=== PATIENT | female | born 1960 ===

== ENCOUNTER 2017-03-08 12:48 | Emergency (ER) | payer OTHER ==
[2017-03-08 12:49] VITALS: BMI 29.2
[2017-03-08 13:02] VITALS: TEMP 98.6
[2017-03-08] MEDS ORDERED: Sodium Chloride 0.9% 1,000 ML IV STA (13:14)
--- NOTE | 2017-03-08 13:27 | C.PDOC ---
History Of Present Illness 56 y/o F c PMHx emphysema p/w fever, body aches, headache, nausea, cough x 4 days. Denies chills, dysuria, diarrhea, dyspnea, stiff neck. Taking Advil, last dose last night. Time Seen by Provider: 03/08/17 13:03 Chief Complaint (Nursing): Flu-like Symptoms Past Medical History Vital Signs: Last Vital Signs Temp 98.6 F 03/08/17 12:59 Pulse 101 H 03/08/17 12:59 Resp 15 03/08/17 12:59 BP 135/75 03/08/17 12:59 Pulse Ox 95 03/08/17 13:36 - Medical History PMH: Anxiety, Asthma, COPD, Depression, Emphysema, Gastritis, Hypercholesterolemia Denies: Chronic Kidney Disease Family History: States: No Known Family Hx - Social History Hx Tobacco Use: No Hx Alcohol Use: No Hx Substance Use: No - Immunization History Hx Tetanus Toxoid Vaccination: No Hx Influenza Vaccination: No Hx Pneumococcal Vaccination: No Review Of Systems Except As Marked, All Systems Reviewed And Found Negative. Cardiovascular: Negative for: Chest Pain Respiratory: Negative for: Shortness of Breath Physical Exam - Physical Exam Additional Physical Exam Comments: Constitutional: No acute distress. Head: Normocephalic. Atraumatic. Eyes: PERRL. ENT: Moist mucous membranes. Neck: Supple. Cardiovascular: Mild tachycardia. Radial pulse 2+ bilaterally. Chest: No tenderness. Respiratory: Clear to auscultation bilaterally. GI: Soft. Nontender. Nondistended. Back: No CVA tenderness. Musculoskeletal: No tenderness or swelling of extremities. Skin: No rash. Neurologic: Alert, no focal deficit. ED Course And Treatment - Laboratory Results Result Diagrams: 03/08/17 13:43 03/08/17 13:43 O2 Sat by Pulse Oximetry: 95 Medical Decision Making Medical Decision Making: UA positive for UTI. Other labs unremarkable. CXR no infiltrate or consolidation. Discharge home, f/u PMD, return to ER for worsening pain, fever, vomiting, dyspnea, or any other problem. Disposition - Disposition Disposition: HOME/ ROUTINE Disposition Time: 15:04 Condition: STABLE Prescriptions: levoFLOXacin [Levaquin] 1 tab PO DAILY #7 tab Ibuprofen [Motrin] 1 tab PO Q6 #30 tab Instructions: Urinary Tract Infection in Women (ED), Viral Syndrome (ED) - Clinical Impression Clinical Impression: Influenza-like illness, UTI (urinary tract infection) - Scribe Statement The provider has reviewed the documentation as recorded by the Narda Eddy Provider Attestation: All medical record entries made by the Narda were at my direction and personally dictated by me. I have reviewed the chart and agree that the record accurately reflects my personal performance of the history, physical exam, medical decision making, and the department course for this patient. I have also personally directed, reviewed, and agree with the discharge instructions and disposition.
[2017-03-08] MEDS ORDERED: Sodium Chloride 0.9% 1,000 ML ONE (13:46)
[2017-03-08 14:00] LABS: BASO # 0.1 K/uL (0.0-0.2); EOS # 0.3 K/uL (0.0-0.7); EOS % 2.3 % (0.0-4.0); HEMATOCRIT 41.4 % (34.0-47.0); LYMPH # 2.2 K/uL (1.0-4.3); MEAN CELL VOLUME 91.4 fL (81.0-99.0); MEAN CORPUSCULAR HEMOGLOBIN 30.3 pg (27.0-31.0); MEAN CORPUSCULAR HGB CONC 33.2 g/dL (33.0-37.0); MEAN PLATELET VOLUME 8.6 fL (7.2-11.7); MONO # 1.2 K/uL (0.0-0.8); MONO % 10.2 % (0.0-10.0); RED CELL DISTRIBUTION WIDTH 13.6 % (11.5-14.5); WHITE BLOOD COUNT 11.7 K/uL (4.8-10.8)
[2017-03-08 14:10] LABS: CHLORIDE 96 mmol/L (98-107); POTASSIUM 3.6 mmol/L (3.6-5.2); SODIUM 136 mmol/L (132-148)
[2017-03-08 14:12] LABS: ALB/GLOB RATIO 1.2 (1.0-2.1); ALKALINE PHOSPHATASE 88 U/L (38-126); AST/SGOT 21 U/L (14-36); BILIRUBIN,TOTAL 0.4 mg/dL (0.2-1.3); CARBON DIOXIDE 28 mmol/L (22-30); GFR AFRICAN-AMERICAN > 60; TOTAL PROTEIN 7.3 g/dL (6.3-8.3)
[2017-03-08 14:13] LABS: ALT/SGPT 25 U/L (9-52); BLOOD UREA NITROGEN 11 mg/dL (7-17); CALCIUM 8.9 mg/dl (8.6-10.4); GLUCOSE,RANDOM 103 mg/dL (65-105)
[2017-03-08 14:20] LABS: RBC URINE 2 /hpf (0-3); URINE BACTERIA MANY (<OCC); URINE BILIRUBIN NEGATIVE (NEGATIVE); URINE BLOOD NEGATIVE (NEGATIVE); URINE COLOR Yellow (YELLOW); URINE GLUCOSE (UA) NORMAL (Normal); URINE KETONE NEGATIVE (NEGATIVE); URINE LEUKOCYTE ESTERASE TRACE Leu/uL (Negative); URINE PROTEIN 1+ mg/dL (NEGATIVE); WBC URINE 13 /hpf (0-5)
--- NOTE | 2017-03-08 15:55 | RAD ---
HISTORY: fever COMPARISON: 09/18/2016 TECHNIQUE: Chest PA and lateral FINDINGS: LUNGS: Biapical pleural thickening with upper lobe granulomatous changes. Chronic interstitial lung markings. Right hilar prominence. Mild patchy increased markings at the left lung base with blunting of the left costophrenic angle and small nodular density at the left costophrenic angle. PLEURA: As above. CARDIOVASCULAR: Normal. OSSEOUS STRUCTURES: No significant abnormalities. VISUALIZED UPPER ABDOMEN: Normal. OTHER FINDINGS: None. IMPRESSION: Biapical pleural thickening with upper lobe granulomatous changes. Chronic interstitial lung markings. Right hilar prominence. Mild patchy increased markings at the left lung base with blunting of the left costophrenic angle and small nodular density at the left costophrenic angle.
[2017-03-08 16:12] VITALS: BP 102/70; PULSE 96; RESP 20; O2SAT 96
== END 2017-03-08 15:30 | disposition home or self-care (01) ==
LOC: C.ER 12:48
DX: J11.1 Influenza due to unidentified influenza virus with other respiratory manifestations (principal); N39.0 Urinary tract infection, site not specified; B96.20 Unspecified Escherichia coli [E. coli] as the cause of diseases classified elsewhere
CPT/HCPCS: 71020; 80053; 81001; 84703; 85025; 87086; 87181; 87804; 96361; 96374; 96375; 99285; J1885; J2405; J7040

== ENCOUNTER 2017-03-08 22:50 | Emergency (ER) | payer OTHER ==
[2017-03-08 22:50] VITALS: BMI 29.2
[2017-03-09] MEDS ORDERED: Sodium Chloride 0.9% 1,000 ML IV ONE (00:11)
[2017-03-09] MEDS ORDERED: Sodium Chloride 0.9% 250 ML IV ONE (00:20)
[2017-03-09 00:43] LABS: BASO # 0.1 K/uL (0.0-0.2); BASO % 0.7 % (0.0-2.0); EOS # 0.4 K/uL (0.0-0.7); HEMATOCRIT 39.1 % (34.0-47.0); LYMPH # 2.8 K/uL (1.0-4.3); LYMPH % 26.2 % (20.0-40.0); MEAN CELL VOLUME 91.4 fL (81.0-99.0); MEAN CORPUSCULAR HEMOGLOBIN 30.5 pg (27.0-31.0); MEAN CORPUSCULAR HGB CONC 33.3 g/dL (33.0-37.0); MEAN PLATELET VOLUME 8.4 fL (7.2-11.7); MONO % 9.1 % (0.0-10.0); RED CELL DISTRIBUTION WIDTH 13.7 % (11.5-14.5); WHITE BLOOD COUNT 10.6 K/uL (4.8-10.8)
[2017-03-09 00:51] LABS: CHLORIDE 100 mmol/L (98-107)
[2017-03-09 00:52] LABS: POTASSIUM 3.6 mmol/L (3.6-5.2); SODIUM 138 mmol/L (132-148)
[2017-03-09 00:54] LABS: ALB/GLOB RATIO 1.2 (1.0-2.1); ALKALINE PHOSPHATASE 86 U/L (38-126); ALT/SGPT 19 U/L (9-52); AST/SGOT 20 U/L (14-36); BILIRUBIN,TOTAL 0.3 mg/dL (0.2-1.3); BLOOD UREA NITROGEN 10 mg/dL (7-17); CARBON DIOXIDE 26 mmol/L (22-30); GFR AFRICAN-AMERICAN > 60; TOTAL PROTEIN 6.7 g/dL (6.3-8.3)
[2017-03-09 00:55] LABS: CALCIUM 8.7 mg/dl (8.6-10.4); GLUCOSE,RANDOM 107 mg/dL (65-105)
--- NOTE | 2017-03-09 02:11 | CT ---
EXAM: CT Head Without Intravenous Contrast CLINICAL HISTORY: 56 years old, female; Pain; Headache; Headache not specified; Additional info: R/O ich TECHNIQUE: Axial computed tomography images of the head/brain without intravenous contrast. This CT exam was performed using one or more of the following dose reduction techniques: automated exposure control, adjustment of the mA and/or kV according to patient size, and/or use of iterative reconstruction technique. EXAM DATE/TIME: 03/09/2017 12:54 AM COMPARISON: CT - HEAD W/O CONTRAST 08/26/2016 11:24:42 PM FINDINGS: Brain: Ventricular size and configuration is unchanged. There is no midline shift. There are no intra-axial or extra-axial mass lesions or areas of hemorrhage. There are no abnormal fluid collections. Dueñas-white differentiation is maintained. Ventricles: See above. Bones: Cranial vault is intact. Soft tissues: unremarkable Sinuses: There is no acute sinusitis. Ears and mastoids: Middle ears and mastoids are unremarkable Orbits: Orbital contents are unremarkable. IMPRESSION: No acute intracranial abnormality
[2017-03-09 03:42] VITALS: BP 112/67; PULSE 86; RESP 18; TEMP 98.4; O2SAT 98
--- NOTE | 2017-03-09 04:18 | C.PDOC ---
History Of Present Illness 56 year old female presents to the ED c/o chest pain with nausea, vomiting, and headaches that started 3 days ago. Patient notes headache as not being worse in life. Patient was seen earlier today in the ED. Patient is + photophobia denies SOB, fever, chills, dizziness, or any other complaints. Chief Complaint (Nursing): Chest Pain History Per: Patient History/Exam Limitations: no limitations Onset/Duration Of Symptoms: Days Current Symptoms Are (Timing): Still Present Severity: Mild Associated Symptoms: Nausea, Other (Nausea, vomiting, headache) Recent travel outside of the [place]: No Past Medical History Reviewed: Historical Data, Nursing Documentation, Vital Signs Vital Signs: Last Vital Signs Temp 98.4 F 03/09/17 03:39 Pulse 86 03/09/17 03:39 Resp 18 03/09/17 03:39 BP 112/67 03/09/17 03:39 Pulse Ox 98 03/09/17 04:29 - Medical History PMH: Anxiety, Asthma, COPD, Depression, Emphysema, Gastritis, Hypercholesterolemia Denies: Chronic Kidney Disease Family History: States: Unknown Family Hx - Social History Hx Tobacco Use: No Hx Alcohol Use: No Hx Substance Use: No - Immunization History Hx Tetanus Toxoid Vaccination: No Hx Influenza Vaccination: No Hx Pneumococcal Vaccination: No Review Of Systems Except As Marked, All Systems Reviewed And Found Negative. Constitutional: Negative for: Fever, Chills Cardiovascular: Positive for: Chest Pain Respiratory: Negative for: Shortness of Breath Gastrointestinal: Positive for: Nausea, Vomiting Neurological: Positive for: Headache (Not worse in life), Other (+ photophobia) . Negative for: Dizziness Physical Exam - Physical Exam Appears: Non-toxic, No Acute Distress Skin: Warm, Dry Head: Atraumatic, Normacephalic Eye(s): bilateral: Normal Inspection Chest: Symmetrical Cardiovascular: Rhythm Regular, No Murmur Respiratory: Normal Breath Sounds, No Rales, No Rhonchi, No Wheezing Gastrointestinal/Abdominal: Soft, No Tenderness Neurological/Psych: Oriented x3, Normal Speech, Normal Cognition ED Course And Treatment - Laboratory Results Result Diagrams: 03/09/17 00:41 03/09/17 00:41 ECG: Interpreted By Me, Viewed By Me ECG Rhythm: Sinus Rhythm (81) ECG Interpretation: Normal O2 Sat by Pulse Oximetry: 98 (Room air) Pulse Ox Interpretation: Normal Medical Decision Making Medical Decision Making: Plans: -EKG -CXR -Flexeril -Pepcid -Reglan -IV fluids -Toradol -Zofran -Reassess and disposition Pt is with UTI. On reassessment, patient is resting comfortably, and is in no acute distress. Patient was instructed to follow up with physician/clinic in 1-2 days for further evaluation Disposition - Disposition Referrals: [facility], [Non-Staff] - Disposition: HOME/ ROUTINE Disposition Time: 03:00 Condition: GOOD Additional Instructions: Thank you for letting us take care of you today. Your provider was Dr. Valadez. You were treated for tension headache. The emergency medical care you received today was directed at your acute symptoms. If you were prescribed any medication, please fill it and take as directed. It may take several days for your symptoms to resolve. Return to the Emergency Department if your symptoms worsen, do not improve, or if you have any other problems. Please contact your doctor or call one of the physicians/clinics you have been referred to that are listed on the Patient Visit Information form that is included in your discharge packet. Bring any paperwork you were given at discharge with you along with any medications you are taking to your follow up visit. Our treatment cannot replace ongoing medical care by a primary care provider (PCP) outside of the emergency department. Thank you for allowing the Critical access hospital team to be part of your care today. Follow up with your doctor in 2-3 days to be re-evaluated. Prescriptions: Meclizine [Meclizine*] 25 mg PO Q6 PRN #20 tab PRN Reason: Dizziness Instructions: Migraine Headache (ED) Forms: Gen Discharge Inst Bruneian Print Language: BENINESE - Clinical Impression Clinical Impression: Tension headache - Scribe Statement The provider has reviewed the documentation as recorded by the Scribe Beverley Jeffries All medical record entries made by the Scribe were at my direction and personally dictated by me. I have reviewed the chart and agree that the record accurately reflects my personal performance of the history, physical exam, medical decision making, and the department course for this patient. I have also personally directed, reviewed, and agree with the discharge instructions and disposition.
--- NOTE | 2017-03-09 08:50 | RAD ---
HISTORY: chest pain COMPARISON: 03/08/2017 FINDINGS: LUNGS: Mild venous congestion. Mild bilateral hilar prominence. Upper lobe granulomatous changes. No focal infiltrate or effusion. PLEURA: No significant pleural effusion identified, no pneumothorax apparent. CARDIOVASCULAR: Normal. OSSEOUS STRUCTURES: No significant abnormalities. VISUALIZED UPPER ABDOMEN: Normal. OTHER FINDINGS: None. IMPRESSION: Mild venous congestion. Mild bilateral hilar prominence. Upper lobe granulomatous changes. No focal infiltrate or effusion.
--- NOTE | 2017-03-19 08:44 | CARD ---
APPROVED REPORT EKG Measurement Heart [id number] <Conclusion> Normal sinus rhythm Possible Left atrial enlargement Abnormal ECG
== END 2017-03-09 03:42 | disposition home or self-care (01) ==
LOC: C.ER 22:50
DX: G44.209 Tension-type headache, unspecified, not intractable (principal)
CPT/HCPCS: 70450; 71010; 80053; 83690; 84484; 85025; 93005; 96361; 96374; 96375; 99284; J1885; J2405; J2765; J7040

== ENCOUNTER 2017-04-09 18:55 | Inpatient (IN) | payer OTHER ==
[2017-04-09 18:56] VITALS: BMI 29.2
--- NOTE | 2017-04-09 19:25 | C.PDOC ---
History Of Present Illness Patient presents to the ER with a complaint of feeling progressively SOB over the last couple of days. Patient also reports having a cough with yellow/white sputum. Patient is speaking in complete sentences and denies fever or chills. Time Seen by Provider: 04/09/17 19:25 Chief Complaint (Nursing): Shortness Of Breath History Per: Patient History/Exam Limitations: no limitations Onset/Duration Of Symptoms: Days Current Symptoms Are (Timing): Still Present Initiating Event: Other (Not known) Quality: Other (No pain) Current Respiratory Medications: None Severity: None Pain Scale Rating Of: 0 Associated Symptoms: Productive Cough. denies: Fever, Chills Recent travel outside of the [place]: No Past Medical History Reviewed: Historical Data, Nursing Documentation, Vital Signs Vital Signs: Last Vital Signs Temp 100.2 F H 04/09/17 20:23 Pulse 118 H 04/09/17 20:49 Resp 16 04/09/17 20:49 BP 147/72 04/09/17 20:49 Pulse Ox 95 04/09/17 20:49 - Medical History PMH: Anxiety, Asthma, COPD, Depression, Emphysema, Gastritis, Hypercholesterolemia Surgical History: No Surg Hx Family History: States: No Known Family Hx - Social History Hx Tobacco Use: No Hx Alcohol Use: No Hx Substance Use: No - Immunization History Hx Tetanus Toxoid Vaccination: No Hx Influenza Vaccination: No Hx Pneumococcal Vaccination: No Review Of Systems Constitutional: Negative for: Fever, Chills Respiratory: Positive for: Cough, Shortness of Breath, Sputum (Yellow/white) Physical Exam - Physical Exam Appears: Well, Non-toxic Skin: Warm, Dry Oral Mucosa: Moist Chest: Symmetrical, No Tenderness Cardiovascular: Rhythm Regular, No Murmur Respiratory: No Rales, Rhonchi (Scattered), Wheezing (Throughout) Gastrointestinal/Abdominal: Soft, No Tenderness Neurological/Psych: Oriented x3 ED Course And Treatment - Laboratory Results Result Diagrams: 04/09/17 19:59 04/09/17 19:59 O2 Sat by Pulse Oximetry: 96 (Room air) Pulse Ox Interpretation: Normal - Radiology CXR: Interpreted by Me, Viewed By Me CXR Interpretation: Yes: Other (unchanged from 03/09/17). No: Infiltrates, Fracture, Pnemothorax Progress Note: EKG, blood work, CXR and urinalysis ordered. Nebulizer treatment administered. pt refused abg. will do vbg Critical Care Time - Critical Care Note Total Time (in mins): 30 Documented critical care: time excludes all time spent performing seperately billable procedures. Disposition Discussed With Dr.: Talat Lugo Comment: accepted the pt onhis service and took over the care at 9:09 PM Doctor Will See Patient In The: ED Counseled Patient/Family Regarding: Studies Performed, Diagnosis - Disposition Disposition: HOSPITALIZED Disposition Time: 19:25 Condition: FAIR - POA Present On Arrival: None - Clinical Impression Clinical Impression: Exacerbation of asthma - Scribe Statement The provider has reviewed the documentation as recorded by the Scribe Chase Hammer All medical record entries made by the Scribe were at my direction and personally dictated by me. I have reviewed the chart and agree that the record accurately reflects my personal performance of the history, physical exam, medical decision making, and the department course for this patient. I have also personally directed, reviewed, and agree with the discharge instructions and disposition. Decision To Admit - Pt Status Changed To: Hospital Disposition Of: Inpatient - Admit Certification Admit to Inpatient:: After my assessment, the patient will require hospitalization for at least two midnights. This is because of the severity of symptoms shown, intensity of services needed, and/or the medical risk in this patient being treated as an outpatient. - InPatient: Physician Admission Certification: I certify that this patient requires 2 or more midnights of care for the following reason:: After my assessment, the patient will require hospitalization for at least two midnights. This is because of the severity of symptoms shown, intensity of services needed, and/or the medical risk in this patient being treated as an outpatient. - . Bed Request Type: Regular Admitting Physician: Talat Lugo Patient Diagnosis: Exacerbation of asthma, Dyspnea
[2017-04-09] MEDS ORDERED: Albuterol-Ipratrop 3 mg / 0.5 (3 ml) UD ONE ×4 (19:33→21:21)
[2017-04-09] MEDS: Albuterol-Ipratrop 3 mg / 0.5 (3 ml) UD IH SCH ×6 (20:00→21:27)
[2017-04-09 20:04] LABS: BASO # 0.1 K/uL (0.0-0.2); BASO % 0.9 % (0.0-2.0); EOS # 0.3 K/uL (0.0-0.7); EOS % 3.2 % (0.0-4.0); LYMPH # 2.4 K/uL (1.0-4.3); LYMPH % 21.9 % (20.0-40.0); MEAN CELL VOLUME 91.1 fL (81.0-99.0); MEAN CORPUSCULAR HEMOGLOBIN 30.9 pg (27.0-31.0); MEAN CORPUSCULAR HGB CONC 33.9 g/dL (33.0-37.0); MEAN PLATELET VOLUME 8.6 fL (7.2-11.7); MONO # 0.8 K/uL (0.0-0.8); MONO % 7.2 % (0.0-10.0); RED CELL DISTRIBUTION WIDTH 13.9 % (11.5-14.5); WHITE BLOOD COUNT 10.7 K/uL (4.8-10.8)
[2017-04-09 20:10] LABS: INR 0.9
[2017-04-09 20:12] LABS: VENOUS BLOOD GAS PCO2 57 mmHg (40-60); VENOUS BLOOD PH 7.28 (7.32-7.43)
[2017-04-09 20:27] LABS: CHLORIDE 99 mmol/L (98-107); SODIUM 134 mmol/L (132-148)
[2017-04-09 20:29] LABS: BILIRUBIN,TOTAL 1.1 mg/dL (0.2-1.3); CARBON DIOXIDE 25 mmol/L (22-30); GFR AFRICAN-AMERICAN > 60
[2017-04-09 20:30] LABS: ALB/GLOB RATIO 1.3 (1.0-2.1); ALKALINE PHOSPHATASE 94 U/L (38-126); ALT/SGPT 20 U/L (9-52); AST/SGOT 37 U/L (14-36); BLOOD UREA NITROGEN 11 mg/dL (7-17); GLUCOSE,RANDOM 82 mg/dL (65-105); TOTAL PROTEIN 8.1 g/dL (6.3-8.3)
[2017-04-09 21:17] LABS: RBC URINE 1 /hpf (0-3); URINE BACTERIA OCC (<OCC); URINE BILIRUBIN NEGATIVE (NEGATIVE); URINE BLOOD NEGATIVE (NEGATIVE); URINE COLOR Yellow (YELLOW); URINE GLUCOSE (UA) NORMAL (Normal); URINE KETONE NEGATIVE (NEGATIVE); URINE LEUKOCYTE ESTERASE 1+ Leu/uL (Negative); URINE PROTEIN NEGATIVE (NEGATIVE); URINE UROBILINOGEN NORMAL mg/dL (0.2-1.0); WBC URINE 17 /hpf (0-5)
[2017-04-09] MEDS: MethylPREDNISolone 40 mg Vial IVP SCH (23:32)
[2017-04-10 00:21] VITALS: RESP 20
--- NOTE | 2017-04-10 00:40 | CP.PCM.HP ---
<Ortega Fernandes - Last Filed: 04/10/17 00:11> History of Present Illness - History of Present Illness History of Present Illness: CC: "I feel short of breath." 54 F with PMH of COPD, Asthma, and HLD, presents to [facility] ED with complaint of SOB, subjective fever and body aches. Patient stated that her symptoms began yesterday while she was at home. She states that she tried albuterol, but it did not help. Also, she states she took her prednisone and it seemed to help. She reports that she has not experienced these symptoms before. She states her father also had body aches at home, but denies recent illness. She rates the body aches as 8/10 in severity. She describe them as constant dull ache in shoulders, back, and extremities. She denies any exacerbating or alleviating factors. Admits to fever/chills, dizziness, palpitations, productive cough. Denies chest pain, abdominal pain, n/v/d, headache, incontinence, and urinary symptoms. PMD: Dr. Oneill PMH: COPD Meds: As per EMR Allergies: NKDA PSH: CS x 3 Hosp: An admission in June 2016 for similar complaint FH: HTN and [place] (mom and dad) Social: 1 cigarette per day, has been smoking for 40 years. Denies drinking and drugs. Does not work. Present on Admission - Present on Admission Any Indicators Present on Admission: No History of DVT/PE: No History of Uncontrolled Diabetes: No Urinary Catheter: No Decubitus Ulcer Present: No Review of Systems - Review of Systems All systems: reviewed and no additional remarkable complaints except (as per HPI ) Past Patient History - Infectious Disease Hx of Infectious Diseases: None - Past Medical History & Family History Past Medical History?: Yes - Past Social History Smoking Status: Light Smoker < 10 Cigarettes Daily - CARDIAC Hx Hypercholesterolemia: Yes - PULMONARY Hx Asthma: Yes Hx Chronic Obstructive Pulmonary Disease (COPD): Yes Hx Emphysema: Yes - NEUROLOGICAL Hx Neurological Disorder: No - HEENT Hx HEENT Problems: No - RENAL Hx Chronic Kidney Disease: No - ENDOCRINE/METABOLIC Hx Endocrine Disorders: No - HEMATOLOGICAL/ONCOLOGICAL Hx Blood Disorders: No - INTEGUMENTARY Hx Dermatological Problems: No - MUSCULOSKELETAL/RHEUMATOLOGICAL Hx Musculoskeletal Disorders: No Hx Falls: No - GASTROINTESTINAL Hx Gastritis: Yes - GENITOURINARY/GYNECOLOGICAL Hx Genitourinary Disorders: No - PSYCHIATRIC Hx Anxiety: Yes Hx Depression: Yes Hx Substance Use: No - SURGICAL HISTORY Hx Surgeries: Yes Hx Section: Yes (x3) - ANESTHESIA Hx Anesthesia: Yes Hx Anesthesia Reactions: No Hx Malignant Hyperthermia: No Meds Allergies/Adverse Reactions: Allergies Allergy/AdvReac Type Severity Reaction Status Date / Time No Known Allergies Allergy Verified 04/09/17 19:23 Physical Exam - Constitutional Appears: In Acute Distress (mild) - Head Exam Head Exam: ATRAUMATIC, NORMOCEPHALIC - Eye Exam Eye Exam: EOMI, Normal appearance Pupil Exam: PERRL - ENT Exam ENT Exam: Mucous Membranes Dry - Neck Exam Neck exam: Positive for: Normal Inspection - Respiratory Exam Respiratory Exam: Decreased Breath Sounds, Wheezes, NORMAL BREATHING PATTERN. absent: Accessory Muscle Use, Respiratory Distress - Cardiovascular Exam Cardiovascular Exam: Tachycardia, REGULAR RHYTHM, +S1, +S2 - GI/Abdominal Exam GI & Abdominal Exam: Normal Bowel Sounds, Soft. absent: Tenderness - Extremities Exam Extremities exam: Positive for: normal capillary refill, pedal pulses present. Negative for: pedal edema - Back Exam Back exam: absent: CVA tenderness (L), CVA tenderness (R) - Neurological Exam Neurological exam: Alert, CN II-XII Intact, Oriented x3 - Psychiatric Exam Psychiatric exam: Anxious - Skin Skin Exam: Dry, Intact, Normal Color, Warm Results - Vital Signs Recent Vital Signs: Last Vital Signs Temp 98.4 F 04/09/17 22:20 Pulse 127 H 04/09/17 22:20 Resp 22 04/09/17 22:20 BP 105/63 04/09/17 22:20 Pulse Ox 95 04/09/17 22:20 - Labs Result Diagrams: 04/09/17 19:59 04/09/17 19:59 Assessment & Plan - Assessment and Plan (Free Text) Plan: (1) Dyspnea Asthma/COPD exacerbation vs Influenza f/u Legionella, urin f/u Strep pneumo f/u mycoplasma Influena A B CXR Solumedrol 40 mg IVP q8 hours Duonebs q6h Consult Dr. Howell (Pulmonology) Tamiflu BID Nasal canula 2L (2) Hyperlipidemia Start Crestor 2.5 mg po HS (3) Prophylactic measure Lovenox 40mg SC daily Protonix 40mg IVP daily Scds <Lugo,Talat A - Last Filed: 04/10/17 06:09> Results - Vital Signs Recent Vital Signs: Last Vital Signs Temp 99 F 04/10/17 05:47 Pulse 100 H 04/10/17 05:47 Resp 20 04/10/17 05:47 BP 116/72 04/10/17 05:47 Pulse Ox 96 04/10/17 05:47 - Labs Result Diagrams: 04/09/17 19:59 04/09/17 19:59 Assessment & Plan - Date & Time Date: 04/10/17 (I have seen and examined the patient. I agree with the findings and plan of care as documented by Dr. Fernandes. Patient with asthma exacerbation. Nebs, oxygen, solumedrol, and pulm consult. Peak flow before and after treatment. Check influenza. Monitor for acute changes.) Time: 06:07 Attending/Attestation - Attestation I have personally seen and examined this patient.: Yes I have fully participated in the care of the patient.: Yes I have reviewed all pertinent clinical information: Yes
[2017-04-10] MEDS: Albuterol-Ipratrop 3 mg / 0.5 (3 ml) UD INH SCH ×2 (01:53→08:07)
[2017-04-10] MEDS: MethylPREDNISolone 40 mg Vial IVP SCH ×4 (05:42→22:35)
[2017-04-10 07:22] LABS: BASO % 0.3 % (0.0-2.0); HEMATOCRIT 41.4 % (34.0-47.0); LYMPH # 0.5 K/uL (1.0-4.3); LYMPH % 5.7 % (20.0-40.0); MEAN CELL VOLUME 92.2 fL (81.0-99.0); MEAN CORPUSCULAR HEMOGLOBIN 30.6 pg (27.0-31.0); MEAN CORPUSCULAR HGB CONC 33.2 g/dL (33.0-37.0); MEAN PLATELET VOLUME 8.7 fL (7.2-11.7); MONO # 0.1 K/uL (0.0-0.8); MONO % 0.9 % (0.0-10.0); NRBC % 0.1 % (0.0-2.0); PLATELET COUNT 211 K/uL (130-400); RED CELL DISTRIBUTION WIDTH 13.4 % (11.5-14.5); WHITE BLOOD COUNT 9.2 K/uL (4.8-10.8)
[2017-04-10 07:23] LABS: INR 0.9
--- NOTE | 2017-04-10 07:38 | RAD ---
PROCEDURE: CHEST RADIOGRAPH, 1 VIEW HISTORY: SOB COMPARISON: None available. FINDINGS: LUNGS: Clear. PLEURA: Blunting of the left costophrenic angle. CARDIOVASCULAR: Normal. OSSEOUS STRUCTURES: No significant abnormalities. VISUALIZED UPPER ABDOMEN: Normal. OTHER FINDINGS: None. IMPRESSION: No evidence of acute pulmonary disease. Blunting of the left costophrenic angle of uncertain etiology.
[2017-04-10 07:53] LABS: CHLORIDE 99 mmol/L (98-107)
[2017-04-10 07:54] LABS: SODIUM 135 mmol/L (132-148)
[2017-04-10 07:56] LABS: ALB/GLOB RATIO 1.3 (1.0-2.1); ALKALINE PHOSPHATASE 81 U/L (38-126); ALT/SGPT 16 U/L (9-52); AST/SGOT 24 U/L (14-36); BILIRUBIN,TOTAL 0.6 mg/dL (0.2-1.3); BLOOD UREA NITROGEN 11 mg/dL (7-17); CARBON DIOXIDE 19 mmol/L (22-30); GFR AFRICAN-AMERICAN > 60; GLUCOSE,RANDOM 157 mg/dL (65-105); TOTAL PROTEIN 7.3 g/dL (6.3-8.3)
[2017-04-10 07:57] LABS: CALCIUM 9.4 mg/dl (8.6-10.4)
[2017-04-10 09:05] LABS: GIANT PLATELETS PRESENT; LARGE PLATELETS PRESENT; NEUTROPHIL 89 % (50-75); TOTAL CELLS COUNTED 100
[2017-04-10] MEDS: Pantoprazole 40 mg EC Tab PO SCH (11:24)
[2017-04-10] MEDS: Enoxaparin 40 mg Syringe SC SCH (11:24)
[2017-04-10 11:26] LABS: LEGIONELLA AG URINE NEGATIVE (NEGATIVE)
--- NOTE | 2017-04-10 12:45 | CP.PCM.CON ---
History of Present Illness - History of Present Illness History of Present Illness: Reason for consultation: Shortness of breath 54 F with PMH of COPD, and HLD, presents to [facility] ED with complaint of SOB. Patient stated that her symptoms began yesterday while she was at home. She states that she tried albuterol, but it did not help. Also, she states she took her prednisone and it seemed to help. Admits to fever/chills, dizziness, palpitations, productive cough. Denies chest pain, abdominal pain, n/ v/d, headache, incontinence, and urinary symptoms. PMH: COPD Meds: As per EMR Allergies: NKDA PSH: CS x 3 Hosp: An admission in June 2016 for similar complaint FH: HTN and [place] (mom and dad) Social: 1 cigarette per day, has been smoking for 40 years. Denies drinking and drugs. Does not work. Review of Systems - Review of Systems Systems not reviewed;Unavailable: Language Barrier Past Patient History - Infectious Disease Hx of Infectious Diseases: None - Past Medical History & Family History Past Medical History?: Yes - Past Social History Smoking Status: Light Smoker < 10 Cigarettes Daily - CARDIAC Hx Hypercholesterolemia: Yes - PULMONARY Hx Asthma: Yes Hx Chronic Obstructive Pulmonary Disease (COPD): Yes Hx Emphysema: Yes - NEUROLOGICAL Hx Neurological Disorder: No - HEENT Hx HEENT Problems: No - RENAL Hx Chronic Kidney Disease: No - ENDOCRINE/METABOLIC Hx Endocrine Disorders: No - HEMATOLOGICAL/ONCOLOGICAL Hx Blood Disorders: No - INTEGUMENTARY Hx Dermatological Problems: No - MUSCULOSKELETAL/RHEUMATOLOGICAL Hx Musculoskeletal Disorders: No Hx Falls: No - GASTROINTESTINAL Hx Gastritis: Yes - GENITOURINARY/GYNECOLOGICAL Hx Genitourinary Disorders: No - PSYCHIATRIC Hx Anxiety: Yes Hx Depression: Yes Hx Substance Use: No - SURGICAL HISTORY Hx Surgeries: Yes Hx Section: Yes (x3) - ANESTHESIA Hx Anesthesia: Yes Hx Anesthesia Reactions: No Hx Malignant Hyperthermia: No Meds Allergies/Adverse Reactions: Allergies Allergy/AdvReac Type Severity Reaction Status Date / Time No Known Allergies Allergy Verified 04/09/17 19:23 - Medications Medications: Current Medications Acetaminophen (Tylenol 325mg Tab) 650 mg PO Q6 PRN PRN Reason: Fever >100.4 F Last Admin: 04/10/17 05:45 Dose: 650 mg Albuterol/Ipratropium (Duoneb 3 Mg/0.5 Mg (3 Ml) Ud) 3 ml INH RQ6 [facility] Last Admin: 04/10/17 08:07 Dose: 3 ml Enoxaparin Sodium (Lovenox) 40 mg SC DAILY [facility] Last Admin: 04/10/17 11:24 Dose: 40 mg Methylprednisolone (Solu-Medrol) 40 mg IVP Q8H [facility] Last Admin: 04/10/17 05:42 Dose: 40 mg Ondansetron HCl (Zofran Inj) 4 mg IVP Q6 PRN PRN Reason: Nausea/Vomiting Oseltamivir Phosphate (Tamiflu Cap) 75 mg PO BID [facility] Stop: 04/14/17 22:28 Last Admin: 04/10/17 11:22 Dose: 75 mg Pantoprazole Sodium (Protonix Ec Tab) 40 mg PO DAILY [facility] Last Admin: 04/10/17 11:24 Dose: 40 mg Pneumococcal Polyvalent Vaccine (Pneumovax 23 Vaccine) 0.5 ml IM .ONCE ONE Stop: 04/12/17 10:01 Rosuvastatin Calcium (Crestor) 2.5 mg PO [facility] Physical Exam - Constitutional Appears: No Acute Distress - Head Exam Head Exam: ATRAUMATIC, NORMOCEPHALIC - Eye Exam Eye Exam: Normal appearance - ENT Exam ENT Exam: Mucous Membranes Moist - Neck Exam Neck exam: Positive for: Normal Inspection - Respiratory Exam Respiratory Exam: Rhonchi, Wheezes - Cardiovascular Exam Cardiovascular Exam: REGULAR RHYTHM - GI/Abdominal Exam GI & Abdominal Exam: Normal Bowel Sounds, Soft - Extremities Exam Extremities exam: Positive for: normal inspection - Neurological Exam Neurological exam: Alert, Oriented x3 Results - Vital Signs Recent Vital Signs: Last Vital Signs Temp 98.1 F 04/10/17 08:40 Pulse 104 H 04/10/17 08:40 Resp 20 04/10/17 08:40 BP 126/78 04/10/17 08:40 Pulse Ox 95 04/10/17 08:40 - Labs Result Diagrams: 04/10/17 07:07 04/10/17 07:07 Labs: Laboratory Results - last 24 hr 04/09/17 04/10/17 04/10/17 22:26 07:07 07:07 WBC 9.2 RBC 4.49 Hgb 13.7 Hct 41.4 MCV 92.2 MCH 30.6 MCHC 33.2 RDW 13.4 Plt Count 211 MPV 8.7 Neut % (Auto) 93.1 H Lymph % (Auto) 5.7 L [place] % (Auto) 0.9 Eos % (Auto) 0.0 Baso % (Auto) 0.3 Neut # 8.5 H Lymph # 0.5 L [place] # 0.1 Eos # 0.0 Baso # 0.0 Neutrophils % (Manual) 89 H Band Neutrophils % 3 H Lymphocytes % (Manual) 6 L Monocytes % (Manual) 2 Platelet Estimate Normal Large Platelets Present Giant Platelets Present RBC Morphology Normal PT 9.7 INR 0.9 APTT 27 Sodium Potassium Chloride Carbon Dioxide Anion Gap BUN Creatinine Est GFR ( Amer) Est GFR (Non-Af Amer) POC Glucose (mg/dL) Random Glucose Calcium Total Bilirubin AST ALT Alkaline Phosphatase Total Protein Albumin Globulin Albumin/Globulin Ratio Influenza Typ A,B (EIA) Negative for flu a/b Ur L.pneumophila Ag Mycoplasma pneumon IgM 04/10/17 04/10/17 04/10/17 07:07 07:12 08:11 WBC RBC Hgb Hct MCV MCH MCHC RDW Plt Count MPV Neut % (Auto) Lymph % (Auto) [place] % (Auto) Eos % (Auto) Baso % (Auto) Neut # Lymph # [place] # Eos # Baso # Neutrophils % (Manual) Band Neutrophils % Lymphocytes % (Manual) Monocytes % (Manual) Platelet Estimate Large Platelets Giant Platelets RBC Morphology PT INR APTT Sodium 135 Potassium 4.0 Chloride 99 Carbon Dioxide 19 L Anion Gap 21 H BUN 11 Creatinine 0.7 Est GFR ( Amer) > 60 Est GFR (Non-Af Amer) > 60 POC Glucose (mg/dL) 133 H Random Glucose 157 H Calcium 9.4 Total Bilirubin 0.6 AST 24 ALT 16 Alkaline Phosphatase 81 Total Protein 7.3 Albumin 4.1 Globulin 3.2 Albumin/Globulin Ratio 1.3 Influenza Typ A,B (EIA) Ur L.pneumophila Ag Negative Mycoplasma pneumon IgM Negative 04/10/17 11:38 WBC RBC Hgb Hct MCV MCH MCHC RDW Plt Count MPV Neut % (Auto) Lymph % (Auto) [place] % (Auto) Eos % (Auto) Baso % (Auto) Neut # Lymph # [place] # Eos # Baso # Neutrophils % (Manual) Band Neutrophils % Lymphocytes % (Manual) Monocytes % (Manual) Platelet Estimate Large Platelets Giant Platelets RBC Morphology PT INR APTT Sodium Potassium Chloride Carbon Dioxide Anion Gap BUN Creatinine Est GFR ( Amer) Est GFR (Non-Af Amer) POC Glucose (mg/dL) 209 H Random Glucose Calcium Total Bilirubin AST ALT Alkaline Phosphatase Total Protein Albumin Globulin Albumin/Globulin Ratio Influenza Typ A,B (EIA) Ur L.pneumophila Ag Mycoplasma pneumon IgM Assessment & Plan (1) COPD exacerbation Status: Acute Comment: 56-year-old female with long history of smoking presented to emergency room with worsening shortness of breath not responding to nebulizer treatment. Presentation consistent with COPD exacerbation. Continue IV steroids, nebulizer treatment and add Spiriva. Avelox 400 mg once daily
[2017-04-10] MEDS: Moxifloxacin IV 400mg/250ml NS 400 MG/250 ML BAG IVPB SCH (14:17)
[2017-04-10] MEDS: Albuterol HFA 90 mcg/actuation (8 g) INH SCH ×2 (16:36→19:52)
[2017-04-10] MEDS: Rosuvastatin Calcium 2.5 mg Tab PO SCH (22:35)
[2017-04-11] MEDS: Albuterol HFA 90 mcg/actuation (8 g) INH SCH ×6 (00:55→19:22)
[2017-04-11] MEDS: MethylPREDNISolone 40 mg Vial IVP SCH ×2 (05:50→21:55)
[2017-04-11 07:33] LABS: BASO % 0.1 % (0.0-2.0); LYMPH # 1.3 K/uL (1.0-4.3); MEAN CELL VOLUME 91.7 fL (81.0-99.0); MEAN CORPUSCULAR HEMOGLOBIN 29.7 pg (27.0-31.0); MEAN CORPUSCULAR HGB CONC 32.3 g/dL (33.0-37.0); MEAN PLATELET VOLUME 8.9 fL (7.2-11.7); MONO # 0.7 K/uL (0.0-0.8); MONO % 3.2 % (0.0-10.0); PLATELET COUNT 217 K/uL (130-400); RED CELL DISTRIBUTION WIDTH 13.8 % (11.5-14.5)
[2017-04-11 07:40] LABS: CHLORIDE 101 mmol/L (98-107); POTASSIUM 4.3 mmol/L (3.6-5.2); SODIUM 135 mmol/L (132-148)
[2017-04-11 07:43] LABS: ALB/GLOB RATIO 1.2 (1.0-2.1); ALKALINE PHOSPHATASE 84 U/L (38-126); ALT/SGPT 20 U/L (9-52); AST/SGOT 26 U/L (14-36); BILIRUBIN,TOTAL 0.5 mg/dL (0.2-1.3); BLOOD UREA NITROGEN 16 mg/dL (7-17); CALCIUM 9.3 mg/dl (8.6-10.4); CARBON DIOXIDE 25 mmol/L (22-30); GFR AFRICAN-AMERICAN > 60; GLUCOSE,RANDOM 136 mg/dL (65-105); TOTAL PROTEIN 6.8 g/dL (6.3-8.3); WHITE BLOOD COUNT 21.8 K/uL (4.8-10.8)
[2017-04-11] MEDS: Tiotropium 18 mcg Cap For Inhalation INH SCH (08:12)
[2017-04-11 09:39] LABS: TOTAL CELLS COUNTED 100
[2017-04-11 09:40] LABS: NEUTROPHIL 85 % (50-75)
[2017-04-11] MEDS: Pantoprazole 40 mg EC Tab PO SCH (10:10)
[2017-04-11] MEDS: Enoxaparin 40 mg Syringe SC SCH (10:15)
[2017-04-11] MEDS: Saccharomyces Boulardi 250 mg Cap PO SCH ×2 (10:54→21:55)
[2017-04-11] MEDS: Moxifloxacin IV 400mg/250ml NS 400 MG/250 ML BAG IVPB SCH (13:39)
--- NOTE | 2017-04-11 13:56 | CP.PCM.PN ---
<Joel Bowen - Last Filed: 04/11/17 13:56> Subjective - Date & Time of Evaluation Date of Evaluation: 04/11/17 Time of Evaluation: 13:55 - Subjective Subjective: Med progress note. Attending: Dr. Castro Pt seen and examined at bedside. No acute distress. Pt feeling much better. Says sob is improved, denies fevers, chills, n/v/d. Denies cp. PT eval pending. Objective - Vital Signs/Intake and Output Vital Signs (last 24 hours): Temp Pulse Resp BP Pulse Ox 98.2 F 79 20 125/69 96 04/11/17 08:05 04/11/17 08:05 04/11/17 08:05 04/11/17 08:05 04/11/17 08:05 Intake and Output: 04/11/17 04/11/17 06:59 18:59 Intake Total 715 Balance 715 - Medications Medications: Current Medications Acetaminophen (Tylenol 325mg Tab) 650 mg PO Q6 PRN PRN Reason: Fever >100.4 F Last Admin: 04/10/17 13:24 Dose: 650 mg Albuterol (Ventolin Hfa 90 Mcg/Actuation (8 G)) 1 puff INH RQ4 [facility] Last Admin: 04/11/17 11:43 Dose: 1 puff Enoxaparin Sodium (Lovenox) 40 mg SC DAILY [facility] Last Admin: 04/11/17 10:15 Dose: 40 mg Moxifloxacin HCl (Avelox Iv 400mg/250ml Ns) 400 mg in 250 mls @ 167 mls/hr IVPB Q24H [facility] Last Admin: 04/11/17 13:39 Dose: 167 mls/hr Methylprednisolone (Solu-Medrol) 40 mg IVP Q12 [facility] Ondansetron HCl (Zofran Inj) 4 mg IVP Q6 PRN PRN Reason: Nausea/Vomiting Oseltamivir Phosphate (Tamiflu Cap) 75 mg PO BID [facility] Stop: 04/14/17 22:28 Last Admin: 04/11/17 10:00 Dose: 75 mg Pantoprazole Sodium (Protonix Ec Tab) 40 mg PO DAILY [facility] Last Admin: 04/11/17 10:10 Dose: 40 mg Pneumococcal Polyvalent Vaccine (Pneumovax 23 Vaccine) 0.5 ml IM .ONCE ONE Stop: 04/12/17 10:01 Rosuvastatin Calcium (Crestor) 2.5 mg PO HS [facility] Last Admin: 04/10/17 22:35 Dose: 2.5 mg Saccharomyces Boulardii (Florastor) 250 mg PO BID [facility] Last Admin: 04/11/17 10:54 Dose: 250 mg Tiotropium [place] (Spiriva) 18 mcg INH RQ24 [facility] Last Admin: 04/11/17 08:12 Dose: Not Given - Labs Labs: 04/11/17 07:07 04/11/17 07:07 PT 9.7 SECONDS (9.7-12.2) 04/10/17 07:07 INR 0.9 04/10/17 07:07 APTT 27 SECONDS (21-34) 04/10/17 07:07 - Constitutional Appears: Non-toxic, No Acute Distress - Head Exam Head Exam: ATRAUMATIC, NORMAL INSPECTION, NORMOCEPHALIC - Eye Exam Eye Exam: EOMI - ENT Exam ENT Exam: Mucous Membranes Moist - Neck Exam Neck Exam: Full ROM, Normal Inspection - Respiratory Exam Respiratory Exam: Wheezes. absent: Respiratory Distress - Cardiovascular Exam Cardiovascular Exam: REGULAR RHYTHM, +S1, +S2 - GI/Abdominal Exam GI & Abdominal Exam: Soft, Normal Bowel Sounds. absent: Tenderness - Extremities Exam Extremities Exam: Full ROM, Normal Inspection - Neurological Exam Neurological Exam: Alert, Awake, Oriented x3 - Psychiatric Exam Psychiatric exam: Normal Affect, Normal Mood - Skin Skin Exam: Dry, Intact, Normal Color, Warm Assessment and Plan - Assessment and Plan (Free Text) Assessment: This is a 56 yo female presenting with COPD exacerbation (1) Dyspnea/COPD exacerbation Asthma/COPD exacerbation vs Influenza>>> flu negative Influena A B negative CXR shows blunting left costophrenic angle Solumedrol 40 mg IVP q12 hours albuterol q 4 and spiriva [address] Howell (Pulmonology). recs appreciated. Tamiflu BID Nasal canula 2L continue moxifloxacin 250 daily, day 2 (2) Hyperlipidemia continue Crestor 2.5 mg po HS (3) Prophylactic measure Lovenox 40mg SC daily Protonix 40mg IVP daily Scds dw Dr. Castro <Delilah Castro V - Last Filed: 04/11/17 17:52> Objective - Vital Signs/Intake and Output Vital Signs (last 24 hours): Temp Pulse Resp BP Pulse Ox 98.1 F 81 20 125/75 95 04/11/17 15:00 04/11/17 15:00 04/11/17 15:00 04/11/17 15:00 04/11/17 15:00 Intake and Output: 04/11/17 04/11/17 06:59 18:59 Intake Total 715 490 Balance 715 490 - Medications Medications: Current Medications Acetaminophen (Tylenol 325mg Tab) 650 mg PO Q6 PRN PRN Reason: Fever >100.4 F Last Admin: 04/10/17 13:24 Dose: 650 mg Albuterol (Ventolin Hfa 90 Mcg/Actuation (8 G)) 1 puff INH RQ4 [facility] Last Admin: 04/11/17 15:40 Dose: 1 puff Enoxaparin Sodium (Lovenox) 40 mg SC DAILY [facility] Last Admin: 04/11/17 10:15 Dose: 40 mg Moxifloxacin HCl (Avelox Iv 400mg/250ml Ns) 400 mg in 250 mls @ 167 mls/hr IVPB Q24H [facility] Last Admin: 04/11/17 13:39 Dose: 167 mls/hr Methylprednisolone (Solu-Medrol) 40 mg IVP Q12 [facility] Ondansetron HCl (Zofran Inj) 4 mg IVP Q6 PRN PRN Reason: Nausea/Vomiting Oseltamivir Phosphate (Tamiflu Cap) 75 mg PO BID [facility] Stop: 04/14/17 22:28 Last Admin: 04/11/17 10:00 Dose: 75 mg Pantoprazole Sodium (Protonix Ec Tab) 40 mg PO DAILY [facility] Last Admin: 04/11/17 10:10 Dose: 40 mg Pneumococcal Polyvalent Vaccine (Pneumovax 23 Vaccine) 0.5 ml IM .ONCE ONE Stop: 04/12/17 10:01 Rosuvastatin Calcium (Crestor) 2.5 mg PO HS [facility] Last Admin: 04/10/17 22:35 Dose: 2.5 mg Saccharomyces Boulardii (Florastor) 250 mg PO BID [facility] Last Admin: 04/11/17 10:54 Dose: 250 mg Tiotropium [place] (Spiriva) 18 mcg INH RQ24 [facility] Last Admin: 04/11/17 08:12 Dose: Not Given - Labs Labs: 04/11/17 07:07 04/11/17 07:07 PT 9.7 SECONDS (9.7-12.2) 04/10/17 07:07 INR 0.9 04/10/17 07:07 APTT 27 SECONDS (21-34) 04/10/17 07:07 Attending/Attestation - Attestation I have personally seen and examined this patient.: Yes I have fully participated in the care of the patient.: Yes I have reviewed all pertinent clinical information, including history, physical exam and plan: Yes Notes (Text): Patient seen, examined, and case discussed with day-time resident. Patient reports she is doing well and breathing well. Reports mild non- productive cough. Patient reports she would like to go home for the holiday. On exam, patient has mild inspiratory wheezing and bibasilar crackles but clinically improving. Patient's Solumedrol tapered today to Solumedrol 40mg IV Q 12hours Patient started on Spiriva 18mcg Inhaled daily with handinhaler. Patient to continue Avelox 400mg IV daily. Physical therapy eval ordered. Possible discharge tomorrow. Assessment/Plan 1) COPD Bronchitis Consult: Dr Howell (pulmonary) on board-->help appreciated Taper Solumedrol 40mg IVQ 8hours-->Solumedrol 40mg IV Q12 hours Spiriva 18mcg inhaled daily c/w Avelox 400mg IVPB daily to cover Florastor 250mg PO daily Negative for flu, legionella, and mycoplasma Chest xray (04/10/17): no evidence of acute pulmonary disease. Blunting of the left costophrenic angle of uncertain etiology Note: patient has significant smoking history, allergies to detergent, hot/cold weather which she reports "acts" up her lungs (2) Hyperlipidemia Crestor 2.5mg POqHS Lipid panel in AM (3) Prophylactic measure Protonix 40mg IVP daily for GI ppx SCDs b/l for DVT ppx Physical therapy eval (4) Tobacco cessation Patient report significant tobacco history-counselled cessation at bedside.
--- NOTE | 2017-04-11 17:56 | CP.PCM.PN ---
<Joel Bowen - Last Filed: 04/11/17 17:58> Subjective - Date & Time of Evaluation Date of Evaluation: 04/10/17 Time of Evaluation: 12:00 - Subjective Subjective: Med progress note for 04-10-17 Pt seen and examined at bedside. No acute distress. Pt admitted overnight. pt sob when walking to restroom. Pt feels better. Denies chest pain, fevers, chills , vomiting, diarrhea. Objective - Vital Signs/Intake and Output Vital Signs (last 24 hours): Temp Pulse Resp BP Pulse Ox 98.1 F 81 20 125/75 95 04/11/17 15:00 04/11/17 15:00 04/11/17 15:00 04/11/17 15:00 04/11/17 15:00 Intake and Output: 04/11/17 04/11/17 06:59 18:59 Intake Total 715 490 Balance 715 490 - Medications Medications: Current Medications Acetaminophen (Tylenol 325mg Tab) 650 mg PO Q6 PRN PRN Reason: Fever >100.4 F Last Admin: 04/10/17 13:24 Dose: 650 mg Albuterol (Ventolin Hfa 90 Mcg/Actuation (8 G)) 1 puff INH RQ4 [facility] Last Admin: 04/11/17 15:40 Dose: 1 puff Enoxaparin Sodium (Lovenox) 40 mg SC DAILY [facility] Last Admin: 04/11/17 10:15 Dose: 40 mg Moxifloxacin HCl (Avelox Iv 400mg/250ml Ns) 400 mg in 250 mls @ 167 mls/hr IVPB Q24H [facility] Last Admin: 04/11/17 13:39 Dose: 167 mls/hr Methylprednisolone (Solu-Medrol) 40 mg IVP Q12 [facility] Ondansetron HCl (Zofran Inj) 4 mg IVP Q6 PRN PRN Reason: Nausea/Vomiting Oseltamivir Phosphate (Tamiflu Cap) 75 mg PO BID [facility] Stop: 04/14/17 22:28 Last Admin: 04/11/17 17:51 Dose: 75 mg Pantoprazole Sodium (Protonix Ec Tab) 40 mg PO DAILY [facility] Last Admin: 04/11/17 10:10 Dose: 40 mg Pneumococcal Polyvalent Vaccine (Pneumovax 23 Vaccine) 0.5 ml IM .ONCE ONE Stop: 04/12/17 10:01 Rosuvastatin Calcium (Crestor) 2.5 mg PO HS [facility] Last Admin: 04/10/17 22:35 Dose: 2.5 mg Saccharomyces Boulardii (Florastor) 250 mg PO BID [facility] Last Admin: 04/11/17 10:54 Dose: 250 mg Tiotropium [place] (Spiriva) 18 mcg INH RQ24 [facility] Last Admin: 04/11/17 08:12 Dose: Not Given - Labs Labs: 04/11/17 07:07 04/11/17 07:07 PT 9.7 SECONDS (9.7-12.2) 04/10/17 07:07 INR 0.9 04/10/17 07:07 APTT 27 SECONDS (21-34) 04/10/17 07:07 - Constitutional Appears: Non-toxic, No Acute Distress - Head Exam Head Exam: ATRAUMATIC, NORMAL INSPECTION, NORMOCEPHALIC - Eye Exam Eye Exam: EOMI - ENT Exam ENT Exam: Mucous Membranes Moist - Neck Exam Neck Exam: Full ROM, Normal Inspection - Respiratory Exam Respiratory Exam: Wheezes. absent: Respiratory Distress - Cardiovascular Exam Cardiovascular Exam: +S1, +S2 - GI/Abdominal Exam GI & Abdominal Exam: Soft, Normal Bowel Sounds. absent: Tenderness - Extremities Exam Extremities Exam: Full ROM, Normal Inspection - Back Exam Back Exam: NORMAL INSPECTION - Neurological Exam Neurological Exam: Alert, Awake, Oriented x3 - Psychiatric Exam Psychiatric exam: Normal Affect, Normal Mood - Skin Skin Exam: Dry, Intact, Normal Color, Warm Assessment and Plan - Assessment and Plan (Free Text) Assessment: This is a 56 yo female with past medical hx of COPD/Asthma, HLD presenting with COPD exacerbation (1) Dyspnea/COPD exacerbation Asthma/COPD exacerbation vs Influenza>>> flu negative Influena A B negative CXR shows blunting left costophrenic angle Solumedrol 40 mg IVP q8 hrs albuterol q 4 and spiriva [address] Howell (Pulmonology). recs appreciated. Tamiflu BID Nasal canula 2L continue moxifloxacin 250 daily, day 1 (2) Hyperlipidemia continue Crestor 2.5 mg po HS (3) Prophylactic measure Lovenox 40mg SC daily Protonix 40mg IVP daily Scds dw Dr. Castro <Delilah Castro V - Last Filed: 04/12/17 20:35> Objective - Vital Signs/Intake and Output Vital Signs (last 24 hours): Temp Pulse Resp BP Pulse Ox 98.4 F 86 20 130/72 92 L 04/12/17 08:20 04/12/17 08:20 04/12/17 08:20 04/12/17 08:20 04/12/17 08:20 - Labs Labs: 04/12/17 07:01 04/12/17 07:01 PT 9.7 SECONDS (9.7-12.2) 04/10/17 07:07 INR 0.9 04/10/17 07:07 APTT 27 SECONDS (21-34) 04/10/17 07:07 Attending/Attestation - Attestation I have personally seen and examined this patient.: Yes I have fully participated in the care of the patient.: Yes I have reviewed all pertinent clinical information, including history, physical exam and plan: Yes Notes (Text): This is late computer entry for 04/10/17. Patient seen, examined, and case discussed with day-time resident. Patient reports mild dyspnea on exertion, noted wheezing and decreased breathe sounds on exam. Patient's Solumedrol 40mg IV Q 8 hours will consider taper based on clinical condition. Pulmonary consult (Dr. Howell) on board-->started on Spiriva and Avelox antibiotic Assessment/Plan 1) COPD Excerbation Consult: Dr Howell (pulmonary) on board-->help appreciated Solumedrol 40mg IVQ 8hours Spiriva 18mcg inhaled daily c/w Avelox 400mg IVPB daily to cover Florastor 250mg PO daily Negative for flu, legionella, and mycoplasma Chest xray (04/10/17): no evidence of acute pulmonary disease. Blunting of the left costophrenic angle of uncertain etiology Note: patient has significant smoking history, allergies to detergent, hot/cold weather which she reports "acts" up her lungs (2) Hyperlipidemia Crestor 2.5mg POqHS (3) Prophylactic measure Protonix 40mg IVP daily for GI ppx SCDs b/l for DVT ppx (4) Tobacco cessation Patient report significant tobacco history-counselled cessation at bedside.
--- NOTE | 2017-04-11 18:37 | CP.PCM.PN ---
Subjective - Date & Time of Evaluation Date of Evaluation: 04/11/17 Time of Evaluation: 15:00 - Subjective Subjective: patient seen and examined. sitting comfortably in no acute distress Denies cough, denies fever chills, denies chest Stable from pulmonary standpoint to go home Objective - Vital Signs/Intake and Output Vital Signs (last 24 hours): Temp Pulse Resp BP Pulse Ox 98.1 F 81 20 125/75 95 04/11/17 15:00 04/11/17 15:00 04/11/17 15:00 04/11/17 15:00 04/11/17 15:00 Intake and Output: 04/11/17 04/11/17 06:59 18:59 Intake Total 715 490 Balance 715 490 - Medications Medications: Current Medications Acetaminophen (Tylenol 325mg Tab) 650 mg PO Q6 PRN PRN Reason: Fever >100.4 F Last Admin: 04/10/17 13:24 Dose: 650 mg Albuterol (Ventolin Hfa 90 Mcg/Actuation (8 G)) 1 puff INH RQ4 [facility] Last Admin: 04/11/17 15:40 Dose: 1 puff Enoxaparin Sodium (Lovenox) 40 mg SC DAILY [facility] Last Admin: 04/11/17 10:15 Dose: 40 mg Moxifloxacin HCl (Avelox Iv 400mg/250ml Ns) 400 mg in 250 mls @ 167 mls/hr IVPB Q24H [facility] Last Admin: 04/11/17 13:39 Dose: 167 mls/hr Methylprednisolone (Solu-Medrol) 40 mg IVP Q12 [facility] Ondansetron HCl (Zofran Inj) 4 mg IVP Q6 PRN PRN Reason: Nausea/Vomiting Oseltamivir Phosphate (Tamiflu Cap) 75 mg PO BID [facility] Stop: 04/14/17 22:28 Last Admin: 04/11/17 17:51 Dose: 75 mg Pantoprazole Sodium (Protonix Ec Tab) 40 mg PO DAILY [facility] Last Admin: 04/11/17 10:10 Dose: 40 mg Pneumococcal Polyvalent Vaccine (Pneumovax 23 Vaccine) 0.5 ml IM .ONCE ONE Stop: 04/12/17 10:01 Rosuvastatin Calcium (Crestor) 2.5 mg PO HS [facility] Last Admin: 04/10/17 22:35 Dose: 2.5 mg Saccharomyces Boulardii (Florastor) 250 mg PO BID [facility] Last Admin: 04/11/17 10:54 Dose: 250 mg Tiotropium [place] (Spiriva) 18 mcg INH RQ24 [facility] Last Admin: 04/11/17 08:12 Dose: Not Given - Labs Labs: 04/11/17 07:07 04/11/17 07:07 PT 9.7 SECONDS (9.7-12.2) 04/10/17 07:07 INR 0.9 04/10/17 07:07 APTT 27 SECONDS (21-34) 04/10/17 07:07 Assessment and Plan (1) COPD exacerbation Status: Acute
[2017-04-11] MEDS: Rosuvastatin Calcium 2.5 mg Tab PO SCH (21:54)
[2017-04-12] MEDS: Albuterol HFA 90 mcg/actuation (8 g) INH SCH ×3 (00:10→08:24)
[2017-04-12 07:08] LABS: BASO # 0.1 K/uL (0.0-0.2); BASO % 0.5 % (0.0-2.0); HEMATOCRIT 39.1 % (34.0-47.0); LYMPH # 1.4 K/uL (1.0-4.3); LYMPH % 8.5 % (20.0-40.0); MEAN CELL VOLUME 91.2 fL (81.0-99.0); MEAN CORPUSCULAR HGB CONC 32.9 g/dL (33.0-37.0); MEAN PLATELET VOLUME 8.8 fL (7.2-11.7); MONO # 0.4 K/uL (0.0-0.8); MONO % 2.1 % (0.0-10.0); PLATELET COUNT 221 K/uL (130-400); RED CELL DISTRIBUTION WIDTH 13.6 % (11.5-14.5); WHITE BLOOD COUNT 16.5 K/uL (4.8-10.8)
[2017-04-12 07:18] LABS: CHLORIDE 100 mmol/L (98-107)
[2017-04-12 07:19] LABS: SODIUM 135 mmol/L (132-148)
[2017-04-12 07:21] LABS: CARBON DIOXIDE 24 mmol/L (22-30); CHOLESTEROL 271 mg/dL (0-199); GFR AFRICAN-AMERICAN > 60
[2017-04-12 07:22] LABS: ALB/GLOB RATIO 1.2 (1.0-2.1); ALKALINE PHOSPHATASE 82 U/L (38-126); ALT/SGPT 29 U/L (9-52); AST/SGOT 25 U/L (14-36); BLOOD UREA NITROGEN 21 mg/dL (7-17); CALCIUM 9.2 mg/dl (8.6-10.4); GLUCOSE,RANDOM 122 mg/dL (65-105); MAGNESIUM 1.8 mg/dL (1.6-2.3); PHOSPHOROUS 4.6 mg/dL (2.5-4.5); TOTAL PROTEIN 6.8 g/dL (6.3-8.3)
[2017-04-12 08:21] VITALS: BP 130/72; PULSE 86; TEMP 98.4; O2SAT 92
[2017-04-12] MEDS: Tiotropium 18 mcg Cap For Inhalation INH SCH (08:23)
[2017-04-12 08:49] LABS: BILIRUBIN,TOTAL 0.5 mg/dL (0.2-1.3)
[2017-04-12 09:42] LABS: NEUTROPHIL 91 % (50-75); TOTAL CELLS COUNTED 100
[2017-04-12] MEDS ORDERED: Pneumococcal 23-Valent Vaccine IM ONE (10:00)
[2017-04-12] MEDS: Enoxaparin 40 mg Syringe SC SCH (10:11)
[2017-04-12] MEDS: Saccharomyces Boulardi 250 mg Cap PO SCH (10:11)
[2017-04-12] MEDS: MethylPREDNISolone 40 mg Vial IVP SCH (10:12)
[2017-04-12] MEDS: Pantoprazole 40 mg EC Tab PO SCH (10:12)
--- NOTE | 2017-04-12 18:42 | CP.PCM.DIS ---
<Joel Bowen - Last Filed: 04/12/17 18:50> Provider - Provider Date of Admission: 04/09/17 21:03 Attending physician: Talat Lugo MD Consults: Consults: Dr. Cait lindsay Time Spent in preparation of Discharge (in minutes): 45 Hospital Course - Lab Results Lab Results: Most Recent Lab Values WBC 16.5 K/uL (4.8-10.8) H 04/12/17 07:01 RBC 4.29 Mil/uL (3.80-5.20) 04/12/17 07:01 Hgb 12.9 g/dL (11.0-16.0) 04/12/17 07:01 Hct 39.1 % (34.0-47.0) 04/12/17 07:01 MCV 91.2 fL (81.0-99.0) 04/12/17 07:01 MCH 30.0 pg (27.0-31.0) 04/12/17 07:01 MCHC 32.9 g/dL (33.0-37.0) L 04/12/17 07:01 RDW 13.6 % (11.5-14.5) 04/12/17 07:01 Plt Count 221 K/uL (130-400) 04/12/17 07:01 MPV 8.8 fL (7.2-11.7) 04/12/17 07:01 Neut % (Auto) 88.9 % (50.0-75.0) H 04/12/17 07:01 Lymph % (Auto) 8.5 % (20.0-40.0) L 04/12/17 07:01 Evans % (Auto) 2.1 % (0.0-10.0) 04/12/17 07:01 Eos % (Auto) 0.0 % (0.0-4.0) 04/12/17 07:01 Baso % (Auto) 0.5 % (0.0-2.0) 04/12/17 07:01 Neut # 14.6 K/uL (1.8-7.0) H 04/12/17 07:01 Lymph # 1.4 K/uL (1.0-4.3) 04/12/17 07:01 Evans # 0.4 K/uL (0.0-0.8) 04/12/17 07:01 Eos # 0.0 K/uL (0.0-0.7) 04/12/17 07:01 Baso # 0.1 K/uL (0.0-0.2) 04/12/17 07:01 Neutrophils % (Manual) 91 % (50-75) H 04/12/17 07:01 Band Neutrophils % 1 % (0-2) 04/12/17 07:01 Lymphocytes % (Manual) 7 % (20-40) L 04/12/17 07:01 Monocytes % (Manual) 1 % (0-10) 04/12/17 07:01 Platelet Estimate Normal (NORMAL) 04/12/17 07:01 Large Platelets Present 04/10/17 07:07 Giant Platelets Present 04/10/17 07:07 RBC Morphology Normal 04/12/17 07:01 PT 9.7 SECONDS (9.7-12.2) 04/10/17 07:07 INR 0.9 04/10/17 07:07 APTT 27 SECONDS (21-34) 04/10/17 07:07 pO2 21 mm/Hg (30-55) L 04/09/17 20:07 VBG pH 7.28 (7.32-7.43) L 04/09/17 20:07 VBG pCO2 57 mmHg (40-60) 04/09/17 20:07 VBG HCO3 22.2 mmol/L 04/09/17 20:07 VBG Total CO2 28.5 mmol/L (22-28) H 04/09/17 20:07 VBG O2 Sat (Calc) 38.2 % (40-65) L 04/09/17 20:07 VBG Base Excess -1.0 mmol/L (0.0-2.0) L 04/09/17 20:07 VBG Potassium 3.2 mmol/L (3.6-5.2) L 04/09/17 20:07 Sodium 138.0 mmol/l (132-148) 04/09/17 20:07 Chloride 105.0 mmol/L (98-107) 04/09/17 20:07 Glucose 78 mg/dl (65-105) 04/09/17 20:07 Lactate 1.6 mmol/L (0.7-2.1) 04/09/17 20:07 Sodium 135 mmol/L (132-148) 04/12/17 07:01 Potassium 4.0 mmol/L (3.6-5.2) 04/12/17 07:01 Chloride 100 mmol/L (98-107) 04/12/17 07:01 Carbon Dioxide 24 mmol/L (22-30) 04/12/17 07:01 Anion Gap 16 (10-20) 04/12/17 07:01 BUN 21 mg/dL (7-17) H 04/12/17 07:01 Creatinine 0.9 MG/DL (0.7-1.2) 04/12/17 07:01 Est GFR ( Amer) > 60 04/12/17 07:01 Est GFR (Non-Af Amer) > 60 04/12/17 07:01 POC Glucose (mg/dL) 132 mg/dL (65-110) H 04/12/17 07:12 Random Glucose 122 mg/dL (65-105) H 04/12/17 07:01 Calcium 9.2 mg/dl (8.6-10.4) 04/12/17 07:01 Phosphorus 4.6 mg/dL (2.5-4.5) H 04/12/17 07:01 Magnesium 1.8 mg/dL (1.6-2.3) 04/12/17 07:01 Total Bilirubin 0.5 mg/dL (0.2-1.3) 04/12/17 07:01 AST 25 U/L (14-36) 04/12/17 07:01 ALT 29 U/L (9-52) 04/12/17 07:01 Alkaline Phosphatase 82 U/L (38-126) 04/12/17 07:01 Total Protein 6.8 g/dL (6.3-8.3) 04/12/17 07:01 Albumin 3.7 g/dL (3.5-5.0) 04/12/17 07:01 Globulin 3.1 gm/dL (2.2-3.9) 04/12/17 07:01 Albumin/Globulin Ratio 1.2 (1.0-2.1) 04/12/17 07:01 Triglycerides 119 mg/dL (0-149) 04/12/17 07:01 Cholesterol 271 mg/dL (0-199) H 04/12/17 07:01 LDL Cholesterol Direct 173 mg/dL (0-129) H 04/12/17 07:01 HDL Cholesterol 66 mg/dL (30-70) 04/12/17 07:01 Venous Blood Potassium 3.2 mmol/L (3.6-5.2) L 04/09/17 20:07 Urine Color Yellow (YELLOW) 04/09/17 20:55 Urine Clarity Hazy (Clear) 04/09/17 20:55 Urine pH 5.0 (5.0-8.0) 04/09/17 20:55 Ur Specific Mora 1.016 (1.003-1.030) 04/09/17 20:55 Urine Protein Negative mg/dL (NEGATIVE) 04/09/17 20:55 Urine Glucose (UA) Normal mg/dL (Normal) 04/09/17 20:55 Urine Ketones Negative mg/dL (NEGATIVE) 04/09/17 20:55 Urine Blood Negative (NEGATIVE) 04/09/17 20:55 Urine Nitrate Negative (NEGATIVE) 04/09/17 20:55 Urine Bilirubin Negative (NEGATIVE) 04/09/17 20:55 Urine Urobilinogen Normal mg/dL (0.2-1.0) 04/09/17 20:55 Ur Leukocyte Esterase 1+ [place]/uL (Negative) H 04/09/17 20:55 Urine WBC (Auto) 17 /hpf (0-5) H 04/09/17 20:55 Urine RBC (Auto) 1 /hpf (0-3) 04/09/17 20:55 Ur Squamous Epith Cells 9 /hpf (0-5) H 04/09/17 20:55 Urine Bacteria Occ (<OCC) H 04/09/17 20:55 Influenza Typ A,B (EIA) Negative for flu a/b (NEGATIVE) 04/09/17 22:26 Ur L.pneumophila Ag Negative (NEGATIVE) 04/10/17 08:11 Mycoplasma pneumon IgM Negative (NEGATIVE) 04/10/17 08:11 - Hospital Course Hospital Course: Attending: Dr. Castro Admit Date- 04/10/17 DC date- 04/12/[address] Howell Discharge dx 1. COPD 2. HLD HPI: see H/P Lab data: see lab section Procedures- none No complications Hospital course 54 F with past medical hx of COPD, Asthma, and HLD, presents to [facility] ED with complaint of SOB, subjective fever and body aches. Patient stated that her symptoms began yesterday while she was at home. She states that she tried albuterol, but it did not help. Also, she states she took her prednisone and it seemed to help. She reports that she has not experienced these symptoms before. She states her father also had body aches at home, but denies recent illness. She rates the body aches as 8/10 in severity. She describe them as constant dull ache in shoulders, back, and extremities. She denies any exacerbating or alleviating factors. Admitted to fever/chills, dizziness, palpitations, productive cough. Denied chest pain, abdominal pain, n/ v/d, headache, incontinence, and urinary symptoms. (1) Dyspnea/COPD exacerbation Asthma/COPD exacerbation vs Influenza>>> flu negative Influena A B negative CXR shows blunting left costophrenic angle Solumedrol 40 mg IVP q8 hrs albuterol q 4 and spiriva [address] Howell (Pulmonology). recs appreciated. Tamiflu BID Nasal canula 2L continue moxifloxacin 250 daily (2) Hyperlipidemia continue Crestor 2.5 mg po HS (3) Prophylactic measure Lovenox 40mg SC daily Protonix 40mg IVP daily Scds DC meds 1. albuterol q 4 2. medrol dose pack- 21 days 3. avelox 400 mg daily for 2 more days 4. simvastatin 20 daily hs 5. spiriva 18 mcg daily 6. spiriva handihaler Discharge instructions 1. Please return if condition worsens. Pt medically stable for discharge. Pt to follow up with PMD in 3 days. - Date & Time of H&P Date of H&P: 04/10/17 Time of H&P: 00:11 Discharge Exam - Head Exam Head Exam: ATRAUMATIC, NORMAL INSPECTION, NORMOCEPHALIC - Eye Exam Eye Exam: EOMI - ENT Exam ENT Exam: Mucous Membranes Moist - Neck Exam Neck exam: Full Rom, Normal Inspection - Respiratory Exam Respiratory Exam: Wheezes, NORMAL BREATHING PATTERN - Cardiovascular Exam Cardiovascular Exam: REGULAR RHYTHM, +S1, +S2 - GI/Abdominal Exam GI & Abdominal Exam: Normal Bowel Sounds - Extremities Exam Extremities exam: full ROM, normal inspection - Back Exam Back exam: NORMAL INSPECTION - Neurological Exam Neurological exam: Alert, Oriented x3 - Psychiatric Exam Psychiatric exam: Normal Affect, Normal Mood - Skin Skin Exam: Dry, Intact, Normal Color, Warm Discharge Plan - Discharge Medications Prescriptions: RX: Albuterol HFA [Ventolin HFA 90 mcg/actuation (8 g)] 1 puff INH RQ4 PRN #1 inhaler PRN Reason: Shortness Of Breath Methylprednisolone [Medrol Dose Pack (21 tabs)] 4 mg PO DAILY #21 mg Moxifloxacin [Avelox] 400 mg PO DAILY #2 tab RX: Simvastatin 20 mg PO HS #30 tablet Tiotropium [Spiriva] 18 mcg IH DAILY #30 cap RX: Tiotropium [place] Inhaler [Spiriva Inhalation Handihaler Device] 1 inhaler INH ONCE #1 inhaler - Follow Up Plan Condition: STABLE Disposition: HOME/ ROUTINE Instructions: Albuterol (By mouth), Methylprednisolone (By mouth), Simvastatin (By mouth), Moxifloxacin (By mouth), Tiotropium (By breathing), Asthma (DC), Dyspnea (GEN) <Delilah Castro V - Last Filed: 04/12/17 20:33> Provider - Provider Date of Admission: 04/09/17 21:03 Attending physician: Talat Lugo MD Hospital Course - Lab Results Lab Results: Most Recent Lab Values WBC 16.5 K/uL (4.8-10.8) H 04/12/17 07:01 RBC 4.29 Mil/uL (3.80-5.20) 04/12/17 07:01 Hgb 12.9 g/dL (11.0-16.0) 04/12/17 07:01 Hct 39.1 % (34.0-47.0) 04/12/17 07:01 MCV 91.2 fL (81.0-99.0) 04/12/17 07:01 MCH 30.0 pg (27.0-31.0) 04/12/17 07:01 MCHC 32.9 g/dL (33.0-37.0) L 04/12/17 07:01 RDW 13.6 % (11.5-14.5) 04/12/17 07:01 Plt Count 221 K/uL (130-400) 04/12/17 07:01 MPV 8.8 fL (7.2-11.7) 04/12/17 07:01 Neut % (Auto) 88.9 % (50.0-75.0) H 04/12/17 07:01 Lymph % (Auto) 8.5 % (20.0-40.0) L 04/12/17 07:01 Evans % (Auto) 2.1 % (0.0-10.0) 04/12/17 07:01 Eos % (Auto) 0.0 % (0.0-4.0) 04/12/17 07:01 Baso % (Auto) 0.5 % (0.0-2.0) 04/12/17 07:01 Neut # 14.6 K/uL (1.8-7.0) H 04/12/17 07:01 Lymph # 1.4 K/uL (1.0-4.3) 04/12/17 07:01 Evans # 0.4 K/uL (0.0-0.8) 04/12/17 07:01 Eos # 0.0 K/uL (0.0-0.7) 04/12/17 07:01 Baso # 0.1 K/uL (0.0-0.2) 04/12/17 07:01 Neutrophils % (Manual) 91 % (50-75) H 04/12/17 07:01 Band Neutrophils % 1 % (0-2) 04/12/17 07:01 Lymphocytes % (Manual) 7 % (20-40) L 04/12/17 07:01 Monocytes % (Manual) 1 % (0-10) 04/12/17 07:01 Platelet Estimate Normal (NORMAL) 04/12/17 07:01 Large Platelets Present 04/10/17 07:07 Giant Platelets Present 04/10/17 07:07 RBC Morphology Normal 04/12/17 07:01 PT 9.7 SECONDS (9.7-12.2) 04/10/17 07:07 INR 0.9 04/10/17 07:07 APTT 27 SECONDS (21-34) 04/10/17 07:07 pO2 21 mm/Hg (30-55) L 04/09/17 20:07 VBG pH 7.28 (7.32-7.43) L 04/09/17 20:07 VBG pCO2 57 mmHg (40-60) 04/09/17 20:07 VBG HCO3 22.2 mmol/L 04/09/17 20:07 VBG Total CO2 28.5 mmol/L (22-28) H 04/09/17 20:07 VBG O2 Sat (Calc) 38.2 % (40-65) L 04/09/17 20:07 VBG Base Excess -1.0 mmol/L (0.0-2.0) L 04/09/17 20:07 VBG Potassium 3.2 mmol/L (3.6-5.2) L 04/09/17 20:07 Sodium 138.0 mmol/l (132-148) 04/09/17 20:07 Chloride 105.0 mmol/L (98-107) 04/09/17 20:07 Glucose 78 mg/dl (65-105) 04/09/17 20:07 Lactate 1.6 mmol/L (0.7-2.1) 04/09/17 20:07 Sodium 135 mmol/L (132-148) 04/12/17 07:01 Potassium 4.0 mmol/L (3.6-5.2) 04/12/17 07:01 Chloride 100 mmol/L (98-107) 04/12/17 07:01 Carbon Dioxide 24 mmol/L (22-30) 04/12/17 07:01 Anion Gap 16 (10-20) 04/12/17 07:01 BUN 21 mg/dL (7-17) H 04/12/17 07:01 Creatinine 0.9 MG/DL (0.7-1.2) 04/12/17 07:01 Est GFR ( Amer) > 60 04/12/17 07:01 Est GFR (Non-Af Amer) > 60 04/12/17 07:01 POC Glucose (mg/dL) 132 mg/dL (65-110) H 04/12/17 07:12 Random Glucose 122 mg/dL (65-105) H 04/12/17 07:01 Calcium 9.2 mg/dl (8.6-10.4) 04/12/17 07:01 Phosphorus 4.6 mg/dL (2.5-4.5) H 04/12/17 07:01 Magnesium 1.8 mg/dL (1.6-2.3) 04/12/17 07:01 Total Bilirubin 0.5 mg/dL (0.2-1.3) 04/12/17 07:01 AST 25 U/L (14-36) 04/12/17 07:01 ALT 29 U/L (9-52) 04/12/17 07:01 Alkaline Phosphatase 82 U/L (38-126) 04/12/17 07:01 Total Protein 6.8 g/dL (6.3-8.3) 04/12/17 07:01 Albumin 3.7 g/dL (3.5-5.0) 04/12/17 07:01 Globulin 3.1 gm/dL (2.2-3.9) 04/12/17 07:01 Albumin/Globulin Ratio 1.2 (1.0-2.1) 04/12/17 07:01 Triglycerides 119 mg/dL (0-149) 04/12/17 07:01 Cholesterol 271 mg/dL (0-199) H 04/12/17 07:01 LDL Cholesterol Direct 173 mg/dL (0-129) H 04/12/17 07:01 HDL Cholesterol 66 mg/dL (30-70) 04/12/17 07:01 Venous Blood Potassium 3.2 mmol/L (3.6-5.2) L 04/09/17 20:07 Urine Color Yellow (YELLOW) 04/09/17 20:55 Urine Clarity Hazy (Clear) 04/09/17 20:55 Urine pH 5.0 (5.0-8.0) 04/09/17 20:55 Ur Specific Mora 1.016 (1.003-1.030) 04/09/17 20:55 Urine Protein Negative mg/dL (NEGATIVE) 04/09/17 20:55 Urine Glucose (UA) Normal mg/dL (Normal) 04/09/17 20:55 Urine Ketones Negative mg/dL (NEGATIVE) 04/09/17 20:55 Urine Blood Negative (NEGATIVE) 04/09/17 20:55 Urine Nitrate Negative (NEGATIVE) 04/09/17 20:55 Urine Bilirubin Negative (NEGATIVE) 04/09/17 20:55 Urine Urobilinogen Normal mg/dL (0.2-1.0) 04/09/17 20:55 Ur Leukocyte Esterase 1+ [place]/uL (Negative) H 04/09/17 20:55 Urine WBC (Auto) 17 /hpf (0-5) H 04/09/17 20:55 Urine RBC (Auto) 1 /hpf (0-3) 04/09/17 20:55 Ur Squamous Epith Cells 9 /hpf (0-5) H 04/09/17 20:55 Urine Bacteria Occ (<OCC) H 04/09/17 20:55 Influenza Typ A,B (EIA) Negative for flu a/b (NEGATIVE) 04/09/17 22:26 Ur L.pneumophila Ag Negative (NEGATIVE) 04/10/17 08:11 Mycoplasma pneumon IgM Negative (NEGATIVE) 04/10/17 08:11 Attending/Attestation - Attestation I have personally seen and examined this patient.: Yes I have fully participated in the care of the patient.: Yes I have reviewed all pertinent clinical information, including history, physical exam and plan: Yes Notes (Text): Patient seen, examined, and case discussed with day-time resident. Patient breathing well. Patient is ambulatory without acute distress. Patient has mild inspiratory wheezing, good air way exchange. Discussed with pulmonary, patient is stable for discharge. Discussed with day-time resident, regarding discharge order and discharge instructions. Patient discharged on the followin) Spiriva 18mcg inhaled daily (30 capsules/ 1 refill) 2) Avelox 400mg PO daily for 3 more days (3/0 refills) 3) Medrol dose pack (use as instructed) (1 pack/no refill) 4) OTC Pepcid to protect stomach while on steroid taper 5) Albuterol 2 puff inhaled Q 4hour PRN SOB (1/ 1 refill) 6) Simvastatin 20mg PO qHS (30/0 refill); changed from Crestor due to affordablility for the patient Patient advised to follow-up with PMD upon discharge from hospitalization. If symptoms recur, advised to be evaluated immediately. This is a summary of patient's hospitalization. Please review EMR for further details.
--- NOTE | 2017-04-13 10:07 | CARD ---
APPROVED REPORT EKG Measurement Heart [id number] [place] 128P69 [id number] <Conclusion> Poor data quality, interpretation may be adversely affected Sinus tachycardia ST & T wave abnormality, consider lateral ischemia Abnormal ECG
--- NOTE | 2017-05-11 14:43 | CARD ---
APPROVED REPORT EKG Measurement Heart [id number] NC 132P74 [id number] <Conclusion> Normal sinus rhythm Normal ECG
== END 2017-04-12 13:45 | disposition home or self-care (01) | DRG 88 ==
LOC: C.ER 18:55 → C.9E 21:03 → C.3T 21:40
PROVIDERS: ADMIT Family Medicine; ATTEND Family Medicine
DX: J44.1 Chronic obstructive pulmonary disease with (acute) exacerbation (principal); J45.901 Unspecified asthma with (acute) exacerbation; J11.1 Influenza due to unidentified influenza virus with other respiratory manifestations; R06.02 Shortness of breath; E78.5 Hyperlipidemia, unspecified; F17.210 Nicotine dependence, cigarettes, uncomplicated

== ENCOUNTER 2017-05-18 15:32 | Emergency (ER) | payer OTHER ==
[2017-05-18 15:33] VITALS: BMI 29.2
[2017-05-18 15:39] VITALS: BP 132/78; PULSE 87; TEMP 98.6; O2SAT 97
[2017-05-18] MEDS ORDERED: Albuterol-Ipratrop 3 mg / 0.5 (3 ml) UD INH STA (16:04)
[2017-05-18] MEDS ORDERED: Albuterol-Ipratrop 3 mg / 0.5 (3 ml) UD ONE (16:08)
[2017-05-18 16:12] VITALS: RESP 20
--- NOTE | 2017-05-18 16:36 | C.PDOC ---
History Of Present Illness 56 y/o female, whose PMHx includes pneumonia 1 month ago, presents to the ED for evaluation of mild wheezing and shortness of breath which began around 1 week ago. Patient states she ran out of nebulizer liquids around 2 week ago. Patient also ran out of her albuterol puffer. She denies fever, chills, chest pain, cough. Time Seen by Provider: 05/18/17 15:55 Chief Complaint (Nursing): Shortness Of Breath History Per: Patient History/Exam Limitations: no limitations Onset/Duration Of Symptoms: Other (1 week ) Current Symptoms Are (Timing): Still Present Initiating Event: Upper Respiratory Illness Quality: denies: "Pain" Current Respiratory Medications: See Home Med List Associated Symptoms: denies: Fever, Chills, Chest Pain, Bloody Cough, Productive Cough Additional History Per: Patient Past Medical History Reviewed: Historical Data, Nursing Documentation, Vital Signs Vital Signs: Last Vital Signs Temp 98.6 F 05/18/17 15:36 Pulse 87 05/18/17 15:36 Resp 20 05/18/17 16:10 BP 132/78 05/18/17 15:36 Pulse Ox 97 05/18/17 22:32 - Medical History PMH: Anxiety, Asthma, COPD, Depression, Emphysema, Gastritis, Hypercholesterolemia Denies: Chronic Kidney Disease Family History: States: Unknown Family Hx - Social History Hx Tobacco Use: No Hx Alcohol Use: No Hx Substance Use: No - Immunization History Hx Tetanus Toxoid Vaccination: No Hx Influenza Vaccination: No Hx Pneumococcal Vaccination: No Review Of Systems Except As Marked, All Systems Reviewed And Found Negative. Constitutional: Negative for: Fever, Chills Cardiovascular: Negative for: Chest Pain Respiratory: Positive for: Shortness of Breath, Wheezing. Negative for: Cough Physical Exam - Physical Exam Appears: Non-toxic, No Acute Distress, Other (appears older than stated age ) Skin: Normal Color, Warm, Dry Head: Atraumatic, Normacephalic Eye(s): bilateral: Normal Inspection Oral Mucosa: Moist Neck: Normal ROM, Supple Respiratory: No Rales, No Rhonchi, Wheezing (scant, mild, R>L), Other (+ speaking complete sentences ) Back: Normal Inspection, No Vertebral Tenderness, No Paraspinal Tenderness Extremity: Normal ROM, Capillary Refill (less than 2 seconds ) ED Course And Treatment O2 Sat by Pulse Oximetry: 97 (on RA) Pulse Ox Interpretation: Normal - Radiology CXR: Interpreted by Me CXR Interpretation: Yes: No Acute Disease Progress Note: CXR ordered and reviewed. Patient received Albuterol IH, Pepcid PO, and prednisone PO. Medical Decision Making Medical Decision Making: mild COPD exacerbation, normal cxr, scant wheezing, NAD, probably due to ran out of nebs @ home 2 wks ago Still smoking cigarettes Disposition Doctor Will See Patient In The: Office Counseled Patient/Family Regarding: Studies Performed, Diagnosis - Disposition Referrals: [facility] [Outside] Disposition: HOME/ ROUTINE Disposition Time: 16:36 Condition: GOOD Additional Instructions: prednisona 40 mg cada varun para cumplir 5 rider Pepcid 20 mg en la noche para prevenir irritacion' del estomago debido al Prednisona Tratamientos nebulizadas con DOS ampulas de Duoneb cada 3-4 horas y extra susan la noche alma necessario Mariela de fumar Sigue con la [facility] para re-evaluacio'n en 2-3 rider alma necessario. Prescriptions: Albuterol HFA [Ventolin HFA 90 mcg/actuation (8 g)] 2 puff IH Q4H PRN #1 ea PRN Reason: asthma Albuterol/Ipratropium [Duoneb 3 MG/3 Ml-0.5 MG/3 Ml 3 Ml] 6 ml IH Q4H PRN #100 neb PRN Reason: asthma Famotidine [Pepcid] 20 mg PO HS #20 tab Prednisone [Deltasone] 40 mg PO DAILY #8 tablet Spacer, Inhalation [Aerochamber] 1 dev IH DAILY #1 dev Instructions: How to Stop Smoking (ED), COPD (Chronic Obstructive Pulmonary Disease) (ED) Print Language: KYRGYZ - Clinical Impression Clinical Impression: COPD (chronic obstructive pulmonary disease), Medication refill - Scribe Statement The provider has reviewed the documentation as recorded by the Scribe (Nanette Eddy) Provider Attestation: All medical record entries made by the Scribe were at my direction and personally dictated by me. I have reviewed the chart and agree that the record accurately reflects my personal performance of the history, physical exam, medical decision making, and the department course for this patient. I have also personally directed, reviewed, and agree with the discharge instructions and disposition.
--- NOTE | 2017-05-19 08:25 | RAD ---
HISTORY: copd/emphysema, sob COMPARISON: 04/09/2017 TECHNIQUE: Chest PA and lateral FINDINGS: LUNGS: Catheter tubing projecting over the left lung apex and left clavicle. Clinical correlation. Hyperinflation suggestive for COPD and or emphysematous changes. Bibasilar breast and nipple shadows. Blunted left costophrenic angle. Few scattered nodular densities in the lung lr including a nodular density in the right upper to mid lung zone. PLEURA: As above. CARDIOVASCULAR: Normal. OSSEOUS STRUCTURES: No significant abnormalities. VISUALIZED UPPER ABDOMEN: Normal. OTHER FINDINGS: None. IMPRESSION: Catheter tubing projecting over the left lung apex and left clavicle. Clinical correlation. Hyperinflation suggestive for COPD and or emphysematous changes. Bibasilar breast and nipple shadows. Blunted left costophrenic angle. Few scattered nodular densities in the lung lr including a nodular density in the right upper to mid lung zone.
== END 2017-05-18 16:49 | disposition home or self-care (01) ==
LOC: C.ER 15:32
DX: J44.9 Chronic obstructive pulmonary disease, unspecified (principal); Z72.0 Tobacco use; Z76.0 Encounter for issue of repeat prescription

== ENCOUNTER 2017-10-19 07:49 | Emergency (ER) | payer SELFPAY ==
[2017-10-19 07:49] VITALS: BMI 29.2
[2017-10-19 07:55] VITALS: O2SAT 98
[2017-10-19 08:12] VITALS: RESP 18; TEMP 98
[2017-10-19] MEDS ORDERED: Albuterol-Ipratrop 3 mg / 0.5 (3 ml) UD IH STA (08:17)
[2017-10-19] MEDS ORDERED: Albuterol-Ipratrop 3 mg / 0.5 (3 ml) UD ONE (08:23)
--- NOTE | 2017-10-19 08:47 | C.PDOC ---
History Of Present Illness 57 year old female with a history of COPD and Gastritis presents to the ED with complaints of bilateral ear pain, decreased appetite, fever, and productive cough for two weeks. Patient notes relief of fever with home remedies, however ear pain and decreased appetite persist. Time Seen by Provider: 10/19/17 08:07 Chief Complaint (Nursing): Cough, Cold, Congestion History Per: Patient History/Exam Limitations: no limitations Onset/Duration Of Symptoms: Days (2 weeks) Current Symptoms Are (Timing): Better Location Of Pain: Ear(s) Sick Contacts (Context): None Associated Symptoms: Cough, Sputum. denies: Fever, Chills, Nausea, Vomiting, Diarrhea Ear Symptoms: Bilateral: Ear Pain Recent travel outside of the [place]: No Additional History Per: Prior Records Past Medical History Reviewed: Historical Data, Nursing Documentation, Vital Signs Vital Signs: Last Vital Signs Temp 98.0 F 10/19/17 09:07 Pulse 77 10/19/17 09:07 Resp 18 10/19/17 09:07 BP 118/75 10/19/17 09:07 Pulse Ox 98 10/19/17 09:07 - Medical History PMH: Anxiety, Asthma, COPD, Depression, Emphysema, Gastritis, Hypercholesterolemia Family History: States: Unknown Family Hx - Social History Hx Tobacco Use: No Hx Alcohol Use: No Hx Substance Use: No - Immunization History Hx Tetanus Toxoid Vaccination: No Hx Influenza Vaccination: No Hx Pneumococcal Vaccination: Yes (03/2017) Review Of Systems Constitutional: Positive for: Weight loss, Other (decreased appetite ). Negative for: Fever, Chills ENT: Positive for: Ear Pain Cardiovascular: Negative for: Chest Pain, Palpitations Respiratory: Positive for: Cough, Sputum. Negative for: Shortness of Breath Gastrointestinal: Negative for: Nausea, Vomiting, Abdominal Pain, Diarrhea Musculoskeletal: Negative for: Neck Pain, Back Pain Skin: Negative for: Rash Neurological: Negative for: Weakness, Numbness, Headache, Dizziness Physical Exam - Physical Exam Appears: Non-toxic, No Acute Distress Skin: Warm, Dry, No Rash Head: Atraumatic, Normacephalic, No Tenderness Eye(s): bilateral: Normal Inspection, PERRL, EOMI Ear(s): Bilateral: Normal Nose: Normal, No Discharge Oral Mucosa: Moist Throat: Normal, No Erythema, No Exudate Neck: Normal ROM, Supple Chest: Symmetrical, No Deformity, No Tenderness Cardiovascular: Rhythm Regular, No Murmur Respiratory: No Rales, No Rhonchi, No Wheezing, Other (clear to auscultation bilaterally) Gastrointestinal/Abdominal: Soft, No Tenderness, No Distention, No Guarding, No Rebound Extremity: Normal ROM, No Tenderness, No Deformity, No Swelling Neurological/Psych: Oriented x3, Normal Speech Gait: Steady ED Course And Treatment O2 Sat by Pulse Oximetry: 98 (RA) Pulse Ox Interpretation: Normal Progress Note: Patient was given Zithromax, Albuterol, predniSONE, and nebulizer treatment. Reassessment Condition: Improved (Patient has no fever and in no respiratory distress. No clinical signs of pneumonia or dehydration. VSS and patient is AxOx3. She is stable for disharge.) Disposition Counseled Patient/Family Regarding: Diagnosis, Need For Followup - Disposition Referrals: Jewell Oneill MD [Staff Provider] - Disposition: HOME/ ROUTINE Disposition Time: 09:00 Condition: STABLE Additional Instructions: Vaya a mendiola mdico o la clnica en 2-5 jackson sin falta, para mas evaluacin. [place] los medicamentos alma indicado. Volver a la ruth de emergencia en cualquier momento si los sntomas persisten o empeoran. Prescriptions: Azithromycin [Zithromax] 250 mg PO DAILY #4 tab Prednisone 50 mg PO DAILY #4 tablet Instructions: Acute Bronchitis (ED) Forms: [employer] (German) Print Language: PASHTO - POA Present On Arrival: None - Clinical Impression Clinical Impression: Bronchitis - PA / FLOOR WAXER / Resident Statement MD/DO has reviewed & agrees with the documentation as recorded. - Scribe Statement The provider has reviewed the documentation as recorded by the Scribe Sally Huang All medical record entries made by the Scribe were at my direction and personally dictated by me. I have reviewed the chart and agree that the record accurately reflects my personal performance of the history, physical exam, medical decision making, and the department course for this patient. I have also personally directed, reviewed, and agree with the discharge instructions and disposition.
[2017-10-19 09:07] VITALS: BP 118/75; PULSE 77
== END 2017-10-19 09:18 | disposition home or self-care (01) ==
LOC: C.ER 07:49
DX: J40 Bronchitis, not specified as acute or chronic (principal)

== ENCOUNTER 2017-11-11 05:55 | Emergency (ER) | payer SELFPAY ==
[2017-11-11 05:55] VITALS: BMI 29.2
[2017-11-11] MEDS ORDERED: Albuterol-Ipratrop 3 mg / 0.5 (3 ml) UD INH STA ×2 (06:37→06:51)
[2017-11-11] MEDS ORDERED: Albuterol-Ipratrop 3 mg / 0.5 (3 ml) UD ONE ×2 (06:38→07:02)
[2017-11-11 06:43] VITALS: O2SAT 98
--- NOTE | 2017-11-11 06:43 | C.PDOC ---
History Of Present Illness 57 year old female presents to the ER with her typical asthma symptoms, associated with a mild cough. Denies fever, nausea, or vomiting. Time Seen by Provider: 11/11/17 05:56 Chief Complaint (Nursing): Respiratory Distress History Per: Patient History/Exam Limitations: no limitations Onset/Duration Of Symptoms: Hrs Current Symptoms Are (Timing): Still Present Initiating Event: Other (not known) Associated Symptoms: Other (Cough). denies: Fever Recent travel outside of the [place]: No Past Medical History Reviewed: Historical Data, Nursing Documentation, Vital Signs Vital Signs: Last Vital Signs Temp 98.1 F 11/11/17 06:00 Pulse 82 11/11/17 06:42 Resp 15 11/11/17 06:42 BP 116/68 11/11/17 06:42 Pulse Ox 98 11/11/17 06:46 - Medical History PMH: Anxiety, Asthma, COPD, Depression, Emphysema, Gastritis, Hypercholesterolemia Family History: States: Unknown Family Hx - Social History Hx Tobacco Use: No Hx Alcohol Use: No Hx Substance Use: No - Immunization History Hx Tetanus Toxoid Vaccination: No Hx Influenza Vaccination: No Hx Pneumococcal Vaccination: Yes (03/2017) Review Of Systems Constitutional: Negative for: Fever Respiratory: Positive for: Cough, Wheezing Gastrointestinal: Negative for: Nausea, Vomiting Physical Exam - Physical Exam Appears: Non-toxic, No Acute Distress Skin: Normal Color, Warm, Dry Head: Atraumatic, Normacephalic Eye(s): bilateral: Normal Inspection Oral Mucosa: Moist Chest: Symmetrical, No Tenderness Cardiovascular: Rhythm Regular Respiratory: No Rales, No Rhonchi, Wheezing (Mild expiratory), Other (Speaking in complete sentences, good air entry) Gastrointestinal/Abdominal: Soft, No Tenderness Neurological/Psych: Oriented x3, Normal Speech ED Course And Treatment ECG: Interpreted By Me, Viewed By Me ECG Rhythm: Sinus Rhythm ECG Interpretation: Normal Interpretation Of ECG: Normal axis, normal rhythm, normal intervals Rate From EC O2 Sat by Pulse Oximetry: 98 (Room air) Pulse Ox Interpretation: Normal Disposition - Disposition Referrals: Jewell Oneill MD [Primary Care Provider] - Disposition Time: 07:00 Condition: UNKNOWN Forms: [facility] (Slovak) - Clinical Impression Clinical Impression: Exacerbation of asthma - Scribe Statement The provider has reviewed the documentation as recorded by the Scribe Provider Attestation: Chase Hammer All medical record entries made by the Odiliaibberonica were at my direction and personally dictated by me. I have reviewed the chart and agree that the record accurately reflects my personal performance of the history, physical exam, medical decision making, and the department course for this patient. I have also personally directed, reviewed, and agree with the discharge instructions and disposition.
[2017-11-11 07:35] VITALS: BP 119/76; PULSE 90; RESP 16; TEMP 98.9
--- NOTE | 2017-11-12 12:34 | CARD ---
APPROVED REPORT EKG Measurement Heart [id number] <Conclusion> Normal sinus rhythm Nonspecific ST and T wave abnormality Abnormal ECG
== END 2017-11-11 07:50 | disposition home or self-care (01) ==
LOC: SUPCPDRO 05:55 → C.ER 05:55
DX: J45.901 Unspecified asthma with (acute) exacerbation (principal); F17.210 Nicotine dependence, cigarettes, uncomplicated

== ENCOUNTER 2018-01-16 13:52 | Emergency (ER) | payer OTHER ==
[2018-01-16 13:52] VITALS: BMI 29.2
[2018-01-16 14:00] VITALS: BP 119/76; PULSE 105; RESP 20; TEMP 98.1; O2SAT 95
[2018-01-16] MEDS ORDERED: Albuterol-Ipratrop 3 mg / 0.5 (3 ml) UD INH STA ×3 (14:41→14:43)
[2018-01-16] MEDS ORDERED: MethylPREDNISolone 40 mg Vial IM STA (14:41)
[2018-01-16] MEDS ORDERED: Albuterol-Ipratrop 3 mg / 0.5 (3 ml) UD ONE ×4 (14:46→15:31)
--- NOTE | 2018-01-16 15:24 | C.PDOC ---
History Of Present Illness 57 y/o F c PMHx asthma/COPD p/w dyspnea x 3 days. 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 Denies fever , chills, chest pain, vomiting, rash, recent travel. Time Seen by Provider: 01/16/18 14:33 Chief Complaint (Nursing): Cough, Cold, Congestion Past Medical History Vital Signs: Last Vital Signs Temp 98.1 F 01/16/18 13:58 Pulse 105 H 01/16/18 13:58 Resp 20 01/16/18 13:58 BP 119/76 01/16/18 13:58 Pulse Ox 95 01/16/18 13:58 - Medical History PMH: Anxiety, Asthma, COPD, Depression, Emphysema, Gastritis, Hypercholesterolemia Denies: Chronic Kidney Disease Family History: States: Unknown Family Hx - Social History Hx Tobacco Use: No Hx Alcohol Use: No Hx Substance Use: No - Immunization History Hx Tetanus Toxoid Vaccination: No Hx Influenza Vaccination: No Hx Pneumococcal Vaccination: Yes (03/2017) Review Of Systems Except As Marked, All Systems Reviewed And Found Negative. Constitutional: Negative for: Fever Cardiovascular: Positive for: Chest Pain Physical Exam - Physical Exam Additional Physical Exam Comments: Gen: NAD Head: NC Eyes: No scleral icterus ENT: MMM, no pharyngeal erythema or exudates. Neck: Supple Chest: No tenderness CV: Regular rate Lungs: Wheezing diffusely. No accessory muscle use Abd: Soft, NT Back: No midline tenderness Extremities: No swelling Skin: No rash Neuro: Alert, no focal deficit ED Course And Treatment O2 Sat by Pulse Oximetry: 95 Medical Decision Making Medical Decision Making: Duonebs x 3, add steroids. CXR no acute disease. No infiltrate or consolidation. F/u primary care, return to ED for worsening breathing, fever, or any other problem. Disposition - Disposition Disposition: HOME/ ROUTINE Disposition Time: 15:24 Condition: STABLE Prescriptions: Oseltamivir Phosphate [Tamiflu] 1 cap PO BID #10 capsule Prednisone [Deltasone] 3 tab PO DAILY #12 tablet Instructions: Asthma in Adults - Clinical Impression Clinical Impression: Asthma exacerbation, Influenza-like illness
--- NOTE | 2018-01-16 15:30 | RAD ---
HISTORY: cough COMPARISON: Comparison is made with 05/18/2017 TECHNIQUE: Chest PA and lateral FINDINGS: LUNGS: No active pulmonary disease. PLEURA: No significant pleural effusion identified. No pneumothorax apparent. CARDIOVASCULAR: Normal. OSSEOUS STRUCTURES: No significant abnormalities. VISUALIZED UPPER ABDOMEN: Normal. OTHER FINDINGS: None. IMPRESSION: No radiographic evidence of pneumonia.
== END 2018-01-16 15:55 | disposition home or self-care (01) ==
LOC: C.ER 13:52
DX: J45.901 Unspecified asthma with (acute) exacerbation (principal); J11.1 Influenza due to unidentified influenza virus with other respiratory manifestations; F17.210 Nicotine dependence, cigarettes, uncomplicated
CPT/HCPCS: 71046; 96372; 99283; J2920

== ENCOUNTER 2018-09-02 11:40 | Inpatient (IN) | payer OTHER ==
[2018-09-02 11:40] VITALS: BMI 29.2
[2018-09-02] MEDS ORDERED: Sodium Chloride 0.9% 1,000 ML IV ONE (12:43)
--- NOTE | 2018-09-02 12:55 | C.PDOC ---
History Of Present Illness 57 y/o female presents to ED for evaluation of cough, cold, and congestion for the last 9 days. She reports productive cough with white sputum and reports feeling short of breath. Notes she was diagnosed with fungal pneumonia infection in May in [place] and was given IV antibiotics for it. She returned from [place] on 08/31. Patient admits her family members at home are also sick with similar symptoms. She also complains of left upper back pain with cough. Otherwise, denies chest pain, palpitations, fever, chills, or any other associated symptoms at this time. Time Seen by Provider: 09/02/18 12:21 Chief Complaint (Nursing): Cough, Cold, Congestion History Per: Patient History/Exam Limitations: no limitations Onset/Duration Of Symptoms: Days (9) Current Symptoms Are (Timing): Still Present Associated Symptoms: Cough, Sputum, Nasal Congestion Ear Symptoms: Bilateral: None Recent travel outside of the [place]: Yes Additional History Per: Patient Past Medical History Reviewed: Historical Data, Nursing Documentation, Vital Signs Vital Signs: Last Vital Signs Temp 98.8 F 09/02/18 12:00 Pulse 90 09/02/18 12:00 Resp 20 09/02/18 12:00 BP 148/85 09/02/18 12:00 Pulse Ox 96 09/02/18 12:00 - Medical History PMH: Anxiety, Asthma, COPD, Depression, Emphysema, Gastritis, Hypercholesterolemia Denies: Chronic Kidney Disease Family History: States: Unknown Family Hx - Social History Hx Tobacco Use: No Hx Alcohol Use: No Hx Substance Use: No - Immunization History Hx Tetanus Toxoid Vaccination: No Hx Influenza Vaccination: No Hx Pneumococcal Vaccination: Yes (03/2017) Review Of Systems Except As Marked, All Systems Reviewed And Found Negative. ENT: Positive for: Nose Congestion. Negative for: Ear Pain, Throat Pain Cardiovascular: Negative for: Chest Pain, Palpitations, Edema Respiratory: Positive for: Cough, Shortness of Breath, Pleuritic Pain, Sputum Gastrointestinal: Negative for: Nausea, Vomiting, Abdominal Pain Musculoskeletal: Positive for: Back Pain. Negative for: Neck Pain Neurological: Negative for: Weakness, Numbness, Headache, Dizziness Physical Exam - Physical Exam Appears: Non-toxic, No Acute Distress, Other (comfortable) Skin: Normal Color, Warm, Dry Head: Atraumatic, Normacephalic Eye(s): bilateral: Normal Inspection Ear(s): Bilateral: Normal Nose: Normal Oral Mucosa: Moist Tongue: Normal Appearing Lips: Normal Appearing Throat: Normal, No Erythema, No Exudate, No Drooling Neck: Normal ROM, Supple Chest: Symmetrical Cardiovascular: Rhythm Regular, No Murmur Respiratory: Normal Breath Sounds, No Rales, No Rhonchi, No Wheezing Gastrointestinal/Abdominal: Soft, No Tenderness Back: No Vertebral Tenderness, No Paraspinal Tenderness Extremity: Normal ROM, No Pedal Edema Neurological/Psych: Oriented x3, Normal Speech ED Course And Treatment - Laboratory Results Result Diagrams: 09/02/18 13:00 09/02/18 13:00 O2 Sat by Pulse Oximetry: 96 (RA) Pulse Ox Interpretation: Normal - CT Scan/US CT chest Other Rad Studies (CT/US): Read By Radiologist, Radiology Report Reviewed CT/US Interpretation: Creator : Maggy Lawton MD. Dictator : Maggy Lawton MD. Medical Record Consultant : Mechanical Engineering Manager : Maggy Lawton MD. Approver2 : Report Date : 09/02/2018 15:27:35. My Comment : . Date of service: 09/02/18. CT chest without IV contrast. Indication: Subsegmental atelectasis right lung, nodule. Technique: Contiguous axial images were obtained through the chest without intravenous contrast enhancement. Sagittal and coronal reconstructions were generated and reviewed. This CT exam was performed using 1 or more of the following dose reduction techniques: Automated exposure control, adjustment of the MAA and/or kV according to patient size, and/or use of iterative reconstruction technique. . Radiation dose (DLP): 336.63 MGy-cm. Comparison: Chest x-ray performed 09/02/18, CT chest with contrast performed 01/23/15. Findings: Visualized portions of the inferior thyroid gland appear unremarkable. The unenhanced mediastinal and hilar vascular structures appear grossly unremarkable. The heart appears within normal limits of size. Pretracheal lymph node measures approximately 11 mm in short axis. Emphy sematous changes. Right middle lobe and to a lesser extent right upper lobe volume loss. Irregular pleural thickening/opacification along the pleural surface. 2 mm hyperdense focus along the dependent aspect of the right mainstem bronchus (series 3, image 50); possibly debris. No pneumothorax. Limited visualization of the noncontrast upper abdomen appears grossly unremarkable. . Osseous demineralization. Degenerative changes. Impression: Emphysematous changes. Streaky right middle lobe opacity may reflect atelectasis or pneumonia. Suspect trace pleural fluid or thickening along the right fissure. Correlate clinically. Recommend short-term follow-up to assess for resolution. Centrilobular emphysema. Significant right sided volume loss since prior study. Interval development of irregular pleural thickening or opacification involving the pleural surface on the right. Findings may represent postinflammatory scarring/atelectasis however neoplasm cannot be entirely excluded. Pretracheal lymph node measuring approximately 11 mm in short axis is noted. Bulky adenopathy is not appreciated. Correlate clinically and recommend 3 month follow-up CT of the chest with IV contrast. 2 mm hyperdense focus along the dependent aspect of the right mainstem bronchus; unclear significance, possibly debris. Tiny polyp cannot be entirely excluded. Additional findings as above. Medical Decision Making Medical Decision Making: Impression: 57 year old female with cough, cold, and congestion for 9 days. Plan: * Blood work * Urinalysis * Influenza AB * CXR * IV fluids Progress: Labs reviewed patient has leukocytosis. blood culture and antibiotics ordered [address] Taylor calls ED to report abnormal xray findings and suggest CT of chest. CXR shows Interval nodular opacity, 1.7 cm mid right lung zone. Malignant nodule is the diagnosis of exclusion. A nodular infiltrate/pneumonia is another consideration.Subsegmental atelectasis posterior right upper lobe noted primarily per lateral view. Slight interval change in right hemidiaphrag matic contour. CT of chest reviewed and shows right sided pneumonia. 1545 spoke with hospitalist to discuss case and imaging findings. patient accepted to medical service Disposition - Disposition Disposition: HOSPITALIZED Disposition Time: 15:55 Condition: STABLE - POA Present On Arrival: None - Clinical Impression Clinical Impression: Pneumonia - PA / ENDODONTIST / Resident Statement MD/DO has reviewed & agrees with the documentation as recorded. - Scribe Statement The provider has reviewed the documentation as recorded by the Scribe KP All medical record entries made by the Scribe were at my direction and personally dictated by me. I have reviewed the chart and agree that the record accurately reflects my personal performance of the history, physical exam, medical decision making, and the department course for this patient. I have also personally directed, reviewed, and agree with the discharge instructions and disposition. Decision To Admit - Pt Status Changed To: Hospital Disposition Of: Inpatient - Admit Certification Admit to Inpatient:: After my assessment, the patient will require hospitalization for at least two midnights. This is because of the severity of symptoms shown, intensity of services needed, and/or the medical risk in this patient being treated as an outpatient. - InPatient: Physician Admission Certification: I certify that this patient requires 2 or more midnights of care for the following reason:: Patient with CAP and needs IV Abx - . Bed Request Type: Regular Admitting Physician: Jose Antonio Leonardo Patient Diagnosis: Pneumonia
[2018-09-02 13:15] LABS: SQUAMOUS EPITHIAL 9 /hpf (0-5); URINE BILIRUBIN NEGATIVE (NEGATIVE); URINE BLOOD NEGATIVE (NEGATIVE); URINE CLARITY Clear (Clear); URINE COLOR Yellow (YELLOW); URINE GLUCOSE (UA) NORMAL (Normal); URINE LEUKOCYTE ESTERASE TRACE Leu/uL (Negative); URINE PROTEIN NEGATIVE (NEGATIVE); URINE UROBILINOGEN NORMAL mg/dL (0.2-1.0)
[2018-09-02 13:17] LABS: BASO # 0.2 K/uL (0.0-0.2); BASO % 1.1 % (0.0-2.0); EOS # 0.3 K/uL (0.0-0.7); EOS % 1.8 % (0.0-4.0); HEMOGLOBIN 14.7 g/dL (11.0-16.0); LYMPH # 5.1 K/uL (1.0-4.3); LYMPH % 33.5 % (20.0-40.0); MEAN CORPUSCULAR HEMOGLOBIN 29.8 pg (27.0-31.0); MEAN CORPUSCULAR HGB CONC 33.8 g/dL (33.0-37.0); MEAN PLATELET VOLUME 7.5 fL (7.2-11.7); MONO # 1.1 K/uL (0.0-0.8); MONO % 7.2 % (0.0-10.0); NEUT # 8.6 K/uL (1.8-7.0); NEUT % 56.4 % (50.0-75.0); NRBC % 0.1 % (0.0-2.0); RBC 4.92 Mil/uL (3.80-5.20); RED CELL DISTRIBUTION WIDTH 14.3 % (11.5-14.5); WHITE BLOOD COUNT 15.2 K/uL (4.8-10.8)
[2018-09-02 13:20] LABS: MEAN CELL VOLUME 88.2 fL (81.0-99.0)
[2018-09-02] MEDS ORDERED: Cefepime IV 2 gm in Dextrose 2 GM/100 ML BAG IVPB STA ×2 (13:21→15:26)
[2018-09-02 13:22] LABS: INR 0.9
--- NOTE | 2018-09-02 13:24 | RAD ---
Date of service: 09/02/2018 HISTORY: SOB COMPARISON: 01/16/2018 chest x-ray TECHNIQUE: Chest PA and lateral FINDINGS: LUNGS: Interval nodular opacity, 1.7 cm mid right lung zone. Malignant nodule is the diagnosis of exclusion. A nodular infiltrate/pneumonia is another consideration. CT chest non IV contrast enhanced recommended. Subsegmental atelectasis posterior right upper lobe noted primarily per lateral view. Slight interval change in right hemidiaphragmatic contour. PLEURA: No significant pleural effusion identified. No pneumothorax apparent. CARDIOVASCULAR: Normal. OSSEOUS STRUCTURES: No significant abnormalities. VISUALIZED UPPER ABDOMEN: Normal. OTHER FINDINGS: None. IMPRESSION: Interval nodular opacity, 1.7 cm mid right lung zone. Malignant nodule is the diagnosis of exclusion. A nodular infiltrate/pneumonia is another consideration. CT chest non IV contrast enhanced recommended. Subsegmental atelectasis posterior right upper lobe noted primarily per lateral view. Slight interval change in right hemidiaphragmatic contour. Comments: Findings were called in to the ER Femi Nicholas on 09/02/2018 at 1:20 p.m.
[2018-09-02 13:30] LABS: ALB/GLOB RATIO 1.2 (1.0-2.1); ALBUMIN 4.2 g/dL (3.5-5.0); ALT/SGPT 30 U/L (9-52); AST/SGOT 31 U/L (14-36); BLOOD UREA NITROGEN 15 mg/dL (7-17); CALCIUM 10.3 mg/dl (8.6-10.4); GFR NON-AFRICAN AMERICAN 57
[2018-09-02 13:45] LABS: B-TYPE NATRIURETIC PEPTIDE 173 pg/mL (0-900)
--- NOTE | 2018-09-02 15:29 | CT ---
Date of service: 09/02/18 CT chest without IV contrast Indication: Subsegmental atelectasis right lung, nodule Technique: Contiguous axial images were obtained through the chest without intravenous contrast enhancement. Sagittal and coronal reconstructions were generated and reviewed. This CT exam was performed using 1 or more of the following dose reduction techniques: Automated exposure control, adjustment of the MAA and/or kV according to patient size, and/or use of iterative reconstruction technique. Radiation dose (DLP): 336.63 MGy-cm. Comparison: Chest x-ray performed 09/02/18, CT chest with contrast performed 01/23/15 Findings: Visualized portions of the inferior thyroid gland appear unremarkable. The unenhanced mediastinal and hilar vascular structures appear grossly unremarkable. The heart appears within normal limits of size. Pretracheal lymph node measures approximately 11 mm in short axis. Emphysematous changes. Right middle lobe and to a lesser extent right upper lobe volume loss. Irregular pleural thickening/opacification along the pleural surface. 2 mm hyperdense focus along the dependent aspect of the right mainstem bronchus (series 3, image 50); possibly debris. No pneumothorax. Limited visualization of the noncontrast upper abdomen appears grossly unremarkable. Osseous demineralization. Degenerative changes. Impression: Emphysematous changes. Streaky right middle lobe opacity may reflect atelectasis or pneumonia. Suspect trace pleural fluid or thickening along the right fissure. Correlate clinically. Recommend short-term follow-up to assess for resolution. Centrilobular emphysema. Significant right sided volume loss since prior study. Interval development of irregular pleural thickening or opacification involving the pleural surface on the right. Findings may represent postinflammatory scarring/atelectasis however neoplasm cannot be entirely excluded. Pretracheal lymph node measuring approximately 11 mm in short axis is noted. Bulky adenopathy is not appreciated. Correlate clinically and recommend 3 month follow-up CT of the chest with IV contrast. 2 mm hyperdense focus along the dependent aspect of the right mainstem bronchus; unclear significance, possibly debris. Tiny polyp cannot be entirely excluded. Additional findings as above.
--- NOTE | 2018-09-02 16:57 | CP.PCM.HP ---
<Catherine Little - Last Filed: 09/02/18 17:17> History of Present Illness - History of Present Illness History of Present Illness: CC: cough and SOB HPI: Patient is a 57 year old female with PMHx of COPD who presents today for about 9 days of productive cough (yellow sputum) and shortness of breath. [place], but was visiting her home country of [facility] since march and returned 2 days ago. Of note patient was hospitalized in [facility] in March for Pseudomonas Pneumonia and had to get a tracheostomy and was "in a coma" for 1.5 months. Since then patient has been doing okay prior to this current episode. During these past 9 days patient has had no fevers, chills, chest pain, abdominal pain, nausea, vomiting, constipation or diarrhea. Patient has been using her Albuterol inhaler more often than usual (about 4 times per day instead of 2). Patient decided to come to the ER today because is not getting better. PMD: Dr. Oneill (poor followup) All: NKDA PMHx: COPD Surg: x 3, tracheostomy 04/16 FamHx: Mom: HTN, Dad: Emphysema Social: quit smoking about 5 months ago, prior 1/2ppd for 40 years, denies alcohol or drugs Meds: Albuterol, Spiriva, Incruse Ellipta Present on Admission - Present on Admission Any Indicators Present on Admission: No History of DVT/PE: No History of Uncontrolled Diabetes: No Urinary Catheter: No Decubitus Ulcer Present: No Review of Systems - Constitutional Constitutional: absent: Chills, Fever - EENT Ears: absent: Dizziness Nose/Mouth/Throat: absent: Nasal Congestion - Cardiovascular Cardiovascular: Dyspnea. absent: Chest Pain - Respiratory Respiratory: Cough, Dyspnea, Chest Congestion, Pain with Coughing - Gastrointestinal Gastrointestinal: absent: Abdominal Pain, Constipation, Diarrhea, Nausea, Vomiting - Genitourinary Genitourinary: absent: Change in Urinary Stream, Difficulty Urinating, Dysuria - Musculoskeletal Musculoskeletal: absent: Numbness, Tingling - Integumentary Integumentary: absent: Rash - Neurological Neurological: absent: Weakness Past Patient History - Infectious Disease Hx of Infectious Diseases: None - Past Medical History & Family History Past Medical History?: Yes - Past Social History Smoking Status: Light Smoker < 10 Cigarettes Daily - CARDIAC Hx Hypercholesterolemia: Yes - PULMONARY Hx Asthma: Yes Hx Chronic Obstructive Pulmonary Disease (COPD): Yes Hx Emphysema: Yes - NEUROLOGICAL Hx Neurological Disorder: No - HEENT Hx HEENT Problems: No - RENAL Hx Chronic Kidney Disease: No - ENDOCRINE/METABOLIC Hx Endocrine Disorders: No - HEMATOLOGICAL/ONCOLOGICAL Hx Blood Disorders: No - INTEGUMENTARY Hx Dermatological Problems: No - MUSCULOSKELETAL/RHEUMATOLOGICAL Hx Musculoskeletal Disorders: No Hx Falls: No - GASTROINTESTINAL Hx Gastritis: Yes - GENITOURINARY/GYNECOLOGICAL Hx Genitourinary Disorders: No - PSYCHIATRIC Hx Anxiety: Yes Hx Depression: Yes Hx Substance Use: No - SURGICAL HISTORY Hx Surgeries: Yes Hx Section: Yes (x3) - ANESTHESIA Hx Anesthesia: Yes Hx Anesthesia Reactions: No Hx Malignant Hyperthermia: No Meds Allergies/Adverse Reactions: Allergies Allergy/AdvReac Type Severity Reaction Status Date / Time cefepime Allergy RASH Verified 09/20/18 16:11 Physical Exam - Constitutional Appears: Non-toxic, No Acute Distress - Head Exam Head Exam: ATRAUMATIC, NORMAL INSPECTION, NORMOCEPHALIC - Eye Exam Eye Exam: EOMI, Normal appearance - ENT Exam ENT Exam: Mucous Membranes Moist - Respiratory Exam Respiratory Exam: Decreased Breath Sounds, NORMAL BREATHING PATTERN - Cardiovascular Exam Cardiovascular Exam: REGULAR RHYTHM, RRR, +S1, +S2 - GI/Abdominal Exam GI & Abdominal Exam: Normal Bowel Sounds, Soft. absent: Tenderness - Extremities Exam Extremities exam: Positive for: normal inspection. Negative for: pedal edema, tenderness - Back Exam Back exam: NORMAL INSPECTION - Neurological Exam Neurological exam: Alert, Oriented x3 - Psychiatric Exam Psychiatric exam: Normal Affect, Normal Mood - Skin Skin Exam: Intact, Normal Color, Warm Results - Vital Signs Recent Vital Signs: Last Vital Signs Temp 98.8 F 09/02/18 12:00 Pulse 90 09/02/18 12:00 Resp 20 09/02/18 12:00 BP 148/85 09/02/18 12:00 Pulse Ox 96 09/02/18 15:37 - Labs Result Diagrams: 09/02/18 13:00 09/02/18 13:00 Labs: Laboratory Results - last 24 hr 09/02/18 09/02/18 09/02/18 12:54 13:00 13:00 WBC 15.2 H RBC 4.92 Hgb 14.7 Hct 43.4 MCV 88.2 D MCH 29.8 MCHC 33.8 RDW 14.3 Plt Count 365 D MPV 7.5 Neut % (Auto) 56.4 Lymph % (Auto) 33.5 [place] % (Auto) 7.2 Eos % (Auto) 1.8 Baso % (Auto) 1.1 Neut # (Auto) 8.6 H Lymph # (Auto) 5.1 H [place] # (Auto) 1.1 H Eos # (Auto) 0.3 Baso # (Auto) 0.2 PT 10.0 INR 0.9 APTT 33 Sodium Potassium Chloride Carbon Dioxide Anion Gap BUN Creatinine Est GFR ( Amer) Est GFR (Non-Af Amer) Random Glucose Calcium Total Bilirubin AST ALT Alkaline Phosphatase Troponin I NT-Pro-B Natriuret Pep Total Protein Albumin Globulin Albumin/Globulin Ratio Urine Color Urine Clarity Urine pH Ur Specific [place] Urine Protein Urine Glucose (UA) Urine Ketones Urine Blood Urine Nitrate Urine Bilirubin Urine Urobilinogen Ur Leukocyte Esterase Urine WBC (Auto) Urine RBC (Auto) Ur Squamous Epith Cells Influenza Typ A,B (EIA) Negative for flu a/b 09/02/18 09/02/18 13:00 13:00 WBC RBC Hgb Hct MCV MCH MCHC RDW Plt Count MPV Neut % (Auto) Lymph % (Auto) [place] % (Auto) Eos % (Auto) Baso % (Auto) Neut # (Auto) Lymph # (Auto) [place] # (Auto) Eos # (Auto) Baso # (Auto) PT INR APTT Sodium 142 Potassium 4.9 Chloride 101 Carbon Dioxide 33 H Anion Gap 14 BUN 15 Creatinine 1.0 Est GFR ( Amer) > 60 Est GFR (Non-Af Amer) 57 Random Glucose 80 Calcium 10.3 Total Bilirubin 0.6 AST 31 ALT 30 Alkaline Phosphatase 119 Troponin I < 0.0120 NT-Pro-B Natriuret Pep 173 Total Protein 7.8 Albumin 4.2 Globulin 3.6 Albumin/Globulin Ratio 1.2 Urine Color Yellow Urine Clarity Clear Urine pH 5.0 Ur Specific [place] 1.014 Urine Protein Negative Urine Glucose (UA) Normal Urine Ketones Negative Urine Blood Negative Urine Nitrate Negative Urine Bilirubin Negative Urine Urobilinogen Normal Ur Leukocyte Esterase Trace Urine WBC (Auto) 2 Urine RBC (Auto) 1 Ur Squamous Epith Cells 9 H Influenza Typ A,B (EIA) Assessment & Plan - Assessment and Plan (Free Text) Assessment: Pneumonia hx of pseudomonas pneumonia in March and 20 pack year smoking hx cxray: interval nodular opacity, 1.7cm mid right lung zone. malignant nodule is the diagnosis of exclusion. a nodular infiltrate/ pneumonia is another consideration. Chest CT: emphysematous changes. centrilobular emphysema. pretracheal lymph node measuring 11mm in short axis noted. [address] with iV contrast. 2mm hyperdense focus along the dependent aspect of the right mainstem bronchus; unclear significance, possibly debris. tiny polyp cannot be entirely excluded. f/u sputum culture, blood culture, urine culture f/u strep pneumo, mycoplasma, legionella Pulm consulted, Dr. Howell, help appreciated meds: * Cefepime ivpb 2gm q12h * Vanco 1gm ivpb q12h * Tylenol prn for fevers COPD meds: * Duonebs q4h prn * Spiriva daily * Pulmicort respules q12h Prophylaxis DVT: scds, Lovenox 40mg sc daily GI: Pepcid 20mg po daily Florastor 250mg po BID <Jose Antonio Leonardo - Last Filed: 09/20/18 16:12> Results - Vital Signs Recent Vital Signs: Last Vital Signs Temp 98.9 F 09/04/18 16:00 Pulse 110 H 09/04/18 16:00 Resp 20 09/04/18 16:00 BP 117/69 09/04/18 16:00 Pulse Ox 95 09/04/18 16:00 - Labs Result Diagrams: 09/03/18 06:31 09/03/18 06:31 Attending/Attestation - Attestation I have personally seen and examined this patient.: Yes I have fully participated in the care of the patient.: Yes I have reviewed all pertinent clinical information: Yes Notes (Text): Pneumonia
[2018-09-02] MEDS: Albuterol-Ipratrop 3 mg / 0.5 (3 ml) UD INH PRN (21:05)
[2018-09-02 22:03] VITALS: RESP 20
[2018-09-02] MEDS: Saccharomyces Boulardi 250 mg Cap PO SCH (22:17)
[2018-09-02] MEDS: Vancomycin 1 gm/NS 200 ml 1 GM/200 ML BAG IVPB SCH (22:17)
[2018-09-03] MEDS: Cefepime IV 2 gm in Dextrose 2 GM/100 ML BAG IVPB SCH ×2 (04:02→16:15)
[2018-09-03 06:47] LABS: BASO % 0.4 % (0.0-2.0); EOS # 0.1 K/uL (0.0-0.7); EOS % 0.5 % (0.0-4.0); HEMOGLOBIN 13.2 g/dL (11.0-16.0); LYMPH # 1.4 K/uL (1.0-4.3); LYMPH % 11.9 % (20.0-40.0); MEAN CELL VOLUME 87.9 fL (81.0-99.0); MEAN CORPUSCULAR HEMOGLOBIN 29.6 pg (27.0-31.0); MEAN CORPUSCULAR HGB CONC 33.6 g/dL (33.0-37.0); MEAN PLATELET VOLUME 7.6 fL (7.2-11.7); MONO # 0.6 K/uL (0.0-0.8); MONO % 4.9 % (0.0-10.0); NEUT # 9.6 K/uL (1.8-7.0); NEUT % 82.3 % (50.0-75.0); NRBC % 0.1 % (0.0-2.0); RBC 4.47 Mil/uL (3.80-5.20); RED CELL DISTRIBUTION WIDTH 14.1 % (11.5-14.5); WHITE BLOOD COUNT 11.6 K/uL (4.8-10.8)
[2018-09-03 07:46] LABS: ALB/GLOB RATIO 1.2 (1.0-2.1); ALBUMIN 3.5 g/dL (3.5-5.0); ALT/SGPT 30 U/L (9-52); AST/SGOT 26 U/L (14-36); BLOOD UREA NITROGEN 18 mg/dL (7-17); CALCIUM 9.3 mg/dl (8.6-10.4); GFR NON-AFRICAN AMERICAN > 60
[2018-09-03] MEDS: Budesonide 0.25 mg/2 ml Inhal Susp UD INH SCH ×2 (08:27→20:16)
[2018-09-03] MEDS: Tiotropium 18 mcg Cap For Inhalation INH SCH (08:27)
[2018-09-03] MEDS: Enoxaparin 40 mg Syringe SC SCH (09:59)
[2018-09-03] MEDS: Saccharomyces Boulardi 250 mg Cap PO SCH ×2 (09:59→17:23)
[2018-09-03] MEDS: Vancomycin 1 gm/NS 200 ml 1 GM/200 ML BAG IVPB SCH ×2 (10:57→21:40)
--- NOTE | 2018-09-03 11:32 | CP.PCM.PN ---
Addendum entered and electronically signed by Jered Low 09/03/18 22:11: on physical exam, skin: erythema on anterior medial side of neck extending to anterior chest area. Original Note: <Jered Low - Last Filed: 09/03/18 21:52> Subjective - Date & Time of Evaluation Date of Evaluation: 09/03/18 Time of Evaluation: 09:20 - Subjective Subjective: PGY-[address] Leonardo service Patient is seen and examined at bedside. Patient states feeling better today, as her cough has improved. Patient reports a clear phlegm now, with cough not being as productive as previous days. Patient admits to mild headache due to oxygen given via nasal canula in evening time. Patiend denies chest pain, shortness of breath, nausea, vomiting, diarrhea, constipation or dysuria. On later encounter today, patient complained of rash in her chest and neck area. Objective - Vital Signs/Intake and Output Vital Signs (last 24 hours): Temp Pulse Resp BP Pulse Ox 98.3 F 96 H 20 144/78 98 09/03/18 07:33 09/03/18 07:33 09/03/18 07:33 09/03/18 07:33 09/03/18 07:33 Intake and Output: 09/03/18 09/03/18 06:59 18:59 Intake Total 550 Balance 550 - Medications Medications: Current Medications Acetaminophen (Tylenol 325mg Tab) 650 mg PO Q6 PRN PRN Reason: Fever >100.4 F Last Admin: 09/03/18 09:58 Dose: 650 mg Albuterol/Ipratropium (Duoneb 3 Mg/0.5 Mg (3 Ml) Ud) 3 ml INH RQ4 PRN PRN Reason: Shortness of Breath Last Admin: 09/02/18 21:05 Dose: 3 ml Budesonide (Pulmicort Respules) 0.25 mg INH RQ12 [facility] Last Admin: 09/03/18 08:27 Dose: 0.25 mg Enoxaparin Sodium (Lovenox) 40 mg SC DAILY [facility] Last Admin: 09/03/18 09:59 Dose: 40 mg Famotidine (Pepcid) 20 mg PO DAILY [facility] Last Admin: 09/03/18 09:58 Dose: 20 mg Cefepime HCl (Maxipime Iv 2 Gm Premix) 2 gm in 100 mls @ 200 mls/hr IVPB Q12H [facility]; Protocol Stop: 09/08/18 04:01 Last Admin: 09/03/18 04:02 Dose: 200 mls/hr Vancomycin/Sodium Chloride (Vancomycin 1 Gm/Ns 200 Ml) 1 gm in 200 mls @ 133 mls/hr IVPB Q12H [facility]; Protocol Stop: 09/07/18 21:01 Last Admin: 09/03/18 10:57 Dose: 133 mls/hr Influenza Virus Vaccine (Fluzone Quad [id number]) 60 mcg IM .ONCE ONE Stop: 09/04/18 10:01 Saccharomyces Boulardii (Florastor) 250 mg PO BID [facility] Last Admin: 09/03/18 09:59 Dose: 250 mg Tiotropium [place] (Spiriva) 18 mcg INH RQ24 [facility] Last Admin: 09/03/18 08:27 Dose: 18 mcg - Labs Labs: 09/03/18 06:31 09/03/18 06:31 PT 10.0 SECONDS (9.7-12.2) 09/02/18 13:00 INR 0.9 09/02/18 13:00 APTT 33 SECONDS (21-34) 09/02/18 13:00 - Constitutional Appears: Non-toxic, No Acute Distress - Head Exam Head Exam: ATRAUMATIC, NORMAL INSPECTION, NORMOCEPHALIC - Eye Exam Eye Exam: EOMI, Normal appearance - ENT Exam ENT Exam: Mucous Membranes Moist, Normal Exam - Neck Exam Neck Exam: Normal Inspection - Respiratory Exam Respiratory Exam: Decreased Breath Sounds, NORMAL BREATHING PATTERN. absent: Accessory Muscle Use, Respiratory Distress - Cardiovascular Exam Cardiovascular Exam: Tachycardia, REGULAR RHYTHM, +S1, +S2 - GI/Abdominal Exam GI & Abdominal Exam: Soft, Normal Bowel Sounds. absent: Tenderness - Extremities Exam Extremities Exam: Full ROM, Normal Inspection. absent: Calf Tenderness, Pedal Edema - Back Exam Back Exam: NORMAL INSPECTION - Neurological Exam Neurological Exam: Alert, Awake, Oriented x3 - Psychiatric Exam Psychiatric exam: Normal Affect, Normal Mood - Skin Skin Exam: Dry, Intact, Normal Color, Warm Assessment and Plan - Assessment and Plan (Free Text) Plan: Pneumonia hx of pseudomonas pneumonia in March and 20 pack year smoking hx cxray: interval nodular opacity, 1.7cm mid right lung zone. malignant nodule is the diagnosis of exclusion. a nodular infiltrate/ pneumonia is another consideration. Chest CT: emphysematous changes. centrilobular emphysema. pretracheal lymph node measuring 11mm in short axis noted. [address] with iV contrast. 2mm hyperdense focus along the dependent aspect of the right mainstem bronchus; unclear significance, possibly debris. tiny polyp cannot be entirely excluded. f/u sputum culture blood culture - no growth after 24 hours urine culture - no growth f/u strep pneumo - pending , mycoplasma -negative legionella - pending Pulm consulted, Dr. Howell, help appreciated meds: * Cefepime ivpb 2gm q12h * Vanco 1gm ivpb q12h * Tylenol prn for fevers skin rash in chest and neck, possible rxn from antibiotic treatment -benadryl 25 mg IVP stat x 1 dose -Patient report not having a reaction to antibiotics in the past. COPD meds: * Duonebs q4h prn * Spiriva daily * Pulmicort respules q12h Prophylaxis DVT: scds, Lovenox 40mg sc daily GI: Pepcid 20mg po daily Florastor 250mg po BID Heart healthy diet Plan discussed with Dr Malissa Low <Jose Antonio Leonardo - Last Filed: 09/20/18 16:13> Attending/Attestation - Attestation I have personally seen and examined this patient.: Yes I have fully participated in the care of the patient.: Yes I have reviewed all pertinent clinical information, including history, physical exam and plan: Yes Notes (Text): Pneumonia Skin rash in chest and neck, possible rxn from antibiotic treatment as a precaution will add cefepime to allergies although could be marilee from vancomyacin
--- NOTE | 2018-09-03 13:08 | CP.PCM.CON ---
History of Present Illness - History of Present Illness History of Present Illness: Pulmonary Consult, Covering Dr Howell The patient was Seen/interviewed and examined by me at the bedside, Medical records reviewed and Management issues were discussed and formulated with the house staff. Events reviewed Some history was obtained by patient's daughter. Patient is a 57 year old female with a PMHx of COPD, High cholesterol and recent hospitalization with Pseudomonas Pneumonia in her home country, [facility]. Pt states the within the last week she feels short of breath with productive cough of yellow mucous. She reports using her nebulizer more often without any symptomatic relief. It is important to mention that Pt reports that prior to going on vacation in December 2017 she was feeling ill with shortness of breath. Throughout her vacation her symptoms progressed to severe SOB, cough with yellow phlegm, facial swelling. Pt was hospitalized for Pseudomonas Pneumonia, she was intubated for 17 days and due to no clinical improvement she was put in an induced coma for 47 days and subsequently had a tracheotomy. Daughter reports doctors told her pt had lung fibrosis, abscesses with necrosis of right lung (daughter reports they have copies of medical records). Chest Xray showed - Nodular opacity 1.7 cm in mid right lung. Segmental atelectasis in posterior right upper lobe. Chest CT showed - emphysematous changes in right middle lobe. Irregular pleural thickening/opacification along the pleural side. PMD: [facility] PMHx: COPD, high cholesterol Surgical Hx: C-sections x 3, Tracheotomy Meds: Ventolin, Albuterol solution, Advair, Spiriva Allergies: NKDA Fam Hx: Mother- HTN, heart disease (alive); Father - HTN, heart disease, [place] ( of [place]). Social Hx: Previous smoker of 1/2 to 1 ppd for 40 years, quit approximately 5 months ago. 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 Denies alcohol or illicit drug use. Lives at home with daughter and grandson. Review of Systems - Review of Systems All systems: reviewed and no additional remarkable complaints except - Constitutional Constitutional: Daytime Sleepiness, Headache. absent: Weakness - EENT Eyes: absent: Change in Vision - Cardiovascular Cardiovascular: absent: Chest Pain - Respiratory Respiratory: Cough, Dyspnea, Dyspnea on Exertion, Wheezing, Chest Congestion, Change in Mucous Color, Pain with Coughing - Gastrointestinal Gastrointestinal: absent: Abdominal Pain, Vomiting - Musculoskeletal Musculoskeletal: absent: Back Pain - Endocrine Endocrine: absent: Palpitations Past Patient History - Infectious Disease Hx of Infectious Diseases: None - Past Medical History & Family History Past Medical History?: Yes - Past Social History Smoking Status: Former Smoker Chewing Tobacco Use: No Cigar Use: No Occupation: Unemployed, cares for grandson. Alcohol: None Drugs: Denies Home Situation {Lives}: With Family Domestic Violence: Negative - CARDIAC Hx Cardiac Disorders: No Hx Angina: No Hx Atrial Fibrillation: No Hx Cardia Arrhythmia: No Hx Circulatory Problems: No Hx Congestive Heart Failure: No Hx Heart Attack: No Hx Heart Murmur: No Hx Heart Transplant: No Hx Hypercholesterolemia: Yes - PULMONARY Hx Respiratory Disorders: Yes Hx Asthma: Yes Hx Chronic Obstructive Pulmonary Disease (COPD): Yes Hx Emphysema: Yes Hx Pneumonia: Yes - NEUROLOGICAL Hx Neurological Disorder: No - HEENT Hx HEENT Problems: No - RENAL Hx Chronic Kidney Disease: No - ENDOCRINE/METABOLIC Hx Endocrine Disorders: No - HEMATOLOGICAL/ONCOLOGICAL Hx Blood Disorders: No - INTEGUMENTARY Hx Dermatological Problems: No - MUSCULOSKELETAL/RHEUMATOLOGICAL Hx Musculoskeletal Disorders: No Hx Falls: No - GASTROINTESTINAL Hx Gastrointestinal Disorders: Yes Hx Gastritis: Yes - GENITOURINARY/GYNECOLOGICAL Hx Genitourinary Disorders: No - PSYCHIATRIC Hx Psychophysiologic Disorder: No Hx Substance Use: No - SURGICAL HISTORY Hx Surgeries: Yes Hx Section: Yes (x3) Other/Comment: tracheostomy MARCH 2018 - ANESTHESIA Hx Anesthesia: Yes Hx Anesthesia Reactions: No Hx Malignant Hyperthermia: No Has any member of the family had a problem w/ anesthesia?: No Meds Home Medications: Home Medication List Medication Instructions Recorded Confirmed Type Albuterol HFA [Ventolin HFA 90 2 puff IH Q4H PRN #1 ea 09/04/18 Rx mcg/actuation (8 g)] Amoxicillin/Clavulanate [Augmentin 1 tab PO BID 7 Days #14 tab 09/04/18 Rx 875 MG-125 MG] Allergies/Adverse Reactions: Allergies Allergy/AdvReac Type Severity Reaction Status Date / Time No Known Allergies Allergy Verified 09/02/18 12:07 - Medications Medications: Current Medications Acetaminophen (Tylenol 325mg Tab) 650 mg PO Q6 PRN PRN Reason: Fever >100.4 F Last Admin: 09/03/18 09:58 Dose: 650 mg Albuterol/Ipratropium (Duoneb 3 Mg/0.5 Mg (3 Ml) Ud) 3 ml INH RQ4 PRN PRN Reason: Shortness of Breath Last Admin: 09/02/18 21:05 Dose: 3 ml Budesonide (Pulmicort Respules) 0.25 mg INH RQ12 [facility] Last Admin: 09/03/18 08:27 Dose: 0.25 mg Enoxaparin Sodium (Lovenox) 40 mg [place] DAILY [facility] Last Admin: 09/03/18 09:59 Dose: 40 mg Famotidine (Pepcid) 20 mg PO DAILY [facility] Last Admin: 09/03/18 09:58 Dose: 20 mg Cefepime HCl (Maxipime Iv 2 Gm Premix) 2 gm in 100 mls @ 200 mls/hr IVPB Q12H [facility]; Protocol Stop: 09/08/18 04:01 Last Admin: 09/03/18 04:02 Dose: 200 mls/hr Vancomycin/Sodium Chloride (Vancomycin 1 Gm/Ns 200 Ml) 1 gm in 200 mls @ 133 mls/hr IVPB Q12H [facility]; Protocol Stop: 09/07/18 21:01 Last Admin: 09/03/18 10:57 Dose: 133 mls/hr Influenza Virus Vaccine (Fluzone Quad [id number]) 60 mcg IM .ONCE ONE Stop: 09/04/18 10:01 Saccharomyces Boulardii (Florastor) 250 mg PO BID [facility] Last Admin: 09/03/18 09:59 Dose: 250 mg Tiotropium [place] (Spiriva) 18 mcg INH RQ24 [facility] Last Admin: 09/03/18 08:27 Dose: 18 mcg Physical Exam - Constitutional Appears: No Acute Distress - Head Exam Head Exam: ATRAUMATIC, NORMAL INSPECTION - Eye Exam Eye Exam: EOMI - ENT Exam ENT Exam: Mucous Membranes Moist - Respiratory Exam Respiratory Exam: Decreased Breath Sounds - Cardiovascular Exam Cardiovascular Exam: REGULAR RHYTHM, +S1, +S2 - GI/Abdominal Exam GI & Abdominal Exam: Normal Bowel Sounds Results - Vital Signs Recent Vital Signs: Last Vital Signs Temp 98.3 F 09/03/18 07:33 Pulse 96 H 09/03/18 07:33 Resp 20 09/03/18 07:33 BP 144/78 09/03/18 07:33 Pulse Ox 98 09/03/18 07:33 - Labs Result Diagrams: 09/03/18 06:31 09/03/18 06:31 Labs: Laboratory Results - last 24 hr 09/02/18 09/02/18 09/02/18 12:54 13:00 13:00 WBC 15.2 H RBC 4.92 Hgb 14.7 Hct 43.4 MCV 88.2 D MCH 29.8 MCHC 33.8 RDW 14.3 Plt Count 365 D MPV 7.5 Neut % (Auto) 56.4 Lymph % (Auto) 33.5 [place] % (Auto) 7.2 Eos % (Auto) 1.8 Baso % (Auto) 1.1 Neut # (Auto) 8.6 H Lymph # (Auto) 5.1 H [place] # (Auto) 1.1 H Eos # (Auto) 0.3 Baso # (Auto) 0.2 PT 10.0 INR 0.9 APTT 33 Sodium Potassium Chloride Carbon Dioxide Anion Gap BUN Creatinine Est GFR ( Amer) Est GFR (Non-Af Amer) Random Glucose Calcium Phosphorus Magnesium Total Bilirubin AST ALT Alkaline Phosphatase Troponin I NT-Pro-B Natriuret Pep Total Protein Albumin Globulin Albumin/Globulin Ratio Urine Color Urine Clarity Urine pH Ur Specific [place] Urine Protein Urine Glucose (UA) Urine Ketones Urine Blood Urine Nitrate Urine Bilirubin Urine Urobilinogen Ur Leukocyte Esterase Urine WBC (Auto) Urine RBC (Auto) Ur Squamous Epith Cells Influenza Typ A,B (EIA) Negative for flu a/b Mycoplasma pneumon IgM 09/02/18 09/02/18 09/03/18 13:00 13:00 06:31 WBC 11.6 H RBC 4.47 Hgb 13.2 Hct 39.3 MCV 87.9 MCH 29.6 MCHC 33.6 RDW 14.1 Plt Count 300 MPV 7.6 Neut % (Auto) 82.3 H Lymph % (Auto) 11.9 L [place] % (Auto) 4.9 Eos % (Auto) 0.5 Baso % (Auto) 0.4 Neut # (Auto) 9.6 H Lymph # (Auto) 1.4 [place] # (Auto) 0.6 Eos # (Auto) 0.1 Baso # (Auto) 0.0 PT INR APTT Sodium 142 Potassium 4.9 Chloride 101 Carbon Dioxide 33 H Anion Gap 14 BUN 15 Creatinine 1.0 Est GFR ( Amer) > 60 Est GFR (Non-Af Amer) 57 Random Glucose 80 Calcium 10.3 Phosphorus Magnesium Total Bilirubin 0.6 AST 31 ALT 30 Alkaline Phosphatase 119 Troponin I < 0.0120 NT-Pro-B Natriuret Pep 173 Total Protein 7.8 Albumin 4.2 Globulin 3.6 Albumin/Globulin Ratio 1.2 Urine Color Yellow Urine Clarity Clear Urine pH 5.0 Ur Specific [place] 1.014 Urine Protein Negative Urine Glucose (UA) Normal Urine Ketones Negative Urine Blood Negative Urine Nitrate Negative Urine Bilirubin Negative Urine Urobilinogen Normal Ur Leukocyte Esterase Trace Urine WBC (Auto) 2 Urine RBC (Auto) 1 Ur Squamous Epith Cells 9 H Influenza Typ A,B (EIA) Mycoplasma pneumon IgM 09/03/18 09/03/18 06:31 06:31 WBC RBC Hgb Hct MCV MCH MCHC RDW Plt Count MPV Neut % (Auto) Lymph % (Auto) [place] % (Auto) Eos % (Auto) Baso % (Auto) Neut # (Auto) Lymph # (Auto) [place] # (Auto) Eos # (Auto) Baso # (Auto) PT INR APTT Sodium 139 Potassium 4.2 Chloride 103 Carbon Dioxide 27 Anion Gap 13 BUN 18 H Creatinine 0.9 Est GFR ( Amer) > 60 Est GFR (Non-Af Amer) > 60 Random Glucose 96 Calcium 9.3 Phosphorus 3.8 Magnesium 1.8 Total Bilirubin 0.6 AST 26 ALT 30 Alkaline Phosphatase 98 Troponin I NT-Pro-B Natriuret Pep Total Protein 6.6 Albumin 3.5 Globulin 3.0 Albumin/Globulin Ratio 1.2 Urine Color Urine Clarity Urine pH Ur Specific [place] Urine Protein Urine Glucose (UA) Urine Ketones Urine Blood Urine Nitrate Urine Bilirubin Urine Urobilinogen Ur Leukocyte Esterase Urine WBC (Auto) Urine RBC (Auto) Ur Squamous Epith Cells Influenza Typ A,B (EIA) Mycoplasma pneumon IgM Negative Assessment & Plan (1) Pneumonia Assessment and Plan: - Continue current antibiotic therapy of Cefepime and Vancomycin - Will review patient's records and any CT scan patients might have brought in with them. Status: Acute Priority: High (2) COPD exacerbation Assessment and Plan: - Continue nebulizer therapy of Albuterol/Ipratoprium q4h prn - Continue Spiriva 18 mcg INH RQ24 [facility] - Continue Budesonide Status: Acute Priority: High (3) Bronchitis Status: Acute Priority: High (4) Chest pain, rule out acute myocardial infarction Status: Acute Priority: High
[2018-09-03] MEDS ORDERED: DiphenhydrAMINE 50 mg/ml Inj IVP STA (14:47)
[2018-09-04 02:00] LABS: CK-MB 2.86 ng/mL (0.0-3.38)
[2018-09-04] MEDS: Cefepime IV 2 gm in Dextrose 2 GM/100 ML BAG IVPB SCH (04:05)
[2018-09-04 07:55] LABS: CK-MB 2.59 ng/mL (0.0-3.38)
[2018-09-04] MEDS: Albuterol-Ipratrop 3 mg / 0.5 (3 ml) UD INH PRN ×2 (07:56→12:24)
[2018-09-04] MEDS: Budesonide 0.25 mg/2 ml Inhal Susp UD INH SCH (07:57)
[2018-09-04] MEDS: Vancomycin 1 gm/NS 200 ml 1 GM/200 ML BAG IVPB SCH (08:25)
[2018-09-04 09:06] VITALS: O2SAT 95
--- NOTE | 2018-09-04 09:21 | CP.PCM.PN ---
<Nelly Denton P - Last Filed: 09/04/18 11:44> Subjective - Date & Time of Evaluation Date of Evaluation: 09/04/18 Time of Evaluation: 08:00 - Subjective Subjective: PGY-1 progress note for hospitalist service. Patient seen and examined at bedside. Patient had episode of chest pain and L rib pain overnight. L rib pain was reproducible on palpation, and worse with movement. EKG was done, which showed NSR without ST changes. Troponins negative x2. Pain resolved with 0.5mg morphine. No further events overnight. Patient complains of puritic red rash to leg. Patient denies current chest or rib pain. Denies shortness of breath, nausea, vomiting, fever and chills. Objective - Vital Signs/Intake and Output Vital Signs (last 24 hours): Temp Pulse Resp BP Pulse Ox 98.0 F 95 H 20 117/75 95 09/04/18 08:00 09/04/18 08:00 09/04/18 08:00 09/04/18 08:00 09/04/18 08:00 Intake and Output: 09/04/18 09/04/18 06:59 18:59 Intake Total 640 Balance 640 - Medications Medications: Current Medications Acetaminophen (Tylenol 325mg Tab) 650 mg PO Q6 PRN PRN Reason: Fever >100.4 F Last Admin: 09/03/18 09:58 Dose: 650 mg Albuterol/Ipratropium (Duoneb 3 Mg/0.5 Mg (3 Ml) Ud) 3 ml INH RQ4 PRN PRN Reason: Shortness of Breath Last Admin: 09/04/18 07:56 Dose: 3 ml Budesonide (Pulmicort Respules) 0.25 mg INH RQ12 ASHLIE Last Admin: 09/04/18 07:57 Dose: 0.25 mg Diphenhydramine HCl (Benadryl) 25 mg PO Q6 PRN PRN Reason: Allergy symptoms Enoxaparin Sodium (Lovenox) 40 mg SC DAILY [facility] Last Admin: 09/03/18 09:59 Dose: 40 mg Famotidine (Pepcid) 20 mg PO DAILY [facility] Last Admin: 09/03/18 09:58 Dose: 20 mg Cefepime HCl (Maxipime Iv 2 Gm Premix) 2 gm in 100 mls @ 200 mls/hr IVPB Q12H [facility]; Protocol Stop: 09/08/18 04:01 Last Admin: 09/04/18 04:05 Dose: 200 mls/hr Vancomycin/Sodium Chloride (Vancomycin 1 Gm/Ns 200 Ml) 1 gm in 200 mls @ 133 mls/hr IVPB Q12H ASHLIE; Protocol Stop: 09/07/18 21:01 Last Admin: 09/04/18 08:25 Dose: 133 mls/hr Influenza Virus Vaccine (Fluzone Quad [id number]) 60 mcg IM .ONCE ONE Stop: 09/04/18 10:01 Saccharomyces Boulardii (Florastor) 250 mg PO BID ASHLIE Last Admin: 09/03/18 17:23 Dose: 250 mg Tiotropium [place] (Spiriva) 18 mcg INH RQ24 ASHLIE Last Admin: 09/03/18 08:27 Dose: 18 mcg - Labs Labs: 09/03/18 06:31 09/03/18 06:31 PT 10.0 SECONDS (9.7-12.2) 09/02/18 13:00 INR 0.9 09/02/18 13:00 APTT 33 SECONDS (21-34) 09/02/18 13:00 - Head Exam Head Exam: ATRAUMATIC, NORMOCEPHALIC - Eye Exam Eye Exam: EOMI - ENT Exam ENT Exam: Mucous Membranes Moist - Neck Exam Neck Exam: Full ROM - Respiratory Exam Respiratory Exam: Decreased Breath Sounds. absent: Rales, Rhonchi, Wheezes - Cardiovascular Exam Cardiovascular Exam: REGULAR RHYTHM, +S1, +S2 - GI/Abdominal Exam GI & Abdominal Exam: Soft, Normal Bowel Sounds. absent: Guarding, Tenderness, Rebound - Extremities Exam Extremities Exam: absent: Calf Tenderness, Pedal Edema, Tenderness - Neurological Exam Neurological Exam: Alert, Awake, Oriented x3 - Psychiatric Exam Psychiatric exam: Normal Affect, Normal Mood - Skin Additional comments: mild erythema to anterior neck, otherwise normal. Assessment and Plan - Assessment and Plan (Free Text) Plan: Pneumonia hx of pseudomonas pneumonia in March and 20 pack year smoking hx cxray: interval nodular opacity, 1.7cm mid right lung zone. malignant nodule is the diagnosis of exclusion. a nodular infiltrate/ pneumonia is another consideration. Chest CT: emphysematous changes. centrilobular emphysema. pretracheal lymph node measuring 11mm in short axis noted. [address] with iV contrast. 2mm hyperdense focus along the dependent aspect of the right mainstem bronchus; unclear significance, possibly debris. tiny polyp cannot be entirely excluded. blood culture neg 24 hr, urine culture-negative final f/u strep pneumo, legionella Pulm consulted, Dr. Howell, help appreciated meds: * Cefepime ivpb 2gm q12h * Vanco 1gm ivpb q12h * Tylenol prn for fevers COPD meds: * Duonebs q4h prn * Spiriva daily * Pulmicort respules q12h Chest pain Resolved EKG normal sinus rhythm Troponins neg x2 Prophylaxis DVT: scds, Lovenox 40mg sc daily GI: Pepcid 20mg po daily Florastor 250mg po BID <Julio Alcantara - Last Filed: 09/04/18 16:32> Objective - Vital Signs/Intake and Output Vital Signs (last 24 hours): Temp Pulse Resp BP Pulse Ox 98.0 F 95 H 20 117/75 95 09/04/18 08:00 09/04/18 08:00 09/04/18 08:00 09/04/18 08:00 09/04/18 08:00 Intake and Output: 09/04/18 09/04/18 06:59 18:59 Intake Total 640 Balance 640 - Medications Medications: Current Medications Acetaminophen (Tylenol 325mg Tab) 650 mg PO Q6 PRN PRN Reason: Fever >100.4 F Last Admin: 09/03/18 09:58 Dose: 650 mg Albuterol/Ipratropium (Duoneb 3 Mg/0.5 Mg (3 Ml) Ud) 3 ml INH RQ4 PRN PRN Reason: Shortness of Breath Last Admin: 09/04/18 12:24 Dose: 3 ml Budesonide (Pulmicort Respules) 0.25 mg INH RQ12 ASHLIE Last Admin: 09/04/18 07:57 Dose: 0.25 mg Diphenhydramine HCl (Benadryl) 25 mg PO Q6 PRN PRN Reason: Allergy symptoms Last Admin: 09/04/18 10:40 Dose: 25 mg Enoxaparin Sodium (Lovenox) 40 mg SC DAILY ASHLIE Last Admin: 09/04/18 10:40 Dose: 40 mg Famotidine (Pepcid) 20 mg PO DAILY [facility] Last Admin: 09/04/18 10:40 Dose: 20 mg Cefepime HCl (Maxipime Iv 2 Gm Premix) 2 gm in 100 mls @ 200 mls/hr IVPB Q12H ASHLIE; Protocol Stop: 09/08/18 04:01 Last Admin: 09/04/18 04:05 Dose: 200 mls/hr Vancomycin/Sodium Chloride (Vancomycin 1 Gm/Ns 200 Ml) 1 gm in 200 mls @ 133 mls/hr IVPB Q12H ASHLIE; Protocol Stop: 09/07/18 21:01 Last Admin: 09/04/18 08:25 Dose: 133 mls/hr Saccharomyces Boulardii (Florastor) 250 mg PO BID [facility] Last Admin: 09/04/18 10:40 Dose: 250 mg Tiotropium [place] (Spiriva) 18 mcg INH RQ24 ASHLIE Last Admin: 09/04/18 12:25 Dose: Not Given - Labs Labs: 09/03/18 06:31 09/03/18 06:31 PT 10.0 SECONDS (9.7-12.2) 09/02/18 13:00 INR 0.9 09/02/18 13:00 APTT 33 SECONDS (21-34) 09/02/18 13:00 Attending/Attestation - Attestation I have personally seen and examined this patient.: Yes I have fully participated in the care of the patient.: Yes I have reviewed all pertinent clinical information, including history, physical exam and plan: Yes Notes (Text): Patient seen and examined with the residents; agree with above Clinically improving. Denies fever, chills, chest pain at this time On broad spectrum Abx for possible CAP blood cx negative thus far; will de-escalate Abx to PO Augmentin Discharge home and outpt f/u with PMD in 1-2 weeks as necessary
[2018-09-04] MEDS ORDERED: Influenza Vaccine 60 MCG/0.5 ML SYR (3 yr & up) IM ONE (10:00)
[2018-09-04] MEDS: Saccharomyces Boulardi 250 mg Cap PO SCH (10:40)
[2018-09-04] MEDS: Enoxaparin 40 mg Syringe SC SCH (10:40)
[2018-09-04] MEDS: Tiotropium 18 mcg Cap For Inhalation INH SCH (12:25)
--- NOTE | 2018-09-04 13:45 | RAD ---
Date of service: 09/04/2018 HISTORY: Chest pain COMPARISON: No prior. FINDINGS: LUNGS: Redemonstrated are emphysematous changes upper lobe predominance seen to better advantage on prior CT scan. Redemonstrated are irregular pleural thickening along the major and minor fissures as well as adjacent parenchymal atelectasis/scarring also seen to better advantage on prior CT scan. PLEURA: No significant pleural effusion identified, no pneumothorax apparent. CARDIOVASCULAR: Normal. OSSEOUS STRUCTURES: No significant abnormalities. VISUALIZED UPPER ABDOMEN: Normal. OTHER FINDINGS: None. IMPRESSION: Redemonstrated are emphysematous changes upper lobe predominance seen to better advantage on prior CT scan. Redemonstrated are irregular pleural thickening along the major and minor fissures as well as adjacent parenchymal atelectasis/scarring also seen to better advantage on prior CT scan.
[2018-09-04 14:26] LABS: CK-MB 2.63 ng/mL (0.0-3.38)
[2018-09-04 17:06] VITALS: BP 117/69; PULSE 110; TEMP 98.9
--- NOTE | 2018-09-04 21:14 | CP.PCM.PN ---
Subjective - Date & Time of Evaluation Date of Evaluation: 09/04/18 Time of Evaluation: 16:00 - Subjective Subjective: Pulmonary Consult, Covering Dr Howell The patient was Seen/interviewed and examined by me at the bedside, Medical records reviewed and Management issues were discussed and formulated with the house staff. Events reviewed Some history was obtained by patient's daughter. Patient is a 57 year old female with a PMHx of COPD, High cholesterol and recent hospitalization with Pseudomonas Pneumonia in her home country, [facility]. Pt states the within the last week she feels short of breath with productive cough of yellow mucous. She reports using her nebulizer more often without any symptomatic relief. It is important to mention that Pt reports that prior to going on vacation in December 2017 she was feeling ill with shortness of breath. Throughout her vacation her symptoms progressed to severe SOB, cough with yellow phlegm, facial swelling. Pt was hospitalized for Pseudomonas Pneumonia, she was intubated for 17 days and due to no clinical improvement she was put in an induced coma for 47 days and subsequently had a tracheotomy. Daughter reports doctors told her pt had lung fibrosis, abscesses with necrosis of right lung (daughter reports they have copies of medical records). Chest Xray showed - Nodular opacity 1.7 cm in mid right lung. Segmental atelectasis in posterior right upper lobe. Chest CT showed - emphysematous changes in right middle lobe. Irregular pleural thickening/opacification along the pleural side. Objective - Vital Signs/Intake and Output Vital Signs (last 24 hours): Temp Pulse Resp BP Pulse Ox 98.9 F 110 H 20 117/69 95 09/04/18 16:00 09/04/18 16:00 09/04/18 16:00 09/04/18 16:00 09/04/18 16:00 Intake and Output: 09/04/18 09/05/18 18:59 06:59 Intake Total 700 Balance 700 - Labs Labs: 09/03/18 06:31 09/03/18 06:31 PT 10.0 SECONDS (9.7-12.2) 09/02/18 13:00 INR 0.9 09/02/18 13:00 APTT 33 SECONDS (21-34) 09/02/18 13:00 - Constitutional Appears: Well, Non-toxic - Head Exam Head Exam: ATRAUMATIC, NORMAL INSPECTION - Eye Exam Eye Exam: absent: Conjunctival injection - Neck Exam Neck Exam: Full ROM. absent: Lymphadenopathy, Meningismus - Respiratory Exam Respiratory Exam: Decreased Breath Sounds, Prolonged Expiratory Phase, Rales, Rhonchi. absent: Accessory Muscle Use, Chest Wall Tenderness, Wheezes, Respiratory Distress - Cardiovascular Exam Cardiovascular Exam: REGULAR RHYTHM, RRR, +S1, +S2. absent: JVD - GI/Abdominal Exam GI & Abdominal Exam: Soft, Normal Bowel Sounds. absent: Rigid, Tenderness - Back Exam Back Exam: absent: CVA tenderness (L), CVA tenderness (R) - Neurological Exam Neurological Exam: Alert, Awake, CN II-XII Intact, Normal Gait, Oriented x3. absent: Altered, Motor Sensory Deficit Assessment and Plan (1) COPD exacerbation Assessment & Plan: - Continue nebulizer therapy of Albuterol/Ipratoprium q4h prn - Continue Spiriva 18 mcg INH RQ24 ASHLIE - Continue Budesonide Status: Acute (2) Pneumonia Assessment & Plan: - Continue current antibiotic therapy of * Cefepime ivpb 2gm q12h * Vanco 1gm ivpb q12h review old patient's records and CT scans she has brought in with them. She might need Bronchoscopy Status: Acute (3) Chest pain, rule out acute myocardial infarction Assessment & Plan: Resolved EKG normal sinus rhythm Troponins neg x2 Status: Acute (4) Asthma Assessment & Plan: Continue Nebulizer treatments Status: Acute
--- NOTE | 2018-09-04 22:01 | CP.PCM.DIS ---
Provider - Provider Date of Admission: 09/02/18 15:55 Attending physician: Jose Antonio Leonardo MD Time Spent in preparation of Discharge (in minutes): 120 Hospital Course - Lab Results Lab Results: Micro Results 09/02/18 15:30 Blood Blood Culture - Preliminary NO GROWTH AFTER 48 HOURS 09/02/18 13:40 Blood Blood Culture - Preliminary NO GROWTH AFTER 48 HOURS 09/02/18 14:33 Urine,Clean Catch Urine Culture - Final No Growth (<1,000 CFU/ML) Most Recent Lab Values WBC 11.6 K/uL (4.8-10.8) H 09/03/18 06:31 RBC 4.47 Mil/uL (3.80-5.20) 09/03/18 06:31 Hgb 13.2 g/dL (11.0-16.0) 09/03/18 06:31 Hct 39.3 % (34.0-47.0) 09/03/18 06:31 MCV 87.9 fL (81.0-99.0) 09/03/18 06:31 MCH 29.6 pg (27.0-31.0) 09/03/18 06:31 MCHC 33.6 g/dL (33.0-37.0) 09/03/18 06:31 RDW 14.1 % (11.5-14.5) 09/03/18 06:31 Plt Count 300 K/uL (130-400) 09/03/18 06:31 MPV 7.6 fL (7.2-11.7) 09/03/18 06:31 Neut % (Auto) 82.3 % (50.0-75.0) H 09/03/18 06:31 Lymph % (Auto) 11.9 % (20.0-40.0) L 09/03/18 06:31 [place] % (Auto) 4.9 % (0.0-10.0) 09/03/18 06:31 Eos % (Auto) 0.5 % (0.0-4.0) 09/03/18 06:31 Baso % (Auto) 0.4 % (0.0-2.0) 09/03/18 06:31 Neut # (Auto) 9.6 K/uL (1.8-7.0) H 09/03/18 06:31 Lymph # (Auto) 1.4 K/uL (1.0-4.3) 09/03/18 06:31 [place] # (Auto) 0.6 K/uL (0.0-0.8) 09/03/18 06:31 Eos # (Auto) 0.1 K/uL (0.0-0.7) 09/03/18 06:31 Baso # (Auto) 0.0 K/uL (0.0-0.2) 09/03/18 06:31 PT 10.0 SECONDS (9.7-12.2) 09/02/18 13:00 INR 0.9 09/02/18 13:00 APTT 33 SECONDS (21-34) 09/02/18 13:00 Sodium 139 mmol/L (132-148) 09/03/18 06:31 Potassium 4.2 mmol/L (3.6-5.2) 09/03/18 06:31 Chloride 103 mmol/L (98-107) 09/03/18 06:31 Carbon Dioxide 27 mmol/L (22-30) 09/03/18 06:31 Anion Gap 13 (10-20) 09/03/18 06:31 BUN 18 mg/dL (7-17) H 09/03/18 06:31 Creatinine 0.9 mg/dL (0.7-1.2) 09/03/18 06:31 Est GFR ( Amer) > 60 09/03/18 06:31 Est GFR (Non-Af Amer) > 60 09/03/18 06:31 Random Glucose 96 mg/dL (65-105) 09/03/18 06:31 Calcium 9.3 mg/dl (8.6-10.4) 09/03/18 06:31 Phosphorus 3.9 mg/dL (2.5-4.5) 09/04/18 01:29 Magnesium 1.8 mg/dL (1.6-2.3) 09/04/18 01:29 Total Bilirubin 0.6 mg/dL (0.2-1.3) 09/03/18 06:31 AST 26 U/L (14-36) 09/03/18 06:31 ALT 30 U/L (9-52) 09/03/18 06:31 Alkaline Phosphatase 98 U/L (38-126) 09/03/18 06:31 Total Creatine Kinase 55 U/L (30-135) 09/04/18 13:55 CK-MB (Mass) 2.63 ng/mL (0.0-3.38) 09/04/18 13:55 Troponin I < 0.0120 ng/mL (0.00-0.120) 09/04/18 13:55 NT-Pro-B Natriuret Pep 173 pg/mL (0-900) 09/02/18 13:00 Total Protein 6.6 g/dL (6.3-8.3) 09/03/18 06:31 Albumin 3.5 g/dL (3.5-5.0) 09/03/18 06:31 Globulin 3.0 gm/dL (2.2-3.9) 09/03/18 06:31 Albumin/Globulin Ratio 1.2 (1.0-2.1) 09/03/18 06:31 Urine Color Yellow (YELLOW) 09/02/18 13:00 Urine Clarity Clear (Clear) 09/02/18 13:00 Urine pH 5.0 (5.0-8.0) 09/02/18 13:00 Ur Specific [place] 1.014 (1.003-1.030) 09/02/18 13:00 Urine Protein Negative mg/dL (NEGATIVE) 09/02/18 13:00 Urine Glucose (UA) Normal mg/dL (Normal) 09/02/18 13:00 Urine Ketones Negative mg/dL (NEGATIVE) 09/02/18 13:00 Urine Blood Negative (NEGATIVE) 09/02/18 13:00 Urine Nitrate Negative (NEGATIVE) 09/02/18 13:00 Urine Bilirubin Negative (NEGATIVE) 09/02/18 13:00 Urine Urobilinogen Normal mg/dL (0.2-1.0) 09/02/18 13:00 Ur Leukocyte Esterase Trace [place]/uL (Negative) 09/02/18 13:00 Urine WBC (Auto) 2 /hpf (0-5) 09/02/18 13:00 Urine RBC (Auto) 1 /hpf (0-3) 09/02/18 13:00 Ur Squamous Epith Cells 9 /hpf (0-5) H 09/02/18 13:00 Influenza Typ A,B (EIA) Negative for flu a/b (NEGATIVE) 09/02/18 12:54 Mycoplasma pneumon IgM Negative (NEGATIVE) 09/03/18 06:31 - Hospital Course Hospital Course: On admission: Patient is a 57 year old female with PMHx of COPD who presents today for about 9 days of productive cough (yellow sputum) and shortness of breath. [place] the [place], but was visiting her home country of [facility] since march and returned 2 days ago. Of note patient was hospitalized in [facility] in March for Pseudomonas Pneumonia and had to get a tracheostomy and was "in a coma" for 1.5 months. Since then patient has been doing okay prior to this current episode. During these past 9 days patient has had no fevers, chills, chest pain, abdominal pain, nausea, vomiting, constipation or diarrhea. Patient has been using her Albuterol inhaler more often than usual (about 4 times per day instead of 2). Patient decided to come to the ER today because is not getting better. On hospitalization : Patient was admitted for Pneumonia. cxray shows interval nodular opacity, 1.7cm mid right lung zone. malignant nodule is the diagnosis of exclusion. a nodular infiltrate/ pneumonia is another consideration. Chest CT: emphysematous changes. centrilobular emphysema. pretracheal lymph node measuring 11mm in short axis noted. [address] with iV contrast. 2mm hyperdense focus along the dependent aspect of the right mainstem bronchus; unclear significance, possibly debris. tiny polyp cannot be entirely excluded. EKG showed normal sinus rhtyhm, troponin negative x3. mycoplasma IGM and influenza type a and b were negative Dr Howell, wheel and axle inspector was consulted - Cefepime IVPB 2gm q 12hrs, Vanco 1gm IVPB Q12hrs. blood culture neg 24 hr, urine culture-negative final. For history of COPD, the following medications were given: Duonebs q4h prn, Spiriva daily, Pulmicort respules q12h. Patient developed rash in neck and chest during hospitalization. Patient received benadryl 25 mg IVP once. Patient clinically improved over course of hospitalization. denied symptoms of fever chils, chest pain or shortness of breath. On discharge: Patient was provided the following instruction at discharge: Patient is to follow up at the clinic in one week. Please make appointment Patient is take thye following medication: Augmentin 875 mg per mouth twice a day for 7 days. Continue home medications. You are given albuterol inhaler to take every four hours when needed . Patient is to return to the ER if symptoms worsen or recur. This is a brief summary of patient's hospitalization course. for more information, please see patient's EMR - Date & Time of H&P Date of H&P: 09/02/18 Time of H&P: 19:20 Discharge Exam - Head Exam Head Exam: ATRAUMATIC, NORMAL INSPECTION - Eye Exam Eye Exam: EOMI, Normal appearance - ENT Exam ENT Exam: Mucous Membranes Moist, Normal Exam - Neck Exam Neck exam: Full Rom, Normal Inspection - Respiratory Exam Respiratory Exam: Clear to PA & Lateral, NORMAL BREATHING PATTERN, UNREMARKABLE. absent: Accessory Muscle Use, Rales, Rhonchi, Wheezes, Respiratory Distress - Cardiovascular Exam Cardiovascular Exam: REGULAR RHYTHM, +S1, +S2 - GI/Abdominal Exam GI & Abdominal Exam: Normal Bowel Sounds, Unremarkable. absent: Tenderness - Extremities Exam Extremities exam: full ROM - Back Exam Back exam: NORMAL INSPECTION - Neurological Exam Neurological exam: Alert, Normal Gait, Oriented x3 - Psychiatric Exam Psychiatric exam: Normal Affect, Normal Mood - Skin Skin Exam: Dry, Intact, Normal Color, Warm Discharge Plan - Discharge Medications Prescriptions: Albuterol HFA [Ventolin HFA 90 mcg/actuation (8 g)] 2 puff IH Q4H PRN #1 ea PRN Reason: asthma Amoxicillin/Clavulanate [Augmentin 875 MG-125 MG] 1 tab PO BID 7 Days #14 tab - Follow Up Plan Condition: STABLE Disposition: HOME/ ROUTINE Instructions: Pneumonia, Adult (DC) Additional Instructions: Patient is to follow up at the clinic in one week. Please make appointment Patient is take thye following medication: - Augmentin 875 mg per mouth twice a day for 7 days Continue home medications. You are given albuterol inhaler to take every four hours when needed Patient is to return to the ER if symptoms worsen or recur El paciente debe hacer un seguimiento en la clnica en raquel semana. Por favor esme raquel love El paciente se koko el siguiente medicamento: - Augmentin 875 mg por boca dos veces al da susan 7 jackson Continuar con los medicamentos caseros. Se le administra inhalador de albuterol para que lo tome cada cuatro horas cuando sea necesario. El paciente debe regresar a la ruth de emergencias si los sntomas empeoran o reaparecen.
--- NOTE | 2018-09-06 21:08 | CARD ---
APPROVED REPORT Date of service: 09/04/2018 EKG Measurement Heart [id number] <Conclusion> Normal sinus rhythm Nonspecific T wave abnormality Abnormal ECG
== END 2018-09-04 17:05 | disposition home or self-care (01) | DRG 137 ==
LOC: C.ER 11:40 → C.9E 15:55 → C.3T 18:20
PROVIDERS: ADMIT Internal Medicine; ATTEND Internal Medicine
DX: J15.1 Pneumonia due to Pseudomonas (principal); J44.1 Chronic obstructive pulmonary disease with (acute) exacerbation; J98.11 Atelectasis; E78.00 Pure hypercholesterolemia, unspecified; F17.210 Nicotine dependence, cigarettes, uncomplicated

== ENCOUNTER 2018-09-24 19:48 | Observation (INO) | payer OTHER ==
[2018-09-24 19:48] VITALS: BMI 29.2
[2018-09-24] MEDS ORDERED: MethylPREDNISolone 40 mg Vial IVP STA (20:18)
[2018-09-24] MEDS ORDERED: Albuterol-Ipratrop 3 mg / 0.5 (3 ml) UD ONE ×2 (20:30→20:42)
[2018-09-24] MEDS: Albuterol-Ipratrop 3 mg / 0.5 (3 ml) UD IH SCH ×3 (20:30→21:00)
--- NOTE | 2018-09-24 20:33 | C.PDOC ---
History Of Present Illness 58 year old female with a PMHx of COPD, intubated in March 2018, converted to tracheostomy, reversed in May 2018, presents to the emergency department with complaints of shortness of breath. Patient states that her SOB does not feel as if it warrants intubation. She denies fever, chest pain, vomiting, but reports nasal congestion. Patient was admitted three weeks ago, found to have a mass on lung CT, which was treated as pneumonia. Patient was instructed to return for a follow-up CT in 3 months. Time Seen by Provider: 09/24/18 20:00 Chief Complaint (Nursing): Shortness Of Breath History Per: Patient History/Exam Limitations: no limitations Onset/Duration Of Symptoms: Hrs Current Symptoms Are (Timing): Still Present Associated Symptoms: Other (Congestion. Shortness of breath. NO vomiting. ). denies: Fever, Chest Pain Reports Recently: Hospitalized (3 weeks ago) Past Medical History Reviewed: Historical Data, Nursing Documentation, Vital Signs Vital Signs: Last Vital Signs Temp 98.3 F 09/24/18 20:00 Pulse 105 H 09/24/18 20:00 Resp 24 09/24/18 20:00 BP Pulse Ox 100 09/24/18 20:00 - Medical History PMH: Anxiety, Asthma, COPD, Depression, Emphysema, Gastritis, Hypercholesterolemia, Pneumonia Denies: Atrial Fibrillation, Cardia Arrhythmia, CHF, Chronic Kidney Disease Family History: States: Unknown Family Hx - Social History Hx Tobacco Use: No Hx Alcohol Use: No Hx Substance Use: No - Immunization History Hx Tetanus Toxoid Vaccination: No Hx Influenza Vaccination: No Hx Pneumococcal Vaccination: Yes (03/2017) Review Of Systems Except As Marked, All Systems Reviewed And Found Negative. Constitutional: Negative for: Fever ENT: Positive for: Nose Congestion Cardiovascular: Negative for: Chest Pain Respiratory: Positive for: Shortness of Breath Gastrointestinal: Negative for: Vomiting Physical Exam - Physical Exam Additional Physical Exam Comments: Constitutional: No acute distress. Head: Normocephalic. Atraumatic. Eyes: PERRL. ENT: Moist mucous membranes. Neck: Supple. Tracheostomy scar. Cardiovascular: Tachycardic. Radial pulse 2+ bilaterally. Chest: No tenderness. Respiratory: Diffuse wheezing. Decreased breath sounds. Tachypnea. GI: Soft. Nontender. Nondistended. Back: No CVA tenderness. Musculoskeletal: No tenderness or swelling of extremities. Skin: No rash. Neurologic: Alert, no focal deficit. ED Course And Treatment - Laboratory Results Result Diagrams: 09/24/18 20:52 09/24/18 20:52 O2 Sat by Pulse Oximetry: 100 (RA) Pulse Ox Interpretation: Normal Medical Decision Making Medical Decision Making: Plan: ABG CMP CBC CXR Duoneb 3ml INH Solu-Medrol 125mg IVP BIPAP Patient reminded to return for follow-up CT in two months. CXR no consolidation. EKG Sinus tachycardia 106 bpm, no ST elevations. Patient feels better, continues to have wheezing and shortness of breath. Dr. Lugo accepts patient to hospitalist service for COPD exacerbation. Disposition - Disposition Disposition: HOSPITALIZED Disposition Time: 21:49 Condition: FAIR Forms: [email or web address] (Senegalese) - Clinical Impression Clinical Impression: COPD exacerbation - Scribe Statement The provider has reviewed the documentation as recorded by the Scribe ([email or web address]) Provider Attestation: All medical record entries made by the Scribe were at my direction and personally dictated by me. I have reviewed the chart and agree that the record accurately reflects my personal performance of the history, physical exam, medical decision making, and the department course for this patient. I have also personally directed, reviewed, and agree with the discharge instructions and disposition.
[2018-09-24 20:56] LABS: BASO # 0.1 K/uL (0.0-0.2); EOS # 0.8 K/uL (0.0-0.7); HEMOGLOBIN 13.7 g/dL (11.0-16.0); LYMPH % 49.1 % (20.0-40.0); MEAN CELL VOLUME 87.7 fL (81.0-99.0); MEAN CORPUSCULAR HEMOGLOBIN 29.4 pg (27.0-31.0); MEAN CORPUSCULAR HGB CONC 33.5 g/dL (33.0-37.0); MEAN PLATELET VOLUME 8.7 fL (7.2-11.7); MONO # 0.5 K/uL (0.0-0.8); MONO % 5.3 % (0.0-10.0); NEUT # 3.7 K/uL (1.8-7.0); NEUT % 36.6 % (50.0-75.0); NRBC % 0.1 % (0.0-2.0); RBC 4.67 Mil/uL (3.80-5.20); RED CELL DISTRIBUTION WIDTH 14.1 % (11.5-14.5); WHITE BLOOD COUNT 10.2 K/uL (4.8-10.8)
[2018-09-24 21:10] LABS: ABG ALLEN TEST YES; ARTERIAL BLOOD GAS HCO3 24.7 mmol/L (21-28); ARTERIAL BLOOD GAS HEMOGLOBIN 13.6 g/dL (11.7-17.4); ARTERIAL BLOOD GAS O2 SAT 100.4 % (95-98); ARTERIAL BLOOD GAS PCO2 57 mm/Hg (35-45); ARTERIAL BLOOD GAS PH 7.29 (7.35-7.45); ARTERIAL BLOOD GAS PO2 193 mm/Hg (80-100); ARTERIAL BLOOD GAS TCO2 29.1 mmol/L (22-28)
[2018-09-24 21:21] LABS: ALB/GLOB RATIO 1.2 (1.0-2.1); ALBUMIN 4.5 g/dL (3.5-5.0); ALT/SGPT 16 U/L (9-52); AST/SGOT 24 U/L (14-36); BLOOD UREA NITROGEN 12 mg/dL (7-17); CALCIUM 9.7 mg/dl (8.6-10.4); GFR NON-AFRICAN AMERICAN > 60
--- NOTE | 2018-09-24 23:40 | CP.PCM.HP ---
<Gonzalo Sanches - Last Filed: 09/25/18 00:07> History of Present Illness - History of Present Illness History of Present Illness: PGY-[address] Lugo 58 year old female with history of COPD presents with shortness of breath for the past three days. Patient has had COPD for many years requiring multiple hospitalizations, most recently about three weeks ago. She has had shortness of breath in the past which required intubation and tracheostomy, with eventual reversal of tracheostomy. Patient uses spiriva and albuterol at home for COPD. For the past three days patient has been consistently short of breath at rest. Normally, she gets short of breath walking far distances, but not at rest. Patient denies fevers, or recent sick contacts, but has had some nasal congesti on. During admission 3 weeks ago, patient was found to have a mass on lung CT, which was treated as pneumonia. Patient was instructed to return for a follow-up CT in 3 months to rule out malignancy. Patient has a 40 pack-year smoking history, but no longer smokes. Present on Admission - Present on Admission Any Indicators Present on Admission: No Review of Systems - Constitutional Constitutional: absent: Chills, Fever - EENT Eyes: absent: Blurred Vision, Change in Vision Nose/Mouth/Throat: Nasal Congestion. absent: Sinus Pressure - Cardiovascular Cardiovascular: absent: Chest Pain, Chest Pain with Activity, Pedal Edema - Respiratory Respiratory: Dyspnea, Wheezing. absent: Cough - Gastrointestinal Gastrointestinal: absent: Abdominal Pain, Nausea, Vomiting - Genitourinary Genitourinary: absent: Dysuria, Flank Pain - Musculoskeletal Musculoskeletal: absent: Back Pain, Joint Swelling - Neurological Neurological: Headaches. absent: Dizziness - Psychiatric Psychiatric: absent: Anxiety, Depression (Use of accessory muscles - Pectoral muscle use, but no abdominal muscle use. Patient appears comfortable on Bipap.) Past Patient History - Infectious Disease Hx of Infectious Diseases: None - Past Medical History & Family History Past Medical History?: Yes - Past Social History Smoking Status: Former Smoker - CARDIAC Hx Atrial Fibrillation: No Hx Cardia Arrhythmia: No Hx Congestive Heart Failure: No Hx Hypercholesterolemia: Yes - PULMONARY Hx Asthma: Yes Hx Chronic Obstructive Pulmonary Disease (COPD): Yes Hx Emphysema: Yes Hx Pneumonia: Yes - NEUROLOGICAL Hx Neurological Disorder: No - HEENT Hx HEENT Problems: No - RENAL Hx Chronic Kidney Disease: No - ENDOCRINE/METABOLIC Hx Endocrine Disorders: No - HEMATOLOGICAL/ONCOLOGICAL Hx Blood Disorders: No - INTEGUMENTARY Hx Dermatological Problems: No - MUSCULOSKELETAL/RHEUMATOLOGICAL Hx Musculoskeletal Disorders: No Hx Falls: No - GASTROINTESTINAL Hx Gastritis: Yes - GENITOURINARY/GYNECOLOGICAL Hx Genitourinary Disorders: No - PSYCHIATRIC Hx Anxiety: Yes Hx Depression: Yes Hx Substance Use: No - SURGICAL HISTORY Hx Surgeries: Yes Hx Section: Yes (x3) Other/Comment: tracheostomy MARCH 2018 - ANESTHESIA Hx Anesthesia: Yes Hx Anesthesia Reactions: No Hx Malignant Hyperthermia: No Meds Allergies/Adverse Reactions: Allergies Allergy/AdvReac Type Severity Reaction Status Date / Time cefepime Allergy RASH Verified 09/20/18 16:11 Physical Exam - Head Exam Head Exam: ATRAUMATIC, NORMAL INSPECTION - Eye Exam Eye Exam: EOMI, Normal appearance - ENT Exam ENT Exam: Mucous Membranes Moist - Respiratory Exam Respiratory Exam: Accessory Muscle Use (Pectoral muscle use, no use of abdominal muscles), Wheezes (Diffuse wheezes, more pronounced at apices). absent: Chest Wall Tenderness, Rales, Rhonchi Additional comments: On BiPap - Cardiovascular Exam Cardiovascular Exam: RRR, +S1, +S2. absent: Systolic Murmur - GI/Abdominal Exam GI & Abdominal Exam: Soft. absent: Rebound, Tenderness - Extremities Exam Extremities exam: Positive for: normal inspection. Negative for: pedal edema, tenderness - Neurological Exam Neurological exam: Alert, CN II-XII Intact, Oriented x3 - Psychiatric Exam Psychiatric exam: Normal Affect, Normal Mood - Skin Skin Exam: Dry, Intact, Normal Color, Warm Results - Vital Signs Recent Vital Signs: Last Vital Signs Temp 97.6 F 09/24/18 22:59 Pulse 103 H 09/24/18 22:59 Resp 22 09/24/18 22:59 BP 136/77 09/24/18 22:59 Pulse Ox 98 09/24/18 22:59 - Labs Result Diagrams: 09/24/18 20:52 09/24/18 20:52 Labs: Laboratory Results - last 24 hr 09/24/18 09/24/18 09/24/18 20:52 20:52 20:55 WBC 10.2 RBC 4.67 Hgb 13.7 Hct 40.9 MCV 87.7 MCH 29.4 MCHC 33.5 RDW 14.1 Plt Count 319 MPV 8.7 Neut % (Auto) 36.6 L Lymph % (Auto) 49.1 H Drew % (Auto) 5.3 Eos % (Auto) 8.0 H Baso % (Auto) 1.0 Neut # (Auto) 3.7 Lymph # (Auto) 5.0 H Drew # (Auto) 0.5 Eos # (Auto) 0.8 H Baso # (Auto) 0.1 Puncture Site Rb pCO2 57 H pO2 193 H HCO3 24.7 ABG pH 7.29 L ABG Total CO2 29.1 H ABG O2 Saturation 100.4 H ABG Base Excess -0.3 ABG Hemoglobin 13.6 ABG Carboxyhemoglobin 3.0 H POC ABG HHb (Measured) -0.4 L ABG Methemoglobin 0.9 Wilfredo Test Yes A-a O2 Difference -50.0 Respiratory Index -0.3 Hgb O2 Saturation 96.4 FiO2 30.0 Sodium 144 Potassium 3.7 Chloride 103 Carbon Dioxide 30 Anion Gap 14 BUN 12 Creatinine 0.8 Est GFR ( Amer) > 60 Est GFR (Non-Af Amer) > 60 Random Glucose 108 H Calcium 9.7 Total Bilirubin 0.4 AST 24 ALT 16 Alkaline Phosphatase 129 H D Total Protein 8.1 Albumin 4.5 Globulin 3.6 Albumin/Globulin Ratio 1.2 Assessment & Plan - Assessment and Plan (Free Text) Assessment: COPD Exacerbation -BiPap started in ED -Duonebs 3mL Q4 -Solumedrol 125 mg IV given in ED; 40 mg PO daily -Spiriva 18mcg INH Q24 -Chest X-ray 09/24 - No focal consolidations noted, official read pending. -EKG - sinus tach rate in low 100s with No ST or T changes Prophylaxis SCDs <Talat Lugo - Last Filed: 09/25/18 06:03> Results - Vital Signs Recent Vital Signs: Last Vital Signs Temp 97.5 F L 09/24/18 23:35 Pulse 89 09/25/18 05:00 Resp 20 09/24/18 23:35 BP 124/69 09/24/18 23:35 Pulse Ox 94 L 09/25/18 05:00 - Labs Result Diagrams: 09/24/18 20:52 09/24/18 20:52 Labs: Laboratory Results - last 24 hr 09/24/18 09/24/18 09/24/18 20:52 20:52 20:55 WBC 10.2 RBC 4.67 Hgb 13.7 Hct 40.9 MCV 87.7 MCH 29.4 MCHC 33.5 RDW 14.1 Plt Count 319 MPV 8.7 Neut % (Auto) 36.6 L Lymph % (Auto) 49.1 H Drew % (Auto) 5.3 Eos % (Auto) 8.0 H Baso % (Auto) 1.0 Neut # (Auto) 3.7 Lymph # (Auto) 5.0 H Drew # (Auto) 0.5 Eos # (Auto) 0.8 H Baso # (Auto) 0.1 Puncture Site Rb pCO2 57 H pO2 193 H HCO3 24.7 ABG pH 7.29 L ABG Total CO2 29.1 H ABG O2 Saturation 100.4 H ABG Base Excess -0.3 ABG Hemoglobin 13.6 ABG Carboxyhemoglobin 3.0 H POC ABG HHb (Measured) -0.4 L ABG Methemoglobin 0.9 Wilfredo Test Yes A-a O2 Difference -50.0 Respiratory Index -0.3 Hgb O2 Saturation 96.4 FiO2 30.0 Sodium 144 Potassium 3.7 Chloride 103 Carbon Dioxide 30 Anion Gap 14 BUN 12 Creatinine 0.8 Est GFR ( Amer) > 60 Est GFR (Non-Af Amer) > 60 Random Glucose 108 H Calcium 9.7 Total Bilirubin 0.4 AST 24 ALT 16 Alkaline Phosphatase 129 H D Total Protein 8.1 Albumin 4.5 Globulin 3.6 Albumin/Globulin Ratio 1.2 Assessment & Plan - Date & Time Date: 09/25/18 (I have seen and examined the patient. I agree with the findings and plan of care as documented by Dr. Sanches. Patient with COPD exacerbation. Previous history of intubation secondary to severe COPD exacerbation. BIPAP, nebs, spiriva, and solumedrol. Monitor for acute changes.) Time: 06:01 Attending/Attestation - Attestation I have personally seen and examined this patient.: Yes I have fully participated in the care of the patient.: Yes I have reviewed all pertinent clinical information: Yes
[2018-09-25] MEDS: Albuterol-Ipratrop 3 mg / 0.5 (3 ml) UD INH SCH ×6 (01:20→19:17)
[2018-09-25] MEDS: MethylPREDNISolone 40 mg Vial IVP SCH ×3 (05:14→21:31)
[2018-09-25 07:40] LABS: ALB/GLOB RATIO 1.2 (1.0-2.1); ALBUMIN 4.1 g/dL (3.5-5.0); ALT/SGPT 10 U/L (9-52); AST/SGOT 19 U/L (14-36); BLOOD UREA NITROGEN 15 mg/dL (7-17); CALCIUM 9.9 mg/dl (8.6-10.4); GFR NON-AFRICAN AMERICAN > 60
[2018-09-25] MEDS ORDERED: Tiotropium 18 mcg Cap For Inhalation INH SCH (08:00)
[2018-09-25] MEDS: Pantoprazole 40 mg EC Tab PO SCH (09:28)
[2018-09-25] MEDS: guaiFENesin 600 mg ER Tab PO SCH ×2 (09:28→17:50)
--- NOTE | 2018-09-25 10:09 | RAD ---
Date of service: 09/24/2018 HISTORY: shortness of breath COMPARISON: Portable chest 09/04/2018. FINDINGS: LUNGS: There is interval resolution of prior linear atelectasis and associated patchy density at the mid right lung zone. No acute infiltrate is appreciate bilaterally. Volume loss is again appreciate the right lung however with mild rightward mediastinal shift reiterated. Patient rotated toward the left somewhat. PLEURA: No significant pleural effusion identified, no pneumothorax apparent. CARDIOVASCULAR: No aortic atherosclerotic calcification present. Normal cardiac size. No pulmonary vascular congestion. OSSEOUS STRUCTURES: No significant abnormalities. VISUALIZED UPPER ABDOMEN: Normal. OTHER FINDINGS: None. IMPRESSION: Apparent resolution of right-sided airspace disease at the mid right lung zone and linear atelectasis with no acute infiltrate appreciable at this time. Volume loss of the right lung remains. No acute cardiovascular disease appreciable.
--- NOTE | 2018-09-25 18:45 | CP.PCM.PN ---
Subjective - Date & Time of Evaluation Date of Evaluation: 09/25/18 Time of Evaluation: 17:00 - Subjective Subjective: seen and examined ,has cough and wheezing c/o wheezing and cough Objective - Vital Signs/Intake and Output Vital Signs (last 24 hours): Temp Pulse Resp BP Pulse Ox 98 F 117 H 20 133/71 96 09/25/18 15:10 09/25/18 15:45 09/25/18 15:10 09/25/18 15:10 09/25/18 15:45 - Medications Medications: Current Medications Acetaminophen (Tylenol 325mg Tab) 650 mg PO Q6 PRN PRN Reason: Pain, Mild (1-3) Albuterol/Ipratropium (Duoneb 3 Mg/0.5 Mg (3 Ml) Ud) 3 ml INH RQ4 [facility] Last Admin: 09/25/18 11:35 Dose: 3 ml Guaifenesin (Mucinex La) 600 mg PO BID [facility] Last Admin: 09/25/18 17:50 Dose: 600 mg Heparin Sodium (Porcine) (Heparin) 5,000 units SC Q12 [facility] Last Admin: 09/25/18 09:27 Dose: 5,000 units Methylprednisolone (Solu-Medrol) 40 mg IVP Q12 [facility] Nicotine (Nicoderm Cq) 1 patch TD DAILY [facility] Last Admin: 09/25/18 09:31 Dose: 1 patch Pantoprazole Sodium (Protonix Ec Tab) 40 mg PO DAILY [facility] Last Admin: 09/25/18 09:28 Dose: 40 mg Tiotropium [place] (Spiriva) 18 mcg INH RQ24 [facility] Last Admin: 09/25/18 08:10 Dose: 18 mcg - Labs Labs: 09/24/18 20:52 09/25/18 06:57 - Constitutional Appears: Non-toxic, No Acute Distress - Head Exam Head Exam: NORMAL INSPECTION - Eye Exam Eye Exam: Normal appearance Pupil Exam: NORMAL ACCOMODATION - ENT Exam ENT Exam: Mucous Membranes Moist - Neck Exam Neck Exam: Full ROM - Respiratory Exam Respiratory Exam: Wheezes, NORMAL BREATHING PATTERN - Cardiovascular Exam Cardiovascular Exam: REGULAR RHYTHM - GI/Abdominal Exam GI & Abdominal Exam: Soft, Normal Bowel Sounds - Extremities Exam Extremities Exam: Full ROM - Back Exam Back Exam: NORMAL INSPECTION - Neurological Exam Neurological Exam: Awake, Oriented x3 - Psychiatric Exam Psychiatric exam: Normal Mood - Skin Skin Exam: Dry, Intact, Warm Assessment and Plan - Assessment and Plan (Free Text) Plan: 1.COPD Exacerbation Bilateral wheezing Duonebs 3mL Q4 Solumedrol 40mg iv bid Spiriva 18mcg INH Q24 Chest X-ray 09/24 - No focal consolidations noted, official read pending. EKG - sinus tach rate in low 100s with No ST or T changes 2.Smoking-nicotine patch,Counseled 3.DVT and GI prophylaxis
[2018-09-26] MEDS: Albuterol-Ipratrop 3 mg / 0.5 (3 ml) UD INH SCH ×3 (01:15→08:39)
[2018-09-26 07:34] VITALS: BP 119/68; PULSE 89; RESP 18; TEMP 98.3; O2SAT 95
[2018-09-26 08:02] LABS: ALB/GLOB RATIO 1.3 (1.0-2.1); ALT/SGPT 17 U/L (9-52); AST/SGOT 16 U/L (14-36); BLOOD UREA NITROGEN 28 mg/dL (7-17); CALCIUM 9.9 mg/dl (8.6-10.4); GFR NON-AFRICAN AMERICAN > 60
--- NOTE | 2018-09-26 10:37 | CP.PCM.DIS ---
Provider - Provider Date of Admission: 09/24/18 21:50 Attending physician: Talat Lugo MD Time Spent in preparation of Discharge (in minutes): 45 Hospital Course - Lab Results Lab Results: Most Recent Lab Values WBC 10.2 K/uL (4.8-10.8) 09/24/18 20:52 RBC 4.67 Mil/uL (3.80-5.20) 09/24/18 20:52 Hgb 13.7 g/dL (11.0-16.0) 09/24/18 20:52 Hct 40.9 % (34.0-47.0) 09/24/18 20:52 MCV 87.7 fL (81.0-99.0) 09/24/18 20:52 MCH 29.4 pg (27.0-31.0) 09/24/18 20:52 MCHC 33.5 g/dL (33.0-37.0) 09/24/18 20:52 RDW 14.1 % (11.5-14.5) 09/24/18 20:52 Plt Count 319 K/uL (130-400) 09/24/18 20:52 MPV 8.7 fL (7.2-11.7) 09/24/18 20:52 Neut % (Auto) 36.6 % (50.0-75.0) L 09/24/18 20:52 Lymph % (Auto) 49.1 % (20.0-40.0) H 09/24/18 20:52 [place] % (Auto) 5.3 % (0.0-10.0) 09/24/18 20:52 Eos % (Auto) 8.0 % (0.0-4.0) H 09/24/18 20:52 Baso % (Auto) 1.0 % (0.0-2.0) 09/24/18 20:52 Neut # (Auto) 3.7 K/uL (1.8-7.0) 09/24/18 20:52 Lymph # (Auto) 5.0 K/uL (1.0-4.3) H 09/24/18 20:52 [place] # (Auto) 0.5 K/uL (0.0-0.8) 09/24/18 20:52 Eos # (Auto) 0.8 K/uL (0.0-0.7) H 09/24/18 20:52 Baso # (Auto) 0.1 K/uL (0.0-0.2) 09/24/18 20:52 Puncture Site Rb 09/24/18 20:55 pCO2 57 mm/Hg (35-45) H 09/24/18 20:55 pO2 193 mm/Hg (80-100) H 09/24/18 20:55 HCO3 24.7 mmol/L (21-28) 09/24/18 20:55 ABG pH 7.29 (7.35-7.45) L 09/24/18 20:55 ABG Total CO2 29.1 mmol/L (22-28) H 09/24/18 20:55 ABG O2 Saturation 100.4 % (95-98) H 09/24/18 20:55 ABG Base Excess -0.3 mmol/L (-2.0-3.0) 09/24/18 20:55 ABG Hemoglobin 13.6 g/dL (11.7-17.4) 09/24/18 20:55 ABG Carboxyhemoglobin 3.0 % (0.5-1.5) H 09/24/18 20:55 POC ABG HHb (Measured) -0.4 % (0.0-5.0) L 09/24/18 20:55 ABG Methemoglobin 0.9 % (0.0-3.0) 09/24/18 20:55 Wilfredo Test Yes 09/24/18 20:55 A-a O2 Difference -50.0 mm/Hg 09/24/18 20:55 Respiratory Index -0.3 09/24/18 20:55 Hgb O2 Saturation 96.4 % (95.0-98.0) 09/24/18 20:55 FiO2 30.0 % 09/24/18 20:55 Sodium 140 mmol/L (132-148) 09/26/18 07:35 Potassium 4.6 mmol/L (3.6-5.2) 09/26/18 07:35 Chloride 105 mmol/L (98-107) 09/26/18 07:35 Carbon Dioxide 26 mmol/L (22-30) 09/26/18 07:35 Anion Gap 13 (10-20) 09/26/18 07:35 BUN 28 mg/dL (7-17) H 09/26/18 07:35 Creatinine 0.9 mg/dL (0.7-1.2) 09/26/18 07:35 Est GFR ( Amer) > 60 09/26/18 07:35 Est GFR (Non-Af Amer) > 60 09/26/18 07:35 Random Glucose 128 mg/dL (65-105) H 09/26/18 07:35 Calcium 9.9 mg/dl (8.6-10.4) 09/26/18 07:35 Phosphorus 3.5 mg/dL (2.5-4.5) 09/26/18 07:35 Magnesium 2.1 mg/dL (1.6-2.3) 09/26/18 07:35 Total Bilirubin 0.3 mg/dL (0.2-1.3) 09/26/18 07:35 AST 16 U/L (14-36) 09/26/18 07:35 ALT 17 U/L (9-52) 09/26/18 07:35 Alkaline Phosphatase 110 U/L (38-126) 09/26/18 07:35 Total Protein 7.2 g/dL (6.3-8.3) 09/26/18 07:35 Albumin 4.0 g/dL (3.5-5.0) 09/26/18 07:35 Globulin 3.2 gm/dL (2.2-3.9) 09/26/18 07:35 Albumin/Globulin Ratio 1.3 (1.0-2.1) 09/26/18 07:35 Ur L.pneumophila Ag Negative (NEGATIVE) 09/25/18 11:02 - Hospital Course Hospital Course: 58 year old female with history of COPD presents with shortness of breath for the past three days. Patient has had COPD for many years requiring multiple hospitalizations, most recently about three weeks ago. She has had shortness of breath in the past which required intubation and tracheostomy, with eventual reversal of tracheostomy. Patient uses spiriva and albuterol at home for COPD. For the past three days patient has been consistently short of breath at rest. Normally, she gets short of breath walking far distances, but not at rest. Patient denies fevers, or recent sick contacts, but has had some nasal congestion. During admission 3 weeks ago, patient was found to have a mass on lung CT, which was treated as pneumonia. Patient was instructed to return for a follow-up CT in 3 months to rule out malignancy. Patient has a 40 pack-year smoking history, but no longer smokes. Hospital course: Patient was admitted on 09/25/18 for COPD exacerbation. EKG showed sinus tachycardia at 106bpm, no ST changes. Chest xray showed no infiltrate. Patient was placed on BiPap and started on duonebs, solumedrol, spiriva, and mucinex. Patient remained afebrile throughout hospital course, no leukocytosis and no bandemia. Patient was seen and examined in no acute distress. Patient reports feeling much better. No shortness of breath, congestion, or wheezing reported by patient or noted on exam. Patient is stable for discharge to home. Patient must continue home medications. Patient must start new medication in addition to home medication: Advair 250/50 1 inhalation BID and Medrol Dose pack. Patient must follow up with PMD within 1 week of discharge. This is a brief summary of the hospital course. Please see EMR for more details. Discharge Exam - Additional Findings Additional findings: - Constitutional Appears: Non-toxic, No Acute Distress - Head Exam Head Exam: NORMAL INSPECTION - Eye Exam Eye Exam: Normal appearance Pupil Exam: NORMAL ACCOMODATION - ENT Exam ENT Exam: Mucous Membranes Moist - Neck Exam Neck Exam: Full ROM - Respiratory Exam Respiratory Exam: Wheezes, NORMAL BREATHING PATTERN - Cardiovascular Exam Cardiovascular Exam: REGULAR RHYTHM - GI/Abdominal Exam GI & Abdominal Exam: Soft, Normal Bowel Sounds - Extremities Exam Extremities Exam: Full ROM - Back Exam Back Exam: NORMAL INSPECTION - Neurological Exam Neurological Exam: Awake, Oriented x3 - Psychiatric Exam Psychiatric exam: Normal Mood - Skin Skin Exam: Dry, Intact, Warm Discharge Plan - Discharge Medications Prescriptions: Fluticasone/Salmeterol [Advair 250-50 Diskus] 1 each IH Q12H 30 Days blst.w.dev Methylprednisolone [Medrol Dose Pack (21 tabs)] 4 mg PO ASDIR #21 mg Tiotropium [Spiriva] 18 mcg INH RQ24 30 Days cap Tiotropium [place] Inhaler [Spiriva Inhalation Handihaler Device] 1 inhaler INH ONCE #1 inhaler - Follow Up Plan Condition: FAIR Disposition: HOME/ ROUTINE Instructions: COPD Including Emphysema (DC), Fluticasone and Salmeterol, Methylprednisolone Additional Instructions: Patient is stable for discharge to home. Patient must continue home medications. Patient must take new medication as direction: 1. Prednisone- Medrol Dose Pack (take as directed). 2. Advair 250-50- inhale twice a daily. Patient must follow up with PMD within 1-2 weeks of discharge. If symptoms worsen or reoccur, patient should return to the nearest ED. El paciente es estable para la descarga al hogar. El paciente debe continuar con jeffrey medicamentos. El paciente debe rufina la nueva medicacin alma direccin: 1. paquete de la dosis de la prednisona-Medrol (tome segn lo indicado). 2. Advair [id number] dos veces al da. El paciente debe hacer un seguimiento con PMD dentro de 1-2 semanas de conchita. Si los sntomas empeoran o vuelven a ocurrir, el paciente debe regresar al ED ms deuce.
[2018-09-26] MEDS: Pantoprazole 40 mg EC Tab PO SCH (10:38)
[2018-09-26] MEDS: MethylPREDNISolone 40 mg Vial IVP SCH (10:39)
[2018-09-26] MEDS: guaiFENesin 600 mg ER Tab PO SCH (10:40)
--- NOTE | 2018-09-27 17:36 | CARD ---
APPROVED REPORT Date of service: 09/24/2018 EKG Measurement Heart [id number] <Conclusion> Sinus tachycardia Nonspecific T wave abnormality Abnormal ECG
== END 2018-09-26 12:45 | disposition home or self-care (01) ==
LOC: C.ER 19:48 → C.6T 21:50
PROVIDERS: ADMIT Family Medicine; ATTEND Family Medicine
DX: J44.0 Chronic obstructive pulmonary disease with (acute) lower respiratory infection (principal); J44.1 Chronic obstructive pulmonary disease with (acute) exacerbation; Z87.891 Personal history of nicotine dependence; Z87.01 Personal history of pneumonia (recurrent); E78.00 Pure hypercholesterolemia, unspecified
CPT/HCPCS: 36415; 71045; 80053; 82803; 82948; 83735; 84100; 85025; 86738; 87449; 87899; 93005; 94640; 96374; 99285; G0378; J1644; J2920

== ENCOUNTER 2018-10-14 11:35 | Inpatient (IN) | payer MEDICAID ==
[2018-10-14 11:52] VITALS: BMI 22.8
[2018-10-14 12:39] LABS: BASO # 0.1 K/uL (0.0-0.2); BASO % 0.8 % (0.0-2.0); EOS # 0.8 K/uL (0.0-0.7); EOS % 6.6 % (0.0-4.0); HEMOGLOBIN 13.6 g/dL (11.0-16.0); LYMPH % 31.9 % (20.0-40.0); MEAN CELL VOLUME 87.9 fL (81.0-99.0); MEAN CORPUSCULAR HEMOGLOBIN 29.7 pg (27.0-31.0); MEAN CORPUSCULAR HGB CONC 33.7 g/dL (33.0-37.0); MEAN PLATELET VOLUME 8.2 fL (7.2-11.7); MONO # 0.7 K/uL (0.0-0.8); MONO % 5.9 % (0.0-10.0); NEUT # 6.8 K/uL (1.8-7.0); NEUT % 54.8 % (50.0-75.0); RBC 4.6 Mil/uL (3.80-5.20); RED CELL DISTRIBUTION WIDTH 13.9 % (11.5-14.5); WHITE BLOOD COUNT 12.4 K/uL (4.8-10.8)
[2018-10-14] MEDS ORDERED: Albuterol-Ipratrop 3 mg / 0.5 (3 ml) UD INH STA ×2 (12:41→16:31)
--- NOTE | 2018-10-14 12:52 | C.PDOC ---
History Of Present Illness 59 y/o female with history of COPD presents to ED with c/o sob and body aches for 3 days and headache since today. Patient was hospitalized 2 weeks ago for pneumonia and discharged on medication. As per family patient finished medica tion and denies fever, chills, abdominal pain, nausea, vomiting, leg swelling or any other complaints at this time. pt with hx 2 month hospitalization in March 2018 for 2 months in coma, had tracheostomy. Time Seen by Provider: 10/14/18 12:26 Chief Complaint (Nursing): Shortness Of Breath History Per: Patient History/Exam Limitations: no limitations Onset/Duration Of Symptoms: Days Current Symptoms Are (Timing): Still Present Initiating Event: Upper Respiratory Illness Past Medical History Reviewed: Historical Data, Nursing Documentation, Vital Signs Vital Signs: Last Vital Signs Temp 98.3 F 10/14/18 12:10 Pulse 110 H 10/14/18 12:10 Resp 18 10/14/18 12:16 BP 127/90 10/14/18 12:10 Pulse Ox 96 10/14/18 12:16 - Medical History PMH: Anxiety, Asthma, COPD, Depression, Emphysema, Gastritis, Hypercholesterolemia, Pneumonia Surgical History: No Surg Hx Family History: States: No Known Family Hx - Social History Hx Tobacco Use: No Hx Alcohol Use: No Hx Substance Use: No - Immunization History Hx Tetanus Toxoid Vaccination: No Hx Influenza Vaccination: Yes Hx Pneumococcal Vaccination: Yes (03/2017) Review Of Systems Constitutional: Negative for: Fever, Chills Cardiovascular: Positive for: Chest Pain Respiratory: Positive for: Shortness of Breath. Negative for: Cough Gastrointestinal: Positive for: Abdominal Pain. Negative for: Nausea, Vomiting Skin: Negative for: Rash Physical Exam - Physical Exam Appears: Non-toxic, No Acute Distress Skin: Warm, Dry, No Rash Head: Atraumatic, Normacephalic Eye(s): bilateral: Normal Inspection Oral Mucosa: Moist Neck: Normal ROM, Supple Chest: Symmetrical Cardiovascular: Rhythm Regular Respiratory: Decreased Breath Sounds, No Rales, No Rhonchi, Wheezing (scant) Gastrointestinal/Abdominal: Soft, Tenderness (mild upper abdominal), No Guarding, No Rebound Back: No CVA Tenderness Extremity: Normal ROM, No Pedal Edema, Capillary Refill (<2 seconds) Neurological/Psych: Oriented x3, Normal Speech, Normal Cognition ED Course And Treatment - Laboratory Results Result Diagrams: 10/14/18 12:35 10/14/18 12:35 ECG: Interpreted By Me, Viewed By Me ECG Rhythm: Sinus Tachycardia Interpretation Of ECG: Sinus Tachycardia at rate 110bpm. Nonspecific T wave abnormality. Unchanged from prior EKG from 09/24/18. Rate From EC O2 Sat by Pulse Oximetry: 96 (RA) Pulse Ox Interpretation: Normal Medical Decision Making Medical Decision Making: pt with recent hospitalization for pna right side () here to day for sob. cxr show left opacity- will admit to hospital acquired pna. discussed with Dr Crowley. re allergy. pt sts she is allergic to something was given here at [facility] and gave her a rash. discussed with Dr Crowley and with pharmacy and recommend meropenem; given small cross reactivity meropenem to cefipime; pt will be watched carefully ; Disposition Discussed With Dr.: Jose Antonio Leonardo Doctor Will See Patient In The: Hospital - Disposition Disposition: HOSPITALIZED Disposition Time: 15:03 Condition: GOOD - Clinical Impression Clinical Impression: Pneumonia - PA / IN SERVICE EDUCATOR / Resident Statement MD/DO has reviewed & agrees with the documentation as recorded. - Scribe Statement The provider has reviewed the documentation as recorded by the Scribe José Altamirano All medical record entries made by the Narda were at my direction and person ally dictated by me. I have reviewed the chart and agree that the record accurately reflects my personal performance of the history, physical exam, medical decision making, and the department course for this patient. I have also personally directed, reviewed, and agree with the discharge instructions and disposition.
[2018-10-14 12:53] LABS: ALB/GLOB RATIO 1.3 (1.0-2.1); ALBUMIN 4.3 g/dL (3.5-5.0); ALT/SGPT 23 U/L (9-52); AST/SGOT 18 U/L (14-36); BLOOD UREA NITROGEN 14 mg/dL (7-17); CALCIUM 9.6 mg/dl (8.6-10.4); GFR NON-AFRICAN AMERICAN > 60
--- NOTE | 2018-10-14 13:09 | RAD ---
HISTORY: sob COMPARISON: Chest x-ray performed 09/24/18, CT chest without contrast performed 09/02/18 TECHNIQUE: Chest PA and lateral FINDINGS: LUNGS: Mild streaky atelectasis, left suprahilar region. Small left pleural effusion and/or consolidation. Lateral view demonstrates pleural fluid/thickening along the major fissure. Blunting of the right hemidiaphragm may reflect small effusion. No definite pneumothorax. Please note that chest x-ray has limited sensitivity for the detection of pulmonary masses. CARDIOVASCULAR: Borderline cardiomegaly. Atherosclerotic calcification present. OSSEOUS STRUCTURES: Degenerative changes. VISUALIZED UPPER ABDOMEN: Unremarkable. OTHER FINDINGS: None. IMPRESSION: Mild streaky atelectasis, left suprahilar region. Small left pleural effusion and/or consolidation. Lateral view demonstrates pleural fluid/thickening along the major fissure. Blunting of the right hemidiaphragm may reflect small effusion. Borderline cardiomegaly.
[2018-10-14] MEDS ORDERED: Albuterol-Ipratrop 3 mg / 0.5 (3 ml) UD ONE (13:18)
[2018-10-14] MEDS ORDERED: Meropenem 1 GM in Sodium Chloride 0.9% 100 ML IVPB ONE (14:36)
--- NOTE | 2018-10-14 16:33 | CP.PCM.HP ---
History of Present Illness - History of Present Illness History of Present Illness: PGY-1 H and P for Dr. Leonardo HPI: Patient is a 58 year old female with PMHx COPD who presents with 3 days of acutely worsening shortness of breath. Per daughter, before 3 days ago, she was resting and breathing comfortably, and then suddenly began to experience severe shortness of breath. She has a mild dry cough, but denies any fevers or chills. The shortness of breath has caused discomfort to the point she has not been eating or drinking. She does state having some abdominal discomfort, but believes this to be related to the shortness of breath as she hs Patient has a history of multiple hospitalizations for COPD exacerbation, most recently from 09/24 to 09/26. In March, patient was hospitalized in [facility] for Pseudomonas pneumonia and had to get a tracheostomy and was "in a coma" for 1.5 months. Patient has a 40 pack-year smoking history, and quit smoking about 10 months ago. Patient denies any fevers, chills, abdominal pain, nausea, vomiting, constipation or diarrhea. History obtained primarily from the patient's daughter, as patient is acutely short of breath. PMD: Dr. Oneill All: Cefepime PMHx: COPD Surg: x 3, tracheostomy 04/16 FamHx: Mom: HTN, Dad: Emphysema Social: quit smoking about 10 months ago, prior 1/2ppd for 40 years, denies alcohol or drugs. Does not work, lives at home with daughter. Meds: Albuterol, Spiriva, Incruse Ellipta Additional conversation was held with the patient after her stat doses of duoneb and solumedrol when patient's breathing had improved. Patient stated with certainty that she wishes to be DNR/DNI code status. Present on Admission - Present on Admission Any Indicators Present on Admission: No Review of Systems - Review of Systems Systems not reviewed;Unavailable: Respiratory Distress Review of Systems: ROS obtained via patient's daughter as patient acutely short of breath. - Constitutional Constitutional: absent: Fatigue, Fever - EENT Eyes: absent: Blurred Vision, Dry Eye Nose/Mouth/Throat: absent: Nasal Congestion, Nasal Discharge - Cardiovascular Cardiovascular: Dyspnea. absent: Chest Pain, Pain Radiating to Arm/Neck/Jaw, Leg Edema - Respiratory Respiratory: Cough (dry cough), Dyspnea, Wheezing. absent: Hemoptysis, Excessive Mucous Production - Gastrointestinal Gastrointestinal: Abdominal Pain (Abdominal pain, though a/w SOB). absent: Constipation, Diarrhea, Hematochezia, Melena, Vomiting - Genitourinary Genitourinary: absent: Dysuria, Hematuria - Musculoskeletal Musculoskeletal: Back Pain (a/w SOB). absent: Neck Pain, Stiffness - Neurological Neurological: Headaches. absent: Confusion, Dizziness, Weakness - Psychiatric Psychiatric: absent: Anxiety, Depression - Endocrine Endocrine: absent: Fatigue, Palpitations Past Patient History - Infectious Disease Hx of Infectious Diseases: None - Past Medical History & Family History Past Medical History?: Yes - Past Social History Smoking Status: Former Smoker - CARDIAC Hx Hypercholesterolemia: Yes - PULMONARY Hx Asthma: Yes Hx Chronic Obstructive Pulmonary Disease (COPD): Yes Hx Emphysema: Yes Hx Pneumonia: Yes - NEUROLOGICAL Hx Neurological Disorder: No - HEENT Hx HEENT Problems: No - RENAL Hx Chronic Kidney Disease: No - ENDOCRINE/METABOLIC Hx Endocrine Disorders: No - HEMATOLOGICAL/ONCOLOGICAL Hx Blood Disorders: No - INTEGUMENTARY Hx Dermatological Problems: No - MUSCULOSKELETAL/RHEUMATOLOGICAL Hx Musculoskeletal Disorders: No Hx Falls: No - GASTROINTESTINAL Hx Gastritis: Yes - GENITOURINARY/GYNECOLOGICAL Hx Genitourinary Disorders: No - PSYCHIATRIC Hx Anxiety: Yes Hx Depression: Yes Hx Substance Use: No - SURGICAL HISTORY Hx Surgeries: Yes Hx Section: Yes (x3) Other/Comment: tracheostomy MARCH 2018 - ANESTHESIA Hx Anesthesia: Yes Hx Anesthesia Reactions: No Hx Malignant Hyperthermia: No Meds Allergies/Adverse Reactions: Allergies Allergy/AdvReac Type Severity Reaction Status Date / Time cefepime Allergy RASH Verified 10/14/18 11:51 Physical Exam - Constitutional Appears: In Acute Distress (Patient acutely short of breath) - Head Exam Head Exam: ATRAUMATIC, NORMOCEPHALIC - Eye Exam Eye Exam: EOMI, Normal appearance Pupil Exam: NORMAL ACCOMODATION - ENT Exam ENT Exam: Mucous Membranes Dry - Respiratory Exam Respiratory Exam: Accessory Muscle Use (Pectoral muscle use), Rhonchi, Wheezes (Diffuse wheezes). absent: Rales Additional comments: On re-examination after stat treatments, patient no longer acutely short of breath, no wheezes on exam, no accessory muscle use. - Cardiovascular Exam Cardiovascular Exam: +S1, +S2 - GI/Abdominal Exam GI & Abdominal Exam: Normal Bowel Sounds, Soft. absent: Distended, Firm, Guardi ng, Tenderness - Extremities Exam Extremities exam: Positive for: normal inspection, pedal pulses present. Negative for: pedal edema, tenderness - Back Exam Back exam: absent: muscle spasm, paraspinal tenderness, tenderness, vertebral tenderness - Neurological Exam Neurological exam: Alert, CN II-XII Intact, Oriented x3 - Psychiatric Exam Psychiatric exam: Normal Affect, Normal Mood - Skin Skin Exam: Dry, Intact, Normal Color, Warm Results - Vital Signs Recent Vital Signs: Last Vital Signs Temp 98.3 F 10/14/18 12:10 Pulse 98 H 10/14/18 14:40 Resp 16 10/14/18 14:40 BP 113/52 L 10/14/18 14:40 Pulse Ox 96 10/14/18 15:04 - Labs Result Diagrams: 10/14/18 12:35 10/14/18 12:35 Labs: Laboratory Results - last 24 hr 10/14/18 10/14/18 10/14/18 12:35 12:35 12:51 WBC 12.4 H RBC 4.60 Hgb 13.6 Hct 40.4 MCV 87.9 MCH 29.7 MCHC 33.7 RDW 13.9 Plt Count 304 MPV 8.2 Neut % (Auto) 54.8 Lymph % (Auto) 31.9 [place] % (Auto) 5.9 Eos % (Auto) 6.6 H Baso % (Auto) 0.8 Neut # (Auto) 6.8 Lymph # (Auto) 4.0 [place] # (Auto) 0.7 Eos # (Auto) 0.8 H Baso # (Auto) 0.1 D-Dimer, Quantitative < 200 Sodium 138 Potassium 3.9 Chloride 99 Carbon Dioxide 27 Anion Gap 17 BUN 14 Creatinine 0.8 Est GFR ( Amer) > 60 Est GFR (Non-Af Amer) > 60 Random Glucose 109 H Calcium 9.6 Total Bilirubin 0.8 AST 18 ALT 23 Alkaline Phosphatase 97 Troponin I < 0.0120 Total Protein 7.6 Albumin 4.3 Globulin 3.4 Albumin/Globulin Ratio 1.3 Influenza Typ A,B (EIA) 10/14/18 13:13 WBC RBC Hgb Hct MCV MCH MCHC RDW Plt Count MPV Neut % (Auto) Lymph % (Auto) [place] % (Auto) Eos % (Auto) Baso % (Auto) Neut # (Auto) Lymph # (Auto) [place] # (Auto) Eos # (Auto) Baso # (Auto) D-Dimer, Quantitative Sodium Potassium Chloride Carbon Dioxide Anion Gap BUN Creatinine Est GFR ( Amer) Est GFR (Non-Af Amer) Random Glucose Calcium Total Bilirubin AST ALT Alkaline Phosphatase Troponin I Total Protein Albumin Globulin Albumin/Globulin Ratio Influenza Typ A,B (EIA) Negative for flu a/b Assessment & Plan - Assessment and Plan (Free Text) Assessment: COPD Exacerbabtion -Stat meds given - --Stat Duoneb - --Stat Solumedrol 40 IVP -Duoneb q4 ASHLIE, Q2 prn for SOB -Breo Elipta 1 puff INH daily -Spiriva 18 mcg INH Q24 -Solumedro 40 mg IVP Q6 -ABx: - --Meropenem given once in ED - --Vanc 150 mg IVPB Q8 - --Cipro 400 mg IVPB Q8 -Note possible allergy to cefepime -CXR 10/14: Mild streaky atelectasis, left suprahilar region. Small L pleural effusion and/or consolidation. Lateral view demonstrates pleural fluid/thickening/ and/or consolidation along the major fissure. Blunting of the R hemidiaphragm may reflect small effusion. -EKG 10/14: Sinus Tachycardia at rate 110bpm. Nonspecific T wave abnormality. Unchanged from prior EKG from 09/24/18. -Made DNR/DNI - Note - Nurse unable to find DNR/DNI form. I asked her to please call me when she finds form and that I will notify overnight resident. Patient explicitly stated DNR/DNI. -F/u Blood cultures -DNR/DNI Prophylaxis: Heparin 5000 U Q8 Assessment and Plan d/w Dr. Malissa Sanches, PGY-1
[2018-10-14] MEDS ORDERED: MethylPREDNISolone 40 mg Vial IVP STA (16:34)
[2018-10-14] MEDS ORDERED: Albuterol 0.083% Inhal Sol (2.5 mg/3 mL) UD INH PRN (17:58)
[2018-10-14] MEDS ORDERED: Vancomycin 750mg/NS 150 ml 150 ML IVPB SCH (18:00)
[2018-10-14 18:28] VITALS: RESP 20
[2018-10-14] MEDS: Ciprofloxacin 400mg/200ml D5W 400 MG/200 ML BAG IVPB SCH (18:31)
[2018-10-14] MEDS: Albuterol-Ipratrop 3 mg / 0.5 (3 ml) UD INH SCH (20:04)
[2018-10-14] MEDS: Vancomycin 750mg/NS 150 ml 150 ML IVPB SCH (20:31)
[2018-10-14] MEDS: MethylPREDNISolone 40 mg Vial IVP SCH (22:22)
[2018-10-15] MEDS: MethylPREDNISolone 40 mg Vial IVP SCH ×5 (00:06→22:27)
[2018-10-15] MEDS: Albuterol-Ipratrop 3 mg / 0.5 (3 ml) UD INH SCH ×6 (00:30→23:52)
[2018-10-15] MEDS: Ciprofloxacin 400mg/200ml D5W 400 MG/200 ML BAG IVPB SCH ×3 (01:30→18:00)
[2018-10-15] MEDS: Vancomycin 750mg/NS 150 ml 150 ML IVPB SCH ×3 (04:04→22:10)
[2018-10-15 07:15] LABS: BASO % 0.4 % (0.0-2.0); HEMOGLOBIN 13.1 g/dL (11.0-16.0); LYMPH # 0.9 K/uL (1.0-4.3); LYMPH % 10.5 % (20.0-40.0); MEAN CELL VOLUME 88.2 fL (81.0-99.0); MEAN CORPUSCULAR HEMOGLOBIN 29.7 pg (27.0-31.0); MEAN CORPUSCULAR HGB CONC 33.6 g/dL (33.0-37.0); MEAN PLATELET VOLUME 8.7 fL (7.2-11.7); MONO # 0.1 K/uL (0.0-0.8); MONO % 0.8 % (0.0-10.0); NEUT # 7.6 K/uL (1.8-7.0); NEUT % 88.3 % (50.0-75.0); RBC 4.42 Mil/uL (3.80-5.20); RED CELL DISTRIBUTION WIDTH 14.2 % (11.5-14.5); WHITE BLOOD COUNT 8.7 K/uL (4.8-10.8)
[2018-10-15] MEDS: Tiotropium 18 mcg Cap For Inhalation INH SCH (07:38)
[2018-10-15] MEDS: Fluticasone-Vilanterol 100/25mcg Diskus INH SCH (07:38)
[2018-10-15 08:16] LABS: ALB/GLOB RATIO 1.2 (1.0-2.1); ALBUMIN 4.1 g/dL (3.5-5.0); ALT/SGPT 21 U/L (9-52); AST/SGOT 26 U/L (14-36); BLOOD UREA NITROGEN 19 mg/dL (7-17); CALCIUM 9.6 mg/dl (8.6-10.4); GFR NON-AFRICAN AMERICAN > 60
--- NOTE | 2018-10-15 13:00 | CP.PCM.PN ---
<Angus Nuñez - Last Filed: 10/15/18 16:30> Subjective - Date & Time of Evaluation Date of Evaluation: 10/15/18 Time of Evaluation: 12:59 - Subjective Subjective: PGY-1 Medicine progress note for Dr. Castro Patient seen and examined at bedside. Patient states that her cough and shortness of breath have improved. She complains of some abdominal discomfort and nausea. She denies fevers, chills, chest pain, vomiting, or diarrhea. Objective - Vital Signs/Intake and Output Vital Signs (last 24 hours): Temp Pulse Resp BP Pulse Ox 97.5 F L 100 H 20 123/60 97 10/15/18 07:46 10/15/18 07:46 10/15/18 07:46 10/15/18 07:46 10/15/18 07:46 - Medications Medications: Current Medications Acetaminophen (Tylenol 325mg Tab) 650 mg PO Q6 PRN PRN Reason: Pain, moderate (4-7) Last Admin: 10/15/18 11:10 Dose: 650 mg Albuterol/Ipratropium (Duoneb 3 Mg/0.5 Mg (3 Ml) Ud) 3 ml INH RQ4 ASHLIE Last Admin: 10/15/18 07:38 Dose: 3 ml Albuterol/Ipratropium (Duoneb 3 Mg/0.5 Mg (3 Ml) Ud) 3 ml INH RQ2 PRN PRN Reason: Shortness of Breath Fluticasone/Vilanterol (Breo Ellipta 100-25 Mcg Inh) 1 puff INH RQD ASHLIE Last Admin: 10/15/18 07:38 Dose: 1 puff Heparin Sodium (Porcine) (Heparin) 5,000 units SC Q8 ASHLIE Last Admin: 10/15/18 05:10 Dose: 5,000 units Ciprofloxacin (Cipro 400mg/200ml Dsw) 400 mg in 200 mls @ 133.333 mls/hr IVPB Q8H ASHLIE; Protocol Last Admin: 10/15/18 09:43 Dose: 133.333 mls/hr Vancomycin HCl (Vancocin 750mg/Ns 150 Ml) 150 mls @ 120 mls/hr IVPB Q8H ASHLIE; Protocol Stop: 10/19/18 21:01 Last Admin: 10/15/18 04:04 Dose: 120 mls/hr Methylprednisolone (Solu-Medrol) 40 mg IVP Q6 [facility] Last Admin: 10/15/18 11:11 Dose: 40 mg Tiotropium [place] (Spiriva) 18 mcg INH RQ24 ASHLIE Last Admin: 10/15/18 07:38 Dose: 18 mcg - Labs Labs: 10/15/18 06:55 10/15/18 06:55 - Constitutional Appears: Well, Non-toxic, No Acute Distress - Head Exam Head Exam: ATRAUMATIC, NORMOCEPHALIC - Eye Exam Eye Exam: Normal appearance - ENT Exam ENT Exam: Mucous Membranes Moist - Respiratory Exam Respiratory Exam: Clear to Ausculation Bilateral. absent: Accessory Muscle Use, Rales, Rhonchi, Wheezes, Respiratory Distress - Cardiovascular Exam Cardiovascular Exam: REGULAR RHYTHM, +S1, +S2. absent: Gallop, Rubs, Murmur - GI/Abdominal Exam GI & Abdominal Exam: Soft, Tenderness (epigastric region tender to palpation), N ormal Bowel Sounds - Extremities Exam Extremities Exam: Normal Inspection - Neurological Exam Neurological Exam: Alert, Awake, CN II-XII Intact, Oriented x3 - Psychiatric Exam Psychiatric exam: Normal Affect, Normal Mood - Skin Skin Exam: Dry, Intact, Normal Color, Warm Assessment and Plan - Assessment and Plan (Free Text) Assessment: Patient is a 58 year old female with PMHx COPD who presents with 3 days of acutely worsening shortness of breath, admitted for COPD exacerbation and pneumonia. Plan: COPD Exacerbation: - Solumedrol 40mg IVP Q6 - Duoneb q4 ASHLIE, Q2 prn for SOB - Breo Elipta 1 puff INH daily - Spiriva 18 mcg INH Q24 - Incentive spirometer - Vancomycin 150 mg IVPB Q8 (started on 10/14) - Ciprofloxacin 400 mg IVPB Q8 (started on 10/14) - Blood cultures: f/u - CXR (10/14): Mild streaky atelectasis, left suprahilar region. Small L pleural effusion and/or consolidation. Lateral view demonstrates pleural fluid/thickening/ and/or consolidation along the major fissure. Blunting of the R hemidiaphragm may reflect small effusion. - EKG 10/14: Sinus Tachycardia at rate 110bpm. Nonspecific T wave abnormality. Unchanged from prior EKG from 09/24/18 - CT Angio: f/u - D-Dimer: < 200 Pneumonia: - Vancomycin 150 mg IVPB Q8 (started on 10/14) - Ciprofloxacin 400 mg IVPB Q8 (started on 10/14) - CXR (10/14): Mild streaky atelectasis, left suprahilar region. Small L pleural effusion and/or consolidation. Lateral view demonstrates pleural fluid/thickening/ and/or consolidation along the major fissure. Blunting of the R hemidiaphragm may reflect small effusion. - Legionella, M. pneumoniae, S. pneumoniae: f/u - Tessalon perles Prophylaxis: - Heparin 5000 U Q8 - SCD's Code status: DNR/DNI - Nurse unable to find DNR/DNI form. Patient explicitly stated DNR/DNI. Assessment and Plan d/w Dr. Gloria Nuñez, PGY-1 <Delilah Castro V - Last Filed: 10/15/18 22:17> Objective - Vital Signs/Intake and Output Vital Signs (last 24 hours): Temp Pulse Resp BP Pulse Ox 98.4 F 107 H 20 120/73 95 10/15/18 17:10 10/15/18 20:27 10/15/18 17:10 10/15/18 17:10 10/15/18 17:10 - Medications Medications: Current Medications Acetaminophen (Tylenol 325mg Tab) 650 mg PO Q6 PRN PRN Reason: Pain, moderate (4-7) Last Admin: 10/15/18 11:10 Dose: 650 mg Albuterol/Ipratropium (Duoneb 3 Mg/0.5 Mg (3 Ml) Ud) 3 ml INH RQ4 ASHLIE Last Admin: 10/15/18 20:21 Dose: 3 ml Albuterol/Ipratropium (Duoneb 3 Mg/0.5 Mg (3 Ml) Ud) 3 ml INH RQ2 PRN PRN Reason: Shortness of Breath Benzonatate (Tessalon Perles) 100 mg PO TID [facility] Last Admin: 10/15/18 18:00 Dose: 100 mg Famotidine (Pepcid) 20 mg PO Q12H PRN PRN Reason: GI distress Fluticasone/Vilanterol (Breo Ellipta 100-25 Mcg Inh) 1 puff INH RQD ASHLIE Last Admin: 10/15/18 07:38 Dose: 1 puff Heparin Sodium (Porcine) (Heparin) 5,000 units SC Q8 ASHLIE Last Admin: 10/15/18 13:09 Dose: 5,000 units Ciprofloxacin (Cipro 400mg/200ml Dsw) 400 mg in 200 mls @ 133.333 mls/hr IVPB Q8H ASHLIE; Protocol Last Admin: 10/15/18 18:00 Dose: 133.333 mls/hr Vancomycin HCl (Vancocin 750mg/Ns 150 Ml) 150 mls @ 120 mls/hr IVPB Q8H ASHLIE; Protocol Stop: 10/19/18 21:01 Last Admin: 10/15/18 13:09 Dose: 120 mls/hr Methylprednisolone (Solu-Medrol) 40 mg IVP Q6 ASHLIE Last Admin: 10/15/18 17:54 Dose: 40 mg Tiotropium [place] (Spiriva) 18 mcg INH RQ24 ASHLIE Last Admin: 10/15/18 07:38 Dose: 18 mcg - Labs Labs: 10/15/18 06:55 10/15/18 06:55 Attending/Attestation - Attestation I have personally seen and examined this patient.: Yes I have fully participated in the care of the patient.: Yes I have reviewed all pertinent clinical information, including history, physical exam and plan: Yes Notes (Text): 58 year old Female with 40 year history of smoking, recurrent hospitalizations for COPD exacerbation (2 prior), extended hospitalization in [place] earlier this year for Pseudomona Pneumonia with Lung Abscess/Fibrosis requiring medical induced coma, trachestomy comes in for recurrent shortness of breathe. Patient noted she takes the inhalers when she afford it but at times it is very expensive for her. Patient reports her breathing is better but with nebulizers and steroid treatment. Patient also noted she does not want breathing machine. She understands if she requires Bipap this will last effort. We had this conversation with daughter at bedside who affirm DNI status. Assessment/Plan 1) COPD Excerbation Emphysematous changes in old CT Chest Assessment/Plan * Chest xray (10/14/18): mild streaky atelectasis left suprahilar region. Small left pleural effusion and/or consolidation. lateral view demonstrates pleural fluid/thickening along the major fissure. Blunting of the right hemidiaphragm may reflect small effusion. Borderline cardiomegaly. * Duoneb 3ml INH RQ2H PRN shortness of breathe * Duonebs 3ml INH RQ4H * Tessalon Perles 100mg PO TID * Breo Ellipta 100-25mcg 1 puff inhaled RQD * Spiriva 18mcg inhaled RQ24H * Solumedrol 40mg IVP Q6H-->Lower to IV 8H * Florastor 250mg PO BID * Note: patient has significant smoking history, allergies to detergent, hot/cold weather which she reports "acts" up her lungs (2) Health Care Associated Pneumonia * Chest xray (10/14/18): mild streaky atelectasis left suprahilar region. Small left pleural effusion and/or consolidation. lateral view demonstrates pleural fluid/thickening along the major fissure. Blunting of the right hemidiaphragm may reflect small effusion. Borderline cardiomegaly. * Ciprofloxacin 400mg IV Q12H (active since 10/14/18) * Vancomycin 75mg IV Q12h (active since 10/14/18)-->vancomycin trough tomorrow 4:00AM * Florastor 250mg PO BID * Negative flu * Negative legionella * Pending Mycoplasma IgM * Pending CT Angio (3) Tachycardia * Patient is former smoker, tachycardia, requiring supplemental oxygen-->CT Angio to rule out PE (4) Leukocytosis * Resolved * Left shift on IV steroids (5) Prophylactic measure * Pepcid 20mg PO Q12h * Heparin 5000 units sibq8H * SCDs b/l for DVT ppx Disposition: patient will need iv steroids for copd exacerbation, supportive care for cough, and iv abx to cover for pneumonia.
[2018-10-15] MEDS ORDERED: Iodixanol 320 MG/ML 100 ML BOTTLE IV ONE (17:17)
[2018-10-15 19:47] LABS: LEGIONELLA AG URINE NEGATIVE (NEGATIVE)
--- NOTE | 2018-10-15 20:00 | CARD ---
APPROVED REPORT Date of service: 10/14/2018 EKG Measurement Heart [id number] <Conclusion> Sinus tachycardia Nonspecific T wave abnormality Abnormal ECG
[2018-10-15] MEDS: Saccharomyces Boulardi 250 mg Cap PO SCH (22:27)
[2018-10-16 04:23] LABS: BASO % 0.1 % (0.0-2.0); HEMOGLOBIN 11.9 g/dL (11.0-16.0); LYMPH # 1.2 K/uL (1.0-4.3); LYMPH % 6.1 % (20.0-40.0); MEAN CELL VOLUME 88.6 fL (81.0-99.0); MEAN CORPUSCULAR HEMOGLOBIN 29.5 pg (27.0-31.0); MEAN CORPUSCULAR HGB CONC 33.3 g/dL (33.0-37.0); MEAN PLATELET VOLUME 8.5 fL (7.2-11.7); MONO # 0.4 K/uL (0.0-0.8); MONO % 1.9 % (0.0-10.0); NEUT # 18.7 K/uL (1.8-7.0); NEUT % 91.9 % (50.0-75.0); PLATELET COUNT 259 K/uL (130-400); RBC 4.05 Mil/uL (3.80-5.20); RED CELL DISTRIBUTION WIDTH 13.7 % (11.5-14.5); WHITE BLOOD COUNT 20.4 K/uL (4.8-10.8)
[2018-10-16 04:35] LABS: ALB/GLOB RATIO 1.3 (1.0-2.1); ALBUMIN 3.9 g/dL (3.5-5.0); ALT/SGPT 23 U/L (9-52); AST/SGOT 20 U/L (14-36); BLOOD UREA NITROGEN 29 mg/dL (7-17); CALCIUM 9.5 mg/dl (8.6-10.4); GFR NON-AFRICAN AMERICAN > 60
[2018-10-16] MEDS: Albuterol-Ipratrop 3 mg / 0.5 (3 ml) UD INH SCH ×5 (04:50→20:54)
[2018-10-16] MEDS: Vancomycin 750mg/NS 150 ml 150 ML IVPB SCH ×3 (05:00→21:31)
[2018-10-16 05:53] LABS: BANDS 4 % (0-2); LYMPHOCYTE 3 % (20-40); MONOCYTE 2 % (0-10); NEUTROPHIL 90 % (50-75); PLATELET ESTIMATE NORMAL (NORMAL); REACTIVE LYMPHOCYTES 1 % (0-0); TOTAL CELLS COUNTED 100
[2018-10-16] MEDS: MethylPREDNISolone 40 mg Vial IVP SCH ×2 (06:12→13:31)
[2018-10-16] MEDS: Ciprofloxacin 400mg/200ml D5W 400 MG/200 ML BAG IVPB SCH ×2 (06:15→17:55)
[2018-10-16] MEDS: Fluticasone-Vilanterol 100/25mcg Diskus INH SCH (09:04)
[2018-10-16] MEDS: Tiotropium 18 mcg Cap For Inhalation INH SCH (09:04)
[2018-10-16] MEDS: Saccharomyces Boulardi 250 mg Cap PO SCH ×2 (09:26→17:56)
[2018-10-16] MEDS ORDERED: Iodixanol 320 MG/ML 100 ML BOTTLE IV ONE (12:33)
--- NOTE | 2018-10-16 12:53 | CP.PCM.PN ---
<Landry Willard - Last Filed: 10/16/18 12:51> Subjective - Date & Time of Evaluation Date of Evaluation: 10/16/18 Time of Evaluation: 12:52 - Subjective Subjective: PGY3 Note for Dr. Castro Patient seen and examined at bedside this AM; patient denies any acute complaints or overnight complaints; patient still somewhat short of breath but markedly improved and able to ambulate small amounts without getting dizzy/sob. She denies all complaints today. Objective - Vital Signs/Intake and Output Vital Signs (last 24 hours): Temp Pulse Resp BP Pulse Ox 98.5 F 111 H 20 131/77 95 10/16/18 08:14 10/16/18 08:14 10/16/18 08:14 10/16/18 08:14 10/16/18 08:14 Intake and Output: 10/16/18 10/16/18 06:59 18:59 Intake Total 620 Balance 620 - Medications Medications: Current Medications Acetaminophen (Tylenol 325mg Tab) 650 mg PO Q6 PRN PRN Reason: Pain, moderate (4-7) Last Admin: 10/15/18 11:10 Dose: 650 mg Albuterol/Ipratropium (Duoneb 3 Mg/0.5 Mg (3 Ml) Ud) 3 ml INH RQ4 ASHLIE Last Admin: 10/16/18 12:20 Dose: Not Given Albuterol/Ipratropium (Duoneb 3 Mg/0.5 Mg (3 Ml) Ud) 3 ml INH RQ2 PRN PRN Reason: Shortness of Breath Benzonatate (Tessalon Perles) 100 mg PO TID ASHLIE Last Admin: 10/16/18 09:26 Dose: 100 mg Famotidine (Pepcid) 20 mg PO Q12H ASHLIE Last Admin: 10/16/18 09:26 Dose: 20 mg Fluticasone/Vilanterol (Breo Ellipta 100-25 Mcg Inh) 1 puff INH RQD ASHLIE Last Admin: 10/16/18 09:04 Dose: 1 puff Heparin Sodium (Porcine) (Heparin) 5,000 units SC Q8 ASHLIE Last Admin: 10/16/18 06:02 Dose: 5,000 units Vancomycin HCl (Vancocin 750mg/Ns 150 Ml) 150 mls @ 120 mls/hr IVPB Q8H COUNTS INCLUDE 234 BEDS AT THE [facility]; Protocol Stop: 10/19/18 21:01 Last Admin: 10/16/18 05:00 Dose: 120 mls/hr Ciprofloxacin (Cipro 400mg/200ml Dsw) 400 mg in 200 mls @ 133.333 mls/hr IVPB Q12H COUNTS INCLUDE 234 BEDS AT THE [facility]; Protocol Last Admin: 10/16/18 06:15 Dose: 133.333 mls/hr Saccharomyces Boulardii (Florastor) 250 mg PO BID COUNTS INCLUDE 234 BEDS AT THE [facility] Last Admin: 10/16/18 09:26 Dose: 250 mg Tiotropium [place] (Spiriva) 18 mcg INH RQ24 COUNTS INCLUDE 234 BEDS AT THE [facility] Last Admin: 10/16/18 09:04 Dose: 18 mcg - Labs Labs: 10/16/18 04:17 10/16/18 04:17 - Constitutional Appears: Well, Non-toxic - Head Exam Head Exam: ATRAUMATIC, NORMAL INSPECTION - Eye Exam Eye Exam: EOMI, Normal appearance - ENT Exam ENT Exam: Mucous Membranes Moist - Neck Exam Neck Exam: Full ROM. absent: Lymphadenopathy - Respiratory Exam Respiratory Exam: Clear to Ausculation Bilateral, NORMAL BREATHING PATTERN. absent: Rales, Rhonchi, Wheezes - Cardiovascular Exam Cardiovascular Exam: REGULAR RHYTHM, +S1, +S2 - GI/Abdominal Exam GI & Abdominal Exam: Soft, Normal Bowel Sounds. absent: Tenderness - Extremities Exam Extremities Exam: Calf Tenderness. absent: Full ROM - Back Exam Back Exam: NORMAL INSPECTION. absent: CVA tenderness (L), CVA tenderness (R) - Neurological Exam Neurological Exam: Alert, Awake, Oriented x3 - Psychiatric Exam Psychiatric exam: Normal Affect - Skin Skin Exam: Warm Assessment and Plan - Assessment and Plan (Free Text) Assessment: COPD Exacerbation: - Solumedrol 40mg IVP Q12H - Duoneb q4 COUNTS INCLUDE 234 BEDS AT THE [facility], Q2 prn for SOB - Breo Elipta 1 puff INH daily - Spiriva 18 mcg INH Q24 - Incentive spirometer - Vancomycin 150 mg IVPB Q8 (started on 10/14) - Ciprofloxacin 400 mg IVPB Q8 (started on 10/14) - Blood cultures: f/u - CXR (10/14): Mild streaky atelectasis, left suprahilar region. Small L pleural effusion and/or consolidation. Lateral view demonstrates pleural fluid/thickening/ and/or consolidation along the major fissure. Blunting of the R hemidiaphragm may reflect small effusion. - EKG 10/14: Sinus Tachycardia at rate 110bpm. Nonspecific T wave abnormality. Unchanged from prior EKG from 09/24/18 - CT Angio: f/u - D-Dimer: < 200 patient is clinically improving, likely d/c tomorrow (thursday) or thursday Pneumonia: - Vancomycin 150 mg IVPB Q8 (started on 10/14) - Ciprofloxacin 400 mg IVPB Q8 (started on 10/14) - CXR (10/14): Mild streaky atelectasis, left suprahilar region. Small L pleural effusion and/or consolidation. Lateral view demonstrates pleural fluid /thickening/ and/or consolidation along the major fissure. Blunting of the R hemidiaphragm may reflect small effusion. - Legionella, M. pneumoniae, S. pneumoniae: f/u - Anson chatman Will need to continue antibiotics as outpatient for 7 days total; will give levofloxacin as outpatient and prednisone PO Prophylaxis: - Heparin 5000 U Q8 - SCD's Code status: DNR/DNI - Nurse unable to find DNR/DNI form. Patient explicitly stated DNR/DNI. Assessment and Plan d/w Dr. Gloria Willard PGY3 <Delilah Castro V - Last Filed: 10/16/18 22:10> Objective - Vital Signs/Intake and Output Vital Signs (last 24 hours): Temp Pulse Resp BP Pulse Ox 98.3 F 75 20 134/74 97 10/16/18 16:00 10/16/18 16:00 10/16/18 16:00 10/16/18 16:00 10/16/18 16:00 Intake and Output: 10/16/18 10/17/18 18:59 06:59 Intake Total 700 Balance 700 - Medications Medications: Current Medications Acetaminophen (Tylenol 325mg Tab) 650 mg PO Q6 PRN PRN Reason: Pain, moderate (4-7) Last Admin: 10/15/18 11:10 Dose: 650 mg Albuterol/Ipratropium (Duoneb 3 Mg/0.5 Mg (3 Ml) Ud) 3 ml INH RQ4 ASHLIE Last Admin: 10/16/18 20:54 Dose: 3 ml Albuterol/Ipratropium (Duoneb 3 Mg/0.5 Mg (3 Ml) Ud) 3 ml INH RQ2 PRN PRN Reason: Shortness of Breath Benzonatate (Tessalon Perles) 100 mg PO TID COUNTS INCLUDE 234 BEDS AT THE [facility] Last Admin: 10/16/18 17:56 Dose: 100 mg Famotidine (Pepcid) 20 mg PO Q12H ASHLIE Last Admin: 10/16/18 21:31 Dose: 20 mg Fluticasone/Vilanterol (Breo Ellipta 100-25 Mcg Inh) 1 puff INH RQD ASHLIE Last Admin: 10/16/18 09:04 Dose: 1 puff Heparin Sodium (Porcine) (Heparin) 5,000 units SC Q8 ASHLIE Last Admin: 10/16/18 21:31 Dose: 5,000 units Vancomycin HCl (Vancocin 750mg/Ns 150 Ml) 150 mls @ 120 mls/hr IVPB Q8H ASHLIE; Protocol Stop: 10/19/18 21:01 Last Admin: 10/16/18 21:31 Dose: 120 mls/hr Ciprofloxacin (Cipro 400mg/200ml Dsw) 400 mg in 200 mls @ 133.333 mls/hr IVPB Q12H ASHLIE; Protocol Last Admin: 10/16/18 17:55 Dose: 133.333 mls/hr Sodium Chloride (Sodium Chloride 0.9%) 1,000 mls @ 75 mls/hr IV .[id number] COUNTS INCLUDE 234 BEDS AT THE [facility] Stop: 10/17/18 08:00 Last Admin: 10/16/18 17:57 Dose: 75 mls/hr Methylprednisolone (Solu-Medrol) 40 mg IVP Q12H COUNTS INCLUDE 234 BEDS AT THE [facility] Last Admin: 10/16/18 13:31 Dose: 40 mg Saccharomyces Boulardii (Florastor) 250 mg PO BID COUNTS INCLUDE 234 BEDS AT THE [facility] Last Admin: 10/16/18 17:56 Dose: 250 mg Tiotropium [place] (Spiriva) 18 mcg INH RQ24 ASHLIE Last Admin: 10/16/18 09:04 Dose: 18 mcg - Labs Labs: 10/16/18 04:17 10/16/18 04:17 Attending/Attestation - Attestation I have personally seen and examined this patient.: Yes I have fully participated in the care of the patient.: Yes I have reviewed all pertinent clinical information, including history, physical exam and plan: Yes Notes (Text): 58 year old Female with 40 year history of smoking, recurrent hospitalizations for COPD exacerbation (2 prior), extended hospitalization in [place] earlier this year for Pseudomona Pneumonia with Lung Abscess/Fibrosis requiring medical induced coma, trachestomy comes in for recurrent shortness of breathe secondary to known comorbidities. Patient had refused CT angio overnight because of concern for renal function. Patient reassured renal function good prior to CT an fay to rule out PE. Patient ordered for thyroid studies for AM. IV steroids tapered. Patient's white count secondary to steroids. Patient started on gentle IV hydration for mild dehydration. Assessment/Plan 1) COPD Excerbation Emphysematous changes in old CT Chest Assessment/Plan * Chest xray (10/14/18): mild streaky atelectasis left suprahilar region. Small left pleural effusion and/or consolidation. lateral view demonstrates pleural fluid/thickening along the major fissure. Blunting of the right hemidiaphragm may reflect small effusion. Borderline cardiomegaly. * pending ct angio * Duoneb 3ml INH RQ2H PRN shortness of breathe * Duonebs 3ml INH RQ4H * Tessalon Perles 100mg PO TID * Breo Ellipta 100-25mcg 1 puff inhaled RQD * Spiriva 18mcg inhaled RQ24H * Solumedrol 40mg IVP Q6H-->Lower to IV 8H * Florastor 250mg PO BID * Note: patient has significant smoking history, allergies to detergent, hot/cold weather which she reports "acts" up her lungs (2) Health Care Associated Pneumonia * Chest xray (10/14/18): mild streaky atelectasis left suprahilar region. Small left pleural effusion and/or consolidation. lateral view demonstrates pleural fluid/thickening along the major fissure. Blunting of the right hemidiaphragm may reflect small effusion. Borderline cardiomegaly. * Ciprofloxacin 400mg IV Q12H (active since 10/14/18) * Vancomycin 75mg IV Q12h (active since 10/14/18)-->vancomycin trough tomorrow 4:00AM * Florastor 250mg PO BID * Negative flu * Negative legionella * Pending Mycoplasma IgM * Pending CT Angio (3) Tachycardia * Patient is former smoker, tachycardia, requiring supplemental oxygen-->CT Angio to rule out PE (4) Leukocytosis * Left shift on IV steroids (5) Prophylactic measure * Pepcid 20mg PO Q12h * Heparin 5000 units sibq8H * SCDs b/l for DVT ppx Disposition: patient will need iv steroids for copd exacerbation, supportive care for cough, and iv abx to cover for pneumonia.
--- NOTE | 2018-10-16 14:05 | CT ---
CT chest pulmonary angiogram HISTORY: Shortness of breath. Evaluate for pulmonary embolism. COMPARISON: CT chest dated 09/02/2018 TECHNIQUE: Multiple contiguous axial images were performed through the chest with the use of intravenous contrast according to pulmonary embolism protocol. Subsequently, sagittal coronal reformatted images were obtained. This CT exam was performed using one or more of the following dose reduction techniques: Automated exposure control, adjustment of the mA and/or kV according to patient size, and/or use of iterative reconstruction technique. Findings: No evidence of central pulmonary embolism. Limited evaluation of the segmental and subsegmental branches given prominent patient motion artifact. For example, several scattered questionable filling defects seen within segmental and subsegmental branches likely represent artifact for example on series 601 image 66 in the right upper lobe, image 72 in the right lower lobe, and image 64 in the left upper lobe may be the sequelae of artifact however underlying emboli at this level cannot entirely be excluded. Repeat study and or correlation with V/Q scan may be helpful if clinically indicated. No evidence of acute aortic dissection. Atherosclerotic calcification and plaque within the visualized aorta. No significant axillary adenopathy. Heterogeneity of the thyroid with a 3 millimeter nodule in the right lobe of the thyroid. 1.1 centimeter right paratracheal lymph node. No pleural or pericardial effusion. Prominent liver. Degenerative changes in the spine. Few superior endplate concavities of lower thoracic and or upper lumbar vertebral bodies. Emphysematous changes. Persistent right-sided hemithorax volume loss. Persistent irregular pleural thickening or opacification involving the pleural surface on the right. Again this may be the sequelae of post inflammatory scarring and or atelectasis however additional etiologies such as neoplasm cannot entirely be excluded. Correlation with PET-CT may be helpful if clinically indicated. Questionable filling defect noted at the level of the right mainstem bronchus,possibly debris. Again identified is prominent focal consolidation in a discoid and or pancake like configuration best demonstrated on the sagittal views within the right lung at the level of the major fissure at the posterior inferior aspect of the right upper lobe best seen on series 602, images 37-59. On the axial sequences, this is seen on series 4, images 44 through 57. Additional focal nodular consolidation seen at the superior aspect of the right middle lobe best seen on series 4, images 58 through 61. Overall this appears not significantly changed since the prior study. This may represent prominent focal infiltrate versus atelectasis. Post treatment interval follow-up is recommended to ensure resolution and exclude underlying lesion and or additional etiology. Left lung: Emphysematous changes. Mild atelectasis in the lingula. Impression: 1. No evidence of central pulmonary embolism. Limited evaluation of the segmental and subsegmental branches given prominent patient motion artifact. For example, several scattered questionable filling defects seen within segmental and subsegmental branches likely represent artifact for example on series 601 image 66 in the right upper lobe, image 72 on the right lower lobe, and image 64 in the left upper lobe may be the sequelae of artifact however underlying emboli at this level cannot entirely be excluded. Repeat study and or correlation with V/Q scan may be helpful if clinically indicated. 2. 1.1 centimeter right paratracheal lymph node. 3. Again identified is prominent focal consolidation in a discoid and or pancake like configuration best demonstrated on the sagittal views within the right lung at the level of the major fissure at the posterior inferior aspect of the right upper lobe best seen on series 602, images 37-59. On the axial sequences, this is seen on series 4, images 44 through 57. Additional focal nodular consolidation seen at the superior aspect of the right middle lobe best seen on series 4, images 58 through 61. Overall this appears not significantly changed since the prior study. This may represent prominent focal infiltrate versus atelectasis. Post treatment interval follow-up is recommended to ensure resolution and exclude underlying lesion and or additional etiology. 4. Persistent right-sided hemithorax volume loss. Persistent irregular pleural thickening or opacification involving the pleural surface on the right. Again this may be the sequelae of post inflammatory scarring and or atelectasis however additional etiologies such as neoplasm cannot entirely be excluded. Correlation with PET-CT may be helpful if clinically indicated. 5. Questionable filling defect noted at the level of the right mainstem bronchus,possibly debris. Additional findings as above.
[2018-10-16] MEDS: Sodium Chloride 0.9% 1,000 ML IV SCH (17:57)
[2018-10-16 18:09] LABS: N MENINGITIS ACY/W135 NEGATIVE (NEGATIVE); N MENINGITIS B/ECOLI K1 NEGATIVE (NEGATIVE); STREP PNEUMONIAE NEGATIVE (NEGATIVE); STREPTOCOCCUS B NEGATIVE (NEGATIVE)
[2018-10-17] MEDS: MethylPREDNISolone 40 mg Vial IVP SCH ×2 (01:06→12:25)
[2018-10-17] MEDS: Albuterol-Ipratrop 3 mg / 0.5 (3 ml) UD INH SCH ×3 (01:28→14:08)
[2018-10-17] MEDS: Vancomycin 750mg/NS 150 ml 150 ML IVPB SCH ×2 (04:45→12:23)
[2018-10-17] MEDS: Sodium Chloride 0.9% 1,000 ML IV SCH (06:20)
[2018-10-17] MEDS: Ciprofloxacin 400mg/200ml D5W 400 MG/200 ML BAG IVPB SCH (06:20)
[2018-10-17] MEDS: Tiotropium 18 mcg Cap For Inhalation INH SCH (07:30)
[2018-10-17] MEDS: Fluticasone-Vilanterol 100/25mcg Diskus INH SCH (07:30)
[2018-10-17 08:08] VITALS: BP 115/66; PULSE 89; TEMP 98.3; O2SAT 96
[2018-10-17 08:26] LABS: BASO % 0.1 % (0.0-2.0); HEMOGLOBIN 12.3 g/dL (11.0-16.0); LYMPH # 1.8 K/uL (1.0-4.3); MEAN CELL VOLUME 88.7 fL (81.0-99.0); MEAN CORPUSCULAR HEMOGLOBIN 29.4 pg (27.0-31.0); MEAN CORPUSCULAR HGB CONC 33.1 g/dL (33.0-37.0); MEAN PLATELET VOLUME 8.3 fL (7.2-11.7); MONO # 0.3 K/uL (0.0-0.8); MONO % 1.9 % (0.0-10.0); NEUT # 15.7 K/uL (1.8-7.0); RBC 4.2 Mil/uL (3.80-5.20); WHITE BLOOD COUNT 17.8 K/uL (4.8-10.8)
--- NOTE | 2018-10-17 08:53 | CP.PCM.PN ---
Subjective - Date & Time of Evaluation Date of Evaluation: 10/17/18 Time of Evaluation: 08:51 - Subjective Subjective: Pt seen and examined. She denies chest pain, SOB, cough. She was sleeping and easily aroused by night float Denies overnight events. She is aware of her PNA but would like to find out more about the CT results. Objective - Vital Signs/Intake and Output Vital Signs (last 24 hours): Temp Pulse Resp BP Pulse Ox 98.3 F 89 20 115/66 96 10/17/18 08:05 10/17/18 08:05 10/17/18 08:05 10/17/18 08:05 10/17/18 08:05 Intake and Output: 10/17/18 10/17/18 06:59 18:59 Intake Total 1900 850 Balance 1900 850 - Medications Medications: Current Medications Acetaminophen (Tylenol 325mg Tab) 650 mg PO Q6 PRN PRN Reason: Pain, moderate (4-7) Last Admin: 10/15/18 11:10 Dose: 650 mg Albuterol/Ipratropium (Duoneb 3 Mg/0.5 Mg (3 Ml) Ud) 3 ml INH RQ4 ASHLIE Last Admin: 10/17/18 07:30 Dose: 3 ml Albuterol/Ipratropium (Duoneb 3 Mg/0.5 Mg (3 Ml) Ud) 3 ml INH RQ2 PRN PRN Reason: Shortness of Breath Benzonatate (Tessalon Perles) 100 mg PO TID ASHLIE Last Admin: 10/16/18 17:56 Dose: 100 mg Famotidine (Pepcid) 20 mg PO Q12H ASHLIE Last Admin: 10/16/18 21:31 Dose: 20 mg Fluticasone/Vilanterol (Breo Ellipta 100-25 Mcg Inh) 1 puff INH RQD ASHLIE Last Admin: 10/17/18 07:30 Dose: 1 puff Heparin Sodium (Porcine) (Heparin) 5,000 units SC Q8 ASHLIE Last Admin: 10/17/18 06:35 Dose: 5,000 units Vancomycin HCl (Vancocin 750mg/Ns 150 Ml) 150 mls @ 120 mls/hr IVPB Q8H ASHLIE; P rotocol Stop: 10/19/18 21:01 Last Admin: 10/17/18 04:45 Dose: 120 mls/hr Ciprofloxacin (Cipro 400mg/200ml Dsw) 400 mg in 200 mls @ 133.333 mls/hr IVPB Q12H [facility]; Protocol Last Admin: 10/17/18 06:20 Dose: 133.333 mls/hr Methylprednisolone (Solu-Medrol) 40 mg IVP Q12H [facility] Last Admin: 10/17/18 01:06 Dose: 40 mg Saccharomyces Boulardii (Florastor) 250 mg PO BID [facility] Last Admin: 10/16/18 17:56 Dose: 250 mg Tiotropium [place] (Spiriva) 18 mcg INH RQ24 ASHLIE Last Admin: 10/17/18 07:30 Dose: 18 mcg - Labs Labs: 10/17/18 08:21 10/16/18 04:17 - Constitutional Appears: Well, Non-toxic - Head Exam Head Exam: ATRAUMATIC, NORMAL INSPECTION, NORMOCEPHALIC - Eye Exam Eye Exam: EOMI, Normal appearance - Neck Exam Neck Exam: Normal Inspection - Respiratory Exam Respiratory Exam: Clear to Ausculation Bilateral, NORMAL BREATHING PATTERN - Cardiovascular Exam Cardiovascular Exam: REGULAR RHYTHM - GI/Abdominal Exam GI & Abdominal Exam: Soft, Normal Bowel Sounds - Extremities Exam Extremities Exam: Normal Inspection - Neurological Exam Neurological Exam: Alert, Awake, Oriented x3 - Psychiatric Exam Psychiatric exam: Normal Affect, Normal Mood - Skin Skin Exam: Dry, Intact, Normal Color, Warm Assessment and Plan - Assessment and Plan (Free Text) Assessment: 58 year old Female with 40 year history of smoking, recurrent hospitalizations for COPD exacerbation (2 prior), extended hospitalization in [place] earlier this year for Pseudomona Pneumonia with Lung Abscess/Fibrosis requiring medical induced coma, trachestomy comes in for recurrent shortness of breathe secondary to known comorbidities. Patient had refused CT angio overnight because of concern for renal function. Patient reassured renal function good prior to CT angio to rule out PE. Patient ordered for thyroid studies for AM. IV steroids tapered. Patient's white count secondary to steroids. Patient started on gentle IV hydration for mild dehydration. Assessment/Plan 1) COPD Excerbation Emphysematous changes in old CT Chest Assessment/Plan * Chest xray (10/14/18): mild streaky atelectasis left suprahilar region. Small left pleural effusion and/or consolidation. lateral view demonstrates pleural fluid/thickening along the major fissure. Blunting of the right hemidiaphragm may reflect small effusion. Borderline cardiomegaly. * pending ct angio * Duoneb 3ml INH RQ2H PRN shortness of breathe * Duonebs 3ml INH RQ4H * Tessalon Perles 100mg PO TID * Breo Ellipta 100-25mcg 1 puff inhaled RQD * Spiriva 18mcg inhaled RQ24H * Solumedrol 40mg IVP Q6H-->Lower to IV 8H * Florastor 250mg PO BID * Note: patient has significant smoking history, allergies to detergent, hot/cold weather which she reports "acts" up her lungs (2) Health Care Associated Pneumonia * Chest xray (10/14/18): mild streaky atelectasis left suprahilar region. Small left pleural effusion and/or consolidation. lateral view demonstrates pleural fluid/thickening along the major fissure. Blunting of the right hemidiaphragm may reflect small effusion. Borderline cardiomegaly. * Ciprofloxacin 400mg IV Q12H (active since 10/14/18) * Vancomycin 75mg IV Q12h (active since 10/14/18)-->vancomycin trough tomorrow 4:00AM * Florastor 250mg PO BID * Negative flu * Negative legionella * Pending Mycoplasma IgM * Pending CT Angio (3) Tachycardia * Patient is former smoker, tachycardia, requiring supplemental oxygen-->CT Angio to rule out PE (4) Leukocytosis * Left shift on IV steroids (5) Prophylactic measure * Pepcid 20mg PO Q12h * Heparin 5000 units sibq8H * SCDs b/l for DVT ppx
[2018-10-17 09:15] LABS: ALB/GLOB RATIO 1.3 (1.0-2.1); ALT/SGPT 23 U/L (9-52); AST/SGOT 25 U/L (14-36); BLOOD UREA NITROGEN 27 mg/dL (7-17); CALCIUM 9.3 mg/dl (8.6-10.4); GFR NON-AFRICAN AMERICAN > 60
[2018-10-17] MEDS: Saccharomyces Boulardi 250 mg Cap PO SCH (09:32)
--- NOTE | 2018-10-17 12:31 | CP.PCM.DIS ---
Provider - Provider Date of Admission: 10/14/18 14:48 Attending physician: Jose Antonio Leonardo MD Time Spent in preparation of Discharge (in minutes): 45 Hospital Course - Lab Results Lab Results: Micro Results 10/14/18 15:10 Blood-Venous Blood Culture - Preliminary NO GROWTH AFTER 48 HOURS 10/14/18 14:30 Blood-Venous Blood Culture - Preliminary NO GROWTH AFTER 48 HOURS Most Recent Lab Values WBC 17.8 K/uL (4.8-10.8) H 10/17/18 08:21 RBC 4.20 Mil/uL (3.80-5.20) 10/17/18 08:21 Hgb 12.3 g/dL (11.0-16.0) 10/17/18 08:21 Hct 37.3 % (34.0-47.0) 10/17/18 08:21 MCV 88.7 fL (81.0-99.0) 10/17/18 08:21 MCH 29.4 pg (27.0-31.0) 10/17/18 08:21 MCHC 33.1 g/dL (33.0-37.0) 10/17/18 08:21 RDW 14.0 % (11.5-14.5) 10/17/18 08:21 Plt Count 269 K/uL (130-400) 10/17/18 08:21 MPV 8.3 fL (7.2-11.7) 10/17/18 08:21 Neut % (Auto) 88.0 % (50.0-75.0) H 10/17/18 08:21 Lymph % (Auto) 10.0 % (20.0-40.0) L 10/17/18 08:21 [place] % (Auto) 1.9 % (0.0-10.0) 10/17/18 08:21 Eos % (Auto) 0.0 % (0.0-4.0) 10/17/18 08:21 Baso % (Auto) 0.1 % (0.0-2.0) 10/17/18 08:21 Neut # (Auto) 15.7 K/uL (1.8-7.0) H 10/17/18 08:21 Lymph # (Auto) 1.8 K/uL (1.0-4.3) 10/17/18 08:21 [place] # (Auto) 0.3 K/uL (0.0-0.8) 10/17/18 08:21 Eos # (Auto) 0.0 K/uL (0.0-0.7) 10/17/18 08:21 Baso # (Auto) 0.0 K/uL (0.0-0.2) 10/17/18 08:21 Neutrophils % (Manual) 90 % (50-75) H 10/16/18 04:17 Band Neutrophils % 4 % (0-2) H 10/16/18 04:17 Lymphocytes % (Manual) 3 % (20-40) L 10/16/18 04:17 Reactive Lymphs % 1 % (0-0) H 10/16/18 04:17 Monocytes % (Manual) 2 % (0-10) 10/16/18 04:17 Platelet Estimate Normal (NORMAL) 10/16/18 04:17 D-Dimer, Quantitative < 200 ng/mlDDU (0-243) 10/14/18 12:51 Sodium 139 mmol/L (132-148) 10/17/18 08:21 Potassium 4.0 mmol/L (3.6-5.2) 10/17/18 08:21 Chloride 104 mmol/L (98-107) 10/17/18 08:21 Carbon Dioxide 21 mmol/L (22-30) L 10/17/18 08:21 Anion Gap 18 (10-20) 10/17/18 08:21 BUN 27 mg/dL (7-17) H 10/17/18 08:21 Creatinine 0.9 mg/dL (0.7-1.2) 10/17/18 08:21 Est GFR ( Amer) > 60 10/17/18 08:21 Est GFR (Non-Af Amer) > 60 10/17/18 08:21 Random Glucose 184 mg/dL (65-105) H 10/17/18 08:21 Calcium 9.3 mg/dl (8.6-10.4) 10/17/18 08:21 Phosphorus 3.6 mg/dL (2.5-4.5) 10/17/18 08:21 Magnesium 1.8 mg/dL (1.6-2.3) 10/17/18 08:21 Total Bilirubin 0.3 mg/dL (0.2-1.3) 10/17/18 08:21 AST 25 U/L (14-36) 10/17/18 08:21 ALT 23 U/L (9-52) 10/17/18 08:21 Alkaline Phosphatase 96 U/L (38-126) 10/17/18 08:21 Troponin I < 0.0120 ng/mL (0.00-0.120) 10/14/18 12:35 Total Protein 7.0 g/dL (6.3-8.3) 10/17/18 08:21 Albumin 4.0 g/dL (3.5-5.0) 10/17/18 08:21 Globulin 3.0 gm/dL (2.2-3.9) 10/17/18 08:21 Albumin/Globulin Ratio 1.3 (1.0-2.1) 10/17/18 08:21 Free T4 1.01 ng/dL (0.78-2.19) 10/16/18 22:28 TSH 3rd Generation 0.07 mIU/L (0.46-4.68) L 10/16/18 22:28 Vancomycin Trough 13.8 ug/mL (5.0-10.0) H 10/16/18 04:17 Influenza Typ A,B (EIA) Negative for flu a/b (NEGATIVE) 10/14/18 13:13 H.influenzae Type B Ag Negative (NEGATIVE) 10/15/18 19:24 Ur L.pneumophila Ag Negative (NEGATIVE) 10/15/18 19:24 N.meningitidis ACY/W135 Negative (NEGATIVE) 10/15/18 19:24 N.meningi B/E.coli K1 Ag Negative (NEGATIVE) 10/15/18 19:24 Group B Strep Antigen Negative (NEGATIVE) 10/15/18 19:24 S. pneumoniae Antigen Negative (NEGATIVE) 10/15/18 19:24 - Hospital Course Hospital Course: COPD Exacerbation/Pneumonia; resolving The patient received IV Vnacomycin and ciprofloxacin for pneumonia patient also received IV steroids for COPD exacerbation which she improved the patient will be sent home with 50mg PO prednisone for 7 more days Avelox 400mg PO daily for 7 days patient to f/u with PCP for chest x-ray 6 weeks after finishing abx f/u with pulmnology patient will need lung cancer screening since she was a heavy smoker in the past pneumonia is resolving take inhalers as prescribed patient advised to fill out POLST as she wishes to be DNR/DNI so that we can have paperwork for it Code status: DNR/DNI - Nurse unable to find DNR/DNI form. Patient explicitly stated DNR/DNI. Case seen and discussed with Dr. Sushil Willard PGY3 Discharge Exam - Head Exam Head Exam: ATRAUMATIC, NORMAL INSPECTION, NORMOCEPHALIC - Eye Exam Eye Exam: EOMI, Normal appearance - Respiratory Exam Respiratory Exam: Clear to PA & Lateral, UNREMARKABLE. absent: Rales, Rhonchi, Wheezes - Cardiovascular Exam Cardiovascular Exam: REGULAR RHYTHM, +S1, +S2 - GI/Abdominal Exam GI & Abdominal Exam: Normal Bowel Sounds. absent: Soft, Tenderness - Back Exam Back exam: absent: CVA tenderness (L), CVA tenderness (R) - Neurological Exam Neurological exam: Alert, CN II-XII Intact, Oriented x3, Reflexes Normal - Psychiatric Exam Psychiatric exam: Normal Affect - Skin Skin Exam: Warm Discharge Plan - Discharge Medications Prescriptions: Moxifloxacin [Avelox] 400 mg PO DAILY #7 tab Prednisone 50 mg PO DAILY #7 tablet - Follow Up Plan Condition: GOOD Disposition: HOME/ ROUTINE Instructions: Pneumonia in Adults, Chronic Obstructive Pulmonary Disease (COPD), Including Emphysema
[2018-10-17 20:42] LABS: MYCOPLASMA PNEUMONIAE IGM NEGATIVE (NEGATIVE)
== END 2018-10-17 14:20 | disposition home or self-care (01) | DRG 140 ==
LOC: C.ER 11:35 → C.3T 14:48
PROVIDERS: ADMIT Internal Medicine; ATTEND Internal Medicine
DX: J44.0 Chronic obstructive pulmonary disease with (acute) lower respiratory infection (principal); J18.9 Pneumonia, unspecified organism; J44.1 Chronic obstructive pulmonary disease with (acute) exacerbation; Z66 Do not resuscitate; J98.11 Atelectasis; E86.0 Dehydration; E78.00 Pure hypercholesterolemia, unspecified; Z87.891 Personal history of nicotine dependence

== ENCOUNTER 2018-11-11 12:51 | Emergency (ER) | payer OTHER ==
[2018-11-11 12:51] VITALS: BMI 22.8
[2018-11-11 14:23] LABS: BASO # 0.1 K/uL (0.0-0.2); BASO % 0.8 % (0.0-2.0); EOS # 0.5 K/uL (0.0-0.7); HEMOGLOBIN 13.9 g/dL (11.0-16.0); LYMPH % 32.7 % (20.0-40.0); MEAN CELL VOLUME 90.9 fL (81.0-99.0); MEAN CORPUSCULAR HEMOGLOBIN 30.8 pg (27.0-31.0); MEAN CORPUSCULAR HGB CONC 33.9 g/dL (33.0-37.0); MEAN PLATELET VOLUME 8.5 fL (7.2-11.7); MONO # 0.7 K/uL (0.0-0.8); MONO % 7.3 % (0.0-10.0); NEUT % 54.2 % (50.0-75.0); RBC 4.51 Mil/uL (3.80-5.20); RED CELL DISTRIBUTION WIDTH 13.7 % (11.5-14.5); WHITE BLOOD COUNT 9.2 K/uL (4.8-10.8)
--- NOTE | 2018-11-11 14:23 | C.PDOC ---
History Of Present Illness 58 y/o female with history of COPD presents to ED with c/o chest pain radiating to upper back associated with sob on exertion since yesterday morning. Patient denies fever, cough, nausea, vomiting, leg swelling, sick contacts, recent travel or any other complaints at this time. Time Seen by Provider: 11/11/18 13:13 Chief Complaint (Nursing): Chest Pain History Per: Patient History/Exam Limitations: no limitations Onset/Duration Of Symptoms: Days Current Symptoms Are (Timing): Still Present Past Medical History Reviewed: Historical Data, Nursing Documentation, Vital Signs Vital Signs: Last Vital Signs Temp 98.5 F 11/11/18 13:00 Pulse 95 H 11/11/18 13:15 Resp 19 11/11/18 13:00 BP 126/57 L 11/11/18 13:15 Pulse Ox 95 11/11/18 13:00 - Medical History PMH: Anxiety, Asthma, COPD, Depression, Emphysema, Gastritis, Hype rcholesterolemia, Pneumonia Surgical History: No Surg Hx Family History: States: No Known Family Hx - Social History Hx Tobacco Use: No Hx Alcohol Use: No Hx Substance Use: No - Immunization History Hx Tetanus Toxoid Vaccination: Yes Hx Influenza Vaccination: Yes Hx Pneumococcal Vaccination: Yes Review Of Systems Except As Marked, All Systems Reviewed And Found Negative. Cardiovascular: Positive for: Chest Pain Respiratory: Positive for: SOB with Excertion. Negative for: Cough Gastrointestinal: Negative for: Nausea, Vomiting Physical Exam - Physical Exam Additional Physical Exam Comments: Constitutional: No acute distress. Head: Normocephalic. Atraumatic. Eyes: PERRL. ENT: Moist mucous membranes. Neck: Supple. Cardiovascular: Regular rate. Radial pulse 2+ bilaterally. Chest: Midsternal chest tenderness Respiratory: Clear to auscultation bilaterally. GI: Soft. Nontender. Nondistended. Back: Right thoracic paraspinal tenderness. No CVA tenderness. Musculoskeletal: No tenderness or swelling of extremities. Skin: No rash. Neurologic: Alert, no focal deficit. ED Course And Treatment - Laboratory Results Result Diagrams: 11/11/18 14:19 11/11/18 14:19 O2 Sat by Pulse Oximetry: 95 (RA) Pulse Ox Interpretation: Normal Medical Decision Making Medical Decision Making: Plan: * Blood work * CXR * Toradol ECG: NSR @107, No ST elevations, Normal access CXR: IMPRESSION: Right upper lobe atelectasis re-identified. Hyperinflation may be seen in the setting of COPD. Labs unremarkable. Enzymes negative in this pain of over 24 hours duration. Dimer negative. CXR no consolidation. Will discharge, f/u primary care, return to ED for worsening pain, fever, vomiting, dyspnea, or any other problem. Disposition - Disposition Disposition: HOME/ ROUTINE Disposition Time: 15:38 Condition: STABLE Prescriptions: Albuterol HFA [Ventolin HFA 90 mcg/actuation (8 g)] 2 puff IH Q6 #1 inhaler levoFLOXacin [Levaquin] 1 tab PO DAILY #5 tab Instructions: Chest Pain That Is Not Caused by the Heart (DC) Forms: [employer] ([place]) - Clinical Impression Clinical Impression: Chest pain - Scribe Statement The provider has reviewed the documentation as recorded by the Odiliaibberonica Altamirano All medical record entries made by the Odiliaibberonica were at my direction and personally dictated by me. I have reviewed the chart and agree that the record accurately reflects my personal performance of the history, physical exam, medical decision making, and the department course for this patient. I have also personally directed, reviewed, and agree with the discharge instructions and disposition.
[2018-11-11 14:40] LABS: ALB/GLOB RATIO 1.3 (1.0-2.1); ALBUMIN 4.1 g/dL (3.5-5.0); ALT/SGPT 18 U/L (9-52); AST/SGOT 21 U/L (14-36); BLOOD UREA NITROGEN 15 mg/dL (7-17); CALCIUM 9.7 mg/dl (8.6-10.4); GFR NON-AFRICAN AMERICAN 57; LIPASE 66 U/L (23-300)
[2018-11-11 14:52] LABS: B-TYPE NATRIURETIC PEPTIDE 106 pg/mL (0-900); CK-MB 1.02 ng/mL (0.0-3.38)
--- NOTE | 2018-11-11 14:55 | RAD ---
HISTORY: chest pain, dyspnea COMPARISON: Chest x-ray performed 11/04/18 TECHNIQUE: Chest PA and lateral FINDINGS: LUNGS: Right upper lobe atelectasis re-identified. Hyperinflation may be seen in the setting of COPD. Please note that chest x-ray has limited sensitivity for the detection of pulmonary masses. PLEURA: No significant pleural effusion identified. No definite pneumothorax . CARDIOVASCULAR: Borderline cardiomegaly. Atherosclerotic calcification present. OSSEOUS STRUCTURES: Degenerative changes. Osseous demineralization. VISUALIZED UPPER ABDOMEN: Unremarkable. OTHER FINDINGS: None. IMPRESSION: Right upper lobe atelectasis re-identified. Hyperinflation may be seen in the setting of COPD.
[2018-11-11 16:06] VITALS: BP 129/77; PULSE 97; RESP 16; TEMP 98.6; O2SAT 98
--- NOTE | 2018-11-12 07:11 | CARD ---
APPROVED REPORT Date of service: 11/11/2018 EKG Measurement Heart [id number] <Conclusion> Sinus tachycardia Nonspecific ST and T wave abnormality Abnormal ECG
== END 2018-11-11 16:06 | disposition home or self-care (01) ==
LOC: C.ER 12:51
DX: R07.9 Chest pain, unspecified (principal)
CPT/HCPCS: 71046; 80053; 82550; 82553; 83690; 83880; 84484; 85025; 85378; 93005; 96374; 99285; J1885

== ENCOUNTER 2019-01-15 10:33 | Inpatient (IN) | payer OTHER ==
[2019-01-15 10:33] VITALS: BMI 22.8
[2019-01-15] MEDS ORDERED: Moxifloxacin IV 400mg/250ml NS 400 MG/250 ML BAG IVPB ONE ×2 (11:07→11:14)
[2019-01-15] MEDS ORDERED: Albuterol-Ipratrop 3 mg / 0.5 (3 ml) UD INH STA (11:08)
[2019-01-15 11:14] LABS: BASO # 0.2 K/uL (0.0-0.2); BASO % 1.3 % (0.0-2.0); EOS # 0.4 K/uL (0.0-0.7); EOS % 3.2 % (0.0-4.0); HEMOGLOBIN 13.5 g/dL (11.0-16.0); LYMPH # 3.9 K/uL (1.0-4.3); LYMPH % 29.9 % (20.0-40.0); MEAN CELL VOLUME 91.3 fL (81.0-99.0); MEAN CORPUSCULAR HEMOGLOBIN 29.5 pg (27.0-31.0); MEAN CORPUSCULAR HGB CONC 32.3 g/dL (33.0-37.0); MEAN PLATELET VOLUME 8.2 fL (7.2-11.7); MONO # 0.7 K/uL (0.0-0.8); MONO % 5.4 % (0.0-10.0); NEUT # 7.8 K/uL (1.8-7.0); NEUT % 60.2 % (50.0-75.0); NRBC % 0.1 % (0.0-2.0); RBC 4.59 Mil/uL (3.80-5.20); RED CELL DISTRIBUTION WIDTH 13.5 % (11.5-14.5)
[2019-01-15] MEDS ORDERED: Albuterol-Ipratrop 3 mg / 0.5 (3 ml) UD ONE (11:27)
[2019-01-15 11:29] LABS: ALB/GLOB RATIO 1.3 (1.0-2.1); ALBUMIN 4.6 g/dL (3.5-5.0); ALT/SGPT 23 U/L (9-52); AST/SGOT 26 U/L (14-36); BLOOD UREA NITROGEN 12 mg/dL (7-17); CALCIUM 9.5 mg/dl (8.6-10.4); GFR NON-AFRICAN AMERICAN > 60
[2019-01-15 11:55] LABS: B-TYPE NATRIURETIC PEPTIDE 60.4 pg/mL (0-900)
--- NOTE | 2019-01-15 12:17 | C.PDOC ---
History Of Present Illness 58 year old female with a history of COPD presents to the ED for evaluation of cough x4 days associated with chest pain and generalized body aches. The patient reports using her home breathing treatment with no improvement. Denies smoking, fever, chills, and any other associated. HPI: Influenza Time Seen by Provider: 01/15/19 11:06 Chief Complaint: Cough, Cold, Congestion History Per: Patient Exam Limitations: no limitations Past Medical History Reviewed: Historical Data, Nursing Documentation, Vital Signs Vital Signs: Last Vital Signs Temp 98 F 01/15/19 10:52 Pulse 101 H 01/15/19 10:52 Resp 18 01/15/19 10:52 BP 130/72 01/15/19 10:52 Pulse Ox 100 01/15/19 10:52 - Medical History PMH: Anxiety, Asthma, COPD, Depression, Emphysema, Gastritis, Hyper cholesterolemia, Pneumonia Denies: Chronic Kidney Disease Family History: States: Unknown Family Hx - Social History Hx Tobacco Use: No Hx Alcohol Use: No Hx Substance Use: No - Immunization History Hx Tetanus Toxoid Vaccination: Yes Hx Influenza Vaccination: Yes Hx Pneumococcal Vaccination: Yes Review Of Systems Except As Marked, All Systems Reviewed And Found Negative. Respiratory: Positive for: Cough, Shortness of Breath Physical Exam - Physical Exam Appears: Non-toxic, No Acute Distress Skin: Warm, Dry Head: Atraumatic, Normacephalic Eye(s): bilateral: Normal Inspection, PERRL, EOMI Nose: Normal Oral Mucosa: Moist Neck: Normal ROM Chest: Symmetrical, No Deformity Cardiovascular: Rhythm Regular, No Murmur Respiratory: No Rales, No Rhonchi, Wheezing (expiratory.) Gastrointestinal/Abdominal: Normal Exam, Soft, No Tenderness Extremity: Bilateral: Atraumatic, Normal Color And Temperature, Normal ROM Neurological/Psych: Oriented x3, Normal Speech Medical Decision Making Medical Decision Making: Initial plan: -EKG -Blood sent. -CXR -Duoneb -Avelox -Solu-Medrol -Blood culture -Influenza A B Assessment: COPD exacerbation Progress/Update: CXR FINDINGS: LUNGS: No evidence of new infiltrate or consolidation in the lungs. PLEURA: No significant pleural effusion identified. No pneumothorax apparent. CARDIOVASCULAR: No aortic atherosclerotic calcification present. Normal cardiac size. No pulmonary vascular congestion. OSSEOUS STRUCTURES: No significant abnormalities. VISUALIZED UPPER ABDOMEN: Normal. OTHER FINDINGS: None. IMPRESSION: No active disease. Hospitalist agreed to admit the patient. - Laboratory Results Result Diagrams: 01/15/19 11:09 01/15/19 11:09 Lab Results: Troponin I < 0.0120 ng/mL (0.00-0.120) 01/15/19 11:09 NT-Pro-B Natriuret Pep 60.4 pg/mL (0-900) 01/15/19 11:09 Total Bilirubin 0.5 mg/dL (0.2-1.3) 01/15/19 11:09 AST 26 U/L (14-36) 01/15/19 11:09 ALT 23 U/L (9-52) 01/15/19 11:09 Alkaline Phosphatase 101 U/L (38-126) 01/15/19 11:09 Total Protein 8.0 g/dL (6.3-8.3) 01/15/19 11:09 Albumin 4.6 g/dL (3.5-5.0) 01/15/19 11:09 Globulin 3.4 gm/dL (2.2-3.9) 01/15/19 11:09 Albumin/Globulin Ratio 1.3 (1.0-2.1) 01/15/19 11:09 - ECG ECG: Positive for: Interpreted By Me, Viewed By Me ECG Rhythm: Positive for: Normal QRS Interpretation Of Abn EKG: normal interval. normal axis. nonspecific T wave changes. O2 Sat by Pulse Oximetry: 100 (RA) - Other Rad CXR X-Ray: Viewed By Me, Read By Radiologist Disposition Discussed With Dr.: Dale Mckinley Doctor Will See Patient In The: Hospital Counseled Patient/Family Regarding: Studies Performed, Diagnosis - Disposition Disposition: HOSPITALIZED Disposition Time: 12:17 Condition: STABLE - Clinical Impression Clinical Impression: COPD exacerbation - Scribe Statement The provider has reviewed the documentation as recorded by the Scribe (Mai Meadows) Provider Attestation: All medical record entries made by the Scribe were at my direction and personally dictated by me. I have reviewed the chart and agree that the record accurately reflects my personal performance of the history, physical exam, medical decision making, and the department course for this patient. I have also personally directed, reviewed, and agree with the discharge instructions and disposition.
--- NOTE | 2019-01-15 14:12 | CP.PCM.HP ---
<Joel Bowen - Last Filed: 01/15/19 16:09> History of Present Illness - History of Present Illness History of Present Illness: This is a 58 yo female with past medical hx of pneumonia, long hx of smoking, coma, trach, COPD, presenting to hospital with worsening cough x 4 days and shortness of breath. Patient has been coughing more than usual and starting to cough up phlegm. She denies fevers, chills, but reports lots of body aches and some chest pain. Patient was in a coma in 2018 and had to have a trach inserted. She is also requesting to be made DNR and DNI today. PMH: COPD, coma, tobacco abuse, tach PSH: C section x 3, tracheostomy in 2018 Allergies: cefepime FH: Denies Home medications: albuterol, spiriva, incruse ellipta Social hx: past hx of smoking. no drinking. no drug use. originally from [facility]. does not work. lives at home with daughter. Code status: DNR and DNI Present on Admission - Present on Admission Any Indicators Present on Admission: No History of DVT/PE: No History of Uncontrolled Diabetes: No Urinary Catheter: No Decubitus Ulcer Present: No Review of Systems - Constitutional Constitutional: absent: Anorexia, Chills - EENT Eyes: absent: Blind Spots, Blurred Vision Ears: absent: Decreased Hearing, Ear Discharge Nose/Mouth/Throat: absent: Nasal Congestion, Nasal Discharge - Cardiovascular Cardiovascular: Chest Pain, Dyspnea - Respiratory Respiratory: Dyspnea. absent: Cough - Gastrointestinal Gastrointestinal: absent: Abdominal Pain, Bloating - Genitourinary Genitourinary: absent: Change in Urinary Stream, Difficulty Urinating - Integumentary Integumentary: absent: Acne, Alopecia - Neurological Neurological: absent: Abnormal Gait, Abnormal Movements - Psychiatric Psychiatric: absent: Suicidal Ideation, Visual Hallucinations - Endocrine Endocrine: absent: Polyphagia, Polyuria Past Patient History - Infectious Disease Hx of Infectious Diseases: None - Past Medical History & Family History Past Medical History?: Yes - Past Social History Smoking Status: Former Smoker Chewing Tobacco Use: No Cigar Use: No Alcohol: None Drugs: Denies Home Situation {Lives}: With Family Domestic Violence: Negative - CARDIAC Hx Hypercholesterolemia: Yes - PULMONARY Hx Asthma: Yes Hx Chronic Obstructive Pulmonary Disease (COPD): Yes Hx Emphysema: Yes Hx Pneumonia: Yes - NEUROLOGICAL Hx Neurological Disorder: No - HEENT Hx HEENT Problems: No - RENAL Hx Chronic Kidney Disease: No - ENDOCRINE/METABOLIC Hx Endocrine Disorders: No - HEMATOLOGICAL/ONCOLOGICAL Hx Blood Disorders: No - INTEGUMENTARY Hx Dermatological Problems: No - MUSCULOSKELETAL/RHEUMATOLOGICAL Hx Musculoskeletal Disorders: No Hx Falls: No - GASTROINTESTINAL Hx Gastritis: Yes - GENITOURINARY/GYNECOLOGICAL Hx Genitourinary Disorders: No - PSYCHIATRIC Hx Anxiety: Yes Hx Depression: Yes Hx Substance Use: No - SURGICAL HISTORY Hx Surgeries: Yes Hx Section: Yes (x3) Other/Comment: tracheostomy MARCH 2018 - ANESTHESIA Hx Anesthesia: Yes Hx Anesthesia Reactions: No Hx Malignant Hyperthermia: No Meds Allergies/Adverse Reactions: Allergies Allergy/AdvReac Type Severity Reaction Status Date / Time cefepime Allergy RASH Verified 11/11/18 13:02 Physical Exam - Constitutional Appears: Non-toxic, No Acute Distress - Head Exam Head Exam: ATRAUMATIC, NORMAL INSPECTION, NORMOCEPHALIC - Eye Exam Eye Exam: EOMI - ENT Exam ENT Exam: Mucous Membranes Moist - Neck Exam Neck exam: Positive for: Full Rom, Normal Inspection - Respiratory Exam Respiratory Exam: Decreased Breath Sounds. absent: Respiratory Distress - Cardiovascular Exam Cardiovascular Exam: +S1, +S2 - GI/Abdominal Exam GI & Abdominal Exam: Normal Bowel Sounds, Soft. absent: Tenderness - Extremities Exam Extremities exam: Positive for: full ROM, normal inspection - Back Exam Back exam: NORMAL INSPECTION - Neurological Exam Neurological exam: Alert, CN II-XII Intact, Oriented x3 - Psychiatric Exam Psychiatric exam: Normal Affect, Normal Mood - Skin Skin Exam: Dry, Intact, Normal Color, Warm Results - Vital Signs Recent Vital Signs: Last Vital Signs Temp 98.3 F 01/15/19 12:36 Pulse 90 01/15/19 12:36 Resp 20 01/15/19 12:36 BP 143/81 01/15/19 12:36 Pulse Ox 100 01/15/19 13:22 - Labs Result Diagrams: 01/15/19 11:09 01/15/19 11:09 Labs: Laboratory Results - last 24 hr 01/15/19 01/15/19 01/15/19 11:09 11:09 11:09 WBC 13.0 H RBC 4.59 Hgb 13.5 Hct 41.9 MCV 91.3 MCH 29.5 MCHC 32.3 L RDW 13.5 Plt Count 349 MPV 8.2 Neut % (Auto) 60.2 Lymph % (Auto) 29.9 [place] % (Auto) 5.4 Eos % (Auto) 3.2 Baso % (Auto) 1.3 Neut # (Auto) 7.8 H Lymph # (Auto) 3.9 [place] # (Auto) 0.7 Eos # (Auto) 0.4 Baso # (Auto) 0.2 Sodium 138 Potassium 3.8 Chloride 101 Carbon Dioxide 31 H Anion Gap 10 BUN 12 Creatinine 0.8 Est GFR ( Amer) > 60 Est GFR (Non-Af Amer) > 60 Random Glucose 89 Calcium 9.5 Total Bilirubin 0.5 AST 26 ALT 23 Alkaline Phosphatase 101 Troponin I < 0.0120 NT-Pro-B Natriuret Pep 60.4 Total Protein 8.0 Albumin 4.6 Globulin 3.4 Albumin/Globulin Ratio 1.3 Influenza Typ A,B (EIA) Negative for flu a/b Assessment & Plan - Assessment and Plan (Free Text) Assessment: This is a 58 yo female with 1. COPD -Breo inhaler daily -spiriva inhaler daily -Bipap at night- 11/04/40 percent -Duonebs RQ4 ASHLIE -solu medrol 40 IV q 8 hrs -follow up am labs 2. Leukocytosis -azithromycin IV daily -CXR 3. Heart healthy diet <Dale Mckinley H - Last Filed: 01/16/19 07:35> Results - Vital Signs Recent Vital Signs: Last Vital Signs Temp 97.9 F 01/16/19 00:00 Pulse 76 01/16/19 04:00 Resp 20 01/16/19 00:00 BP 117/70 01/16/19 00:00 Pulse Ox 94 L 01/16/19 00:00 - Labs Result Diagrams: 01/15/19 11:09 01/15/19 11:09 Labs: Laboratory Results - last 24 hr 01/15/19 01/15/19 01/15/19 11:09 11:09 11:09 WBC 13.0 H RBC 4.59 Hgb 13.5 Hct 41.9 MCV 91.3 MCH 29.5 MCHC 32.3 L RDW 13.5 Plt Count 349 MPV 8.2 Neut % (Auto) 60.2 Lymph % (Auto) 29.9 [place] % (Auto) 5.4 Eos % (Auto) 3.2 Baso % (Auto) 1.3 Neut # (Auto) 7.8 H Lymph # (Auto) 3.9 [place] # (Auto) 0.7 Eos # (Auto) 0.4 Baso # (Auto) 0.2 Sodium 138 Potassium 3.8 Chloride 101 Carbon Dioxide 31 H Anion Gap 10 BUN 12 Creatinine 0.8 Est GFR ( Amer) > 60 Est GFR (Non-Af Amer) > 60 Random Glucose 89 Calcium 9.5 Total Bilirubin 0.5 AST 26 ALT 23 Alkaline Phosphatase 101 Troponin I < 0.0120 NT-Pro-B Natriuret Pep 60.4 Total Protein 8.0 Albumin 4.6 Globulin 3.4 Albumin/Globulin Ratio 1.3 Influenza Typ A,B (EIA) Negative for flu a/b Attending/Attestation - Attestation I have personally seen and examined this patient.: Yes I have fully participated in the care of the patient.: Yes I have reviewed all pertinent clinical information: Yes Notes (Text): 01/16/19 07:32 Medical attending: Patient was seen and examined by me. Agree with the above note by the resident The patient was seen and examined by me as well Family member was present at bedside The patient was not in any acute distress The patient will be on IV solumedrol, Breo Ellipta, and also continuos nebulizers The family asked for BIpap at night Also we will need to see how the patient does with PT since he may have desaturation Dale Mckinley
[2019-01-15] MEDS: MethylPREDNISolone 40 mg Vial IVP SCH ×2 (14:14→21:15)
--- NOTE | 2019-01-15 17:12 | RAD ---
Date of service: 01/15/2019 HISTORY: cough COMPARISON: Comparison is made with 11/11/2018 TECHNIQUE: Chest PA and lateral FINDINGS: LUNGS: No evidence of new infiltrate or consolidation in the lungs. PLEURA: No significant pleural effusion identified. No pneumothorax apparent. CARDIOVASCULAR: No aortic atherosclerotic calcification present. Normal cardiac size. No pulmonary vascular congestion. OSSEOUS STRUCTURES: No significant abnormalities. VISUALIZED UPPER ABDOMEN: Normal. OTHER FINDINGS: None. IMPRESSION: No active disease.
[2019-01-15] MEDS: Albuterol-Ipratrop 3 mg / 0.5 (3 ml) UD INH SCH ×2 (17:39→19:48)
[2019-01-16] MEDS: Albuterol-Ipratrop 3 mg / 0.5 (3 ml) UD INH SCH ×6 (01:01→21:55)
[2019-01-16 01:12] VITALS: RESP 20
[2019-01-16] MEDS: MethylPREDNISolone 40 mg Vial IVP SCH ×3 (05:52→21:20)
[2019-01-16 08:21] LABS: BASO % 0.3 % (0.0-2.0); HEMOGLOBIN 13.2 g/dL (11.0-16.0); LYMPH # 1.3 K/uL (1.0-4.3); LYMPH % 7.4 % (20.0-40.0); MEAN CORPUSCULAR HEMOGLOBIN 29.4 pg (27.0-31.0); MEAN CORPUSCULAR HGB CONC 31.9 g/dL (33.0-37.0); MEAN PLATELET VOLUME 8.1 fL (7.2-11.7); MONO # 0.4 K/uL (0.0-0.8); MONO % 2.1 % (0.0-10.0); NEUT # 15.7 K/uL (1.8-7.0); NEUT % 90.2 % (50.0-75.0); NRBC % 0.1 % (0.0-2.0); PLATELET COUNT 328 K/uL (130-400); RBC 4.49 Mil/uL (3.80-5.20); RED CELL DISTRIBUTION WIDTH 13.3 % (11.5-14.5); WHITE BLOOD COUNT 17.5 K/uL (4.8-10.8)
[2019-01-16 08:52] LABS: ALB/GLOB RATIO 1.4 (1.0-2.1); ALBUMIN 4.6 g/dL (3.5-5.0); ALT/SGPT 22 U/L (9-52); AST/SGOT 30 U/L (14-36); BLOOD UREA NITROGEN 24 mg/dL (7-17); CALCIUM 9.9 mg/dl (8.6-10.4); GFR NON-AFRICAN AMERICAN > 60
[2019-01-16 08:58] LABS: BANDS 4 % (0-2); LYMPHOCYTE 7 % (20-40); MONOCYTE 2 % (0-10); NEUTROPHIL 87 % (50-75); PLATELET ESTIMATE NORMAL (NORMAL); TOTAL CELLS COUNTED 100
[2019-01-16 09:00] LABS: ANISOCYTOSIS SLIGHT; LARGE PLATELETS PRESENT
[2019-01-16] MEDS: Fluticasone-Vilanterol 200/25mcg Diskus INH SCH (09:52)
[2019-01-16] MEDS: Tiotropium 18 mcg Cap For Inhalation INH SCH (09:53)
[2019-01-16] MEDS: Azithromycin 500 MG in Sodium Chloride 0.9% 250 ML IVPB SCH (10:26)
--- NOTE | 2019-01-16 16:46 | CP.PCM.PN ---
<Joel Bowen - Last Filed: 01/16/19 16:48> Subjective - Date & Time of Evaluation Date of Evaluation: 01/16/19 Time of Evaluation: 16:45 - Subjective Subjective: Progress note. Attending: Dr. Mckinley Pt seen and examined at bedside. No acute distress. No events overnight. No fevers, chills, vomiting, diarrhea. Objective - Vital Signs/Intake and Output Vital Signs (last 24 hours): Temp Pulse Resp BP Pulse Ox 98.9 F 100 H 20 118/73 95 01/16/19 15:00 01/16/19 15:00 01/16/19 15:00 01/16/19 15:00 01/16/19 15:00 Intake and Output: 01/16/19 01/16/19 06:59 18:59 Intake Total 360 Balance 360 - Medications Medications: Current Medications Albuterol/Ipratropium (Duoneb 3 Mg/0.5 Mg (3 Ml) Ud) 3 ml INH RQ4 [facility] Last Admin: 01/16/19 14:02 Dose: 3 ml Fluticasone/Vilanterol (Breo Ellipta 200-25 Mcg Inh) 1 puff INH RQD [facility] Last Admin: 01/16/19 09:52 Dose: 1 puff Azithromycin 500 mg/ Sodium (Chloride) 250 mls @ 250 mls/hr IVPB Q24H [facility]; Protocol Last Admin: 01/16/19 10:26 Dose: 250 mls/hr Methylprednisolone (Solu-Medrol) 40 mg IVP Q8 [facility] Last Admin: 01/16/19 13:15 Dose: 40 mg Tiotropium [place] (Spiriva) 18 mcg INH RQ24 [facility] Last Admin: 01/16/19 09:53 Dose: 18 mcg - Labs Labs: 01/16/19 08:05 01/16/19 08:05 - Constitutional Appears: Non-toxic, No Acute Distress - Head Exam Head Exam: ATRAUMATIC, NORMAL INSPECTION, NORMOCEPHALIC - Eye Exam Eye Exam: EOMI - ENT Exam ENT Exam: Mucous Membranes Moist - Neck Exam Neck Exam: Full ROM, Normal Inspection - Respiratory Exam Respiratory Exam: NORMAL BREATHING PATTERN. absent: Respiratory Distress - Cardiovascular Exam Cardiovascular Exam: +S1, +S2 - GI/Abdominal Exam GI & Abdominal Exam: Soft, Normal Bowel Sounds. absent: Tenderness - Extremities Exam Extremities Exam: Full ROM, Normal Inspection - Back Exam Back Exam: NORMAL INSPECTION - Neurological Exam Neurological Exam: Alert, Awake, Oriented x3 - Psychiatric Exam Psychiatric exam: Flat Affect - Skin Skin Exam: Dry, Intact, Normal Color, Warm Assessment and Plan - Assessment and Plan (Free Text) Assessment: This is a 58 yo female, originally from [facility], with 1. COPD exacerbation -Breo inhaler daily -spiriva inhaler daily -Bipap at night- 11/04/40 percent -Duonebs RQ4 [facility] -solu medrol 40 IV q 8 hrs -follow up am labs -azithromycin IV daily -echo ordered -flu negative 2. Leukocytosis -azithromycin IV daily -CXR PA and lateral negative -blood cultures negative -sputum cultures pending -uptrending but likely a steroid induced component as well 3. hx of tracheostomy -continue to monitor 3. GI/DVT ppx -SCDs -GI not indicated -PT evaluation Heart healthy diet <Mckinley,Peter H - Last Filed: 01/16/19 19:19> Objective - Vital Signs/Intake and Output Vital Signs (last 24 hours): Temp Pulse Resp BP Pulse Ox 98.9 F 100 H 20 118/73 95 01/16/19 15:00 01/16/19 15:00 01/16/19 15:00 01/16/19 15:00 01/16/19 15:00 - Medications Medications: Current Medications Albuterol/Ipratropium (Duoneb 3 Mg/0.5 Mg (3 Ml) Ud) 3 ml INH RQ4 [facility] Last Admin: 01/16/19 14:02 Dose: 3 ml Fluticasone/Vilanterol (Breo Ellipta 200-25 Mcg Inh) 1 puff INH RQD [facility] Last Admin: 01/16/19 09:52 Dose: 1 puff Azithromycin 500 mg/ Sodium (Chloride) 250 mls @ 250 mls/hr IVPB Q24H [facility]; Protocol Last Admin: 01/16/19 10:26 Dose: 250 mls/hr Methylprednisolone (Solu-Medrol) 40 mg IVP Q8 [facility] Last Admin: 01/16/19 13:15 Dose: 40 mg Tiotropium [place] (Spiriva) 18 mcg INH RQ24 [facility] Last Admin: 01/16/19 09:53 Dose: 18 mcg - Labs Labs: 01/16/19 08:05 01/16/19 08:05 Attending/Attestation - Attestation I have personally seen and examined this patient.: Yes I have fully participated in the care of the patient.: Yes I have reviewed all pertinent clinical information, including history, physical exam and plan: Yes Notes (Text): 01/16/19 19:17 Medical attending: Patient was seen and examined by me. Agree with the above note by the resident The patient was not in any acute distress, however she felt better with wearing of the bipap overnight The patient will need to have a PT evaluation to see how she does when walking in case there are large desaturations. The patient 's primary physician returns this Thursday and hospitalist service is covering Dale Mckinley
[2019-01-17] MEDS: Albuterol-Ipratrop 3 mg / 0.5 (3 ml) UD INH SCH ×6 (00:26→20:50)
[2019-01-17] MEDS: MethylPREDNISolone 40 mg Vial IVP SCH ×2 (05:32→21:35)
[2019-01-17 07:02] LABS: BASO # 0.1 K/uL (0.0-0.2); BASO % 0.3 % (0.0-2.0); HEMOGLOBIN 11.8 g/dL (11.0-16.0); LYMPH # 1.4 K/uL (1.0-4.3); LYMPH % 6.6 % (20.0-40.0); MEAN CELL VOLUME 91.5 fL (81.0-99.0); MEAN CORPUSCULAR HEMOGLOBIN 29.7 pg (27.0-31.0); MEAN CORPUSCULAR HGB CONC 32.4 g/dL (33.0-37.0); MEAN PLATELET VOLUME 7.9 fL (7.2-11.7); MONO # 0.5 K/uL (0.0-0.8); MONO % 2.6 % (0.0-10.0); NEUT # 18.9 K/uL (1.8-7.0); NEUT % 90.5 % (50.0-75.0); PLATELET COUNT 303 K/uL (130-400); RBC 3.98 Mil/uL (3.80-5.20); RED CELL DISTRIBUTION WIDTH 13.2 % (11.5-14.5); WHITE BLOOD COUNT 20.9 K/uL (4.8-10.8)
[2019-01-17 07:16] LABS: ALB/GLOB RATIO 1.5 (1.0-2.1); ALT/SGPT 22 U/L (9-52); AST/SGOT 22 U/L (14-36); BLOOD UREA NITROGEN 30 mg/dL (7-17); CALCIUM 9.4 mg/dl (8.6-10.4); GFR NON-AFRICAN AMERICAN > 60
--- NOTE | 2019-01-17 07:44 | CP.PCM.PN ---
<Fabiana Buenrostro - Last Filed: 01/17/19 13:01> Subjective - Date & Time of Evaluation Date of Evaluation: 01/17/19 Time of Evaluation: 08:00 - Subjective Subjective: Progress note for Dr. Mckinley (covering for Dr. Hayden) Patient was seen and examined at bedside in no acute distress. Patient states her breathing has significantly improved since she has been in the hospital. She states she went for the echocardiogram without oxygen and feels good. She denies chest pain, palpitations, nausea, vomiting, fever or chills. Objective - Vital Signs/Intake and Output Vital Signs (last 24 hours): Temp Pulse Resp BP Pulse Ox 98.6 F 84 20 116/66 96 01/17/19 00:00 01/17/19 04:38 01/17/19 00:00 01/17/19 00:00 01/17/19 00:00 Intake and Output: 01/17/19 01/17/19 06:59 18:59 Intake Total 540 Balance 540 - Medications Medications: Current Medications Albuterol/Ipratropium (Duoneb 3 Mg/0.5 Mg (3 Ml) Ud) 3 ml INH RQ4 [facility] Last Admin: 01/17/19 04:38 Dose: 3 ml Fluticasone/Vilanterol (Breo Ellipta 200-25 Mcg Inh) 1 puff INH RQD [facility] Last Admin: 01/16/19 09:52 Dose: 1 puff Azithromycin 500 mg/ Sodium (Chloride) 250 mls @ 250 mls/hr IVPB Q24H [facility]; Protocol Last Admin: 01/16/19 10:26 Dose: 250 mls/hr Methylprednisolone (Solu-Medrol) 40 mg IVP Q8 [facility] Last Admin: 01/17/19 05:32 Dose: 40 mg Tiotropium [place] (Spiriva) 18 mcg INH RQ24 [facility] Last Admin: 01/16/19 09:53 Dose: 18 mcg - Labs Labs: 01/17/19 06:56 01/17/19 06:56 - Constitutional Appears: No Acute Distress - Head Exam Head Exam: ATRAUMATIC, NORMAL INSPECTION - Eye Exam Eye Exam: EOMI, Normal appearance - ENT Exam ENT Exam: Mucous Membranes Moist - Respiratory Exam Respiratory Exam: NORMAL BREATHING PATTERN. absent: Respiratory Distress - Cardiovascular Exam Cardiovascular Exam: REGULAR RHYTHM, +S1, +S2 - GI/Abdominal Exam GI & Abdominal Exam: Soft, Normal Bowel Sounds. absent: Tenderness - Extremities Exam Extremities Exam: Normal Inspection - Neurological Exam Neurological Exam: Alert, Awake, Oriented x3 - Psychiatric Exam Psychiatric exam: Normal Affect - Skin Skin Exam: Normal Color Assessment and Plan - Assessment and Plan (Free Text) Assessment: COPD exacerbation - Bipap at night- 11/04/40 percent - Chest Xray: No active disease - Medications: * Breo inhaler daily * spiriva inhaler daily * Duonebs RQ4 [facility] * solu medrol 40 IV q12h * Azithromycin IV daily - f/u ECHO Leukocytosis - likely secondary to Solu medrol - Continue azithromycin IV daily - Chest Xray: No active disease - Influenza negative - blood cultures negative -sputum cultures pending History of tracheostomy - continue to monitor Prophylaxis - SCDs - GI not indicated - PT evaluation Case discussed with Dr. Arlen Buenrostro PGY-2 <Dale Mckinley H - Last Filed: 01/17/19 14:10> Objective - Vital Signs/Intake and Output Vital Signs (last 24 hours): Temp Pulse Resp BP Pulse Ox 98.9 F 99 H 20 131/76 94 L 01/17/19 08:08 01/17/19 10:38 01/17/19 08:08 01/17/19 08:08 01/17/19 13:25 Intake and Output: 01/17/19 01/17/19 06:59 18:59 Intake Total 540 Balance 540 - Medications Medications: Current Medications Albuterol/Ipratropium (Duoneb 3 Mg/0.5 Mg (3 Ml) Ud) 3 ml INH RQ4 [facility] Last Admin: 01/17/19 07:50 Dose: 3 ml Fluticasone/Vilanterol (Breo Ellipta 200-25 Mcg Inh) 1 puff INH RQD [facility] Last Admin: 01/17/19 07:50 Dose: 1 puff Azithromycin 500 mg/ Sodium (Chloride) 250 mls @ 250 mls/hr IVPB Q24H [facility]; Protocol Last Admin: 01/17/19 09:51 Dose: 250 mls/hr Methylprednisolone (Solu-Medrol) 40 mg IVP Q12 [facility] Tiotropium [place] (Spiriva) 18 mcg INH RQ24 [facility] Last Admin: 01/17/19 07:50 Dose: 18 mcg - Labs Labs: 01/17/19 06:56 01/17/19 06:56 Attending/Attestation - Attestation I have personally seen and examined this patient.: Yes I have fully participated in the care of the patient.: Yes I have reviewed all pertinent clinical information, including history, physical exam and plan: Yes Notes (Text): 01/17/19 14:09 Medical attending: Patient was seen and examined by me. Agree with the above note by the resident The patient looks much better today. For now will conitnue with the current medicaion regimen for her COPD/Emphesema The patient will have PT to see how her O2 saturations are Dale Mckinley
[2019-01-17] MEDS: Tiotropium 18 mcg Cap For Inhalation INH SCH (07:50)
[2019-01-17] MEDS: Fluticasone-Vilanterol 200/25mcg Diskus INH SCH (07:50)
[2019-01-17 08:33] LABS: BANDS 1 % (0-2); LYMPHOCYTE 5 % (20-40); MONOCYTE 3 % (0-10); NEUTROPHIL 91 % (50-75); PLATELET ESTIMATE NORMAL (NORMAL); TOTAL CELLS COUNTED 100
[2019-01-17 08:34] LABS: HYPOCHROMIC SLIGHT; LARGE PLATELETS PRESENT
[2019-01-17] MEDS: Azithromycin 500 MG in Sodium Chloride 0.9% 250 ML IVPB SCH (09:51)
--- NOTE | 2019-01-17 15:23 | CP.PCM.CON ---
History of Present Illness - History of Present Illness History of Present Illness: Palliative consult requested by Doctor Arlen for goals of care and Code status discussion Patient is a 58 yo female admitted from home with SOB fallowed by chest discomfort and weakness X 4 days. Patient took her regular hand inhaler with no results. Patient had occasional cough with phlegm production. Denied fever, nausea or vomiting. In ED CXR was negative. Patient was diagnosed with COPD exacerbation and neutropenia. Her WBC lindsey from 13.0 to 20.9 despite Azythromycin IV. Neutrophils count 90. 5. Patient is afebrile. Upon admission patient expressed wish to be DNR/DNI . This decision was mostly influenced by her previous experience when she got in respiratory distress while vacationing in [place] and was intubated than trached for more than 1 month. Palliative care was aksed to further discuss Code status and goals of care. PMH: COPD, asthma, anxiety, Pneumonia 2018, trach formation, menopaual, LMP 4 years ago. Soc, Hx: , lives at home Fam. Hx: Unknown Review of Systems - Constitutional Constitutional: absent: As Per HPI, Anorexia, Chills, Daytime Sleepiness, Excessive Sweating, Fatigue, Fever, Frequent Falls, Headache, Increased Appetite , Lethargy, Malaise, Night Sweats, Snoring, Sleep Apnea, Weight Gain, Weight Loss, Weakness, Other - EENT Eyes: absent: As Per HPI, Blind Spots, Blurred Vision, Change in Vision, Decreased Night Vision, Diplopia, Discharge, Dry Eye, Exophthalmos, Floaters, Irritation, Itchy Eyes, Loss of Peripheral Vision, Pain, Photophobia, Requires Corrective Lenses, Sees Flashes, Spots in Vision, Tunnel Vision, Other Visual Disturbances, Loss of Vision, Other Ears: absent: As Per HPI, Decreased Hearing, Ear Discharge, Ear Pain, Tinnitus, Abnormal Hearing, Disequilibrium, Dizziness, Other Nose/Mouth/Throat: absent: As Per HPI, Epistaxis, Nasal Congestion, Nasal Discharge, Nasal Obstruction, Nasal Trauma, Nose Pain, Post Nasal Drip, Sinus Pain, Sinus Pressure, Bleeding Gums, Change in Voice, Dental Pain, Dry Mouth, Dysphagia, Halitosis, Hoarsness, Lip Swelling, Mouth Lesions, Mouth Pain, Odynophagia, Sore Throat, Throat Swelling, Tongue Swelling, Facial Pain, Neck Pain, Neck Mass, Other - Breasts Breasts: absent: As Per HPI, Change in Shape, Mass, Pain, Nipple Discharge, Nipple Inversion, Skin Changes, Swelling, Other - Cardiovascular Cardiovascular: absent: As Per HPI, Acrocyanosis, Chest Pain, Chest Pain at Rest, Chest Pain with Activity, Claudication, Diaphoresis, Dyspnea, Dyspnea on Exertion, Edema, Irregular Heart Rhythm, Pain Radiating to Arm/Neck/Jaw, Leg Edema, Leg Ulcers, Lightheadedness, Orthopnea, Palpitations, Paroxysmal Nocturnal Dyspnea, Pedal Edema, Radiating Pain, Rapid Heart Rate, Slow Heart Rate, Syncope, Other - Respiratory Respiratory: absent: As Per HPI, Cough, Dyspnea, Hemoptysis, Dyspnea on Exertion, Wheezing, Snoring, Stridor, Pain on Inspiration, Chest Congestion, Excessive Mucous Production, Change in Mucous Color, Pain with Coughing, Other - Gastrointestinal Gastrointestinal: absent: As Per HPI, Abdominal Pain, Belching, Bloating, Change in Bowel Habits, Change in Stool Character, Coffee Ground Emesis, Constipation, Cramping, Diarrhea, Dyspepsia, Dysphagia, Early Satiety, Excessive Flatus, Fecal Incontinence, Heartburn, Hematemesis, Hematochezia, Loose Stools, Melena, Nausea, Odynophagia, Temesmus, Vomiting, Other - Genitourinary Genitourinary: absent: As Per HPI, Change in Urinary Stream, Difficulty Urinating, Dysuria, Flank Pain, Hematuria, Pyuria, Nocturia, Urinary Incontinence, Urinary Frequency, Urinary Hesitance, Urinary Urgency, Voiding Freq/Small Amts, Freq UTI, Hx Renal/Bladder Calculi, Hx /Renal Surgery, Bladder Distension, Other - Reproductive: Female Reproductive:Female: Post Menopausal - Menstruation Menstruation: Post Menopausal - Musculoskeletal Musculoskeletal: absent: As Per HPI, Abnormal Gait, Arthralgias, Atrophy, Back Pain, Deformity, Joint Swelling, Limited Range of Motion, Loss of Height, Muscle Cramps, Muscle Weakness, Myalgias, Neck Pain, Numbness, Radiating Pain into Limb, Stiffness, Tingling, Other - Integumentary Integumentary: absent: As Per HPI, Acne, Alopecia, Bleeding Lesions, Change in Hair, Change in Nails, Change in Pigmentation, Changing Lesions, Dry Skin, E rythema, Furuncle, Hirsutism, Lesions, New Lesions, Non-Healing Lesions, Photosensitivity, Pruritus, Rash, Skin Pain, Skin Ulcer, Sores, Striae, Swelling, Unusual Bruising, Wounds, Jaundice, Other - Neurological Neurological: absent: As Per HPI, Abnormal Gait, Abnormal Hearing, Abnormal Movements, Abnormal Speech, Behavioral Changes, Burning Sensations, Confusion, Convulsions, Disequilibrium, Dizziness, Numbness, Focal Weakness, Frequent Falls, Headaches, Lack of Coordination, Loss of Vision, Memory Loss, Paresthesias, Radicular Pain, Restless Legs, Sensory Deficit, Syncope, Tingling, Tremor, Vertigo, Weakness, Other Visual Disturbances, Other - Psychiatric Psychiatric: Anxiety - Endocrine Endocrine: absent: As Per HPI, Change in Body Appearance, Change in Libido, Cold Intolorance, Deepening of Voice, Excessive Sweating, Fatigue, Flushing, Heat Intolorance, Increase in Ring/Shoe/Hat Size, Palpitations, Polydipsia, Polyphagia, Polyuria, Other - Hematologic/Lymphatic Hematologic: absent: As Per HPI, Easy Bleeding, Easy Bruising, Lymphadenopathy, Other Past Patient History - Infectious Disease Hx of Infectious Diseases: None - Past Medical History & Family History Past Medical History?: Yes - Past Social History Smoking Status: Former Smoker Chewing Tobacco Use: No Cigar Use: No Alcohol: None Drugs: Denies Home Situation {Lives}: With Family Domestic Violence: Negative - CARDIAC Hx Hypercholesterolemia: Yes - PULMONARY Hx Chronic Obstructive Pulmonary Disease (COPD): Yes - NEUROLOGICAL Hx Neurological Disorder: No - HEENT Hx HEENT Problems: No - RENAL Hx Chronic Kidney Disease: No - ENDOCRINE/METABOLIC Hx Endocrine Disorders: No - HEMATOLOGICAL/ONCOLOGICAL Hx Blood Disorders: No - INTEGUMENTARY Hx Dermatological Problems: No - MUSCULOSKELETAL/RHEUMATOLOGICAL Hx Musculoskeletal Disorders: No Hx Falls: No - GASTROINTESTINAL Hx Gastritis: Yes - GENITOURINARY/GYNECOLOGICAL Hx Genitourinary Disorders: No - PSYCHIATRIC Hx Anxiety: Yes Hx Depression: Yes Hx Substance Use: No - SURGICAL HISTORY Hx Surgeries: Yes Hx Section: Yes (x3) Other/Comment: tracheostomy MARCH 2018 - ANESTHESIA Hx Anesthesia: Yes Hx Anesthesia Reactions: No Hx Malignant Hyperthermia: No Meds Allergies/Adverse Reactions: Allergies Allergy/AdvReac Type Severity Reaction Status Date / Time cefepime Allergy RASH Verified 11/11/18 13:02 - Medications Medications: Current Medications Albuterol/Ipratropium (Duoneb 3 Mg/0.5 Mg (3 Ml) Ud) 3 ml INH RQ4 [facility] Last Admin: 01/17/19 07:50 Dose: 3 ml Fluticasone/Vilanterol (Breo Ellipta 200-25 Mcg Inh) 1 puff INH RQD [facility] Last Admin: 01/17/19 07:50 Dose: 1 puff Azithromycin 500 mg/ Sodium (Chloride) 250 mls @ 250 mls/hr IVPB Q24H [facility]; Protocol Last Admin: 01/17/19 09:51 Dose: 250 mls/hr Methylprednisolone (Solu-Medrol) 40 mg IVP Q12 [facility] Tiotropium [place] (Spiriva) 18 mcg INH RQ24 [facility] Last Admin: 01/17/19 07:50 Dose: 18 mcg Physical Exam - Constitutional Appears: Well - Head Exam Head Exam: ATRAUMATIC, NORMAL INSPECTION, NORMOCEPHALIC - Eye Exam Eye Exam: EOMI, Normal appearance, PERRL Pupil Exam: NORMAL ACCOMODATION, PERRL - ENT Exam ENT Exam: Mucous Membranes Moist, Normal Exam - Neck Exam Neck exam: Positive for: Full Rom, Normal Inspection - Respiratory Exam Respiratory Exam: Clear to Auscultation Bilateral, NORMAL BREATHING PATTERN - Cardiovascular Exam Cardiovascular Exam: Tachycardia, REGULAR RHYTHM - GI/Abdominal Exam GI & Abdominal Exam: Normal Bowel Sounds, Soft - Rectal Exam Rectal Exam: Deferred - Extremities Exam Extremities exam: Positive for: normal capillary refill, normal inspection, pedal pulses present - Back Exam Back exam: NORMAL INSPECTION - Neurological Exam Neurological exam: Alert, CN II-XII Intact, Normal Gait, Oriented x3, Reflexes Normal - Psychiatric Exam Psychiatric exam: Normal Affect, Normal Mood - Skin Skin Exam: Dry, Intact, Normal Color, Warm Results - Vital Signs Recent Vital Signs: Last Vital Signs Temp 98.9 F 01/17/19 08:08 Pulse 99 H 01/17/19 10:38 Resp 20 01/17/19 08:08 BP 131/76 01/17/19 08:08 Pulse Ox 94 L 01/17/19 13:25 - Labs Result Diagrams: 01/17/19 06:56 01/17/19 06:56 Labs: Laboratory Results - last 24 hr 01/17/19 01/17/19 06:56 06:56 WBC 20.9 H RBC 3.98 Hgb 11.8 Hct 36.4 MCV 91.5 MCH 29.7 MCHC 32.4 L RDW 13.2 Plt Count 303 MPV 7.9 Neut % (Auto) 90.5 H Lymph % (Auto) 6.6 L [place] % (Auto) 2.6 Eos % (Auto) 0.0 Baso % (Auto) 0.3 Neut # (Auto) 18.9 H Lymph # (Auto) 1.4 [place] # (Auto) 0.5 Eos # (Auto) 0.0 Baso # (Auto) 0.1 Neutrophils % (Manual) 91 H Band Neutrophils % 1 Lymphocytes % (Manual) 5 L Monocytes % (Manual) 3 Platelet Estimate Normal Large Platelets Present Hypochromasia (manual) Slight Sodium 134 Potassium 4.7 Chloride 103 Carbon Dioxide 25 Anion Gap 11 BUN 30 H Creatinine 0.9 Est GFR ( Amer) > 60 Est GFR (Non-Af Amer) > 60 Random Glucose 136 H Calcium 9.4 Phosphorus 4.0 Magnesium 2.1 Total Bilirubin 0.3 AST 22 ALT 22 Alkaline Phosphatase 111 Total Protein 6.8 Albumin 4.0 Globulin 2.8 Albumin/Globulin Ratio 1.5 Assessment & Plan - Assessment and Plan (Free Text) Assessment: Palliative consult DNR/DNI, there wasno Advance directive on chart, PPS 90% I reviewed all Medical records, diagnostic studies, examined and interviewed patient in the bed. Patient is alert, oriented X3, in no acute distress, [place]i speaking only. Official translation used. Physical exam reveal no acute findings. Patient denies cough, SOB, phlegm produc tion or any other acute symptoms. Patient reports she feels well. I discussed with patient her blood results concerning Neutropenia and need for IV Tx. Patient is aware of need to give sputum sample, but is not coughing and is unable to bring up any sputum. Patient is very much focused on her previous, very unpleasant experience, with Intubation and Trach while was in [place] last year. During this interview she has returned several times to it, expressing her fear and trauma associated with it. Patient asked if I think she could go again into same situation. I reassured patient of actions taken while she is here and offered more information about fallowing up with her PMD and Customs Agent once she gets discharged home. 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 I suggested she finds her self a METALWORKING SPECIALIST Doctor and fallows as an outpatient for regular exam. I reviewed her Code status and made sure she understood the meaning of DNR/DNI. Patient was very clear she could not stand another intubation if it should be needed nor would she want to have CPR or PEG tube done. ANN introduced using translation. Patient signed DNR/DNI. Patient reports she is a happy person, feels content and wish she feels this way always. Impression * Young lady , asymptomatic at present * Neutropenia, the source still unknown * Anxiety caused by previous unpleasant experience with aggressive interventions * Patient is overdue for regular METALWORKING SPECIALIST exam * POLST signed Suggestions * Patient needs reassurance of her well being * Would consider discharge planing if patient remins asymptomatic in the next 24- 48hr * METALWORKING SPECIALIST fallow up as an outpatient * DNR/DNI, ANN on chart Advance care discussion 55 min Palliative care will sign off at this time. I shared my conctact info with patient in case she should have some concerns to discuss while still here.
--- NOTE | 2019-01-17 22:17 | CARD ---
APPROVED REPORT Date of service: 01/17/2019 EXAM: Two-dimensional and M-mode echocardiogram with Doppler and color Doppler. Other Information Quality : TDSRhythm : INDICATION Dyspnea COPD 2D DIMENSIONS IVSd1.0 (0.7-1.1cm)LVDd4.5 (3.9-5.9cm) PWd0.9 (0.7-1.1cm)LA [id number] (18-58mL) LVDs3.2 (2.5-4.0cm)FS (%) 29.0 % LVEF (%)55.9 (>50%)LVEF (Roth's)64.60 % M-Mode DIMENSIONS Left Atrium (MM)3.42 (2.5-4.0cm)IVSd0.72 (0.7-1.1cm) Aortic Root3.53 (2.2-3.7cm)LVDd5.37 (4.0-5.6cm) Aortic Cusp Exc.2.36 (1.5-2.0cm)PWd0.74 (0.7-1.1cm) FS (%) 31 %LVDs3.71 (2.0-3.8cm) LVEF (%)58 (>50%) Mitral Valve MV E Qwdqibbp36.3cm/sMV A Vfkzgmaw12.8cm/sE/A ratio1.0 TDI Lateral E' Peak V10.16cm/sMedial E' Peak V7.77cm/sE/Lateral E'7.1 E/Medial E'9.3 LEFT VENTRICLE The left ventricle is normal size. There is normal left ventricular wall thickness. Left ventricle systolic function is normal. The Ejection Fraction is 60-65%. There is normal LV segmental wall motion. The left ventricular diastolic function is normal. RIGHT VENTRICLE The right ventricle is normal size. There is normal right ventricular wall thickness. The right ventricular systolic function is normal. ATRIA The left atrium size is normal. The right atrium size is normal. The interatrial septum is intact with no evidence for an atrial septal defect. AORTIC VALVE The aortic valve is normal in structure. No aortic regurgitation is present. There is no aortic valvular stenosis. There is no aortic valvular vegetation. MITRAL VALVE The mitral valve is normal in structure. There is no evidence of mitral valve prolapse. There is no mitral valve stenosis. There is no mitral valve regurgitation noted. TRICUSPID VALVE The tricuspid valve is normal in structure. There is no tricuspid valve regurgitation noted. There is no tricuspid valve prolapse or vegetation. There is no tricuspid valve stenosis. PULMONIC VALVE The pulmonic valve is not well visualized. There is no pulmonic valvular regurgitation. GREAT VESSELS The aortic root is normal in size. PERICARDIAL EFFUSION There is no significant pericardial effusion. <Conclusion> Left ventricle systolic function is normal. The Ejection Fraction is 60-65%. No aortic regurgitation is present. There is no mitral valve regurgitation noted. There is no tricuspid valve regurgitation noted. There is no pulmonic valvular regurgitation.
[2019-01-18] MEDS: Albuterol-Ipratrop 3 mg / 0.5 (3 ml) UD INH SCH ×4 (00:15→11:55)
[2019-01-18 01:30] VITALS: O2SAT 96
--- NOTE | 2019-01-18 07:12 | CP.PCM.PN ---
Subjective - Date & Time of Evaluation Date of Evaluation: 01/18/19 Time of Evaluation: 08:00 - Subjective Subjective: Medicine Progress note for Dr. Hayden Patient was seen and examined at bedside in no acute distress. Patient states she is feeling well and is ready to go home. She denies chest pain, palpitations, nausea, vomiting, fever or chills. Objective - Vital Signs/Intake and Output Vital Signs (last 24 hours): Temp Pulse Resp BP Pulse Ox 98.1 F 102 H 20 123/76 96 01/18/19 00:00 01/18/19 00:00 01/18/19 00:00 01/18/19 00:00 01/18/19 00:00 Intake and Output: 01/18/19 01/18/19 06:59 18:59 Intake Total 720 Balance 720 - Medications Medications: Current Medications Albuterol/Ipratropium (Duoneb 3 Mg/0.5 Mg (3 Ml) Ud) 3 ml INH RQ4 ASHLIE Last Admin: 01/18/19 04:30 Dose: 3 ml Fluticasone/Vilanterol (Breo Ellipta 200-25 Mcg Inh) 1 puff INH RQD ASHLIE Last Admin: 01/17/19 07:50 Dose: 1 puff Azithromycin 500 mg/ Sodium (Chloride) 250 mls @ 250 mls/hr IVPB Q24H ASHLIE; Protocol Last Admin: 01/17/19 09:51 Dose: 250 mls/hr Methylprednisolone (Solu-Medrol) 40 mg IVP Q12 ASHLIE Last Admin: 01/17/19 21:35 Dose: 40 mg Tiotropium [place] (Spiriva) 18 mcg INH RQ24 ASHLIE Last Admin: 01/17/19 07:50 Dose: 18 mcg - Labs Labs: 01/17/19 06:56 01/17/19 06:56 - Constitutional Appears: No Acute Distress - Head Exam Head Exam: ATRAUMATIC, NORMAL INSPECTION - Eye Exam Eye Exam: EOMI, Normal appearance - ENT Exam ENT Exam: Mucous Membranes Moist - Respiratory Exam Respiratory Exam: Clear to Ausculation Bilateral, NORMAL BREATHING PATTERN - GI/Abdominal Exam GI & Abdominal Exam: Soft, Normal Bowel Sounds. absent: Tenderness - Extremities Exam Extremities Exam: Normal Inspection - Neurological Exam Neurological Exam: Alert, Awake, Oriented x3 - Psychiatric Exam Psychiatric exam: Normal Affect, Normal Mood - Skin Skin Exam: Normal Color Assessment and Plan - Assessment and Plan (Free Text) Assessment: COPD exacerbation - resolved - Bipap at night- 11/04/40 percent - Chest Xray: No active disease - Medications: * Breo inhaler daily * spiriva inhaler daily * Duonebs RQ4 ASHLIE * solu medrol 40 IV q12h * Azithromycin IV daily - ECHO (01/17/19): EF 60-65% Leukocytosis - likely secondary to Solu medrol - Continue azithromycin IV daily - Chest Xray: No active disease - Influenza negative - blood cultures negative History of tracheostomy - continue to monitor Prophylaxis - SCDs - GI not indicated - PT evaluation Disposition: Patient is stable for discharge home. Patient to continue home medications and prednisone taper. Patient to follow up with Dr. Hayden as an outpatient. Case discussed with Dr. Jackelyn Buenrostro PGY-2
[2019-01-18] MEDS: Fluticasone-Vilanterol 200/25mcg Diskus INH SCH (07:45)
[2019-01-18] MEDS: Tiotropium 18 mcg Cap For Inhalation INH SCH (07:45)
[2019-01-18 08:35] VITALS: TEMP 97.5
[2019-01-18 08:41] VITALS: BP 135/72; PULSE 89
[2019-01-18] MEDS: MethylPREDNISolone 40 mg Vial IVP SCH (10:01)
[2019-01-18] MEDS: Azithromycin 500 MG in Sodium Chloride 0.9% 250 ML IVPB SCH (10:05)
[2019-01-18 11:46] LABS: BASO % 0.2 % (0.0-2.0); HEMOGLOBIN 12.1 g/dL (11.0-16.0); LYMPH # 1.7 K/uL (1.0-4.3); LYMPH % 10.6 % (20.0-40.0); MEAN CELL VOLUME 91.7 fL (81.0-99.0); MEAN CORPUSCULAR HGB CONC 32.7 g/dL (33.0-37.0); MEAN PLATELET VOLUME 8.3 fL (7.2-11.7); MONO % 6.3 % (0.0-10.0); NEUT # 12.9 K/uL (1.8-7.0); NEUT % 82.9 % (50.0-75.0); RBC 4.02 Mil/uL (3.80-5.20); RED CELL DISTRIBUTION WIDTH 13.3 % (11.5-14.5); WHITE BLOOD COUNT 15.6 K/uL (4.8-10.8)
[2019-01-18 12:17] LABS: ALB/GLOB RATIO 1.5 (1.0-2.1); ALBUMIN 4.2 g/dL (3.5-5.0); ALT/SGPT 39 U/L (9-52); AST/SGOT 30 U/L (14-36); BLOOD UREA NITROGEN 28 mg/dL (7-17); CALCIUM 9.2 mg/dl (8.6-10.4); GFR NON-AFRICAN AMERICAN > 60
[2019-01-19] MEDS ORDERED: MethylPREDNISolone 40 mg Vial IVP SCH (10:00)
== END 2019-01-18 14:36 | disposition home or self-care (01) | DRG 88 ==
LOC: C.ER 10:33 → C.3T 12:15
PROVIDERS: ADMIT Internal Medicine Pulmonary Disease; ATTEND Internal Medicine Pulmonary Disease
DX: J43.9 Emphysema, unspecified (principal); F32.9 Major depressive disorder, single episode, unspecified; K29.70 Gastritis, unspecified, without bleeding; F41.9 Anxiety disorder, unspecified; E78.00 Pure hypercholesterolemia, unspecified; Z51.5 Encounter for palliative care; Z66 Do not resuscitate; D70.9 Neutropenia, unspecified; Z87.01 Personal history of pneumonia (recurrent); Z87.891 Personal history of nicotine dependence; Z93.0 Tracheostomy status

== ENCOUNTER 2019-01-31 12:35 | Emergency (ER) | payer OTHER ==
[2019-01-31 12:35] VITALS: BMI 22.8
[2019-01-31] MEDS ORDERED: Albuterol-Ipratrop 3 mg / 0.5 (3 ml) UD ONE ×2 (12:42→14:25)
[2019-01-31] MEDS ORDERED: Ipratropium 0.02% Inhal Soln (0.5 mg/2.5 ml) UD IH STA (13:00)
[2019-01-31] MEDS ORDERED: Albuterol 0.083% Inhal Sol (2.5 mg/3 mL) UD INH STA (13:00)
[2019-01-31 13:15] VITALS: TEMP 98.3
[2019-01-31 13:31] VITALS: PULSE 89
--- NOTE | 2019-01-31 13:39 | RAD ---
Date of service: 01/31/2019 PROCEDURE: CHEST RADIOGRAPH, 1 VIEW HISTORY: PNA COMPARISON: 01/15/2019. FINDINGS: LUNGS: The lungs are hyperinflated and there is peribronchial thickening with chronic changes in both lungs. No focal consolidation. PLEURA: No pneumothorax or pleural effusion. CARDIOVASCULAR: The heart is normal in size. No aortic atherosclerotic calcifications present. OSSEOUS STRUCTURES: Within normal limits for the patient's age. VISUALIZED UPPER ABDOMEN: Normal. OTHER FINDINGS: None. IMPRESSION: No active pulmonary disease. COPD.
[2019-01-31] MEDS ORDERED: Albuterol-Ipratrop 3 mg / 0.5 (3 ml) UD INH STA (13:58)
--- NOTE | 2019-01-31 14:42 | C.PDOC ---
History Of Present Illness 58 y/o female with a PMHx of COPD, former smoker of 40 years, presents to the ED complaining of SOB since last night. Patient reports she has been using nebulizer treatments at home without relief. Of note, she is not on home O2. Patient does not take daily steroids. She denies any fever, vomiting, runny nose, cough, abdominal pain, or chest pain. Patient reports she has been intubated, ~10 months ago. Time Seen by Provider: 01/31/19 12:40 Chief Complaint (Nursing): Shortness Of Breath History Per: Patient History/Exam Limitations: no limitations Onset/Duration Of Symptoms: Hrs Current Symptoms Are (Timing): Still Present Past Medical History Reviewed: Historical Data, Nursing Documentation, Vital Signs Vital Signs: Last Vital Signs Temp 98.3 F 01/31/19 12:40 Pulse 89 01/31/19 13:30 Resp 14 01/31/19 14:26 BP 115/46 L 01/31/19 13:30 Pulse Ox 98 01/31/19 13:30 - Medical History PMH: Anxiety, Asthma, COPD, Depression, Emphysema, Gastritis, Hypercholesterolemia, Pneumonia Denies: Chronic Kidney Disease Family History: States: Unknown Family Hx - Social History Hx Tobacco Use: No Hx Alcohol Use: No Hx Substance Use: No - Immunization History Hx Tetanus Toxoid Vaccination: Yes Hx Influenza Vaccination: Yes Hx Pneumococcal Vaccination: Yes Review Of Systems Constitutional: Negative for: Fever, Chills ENT: Negative for: Nose Discharge, Nose Congestion Cardiovascular: Negative for: Chest Pain Respiratory: Positive for: Shortness of Breath, Wheezing Gastrointestinal: Negative for: Vomiting, Abdominal Pain, Diarrhea Musculoskeletal: Negative for: Back Pain Skin: Negative for: Rash Neurological: Negative for: Weakness, Dizziness Physical Exam - Physical Exam Appears: Well, Non-toxic, No Acute Distress Skin: Normal Color, Warm, No Diaphoretic Head: Normacephalic Eye(s): bilateral: Normal Inspection (no scleral icterus), PERRL, EOMI Nose: No Discharge (no copious mucous) Oral Mucosa: Moist Throat: Normal (Airway is patent), No Erythema, No Exudate Neck: Normal ROM Chest: Symmetrical Cardiovascular: Rhythm Regular, No Murmur Respiratory: No Accessory Muscle Use, Wheezing (diffusely), Other (Good air exchange) Gastrointestinal/Abdominal: Soft, No Tenderness, No Distention Extremity: Bilateral: Atraumatic, No Pedal Edema, Normal ROM Neurological/Psych: Oriented x3, Normal Cranial Nerves Gait: Steady ED Course And Treatment O2 Sat by Pulse Oximetry: 98 (RA) Pulse Ox Interpretation: Normal Medical Decision Making Medical Decision Making: Impression: COPD exacerbation Plan: EKG and CXR ordered and reviewed. Patient given several nebulizers, and 60 mg PO prednisone. 15:00 Patient reports improvement. She is now complaining of a headache. Will give 600 mg PO ibuprofen and discharge patient home with steroids. Counseled regarding diagnosis and the importance of following up with PMD. 15:25 On reassessment patient reports resolution of symptoms. Lung sounds improved. O2sat at 95% on RA. Patient is resting comfortably, speaking in full sentences with family at bedside. Disposition Counseled Patient/Family Regarding: Studies Performed, Diagnosis, Need For Followup - Disposition Disposition: HOME/ ROUTINE Disposition Time: 15:27 Condition: IMPROVED Prescriptions: Albuterol 0.083% [Albuterol 0.083% Inhal Isa (2.5 mg/3 ml) UD] 2.5 mg IH QID #60 vial Prednisone [Deltasone] 40 mg PO DAILY #6 tablet Instructions: Exacerbation of COPD Forms: Gen Discharge Inst Greenlandic, Accompanied To ED By:, [employer] (Greenlandic) Print Language: CZECH - Clinical Impression Clinical Impression: COPD exacerbation - PA / STITCH RUBBER / Resident Statement MD/DO has reviewed & agrees with the documentation as recorded. - Scribe Statement The provider has reviewed the documentation as recorded by the Odiliaibberonica Mcelroy All medical record entries made by the Scribe were at my direction and personally dictated by me. I have reviewed the chart and agree that the record accurately reflects my personal performance of the history, physical exam, medical decision making, and the department course for this patient. I have also personally directed, reviewed, and agree with the discharge instructions and disposition.
[2019-01-31 15:38] VITALS: BP 131/54; RESP 18
[2019-01-31 15:39] VITALS: O2SAT 98
--- NOTE | 2019-02-01 17:54 | CARD ---
APPROVED REPORT Date of service: 01/31/2019 EKG Measurement Heart [id number] <Conclusion> Normal sinus rhythm Nonspecific ST and T wave abnormality Abnormal ECG
== END 2019-01-31 16:18 | disposition home or self-care (01) ==
LOC: C.ER 12:35
DX: J44.1 Chronic obstructive pulmonary disease with (acute) exacerbation (principal); Z87.891 Personal history of nicotine dependence

== ENCOUNTER 2019-03-02 10:15 | Observation (INO) | payer OTHER ==
[2019-03-02 10:16] VITALS: BMI 22.8
[2019-03-02] MEDS ORDERED: Albuterol-Ipratrop 3 mg / 0.5 (3 ml) UD ONE ×2 (10:27→11:22)
[2019-03-02] MEDS ORDERED: Dexamethasone 4 mg/1 ml IVP STA (11:02)
--- NOTE | 2019-03-02 11:17 | C.PDOC ---
History Of Present Illness 58 y/o female presents to the ER complaining of chest pain and shortness of breath which has been present for the past 3 days. Patient states that she has history of COPD. Denies having fever,chills, nausea, vomiting, and leg swelling. Time Seen by Provider: 03/02/19 10:38 Chief Complaint (Nursing): Chest Pain History Per: Patient History/Exam Limitations: no limitations Onset/Duration Of Symptoms: Days Current Symptoms Are (Timing): Still Present Severity: Moderate Past Medical History Reviewed: Historical Data, Nursing Documentation, Vital Signs Vital Signs: Last Vital Signs Temp 98.2 F 03/02/19 10:27 Pulse 100 H 03/02/19 10:27 Resp 16 03/02/19 10:39 BP 119/69 03/02/19 10:27 Pulse Ox 99 03/02/19 10:39 - Medical History PMH: Anxiety, Asthma, COPD, Depression, Emphysema, Gastritis, Hyper cholesterolemia, Pneumonia Denies: Chronic Kidney Disease Other Surgeries: Hx of surgeries Family History: States: No Known Family Hx - Social History Hx Tobacco Use: No Hx Alcohol Use: No Hx Substance Use: No - Immunization History Hx Tetanus Toxoid Vaccination: Yes Hx Influenza Vaccination: Yes (2018) Hx Pneumococcal Vaccination: Yes Review Of Systems Except As Marked, All Systems Reviewed And Found Negative. Constitutional: Negative for: Fever, Chills Cardiovascular: Positive for: Chest Pain Respiratory: Positive for: Shortness of Breath Gastrointestinal: Negative for: Nausea, Vomiting, Abdominal Pain Physical Exam - Physical Exam Appears: Non-toxic, No Acute Distress Skin: Normal Color, Warm, Dry Head: Atraumatic, Normacephalic Eye(s): bilateral: Normal Inspection Nose: Normal Oral Mucosa: Moist Neck: Supple Chest: Symmetrical Cardiovascular: Rhythm Regular Respiratory: Decreased Breath Sounds (diminished breath sounds), No Rales, No R honchi, No Wheezing Gastrointestinal/Abdominal: Normal Exam, Soft, No Tenderness, No Guarding, No Rebound Neurological/Psych: Oriented x3, Normal Speech ED Course And Treatment - Laboratory Results Result Diagrams: 03/02/19 11:38 03/02/19 11:38 Lab Interpretation: No Acute Changes ECG: Interpreted By Or ECG Rhythm: Sinus Rhythm, Nonspecific Changes ECG Interpretation: No Acute Changes Rate From EC O2 Sat by Pulse Oximetry: 99 (RA) Pulse Ox Interpretation: Normal - Radiology CXR: Interpreted by Me CXR Interpretation: Yes: No Acute Disease Progress Note: Treated with duoneb x 2, and decadron IV. On re-evaluation lungs clear Reassessment Condition: Improved - Physician Consult Information Physician Contacted: Barbi Hayden Outcome Of Conversation: admit Medical Decision Making Medical Decision Making: Plan: --Labs --UA --Decadron IV --Albuterol Disposition Discussed With Dr.: Barbi Hayden Doctor Will See Patient In The: Hospital - Disposition Disposition: HOSPITALIZED Disposition Time: 14:00 Condition: STABLE - Clinical Impression Clinical Impression: Chest pain, COPD exacerbation - PA / SENIOR TECHNICAL SUPPORT ANALYST / Resident Statement MD/DO has reviewed & agrees with the documentation as recorded. - Scribe Statement The provider has reviewed the documentation as recorded by the Scribe Arnol Gonsalez Provider Attestation All medical record entries made by the Scribe were at my direction and personally dictated by me. I have reviewed the chart and agree that the record accurately reflects my personal performance of the history, physical exam, medical decision making, and the department course for this patient. I have also personally directed, reviewed, and agree with the discharge instructions and disposition. Decision To Admit - Pt Status Changed To: Hospital Disposition Of: Observation - . Bed Request Type: Telemetry Admitting Physician: Barbi Hayden Patient Diagnosis: COPD (chronic obstructive pulmonary disease), Chest pain
[2019-03-02] MEDS: Albuterol-Ipratrop 3 mg / 0.5 (3 ml) UD IH SCH ×2 (11:25→11:26)
--- NOTE | 2019-03-02 11:31 | RAD ---
Date of service: 03/02/2019 PROCEDURE: CHEST RADIOGRAPH, 1 VIEW HISTORY: SOB COMPARISON: 01/31/2019 FINDINGS: LUNGS: Clear. PLEURA: No pneumothorax or pleural fluid seen. CARDIOVASCULAR: No aortic atherosclerotic calcification present. Normal. OSSEOUS STRUCTURES: No significant abnormalities. VISUALIZED UPPER ABDOMEN: Normal. OTHER FINDINGS: None. IMPRESSION: No active disease.
[2019-03-02 11:42] LABS: BASO # 0.1 K/uL (0.0-0.2); BASO % 0.7 % (0.0-2.0); EOS # 0.1 K/uL (0.0-0.7); EOS % 0.8 % (0.0-4.0); HEMOGLOBIN 13.1 g/dL (11.0-16.0); LYMPH # 3.1 K/uL (1.0-4.3); LYMPH % 25.1 % (20.0-40.0); MEAN CORPUSCULAR HEMOGLOBIN 30.9 pg (27.0-31.0); MEAN CORPUSCULAR HGB CONC 33.5 g/dL (33.0-37.0); MEAN PLATELET VOLUME 8.4 fL (7.2-11.7); MONO # 0.6 K/uL (0.0-0.8); MONO % 5.1 % (0.0-10.0); NEUT # 8.5 K/uL (1.8-7.0); NEUT % 68.3 % (50.0-75.0); NRBC % 0.1 % (0.0-2.0); RBC 4.25 Mil/uL (3.80-5.20); RED CELL DISTRIBUTION WIDTH 13.6 % (11.5-14.5); WHITE BLOOD COUNT 12.5 K/uL (4.8-10.8)
[2019-03-02 11:54] LABS: ALB/GLOB RATIO 1.7 (1.0-2.1); ALBUMIN 4.3 g/dL (3.5-5.0); ALT/SGPT 19 U/L (9-52); AST/SGOT 35 U/L (14-36); BLOOD UREA NITROGEN 13 mg/dL (7-17); CALCIUM 9.5 mg/dl (8.6-10.4); GFR NON-AFRICAN AMERICAN > 60
[2019-03-02 12:05] LABS: CK-MB 1.01 ng/mL (0.0-3.38)
[2019-03-02] MEDS ORDERED: Albuterol-Ipratrop 3 mg / 0.5 (3 ml) UD INH PRN (12:58)
--- NOTE | 2019-03-02 14:31 | CP.PCM.PN ---
Subjective - Date & Time of Evaluation Date of Evaluation: 03/02/19 Time of Evaluation: 14:31 - Subjective Subjective: Medicine Progress Note - Dr Hayden's service Patient is a 58 year old female with past medical history of COPD/emphysema who presented to the emergency room for 3 day history of worsening shortness of breath. Patient states that she experiences dyspnea while ambulating and using the bathroom. She reports having chest pain that started yesterday. Chest pain is located on the left side and is constant in nature. The daughter is at the bedside and states that for the past 2 weeks the patient has been having difficulty swallowing her food. She states that she was intubated in March 2018 and then required a tracheostomy that was removed 8 months ago. Since the removal of the tracheostomy she has not had any issues with swallowing until recently. She states that she feels like the food is stuck in her throat. Patient was recently hospitalized in December 2018 for COPD exacerbation. She denies any coughing, fevers, chills, nausea/vomiting. Patient and the daughter report that she is DNR/DNI. Allergies: Cefepime Medications: Albuterol, Spiriva, Advair Medical History: COPD/emphysema Surgical History: Tracheostomy, C/S x 3 Social History: Former smoker that quit 1 1/2 years ago, denies alcohol, drug use; lives with daughter Objective - Vital Signs/Intake and Output Vital Signs (last 24 hours): Temp Pulse Resp BP Pulse Ox 97.8 F 90 20 130/80 99 03/02/19 13:37 03/02/19 13:37 03/02/19 13:37 03/02/19 13:37 03/02/19 13:37 - Medications Medications: Current Medications Albuterol/Ipratropium (Duoneb 3 Mg/0.5 Mg (3 Ml) Ud) 3 ml INH RQ6 PRN PRN Reason: Shortness of Breath Pantoprazole Sodium (Protonix Inj) 40 mg IVP DAILY ASHLIE - Labs Labs: 03/02/19 11:38 03/02/19 11:38 - Constitutional Appears: Non-toxic, No Acute Distress, Chronically Ill - Head Exam Head Exam: ATRAUMATIC, NORMAL INSPECTION, NORMOCEPHALIC - Eye Exam Eye Exam: EOMI, Normal appearance - ENT Exam ENT Exam: Mucous Membranes Moist - Respiratory Exam Respiratory Exam: Decreased Breath Sounds, NORMAL BREATHING PATTERN. absent: Rales, Respiratory Distress - Cardiovascular Exam Cardiovascular Exam: REGULAR RHYTHM, +S1, +S2 - GI/Abdominal Exam GI & Abdominal Exam: Soft, Normal Bowel Sounds. absent: Guarding, Rigid, Tenderness - Extremities Exam Additional comments: +1 pitting edema bilaterally - Neurological Exam Neurological Exam: Alert, Awake, Oriented x3 - Psychiatric Exam Psychiatric exam: Anxious, Normal Mood - Skin Skin Exam: Dry, Normal Color, Warm Assessment and Plan - Assessment and Plan (Free Text) Assessment: Dyspnea likely 2/2 COPD exacerbation -Stable, afebrile -Leukocytosis 12.5 on admission -Antibiotics: Azithromycin 500mg IVPB daily -Continue Solumedrol 40mg Q8H IVP -CXR showed no active disease -Duonebs Q6H ASHLIE x 24 hours, breo, spiriva -Supplemental O2 as needed -F/U mycoplasma, strep pneumonia, legionella Chest pain R/O ACS -Monitor on telemetry -Initial troponin negative, trend q6H x 2 -EKG showed NSR 97bpm -F/U lipid panel, TSH, hemoglobin A1C -Last echocardiogram showed EF 60-65% Dysphagia -Swallow evaluation ordered -May consider ENT or GI evaluation GI/DVT ppx: -Protonix 40mg IVP daily -Lovenox 40mg SC daily Plan discussed with Dr Jackelyn Mcnamara DO PGY-2
[2019-03-02] MEDS: MethylPREDNISolone 40 mg Vial IVP SCH (18:41)
[2019-03-02] MEDS: Azithromycin 500mg/250ML NS 500 MG/250 ML BAG IVPB SCH (19:08)
[2019-03-02] MEDS: Albuterol-Ipratrop 3 mg / 0.5 (3 ml) UD INH SCH (20:09)
[2019-03-02 21:57] LABS: SQUAMOUS EPITHIAL < 1 /hpf (0-5); URINE BACTERIA FEW (<OCC); URINE BILIRUBIN NEGATIVE (NEGATIVE); URINE BLOOD NEGATIVE (NEGATIVE); URINE COLOR Yellow (YELLOW); URINE GLUCOSE (UA) NORMAL (Normal); URINE LEUKOCYTE ESTERASE TRACE Leu/uL (Negative); URINE PROTEIN NEGATIVE (NEGATIVE); URINE UROBILINOGEN NORMAL mg/dL (0.2-1.0)
[2019-03-02 21:58] LABS: URINE CLARITY HAZY (Clear)
[2019-03-02 23:16] LABS: CK-MB 1.46 ng/mL (0.0-3.38)
[2019-03-03] MEDS: MethylPREDNISolone 40 mg Vial IVP SCH ×3 (01:00→21:12)
[2019-03-03] MEDS: Albuterol-Ipratrop 3 mg / 0.5 (3 ml) UD INH SCH ×3 (01:19→13:37)
--- NOTE | 2019-03-03 07:24 | CP.PCM.PN ---
Subjective - Date & Time of Evaluation Date of Evaluation: 03/03/19 Time of Evaluation: 07:24 - Subjective Subjective: Medicine Progress Note - Dr Hayden's service Patient seen and examined at bedside. Per nursing no acute events overnight. Patient states that breathing has improved but admits to feeling sob when ambulating. She was seen by speech therapy today who is recommending a modified barium swallow. Offers no complaints at this time. Objective - Vital Signs/Intake and Output Vital Signs (last 24 hours): Temp Pulse Resp BP Pulse Ox 98.4 F 100 H 20 125/63 95 03/02/19 23:00 03/02/19 23:30 03/02/19 23:00 03/02/19 23:00 03/02/19 23:00 - Medications Medications: Current Medications Acetaminophen (Tylenol 325mg Tab) 650 mg PO Q6 PRN PRN Reason: Headache Albuterol/Ipratropium (Duoneb 3 Mg/0.5 Mg (3 Ml) Ud) 3 ml INH RQ6 ASHLIE Stop: 03/03/19 14:01 Last Admin: 03/03/19 01:19 Dose: 3 ml Fluticasone/Vilanterol (Breo Ellipta 100-25 Mcg Inh) 1 puff INH RQD ASHLIE Azithromycin (Zithromax 500mg In Ns Addvantage) 500 mg in 250 mls @ 167 mls/hr IVPB Q24H ASHLIE; Protocol Last Admin: 03/02/19 19:08 Dose: 167 mls/hr Methylprednisolone (Solu-Medrol) 40 mg IVP Q8H ASHLIE Last Admin: 03/03/19 01:00 Dose: 40 mg Pantoprazole Sodium (Protonix Inj) 40 mg IVP DAILY ASHLIE Tiotropium [place] (Spiriva) 18 mcg INH RQ24 ASHLIE - Labs Labs: 03/02/19 11:38 03/02/19 11:38 - Additional Findings Additional findings: - Constitutional Appears: Non-toxic, No Acute Distress, Chronically Ill - Head Exam Head Exam: ATRAUMATIC, NORMAL INSPECTION, NORMOCEPHALIC - Eye Exam Eye Exam: EOMI, Normal appearance - ENT Exam ENT Exam: Mucous Membranes Moist - Respiratory Exam Respiratory Exam: Decreased Breath Sounds, NORMAL BREATHING PATTERN. absent: Rales, Respiratory Distress - Cardiovascular Exam Cardiovascular Exam: REGULAR RHYTHM, +S1, +S2 - GI/Abdominal Exam GI & Abdominal Exam: Soft, Normal Bowel Sounds. absent: Guarding, Rigid, Tenderness - Extremities Exam Additional comments: +1 pitting edema bilaterally - Neurological Exam Neurological Exam: Alert, Awake, Oriented x3 - Psychiatric Exam Psychiatric exam: Anxious, Normal Mood - Skin Skin Exam: Dry, Normal Color, Warm Assessment and Plan - Assessment and Plan (Free Text) Assessment: Dyspnea likely 2/2 COPD exacerbation -Stable, afebrile -Antibiotics: Azithromycin 500mg IVPB daily -Continue Solumedrol 40mg Q12H IVP -CXR showed no active disease -Duonebs Q6H ASHLIE x 24 hours, breo, spiriva -Supplemental O2 as needed -strep pneumonia, legionella are negative -F/U mycoplasma -Physical therapy - to evaluate for home O2 Chest pain R/O ACS -Monitor on telemetry -Troponin x 3 -EKG showed NSR 97bpm -Last echocardiogram showed EF 60-65% Abnormal UA -F/U urine culture Hypercholesterolemia -Started on Crestor 2.5mg PO daily Impaired glucose tolerance -Will need to be counselled on diet modification and weight loss Dysphagia -Swallow evaluation ordered -Modified barium swallow for tomorrow -May consider ENT or GI evaluation pending results GI/DVT ppx: -Protonix 40mg IVP daily -Lovenox 40mg SC daily DISPO: Modified barium swallow pending. Will need to be evaluated for home O2. Likely d/c home tomorrow. Plan discussed with Dr Jaceklyn Mcnamara DO PGY-2
[2019-03-03] MEDS: Tiotropium 18 mcg Cap For Inhalation INH SCH (07:37)
[2019-03-03] MEDS: Fluticasone-Vilanterol 100/25mcg Diskus INH SCH (07:37)
[2019-03-03 07:53] LABS: BASO # 0.1 K/uL (0.0-0.2); BASO % 0.6 % (0.0-2.0); HEMOGLOBIN 12.8 g/dL (11.0-16.0); LYMPH # 1.8 K/uL (1.0-4.3); LYMPH % 10.6 % (20.0-40.0); MEAN CELL VOLUME 91.2 fL (81.0-99.0); MEAN CORPUSCULAR HEMOGLOBIN 30.7 pg (27.0-31.0); MEAN CORPUSCULAR HGB CONC 33.6 g/dL (33.0-37.0); MEAN PLATELET VOLUME 8.1 fL (7.2-11.7); MONO # 0.3 K/uL (0.0-0.8); MONO % 1.5 % (0.0-10.0); NEUT # 15.1 K/uL (1.8-7.0); NEUT % 87.3 % (50.0-75.0); RBC 4.15 Mil/uL (3.80-5.20); RED CELL DISTRIBUTION WIDTH 13.3 % (11.5-14.5); WHITE BLOOD COUNT 17.3 K/uL (4.8-10.8)
[2019-03-03 08:17] LABS: ALB/GLOB RATIO 1.7 (1.0-2.1); ALBUMIN 4.3 g/dL (3.5-5.0); ALT/SGPT 15 U/L (9-52); AST/SGOT 29 U/L (14-36); BLOOD UREA NITROGEN 19 mg/dL (7-17); CALCIUM 9.8 mg/dl (8.6-10.4); GFR NON-AFRICAN AMERICAN > 60; HDL CHOLESTEROL 70 mg/dL (30-70)
[2019-03-03 08:26] LABS: LDL CHOLESTEROL 200 mg/dL (0-129)
[2019-03-03] MEDS: Enoxaparin 40 mg Syringe SC SCH (10:03)
[2019-03-03] MEDS: Azithromycin 500mg/250ML NS 500 MG/250 ML BAG IVPB SCH (16:30)
[2019-03-03] MEDS ORDERED: Rosuvastatin Calcium 2.5 mg Tab PO SCH (22:00)
--- NOTE | 2019-03-04 07:28 | CP.PCM.PN ---
Subjective - Date & Time of Evaluation Date of Evaluation: 03/04/19 Time of Evaluation: 07:28 - Subjective Subjective: Medicine Progress Note - Dr Hayden's service Patient seen and examined at bedside. Per nursing no acute events overnight. Patient states that breathing has improved but admits to feeling sob when ambulating. She was seen by speech therapy today who is recommending a modified barium swallow. Offers no complaints at this time. Objective - Vital Signs/Intake and Output Vital Signs (last 24 hours): Temp Pulse Resp BP Pulse Ox 98.6 F 88 20 131/69 96 03/03/19 23:00 03/04/19 04:10 03/03/19 23:00 03/03/19 23:00 03/03/19 23:00 - Medications Medications: Current Medications Acetaminophen (Tylenol 325mg Tab) 650 mg PO Q6 PRN PRN Reason: Headache Enoxaparin Sodium (Lovenox) 40 mg SC DAILY [facility] Last Admin: 03/03/19 10:03 Dose: 40 mg Fluticasone/Vilanterol (Breo Ellipta 100-25 Mcg Inh) 1 puff INH RQD ASHLIE Last Admin: 03/03/19 07:37 Dose: Not Given Azithromycin (Zithromax 500mg In Ns Addvantage) 500 mg in 250 mls @ 167 mls/hr IVPB Q24H ASHLIE; Protocol Last Admin: 03/03/19 16:30 Dose: 167 mls/hr Methylprednisolone (Solu-Medrol) 40 mg IVP Q12 ASHLIE Last Admin: 03/03/19 21:12 Dose: 40 mg Pantoprazole Sodium (Protonix Inj) 40 mg IVP DAILY ASHLIE Last Admin: 03/03/19 10:03 Dose: 40 mg Rosuvastatin [place] (Crestor) 2.5 mg PO HS ASHLIE Last Admin: 03/03/19 21:12 Dose: 2.5 mg Tiotropium [place] (Spiriva) 18 mcg INH RQ24 ASHLIE Last Admin: 03/03/19 07:37 Dose: Not Given - Labs Labs: 03/03/19 07:40 03/03/19 07:40 - Head Exam Head Exam: ATRAUMATIC, NORMAL INSPECTION - Eye Exam Eye Exam: EOMI, Normal appearance, PERRL Pupil Exam: NORMAL ACCOMODATION - ENT Exam ENT Exam: Mucous Membranes Moist, Normal Oropharynx - Respiratory Exam Respiratory Exam: Clear to Ausculation Bilateral, NORMAL BREATHING PATTERN. absent: Respiratory Distress - Cardiovascular Exam Cardiovascular Exam: REGULAR RHYTHM, +S1, +S2 - GI/Abdominal Exam GI & Abdominal Exam: Soft, Normal Bowel Sounds - Extremities Exam Extremities Exam: Full ROM, Normal Inspection. absent: Pedal Edema - Back Exam Back Exam: NORMAL INSPECTION. absent: paraspinal tenderness - Neurological Exam Neurological Exam: Awake, CN II-XII Intact, Oriented x3 - Psychiatric Exam Psychiatric exam: Normal Affect, Normal Mood. absent: Depressed - Skin Skin Exam: Dry, Intact, Normal Color Assessment and Plan - Assessment and Plan (Free Text) Plan: Dyspnea likely 2/2 COPD exacerbation -Stable, afebrile -Antibiotics: Azithromycin 500mg IVPB daily -Continue Solumedrol 40mg Q12H IVP -CXR showed no active disease -Duonebs Q6H ASHLIE x 24 hours, breo, spiriva -Supplemental O2 as needed -strep pneumonia, legionella are negative -F/U mycoplasma -Physical therapy - to evaluate for home O2 -Patient on discharge with need Trilogy Non-invasive ventilation to target volume control and reduce elevated CO2/PCO2 levels. -Patient has tried BIPAP trials with no success. Without Trilogy non invasive ventilation they may endure repeat hospital admission or life threatening event. Chest pain R/O ACS -Monitor on telemetry -Troponin x 3 -EKG showed NSR 97bpm -Last echocardiogram showed EF 60-65% Abnormal UA -F/U urine culture Hypercholesterolemia -Started on Crestor 2.5mg PO daily Impaired glucose tolerance -Will need to be counselled on diet modification and weight loss Dysphagia -Swallow evaluation ordered -Modified barium swallow for tomorrow -May consider ENT or GI evaluation pending results GI/DVT ppx: -Protonix 40mg IVP daily -Lovenox 40mg SC daily DISPO: Modified barium swallow pending. Will need to be evaluated for home O2. Likely d/c home tomorrow. Discharge Instructions: 1.F/u with PMD within 5 days of discharge. 2.D/c home with home O2. 3.Return to hospital for any new or worsening symptoms. 4.F/u with PMD for modified barium swallow. 5.D/c home with Trilogy Non-invasive Ventilation. Medications: 1.Spiriva 18mcg IH DAILY, #30, No refills 2. Z-cata, DAILY, #6, No refills 3. Medrol dose cata 4.Rosuvastatin 2.5mg PO HS , #30, No refills 5.Ventolin HFA 2 PUFF ih q6, 1 inhaler, No refills 6.Albuterol .083%, 2,5mg IH QID, 1 inhaler, No refills. Plan discussed with Dr Hayden
[2019-03-04 07:56] VITALS: BP 124/66; RESP 18; TEMP 98.2; O2SAT 97
[2019-03-04 09:18] LABS: BASO # 0.1 K/uL (0.0-0.2); BASO % 0.4 % (0.0-2.0); HEMOGLOBIN 12.3 g/dL (11.0-16.0); LYMPH # 2.2 K/uL (1.0-4.3); LYMPH % 10.8 % (20.0-40.0); MEAN CELL VOLUME 92.2 fL (81.0-99.0); MEAN CORPUSCULAR HEMOGLOBIN 29.8 pg (27.0-31.0); MEAN CORPUSCULAR HGB CONC 32.3 g/dL (33.0-37.0); MONO # 0.5 K/uL (0.0-0.8); MONO % 2.3 % (0.0-10.0); NEUT # 17.7 K/uL (1.8-7.0); NEUT % 86.5 % (50.0-75.0); RBC 4.13 Mil/uL (3.80-5.20); WHITE BLOOD COUNT 20.5 K/uL (4.8-10.8)
[2019-03-04] MEDS: Enoxaparin 40 mg Syringe SC SCH (09:33)
[2019-03-04] MEDS: MethylPREDNISolone 40 mg Vial IVP SCH (09:33)
[2019-03-04 09:37] LABS: ALB/GLOB RATIO 1.6 (1.0-2.1); ALT/SGPT 15 U/L (9-52); AST/SGOT 27 U/L (14-36); BLOOD UREA NITROGEN 25 mg/dL (7-17); CALCIUM 9.5 mg/dl (8.6-10.4); GFR NON-AFRICAN AMERICAN 57
[2019-03-04] MEDS ORDERED: Barium Sulfate for Susp 98% w/w 340g Bottle ONE (11:05)
[2019-03-04 12:09] VITALS: PULSE 94
[2019-03-04] MEDS: Tiotropium 18 mcg Cap For Inhalation INH SCH (13:43)
[2019-03-04] MEDS: Fluticasone-Vilanterol 100/25mcg Diskus INH SCH (13:44)
--- NOTE | 2019-03-04 16:07 | RAD ---
Date of service: 03/04/2019 PROCEDURE: Modified barium video swallow HISTORY: Dysphagia COMPARISON: Not available TECHNIQUE: A modified barium video swallow was performed in conjunction with a member of the speech therapy department. Barium/food mixtures of varying viscosity were administered orally, under fluoroscopic monitoring. Total time of fluoroscopy, 1.4 min. Total dose: 10.354 mGy FINDINGS: There was no laryngeal penetration or aspiration observed during the examination. Please see the report from speech therapy for further evaluation of the swallowing mechanism. IMPRESSION: No aspiration observed. Please see full report from speech therapy.
--- NOTE | 2019-03-06 20:26 | CARD ---
APPROVED REPORT Date of service: 03/02/2019 EKG Measurement Heart [id number] <Conclusion> Normal sinus rhythm Nonspecific T wave abnormality Abnormal ECG
== END 2019-03-04 17:25 | disposition home or self-care (01) ==
LOC: C.ER 10:15 → C.9E 12:26 → C.6T 12:37
PROVIDERS: ADMIT Internal Medicine Pulmonary Disease; ATTEND Internal Medicine Pulmonary Disease
DX: J44.9 Chronic obstructive pulmonary disease, unspecified (principal); R07.9 Chest pain, unspecified; F41.9 Anxiety disorder, unspecified; E78.00 Pure hypercholesterolemia, unspecified; A48.1 Legionnaires' disease; Z87.891 Personal history of nicotine dependence
CPT/HCPCS: 36415; 71045; 74230; 80053; 80061; 81001; 82553; 83036; 84484; 85025; 86738; 87086; 87181; 87449; 87804; 92610; 92611; 93005; 94640; 96374; 97116; 97162; 97530; 99285; C9113; G0378; G8978; G8979; G8996; G8997; G8998; J0456; J1100; J1650; J2920

== ENCOUNTER 2019-03-27 22:09 | Observation (INO) | payer OTHER ==
[2019-03-27 22:09] VITALS: BMI 22.8
[2019-03-27] MEDS ORDERED: Aspirin 325 mg EC Tablets PO STA (22:17)
--- NOTE | 2019-03-27 22:17 | C.PDOC ---
History Of Present Illness Patient presents with chest pain and some shortness of breath starting around 6 pm. Speaking in complete sentences. Dull aching chest discomfort, non radiating. received 2 SLNTG and 325 mg asa en route by the medics. Anxious. Time Seen by Provider: 03/27/19 22:17 Chief Complaint (Nursing): Chest Pain History Per: Patient History/Exam Limitations: no limitations Onset/Duration Of Symptoms: Hrs Current Symptoms Are (Timing): Still Present Context: Other Severity: Moderate Pain Scale Rating Of: 4 Quality: Sharp Associated Symptoms: Dyspnea Modifying Factors: None Exacerbating Factors: None Alleviating Factors: None Recent travel outside of the [place]: No Additional History Per: Family Past Medical History Reviewed: Historical Data, Nursing Documentation, Vital Signs - Medical History PMH: Anxiety, Asthma, COPD, Depression, Emphysema, Gastritis, Hypercholesterolemia, Pneumonia Denies: Chronic Kidney Disease Family History: States: No Known Family Hx - Social History Hx Tobacco Use: No Hx Alcohol Use: No Hx Substance Use: No - Immunization History Hx Tetanus Toxoid Vaccination: Yes Hx Influenza Vaccination: Yes (2018) Hx Pneumococcal Vaccination: Yes Review Of Systems Constitutional: Negative for: Fever Eyes: Negative for: Vision Change ENT: Negative for: Throat Pain Cardiovascular: Positive for: Chest Pain. Negative for: Palpitations Respiratory: Positive for: Wheezing. Negative for: Shortness of Breath Gastrointestinal: Negative for: Nausea, Vomiting, Abdominal Pain Genitourinary: Negative for: Dysuria Musculoskeletal: Negative for: Back Pain Skin: Negative for: Rash Neurological: Negative for: Weakness Psych: Negative for: Anxiety Physical Exam - Physical Exam Appears: In Acute Distress Skin: Warm, Dry Head: Normacephalic Eye(s): bilateral: Normal Inspection Oral Mucosa: Moist Throat: Other (healed trach site) Neck: Trachea Midline, Supple Chest: Symmetrical Cardiovascular: Rhythm Regular Respiratory: Decreased Breath Sounds, No Rales, Rhonchi Gastrointestinal/Abdominal: Soft, No Tenderness, No Distention Back: No CVA Tenderness Extremity: Normal ROM Extremity: Bilateral: Atraumatic, Normal Color And Temperature, Normal ROM Pulses: Left Dorsalis Pedis: Normal, Right Dorsalis Pedis: Normal Neurological/Psych: Oriented x3 Gait: Unable To Assess ED Course And Treatment - Laboratory Results Result Diagrams: 03/27/19 22:23 03/27/19 22:23 ECG: Interpreted By Me, Viewed By Me ECG Rhythm: Sinus Rhythm (108), Nonspecific Changes Pulse Ox Interpretation: Normal - Radiology CXR: Interpreted by Me, Viewed By Me CXR Interpretation: Yes: Other (unchanged from 03/02/19). No: Infiltrates, Fracture, Cardiomegaly Progress Note: pt refused abg Critical Care Time - Critical Care Note Total Time (in mins): 30 Documented critical care: time excludes all time spent performing seperately billable procedures. Disposition Discussed With DrBeto: Barbi Hayden Comment: accepted the pt on his service and took over the care at 11:07 PM Doctor Will See Patient In The: Hospital Counseled Patient/Family Regarding: Studies Performed, Diagnosis - Disposition Disposition: HOSPITALIZED Disposition Time: 22:17 Condition: FAIR Forms: [facility] ([place]) - Clinical Impression Clinical Impression: Chest pain, COPD exacerbation Decision To Admit - Pt Status Changed To: Hospital Disposition Of: Observation - . Bed Request Type: Telemetry Admitting Physician: Barbi Hayden Patient Diagnosis: Chest pain, COPD exacerbation
[2019-03-27] MEDS: Albuterol-Ipratrop 3 mg / 0.5 (3 ml) UD IH SCH ×2 (22:20→22:40)
[2019-03-27 22:26] LABS: BASO # 0.2 K/uL (0.0-0.2); BASO % 1.4 % (0.0-2.0); EOS # 0.9 K/uL (0.0-0.7); EOS % 6.7 % (0.0-4.0); HEMOGLOBIN 12.2 g/dL (11.0-16.0); LYMPH # 5.7 K/uL (1.0-4.3); LYMPH % 45.3 % (20.0-40.0); MEAN CELL VOLUME 91.8 fL (81.0-99.0); MEAN CORPUSCULAR HEMOGLOBIN 30.6 pg (27.0-31.0); MEAN CORPUSCULAR HGB CONC 33.3 g/dL (33.0-37.0); MEAN PLATELET VOLUME 7.9 fL (7.2-11.7); MONO # 0.6 K/uL (0.0-0.8); MONO % 5.1 % (0.0-10.0); NEUT # 5.3 K/uL (1.8-7.0); NEUT % 41.5 % (50.0-75.0); NRBC % 0.3 % (0.0-2.0); RBC 3.97 Mil/uL (3.80-5.20); RED CELL DISTRIBUTION WIDTH 13.8 % (11.5-14.5); WHITE BLOOD COUNT 12.7 K/uL (4.8-10.8)
[2019-03-27 22:46] LABS: ALB/GLOB RATIO 1.4 (1.0-2.1); ALBUMIN 4.4 g/dL (3.5-5.0); ALT/SGPT 21 U/L (9-52); AST/SGOT 32 U/L (14-36); BLOOD UREA NITROGEN 15 mg/dL (7-17); CALCIUM 9.8 mg/dl (8.6-10.4); GFR NON-AFRICAN AMERICAN > 60
[2019-03-27 22:51] LABS: B-TYPE NATRIURETIC PEPTIDE 132 pg/mL (0-900)
[2019-03-28 00:17] LABS: ABG ALLEN TEST POS; ARTERIAL BLOOD GAS HCO3 25.6 mmol/L (21-28); ARTERIAL BLOOD GAS O2 SAT 98.8 % (95-98); ARTERIAL BLOOD GAS PCO2 46 mm/Hg (35-45); ARTERIAL BLOOD GAS PH 7.37 (7.35-7.45); ARTERIAL BLOOD GAS PO2 98 mm/Hg (80-100)
[2019-03-28] MEDS: Albuterol-Ipratrop 3 mg / 0.5 (3 ml) UD INH SCH ×5 (00:24→19:04)
[2019-03-28] MEDS ORDERED: Albuterol-Ipratrop 3 mg / 0.5 (3 ml) UD INH PRN (08:00)
--- NOTE | 2019-03-28 08:51 | RAD ---
Chest x-ray single frontal view History: Shortness of breath. Comparison: 03/02/2019 Findings: Diffuse increased interstitial lung markings. Patchy increased markings at the lung bases. Bilateral hilar prominence. Tortuous aorta. Heart size within normal limits. Degenerative changes in the spine and shoulders. Impression: Diffuse increased interstitial lung markings. Patchy increased markings at the lung bases. Bilateral hilar prominence. Tortuous aorta. Heart size within normal limits.
[2019-03-28 09:15] LABS: CK-MB 2.39 ng/mL (0.0-3.38)
[2019-03-28 09:41] LABS: TROPONIN I 0.159 ng/mL (0.00-0.120)
[2019-03-28] MEDS ORDERED: Enoxaparin 40 mg Syringe SC SCH (10:00)
[2019-03-28] MEDS: Pantoprazole 40 mg EC Tab PO SCH (10:43)
[2019-03-28] MEDS: Ipratropium 0.02% Inhal Soln (0.5 mg/2.5 ml) UD IH SCH ×2 (11:04→14:08)
--- NOTE | 2019-03-28 11:18 | CP.PCM.PN ---
Subjective - Date & Time of Evaluation Date of Evaluation: 03/28/19 Time of Evaluation: 09:25 - Subjective Subjective: 58 year old female with past medical history COPD and hyperlipidemia presents to [facility] ED with chest pain and shortness of breath. Patient reports her symptoms started suddenly 4 hours prior to ED presentation. Patient was sitting at home during the onset. She describes this chest pain as tightness in quality, radiating to her arm and back. The pain is worse with inspiration while breath and nothing improves the pain. Patient reports a similar episodes 2 months ago but it resolves on its own. Patient has a history of multiple hospitalizations for COPD exacerbation, most recently from 03/02/19 to 03/04/19. Patient seen and examined at bedside this morning. Patient reports her chest pain resolved and is breathing comfortably. Patient denies any fevers, chills, abdominal pain, nausea, vomiting, constipation or diarrhea. Discussed with patient and family members about cardiac cath tomorrow with cardiology team. Patient feel anxious about it but agreed with the plan. History obtained primarily through daughter Maria A Denton ([phone]) PMHx: COPD PSHx: x 3, tracheostomy Allergy: Cefepime Family Hx: Mom: HTN, Dad of [place] at age 80, brother of [place] at age 69 Social Hx: Former smoker 1/2ppd for 40 years, quit 2 years ago. Denies alcohol or drugs use Meds: Albuterol, Spiriva, Incruse Ellipta Objective - Vital Signs/Intake and Output Vital Signs (last 24 hours): Temp Pulse Resp BP Pulse Ox 98.1 F 99 H 20 104/68 95 03/28/19 08:06 03/28/19 08:06 03/28/19 08:06 03/28/19 08:06 03/28/19 08:06 - Medications Medications: Current Medications Albuterol/Ipratropium (Duoneb 3 Mg/0.5 Mg (3 Ml) Ud) 3 ml INH RQ4 PRN PRN Reason: Shortness of Breath Albuterol/Ipratropium (Duoneb 3 Mg/0.5 Mg (3 Ml) Ud) 3 ml INH RQ6 ASHLIE Enoxaparin Sodium (Lovenox) 40 mg SC DAILY [facility] Last Admin: 03/28/19 10:43 Dose: 40 mg Ipratropium [place] (Atrovent) 0.5 mg IH RQ6 [facility] Last Admin: 03/28/19 11:04 Dose: Not Given Methylprednisolone (Solu-Medrol) 40 mg IV Q8 A[facility]LIE Pantoprazole Sodium (Protonix Ec Tab) 40 mg PO DAILY [facility] Last Admin: 03/28/19 10:43 Dose: 40 mg Rosuvastatin Calcium (Crestor) 2.5 mg PO HS ASHLIE - Labs Labs: 03/27/19 22:23 03/27/19 22:23 APTT 24.0 SECONDS (21-34) 03/27/19 22:23 - Additional Findings Additional findings: - Head Exam Head Exam: ATRAUMATIC, NORMAL INSPECTION - Eye Exam Eye Exam: EOMI, Normal appearance, PERRL Pupil Exam: NORMAL ACCOMODATION - ENT Exam ENT Exam: Mucous Membranes Moist, Normal Oropharynx - Respiratory Exam Respiratory Exam: Clear to Ausculation Bilateral, NORMAL BREATHING PATTERN. absent: Respiratory Distress - Cardiovascular Exam Cardiovascular Exam: REGULAR RHYTHM, +S1, +S2 - GI/Abdominal Exam GI & Abdominal Exam: Soft, Normal Bowel Sounds - Extremities Exam Extremities Exam: Full ROM, Normal Inspection. absent: Pedal Edema - Back Exam Back Exam: NORMAL INSPECTION. absent: paraspinal tenderness - Neurological Exam Neurological Exam: Awake, CN II-XII Intact, Oriented x3 - Psychiatric Exam Psychiatric exam: Normal Affect, Normal Mood. absent: Depressed - Skin Skin Exam: Dry, Intact, Normal Color Assessment and Plan - Assessment and Plan (Free Text) Assessment: NSTEMI -Monitor on telemetry -Troponin positive x 2 -EKG showed sinus tachycardia at 104bpm, no acute ST elevation appreciated -Last echocardiogram in 12/2018 showed EF 60-65% -Cardiology consulted, Dr. Johnson help appreciated -Planned for cardiac cath tomorrow -NPO after midnight -Heparin drip -Aspirin 325mg, Plavix 300mg given today -Crestor 40mg HS COPD -Stable, afebrile -Wheezing, SOB improved -Continue Solumedrol 40mg Q12H IVP, taper -CXR showed diffused increased interstitial lung markings on admission -Duonebs Q6H ASHLIE -Supplemental O2 as needed -Follow up repeat CXR Hypertension -Coreg 3.125mg BID Hypercholesterolemia -Crestor 40mg HS Impaired glucose tolerance -Hgb A1C 6.0 in 02/2019 GI/DVT ppx: -Protonix -Heparin Case discussed with attending Dr. Hayden
[2019-03-28 13:08] LABS: CK-MB 2.88 ng/mL (0.0-3.38); TROPONIN I 0.138 ng/mL (0.00-0.120)
[2019-03-28] MEDS ORDERED: MethylPREDNISolone 40 mg Vial IV SCH (14:00)
[2019-03-28] MEDS ORDERED: Heparin25000 units/250ml 1/2NS 25,000 UNITS/250 ML BAG IV PRN (14:38)
[2019-03-28 16:55] LABS: HDL CHOLESTEROL 57 mg/dL (30-70)
[2019-03-28 17:06] LABS: LDL CHOLESTEROL 199 mg/dL (0-129)
[2019-03-28 19:23] LABS: SQUAMOUS EPITHIAL 1 /hpf (0-5); URINE BACTERIA MOD (<OCC); URINE BILIRUBIN NEGATIVE (NEGATIVE); URINE BLOOD NEGATIVE (NEGATIVE); URINE CLARITY Clear (Clear); URINE COLOR Yellow (YELLOW); URINE GLUCOSE (UA) NORMAL (Normal); URINE LEUKOCYTE ESTERASE NEG Leu/uL (Negative); URINE PROTEIN NEGATIVE (NEGATIVE); URINE UROBILINOGEN NORMAL mg/dL (0.2-1.0)
[2019-03-28] MEDS: MethylPREDNISolone 40 mg Vial IV SCH (21:11)
[2019-03-28] MEDS ORDERED: Rosuvastatin Calcium 2.5 mg Tab PO SCH (22:00)
--- NOTE | 2019-03-28 22:56 | CP.PCM.CON ---
History of Present Illness - History of Present Illness History of Present Illness: 58 F with hx of HTN and hyperlipidemia admitted for chest pain, abnormal Trops For cath tomorrow 58 year old female with past medical history COPD and hyperlipidemia presents to [facility] ED with chest pain and shortness of breath. Patient reports her symptoms started suddenly 4 hours prior to ED presentation. Patient was sitting at home during the onset. She describes this chest pain as tightness in quality, radiating to her arm and back. The pain is worse with inspiration while breath and nothing improves the pain. Patient reports a similar episodes 2 months ago but it resolves on its own. Patient has a history of multiple hospitalizations for COPD exacerbation, most recently from 03/02/19 to 03/04/19. Patient seen and examined at bedside this morning. Patient reports her chest pain resolved and is breathing comfortably. Patient denies any fevers, chills, abdominal pain, nausea, vomiting, constipation or diarrhea. Discussed with patient and family members about cardiac cath tomorrow with cardiology team. Patient feel anxious about it but agreed with the plan. History obtained primarily through daughter Maria A Denton ([phone]) PMHx: COPD PSHx: x 3, tracheostomy Allergy: Cefepime Family Hx: Mom: HTN, Dad of [place] at age 80, brother of [place] at age 69 Social Hx: Former smoker 1/2ppd for 40 years, quit 2 years ago. Denies alcohol or drugs use Meds: Albuterol, Spiriva, Incruse Ellipta Objective - Vital Signs/Intake and Output Vital Signs (last 24 hours): Temp Pulse Resp BP Pulse Ox 98.1 F 99 H 20 104/68 95 03/28/19 08:06 03/28/19 08:06 03/28/19 08:06 03/28/19 08:06 03/28/19 08:06 - Medications Medications: Current Medications Albuterol/Ipratropium (Duoneb 3 Mg/0.5 Mg (3 Ml) Ud) 3 ml INH RQ4 PRN PRN Reason: Shortness of Breath Albuterol/Ipratropium (Duoneb 3 Mg/0.5 Mg (3 Ml) Ud) 3 ml INH RQ6 [facility] Enoxaparin Sodium (Lovenox) 40 mg SC DAILY [facility] Last Admin: 03/28/19 10:43 Dose: 40 mg Ipratropium [place] (Atrovent) 0.5 mg IH RQ6 [facility] Last Admin: 03/28/19 11:04 Dose: Not Given Methylprednisolone (Solu-Medrol) 40 mg IV Q8 [facility] Pantoprazole Sodium (Protonix Ec Tab) 40 mg PO DAILY [facility] Last Admin: 03/28/19 10:43 Dose: 40 mg Rosuvastatin Calcium (Crestor) 2.5 mg PO HS ASHLIE - Labs Labs: 03/27/19 22:23 03/27/19 22:23 APTT 24.0 SECONDS (21-34) 03/27/19 22:23 - Additional Findings Additional findings: - Head Exam Head Exam: ATRAUMATIC, NORMAL INSPECTION - Eye Exam Eye Exam: EOMI, Normal appearance, PERRL Pupil Exam: NORMAL ACCOMODATION - ENT Exam ENT Exam: Mucous Membranes Moist, Normal Oropharynx - Respiratory Exam Respiratory Exam: Clear to Ausculation Bilateral, NORMAL BREATHING PATTERN. absent: Respiratory Distress - Cardiovascular Exam Cardiovascular Exam: REGULAR RHYTHM, +S1, +S2 - GI/Abdominal Exam GI & Abdominal Exam: Soft, Normal Bowel Sounds - Extremities Exam Extremities Exam: Full ROM, Normal Inspection. absent: Pedal Edema - Back Exam Back Exam: NORMAL INSPECTION. absent: paraspinal tenderness - Neurological Exam Neurological Exam: Awake, CN II-XII Intact, Oriented x3 - Psychiatric Exam Psychiatric exam: Normal Affect, Normal Mood. absent: Depressed - Skin Skin Exam: Dry, Intact, Normal Color Assessment and Plan - Assessment and Plan (Free Text) Assessment: NSTEMI -Monitor on telemetry -Troponin positive x 2 -EKG showed sinus tachycardia at 104bpm, no acute ST elevation appreciated -Last echocardiogram in 12/2018 showed EF 60-65% -Planned for cardiac cath tomorrow -NPO after midnight -Heparin drip -Aspirin 325mg, Plavix 300mg given today -Crestor 40mg HS COPD -Stable, afebrile -Wheezing, SOB improved -Continue Solumedrol 40mg Q12H IVP, taper -CXR showed diffused increased interstitial lung markings on admission -Duonebs Q6H ASHLIE -Supplemental O2 as needed -Follow up repeat CXR Hypertension -Coreg 3.125mg BID Hypercholesterolemia -Crestor 40mg HS Impaired glucose tolerance -Hgb A1C 6.0 in 02/2019 GI/DVT ppx: -Protonix -Heparin Past Patient History - Infectious Disease Hx of Infectious Diseases: None - Past Medical History & Family History Past Medical History?: Yes - Past Social History Smoking Status: Former Smoker - CARDIAC Hx Hypercholesterolemia: Yes - PULMONARY Hx Asthma: Yes Hx Chronic Obstructive Pulmonary Disease (COPD): Yes Hx Emphysema: Yes Hx Pneumonia: Yes - NEUROLOGICAL Hx Neurological Disorder: No - HEENT Hx HEENT Problems: No - RENAL Hx Chronic Kidney Disease: No - ENDOCRINE/METABOLIC Hx Endocrine Disorders: No - HEMATOLOGICAL/ONCOLOGICAL Hx Blood Disorders: No - INTEGUMENTARY Hx Dermatological Problems: No - MUSCULOSKELETAL/RHEUMATOLOGICAL Hx Musculoskeletal Disorders: No Hx Falls: No - GASTROINTESTINAL Hx Gastritis: Yes - GENITOURINARY/GYNECOLOGICAL Hx Genitourinary Disorders: No - PSYCHIATRIC Hx Anxiety: Yes Hx Depression: Yes Hx Substance Use: No - SURGICAL HISTORY Hx Surgeries: Yes Hx Section: Yes (x3) Other/Comment: tracheostomy MARCH 2018 - ANESTHESIA Hx Anesthesia: Yes Hx Anesthesia Reactions: No Hx Malignant Hyperthermia: No Meds Allergies/Adverse Reactions: Allergies Allergy/AdvReac Type Severity Reaction Status Date / Time cefepime Allergy RASH Verified 03/27/19 22:17 - Medications Medications: Current Medications Albuterol/Ipratropium (Duoneb 3 Mg/0.5 Mg (3 Ml) Ud) 3 ml INH RQ4 PRN PRN Reason: Shortness of Breath Albuterol/Ipratropium (Duoneb 3 Mg/0.5 Mg (3 Ml) Ud) 3 ml INH RQ6 [facility] Last Admin: 03/28/19 19:04 Dose: 3 ml Aspirin (Aspirin Chewable) 81 mg PO DAILY [facility] Carvedilol (Coreg) 3.125 mg PO BID [facility] Last Admin: 03/28/19 17:14 Dose: 3.125 mg Clopidogrel Bisulfate (Plavix) 75 mg PO DAILY [facility] Heparin Sodium/Sodium Chloride (Heparin 09945 Units/250ml 1/2 Normal Saline) 25,000 units in 250 mls @ 8.056 mls/hr IV .Q24H PRN; Protocol PRN Reason: PROTOCOL Last Admin: 03/28/19 16:48 Dose: 12 units/kg/hr, 8.056 mls/hr Ipratropium [place] (Atrovent) 0.5 mg IH RQ6 [facility] Last Admin: 03/28/19 14:08 Dose: 0.5 mg Methylprednisolone (Solu-Medrol) 40 mg IV Q12 [facility] Last Admin: 03/28/19 21:11 Dose: 40 mg Pantoprazole Sodium (Protonix Ec Tab) 40 mg PO DAILY [facility] Last Admin: 03/28/19 10:43 Dose: 40 mg Rosuvastatin Calcium (Crestor) 40 mg PO HS [facility] Last Admin: 03/28/19 21:12 Dose: 40 mg Results - Vital Signs Recent Vital Signs: Last Vital Signs Temp 98.2 F 03/28/19 15:00 Pulse 91 H 03/28/19 19:24 Resp 18 03/28/19 15:00 BP 106/65 03/28/19 15:00 Pulse Ox 95 03/28/19 15:00 - Labs Result Diagrams: 03/29/19 04:53 03/29/19 04:53 Labs: Laboratory Results - last 24 hr 03/27/19 03/28/19 03/28/19 23:57 08:35 12:36 Puncture Site R rad pCO2 46 H pO2 98 HCO3 25.6 ABG pH 7.37 ABG Total CO2 28.0 ABG O2 Saturation 98.8 H ABG Base Excess 0.8 Wilfredo Test Pos ABG Potassium 3.5 L Sodium 143.0 Chloride 105.0 Glucose 107 H Lactate 1.4 Liter Flow 3.0 Total Creatine Kinase 60 69 CK-MB (Mass) 2.39 2.88 Troponin I 0.1590 H* 0.1380 H* Triglycerides Cholesterol LDL Cholesterol Direct HDL Cholesterol Arterial Blood Potassium 3.5 L Urine Color Urine Clarity Urine pH Ur Specific [place] Urine Protein Urine Glucose (UA) Urine Ketones Urine Blood Urine Nitrate Urine Bilirubin Urine Urobilinogen Ur Leukocyte Esterase Urine WBC (Auto) Urine RBC (Auto) Ur Squamous Epith Cells Urine Bacteria 03/28/19 03/28/19 16:45 18:31 Puncture Site pCO2 pO2 HCO3 ABG pH ABG Total CO2 ABG O2 Saturation ABG Base Excess Wilfredo Test ABG Potassium Sodium Chloride Glucose Lactate Liter Flow Total Creatine Kinase CK-MB (Mass) Troponin I Triglycerides 184 H D Cholesterol 313 H LDL Cholesterol Direct 199 H HDL Cholesterol 57 Arterial Blood Potassium Urine Color Yellow Urine Clarity Clear Urine pH 6.0 Ur Specific [place] 1.008 Urine Protein Negative Urine Glucose (UA) Normal Urine Ketones Negative Urine Blood Negative Urine Nitrate Positive H Urine Bilirubin Negative Urine Urobilinogen Normal Ur Leukocyte Esterase Neg Urine WBC (Auto) 1 Urine RBC (Auto) < 1 Ur Squamous Epith Cells 1 Urine Bacteria Mod H
[2019-03-29] MEDS: Albuterol-Ipratrop 3 mg / 0.5 (3 ml) UD INH SCH ×3 (01:14→19:36)
[2019-03-29] MEDS: Ipratropium 0.02% Inhal Soln (0.5 mg/2.5 ml) UD IH SCH ×2 (01:15→19:35)
[2019-03-29 04:57] LABS: BASO # 0.1 K/uL (0.0-0.2); BASO % 0.5 % (0.0-2.0); HEMOGLOBIN 12.3 g/dL (11.0-16.0); LYMPH # 1.9 K/uL (1.0-4.3); LYMPH % 11.6 % (20.0-40.0); MEAN CELL VOLUME 90.2 fL (81.0-99.0); MEAN CORPUSCULAR HEMOGLOBIN 30.1 pg (27.0-31.0); MEAN CORPUSCULAR HGB CONC 33.3 g/dL (33.0-37.0); MEAN PLATELET VOLUME 7.5 fL (7.2-11.7); MONO # 0.6 K/uL (0.0-0.8); MONO % 3.8 % (0.0-10.0); NEUT # 13.5 K/uL (1.8-7.0); NEUT % 84.1 % (50.0-75.0); RBC 4.08 Mil/uL (3.80-5.20); RED CELL DISTRIBUTION WIDTH 13.7 % (11.5-14.5); WHITE BLOOD COUNT 16.1 K/uL (4.8-10.8)
[2019-03-29 05:08] LABS: INR 0.9; PROTHROMBIN TIME 10.3 SECONDS (9.7-12.2)
[2019-03-29 05:21] LABS: ALB/GLOB RATIO 1.4 (1.0-2.1); ALBUMIN 3.9 g/dL (3.5-5.0)
[2019-03-29 05:23] LABS: CK-MB 3.12 ng/mL (0.0-3.38)
[2019-03-29 05:36] LABS: ALT/SGPT 18 U/L (9-52); AST/SGOT 34 U/L (14-36); BLOOD UREA NITROGEN 23 mg/dL (7-17); CALCIUM 9.9 mg/dl (8.6-10.4); GFR NON-AFRICAN AMERICAN 57
[2019-03-29] MEDS ORDERED: Lidocaine 2% MPF (5 ml) Inj ONE ×2 (08:03→11:25)
[2019-03-29] MEDS ORDERED: Iodixanol 320 MG/ML 100 ML BOTTLE IV ONE (08:04)
--- NOTE | 2019-03-29 09:05 | CP.PCM.PN ---
Subjective - Date & Time of Evaluation Date of Evaluation: 03/29/19 Time of Evaluation: 07:35 - Subjective Subjective: Medicine Progress Note for Dr. Hayden Patient see and examined at bedside with family members present. 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 She reports of right thigh pain from the cath site. She also complains of wheezing and coughing. Otherwise she denies having fever, chills, headache, chest pain, nausea, vomiting, or abdominal pain. Objective - Vital Signs/Intake and Output Vital Signs (last 24 hours): Temp Pulse Resp BP Pulse Ox 98.2 F 85 20 106/62 95 03/28/19 23:40 03/29/19 07:07 03/28/19 23:40 03/28/19 23:40 03/28/19 23:40 Intake and Output: 03/29/19 03/29/19 06:59 18:59 Intake Total 340 Balance 340 - Medications Medications: Current Medications Albuterol/Ipratropium (Duoneb 3 Mg/0.5 Mg (3 Ml) Ud) 3 ml INH RQ4 PRN PRN Reason: Shortness of Breath Albuterol/Ipratropium (Duoneb 3 Mg/0.5 Mg (3 Ml) Ud) 3 ml INH RQ6 [facility] Last Admin: 03/29/19 01:14 Dose: 3 ml Aspirin (Aspirin Chewable) 81 mg PO DAILY [facility] Carvedilol (Coreg) 3.125 mg PO BID [facility] Last Admin: 03/28/19 17:14 Dose: 3.125 mg Clopidogrel Bisulfate (Plavix) 75 mg PO DAILY [facility] Heparin Sodium/Sodium Chloride (Heparin 34220 Units/250ml 1/2 Normal Saline) 25,000 units in 250 mls @ 8.056 mls/hr IV .Q24H PRN; Protocol PRN Reason: PROTOCOL Last Admin: 03/28/19 16:48 Dose: 12 units/kg/hr, 8.056 mls/hr Ipratropium [place] (Atrovent) 0.5 mg IH RQ6 [facility] Last Admin: 03/29/19 01:15 Dose: Not Given Methylprednisolone (Solu-Medrol) 40 mg IV Q12 [facility] Last Admin: 03/28/19 21:11 Dose: 40 mg Pantoprazole Sodium (Protonix Ec Tab) 40 mg PO DAILY [facility] Last Admin: 03/28/19 10:43 Dose: 40 mg Rosuvastatin Calcium (Crestor) 40 mg PO HS [facility] Last Admin: 03/28/19 21:12 Dose: 40 mg - Labs Labs: 03/29/19 04:53 03/29/19 04:53 PT 10.3 SECONDS (9.7-12.2) 03/29/19 04:53 INR 0.9 03/29/19 04:53 APTT 49.0 SECONDS (21-34) H 03/29/19 04:53 - Additional Findings Additional findings: - Head Exam Head Exam: ATRAUMATIC, NORMAL INSPECTION - Eye Exam Eye Exam: EOMI, Normal appearance, PERRL Pupil Exam: NORMAL ACCOMODATION - ENT Exam ENT Exam: Mucous Membranes Moist, Normal Oropharynx - Respiratory Exam Respiratory Exam: diffused wheezing bilaterally, NORMAL BREATHING PATTERN. absent: Respiratory Distress - Cardiovascular Exam Cardiovascular Exam: REGULAR RHYTHM, +S1, +S2 - GI/Abdominal Exam GI & Abdominal Exam: Soft, Normal Bowel Sounds - Extremities Exam Extremities Exam: Right groin cath site dressing clean, dry and intact. No active bleeding appreciated. Tenderness. absent: Pedal Edema - Back Exam Back Exam: NORMAL INSPECTION. absent: paraspinal tenderness - Neurological Exam Neurological Exam: Awake, CN II-XII Intact, Oriented x3 - Psychiatric Exam Psychiatric exam: Normal Affect, Normal Mood. absent: Depressed - Skin Skin Exam: Dry, Intact, Normal Color Assessment and Plan - Assessment and Plan (Free Text) Assessment: NSTEMI -Monitor on telemetry -Troponin positive x2 -EKG showed sinus tachycardia at 104bpm, no acute ST elevation appreciated -Last echocardiogram in 12/2018 showed EF 60-65% -Cardiology consulted, Dr. Alex angel appreciated -S/P cardiac cath -Normal Non obstructive coronaries -Repeat Echo shows normal EF -Aspirin 81mg -Crestor 40mg HS COPD -Stable, afebrile -Continue Solumedrol 40mg Q12H IVP, taper -CXR showed diffused increased interstitial lung markings on admission -Duonebs Q6H ASHLIE -Robitussin prn -Supplemental O2 as needed -Follow up repeat CXR Hypertension -Coreg 3.125mg BID Hypercholesterolemia -Crestor 40mg HS Impaired glucose tolerance -Hgb A1C 6.0 in 02/2019 GI/DVT ppx: -Protonix -Lovenox Case discussed with attending Dr. Hayden
[2019-03-29] MEDS: Pantoprazole 40 mg EC Tab PO SCH (10:06)
[2019-03-29] MEDS: MethylPREDNISolone 40 mg Vial IV SCH ×2 (10:07→21:14)
[2019-03-29] MEDS ORDERED: Midazolam 2 MG/2 ML VIAL ONE (11:25)
[2019-03-29] MEDS ORDERED: Sodium Chloride 0.45% 1,000 ML IV SCH (12:20)
--- NOTE | 2019-03-29 12:44 | CARD ---
APPROVED REPORT Date of service: 03/28/2019 EKG Measurement Heart [id number] <Conclusion> Sinus tachycardia T wave abnormality, consider anterolateral ischemia Abnormal ECG
--- NOTE | 2019-03-29 12:48 | CARD ---
APPROVED REPORT Date of service: 03/27/2019 EKG Measurement Heart [id number] <Conclusion> Sinus tachycardia Nonspecific T wave abnormality Abnormal ECG
--- NOTE | 2019-03-29 13:42 | CP.PCM.PN ---
Subjective - Date & Time of Evaluation Date of Evaluation: 03/29/19 Time of Evaluation: 13:38 - Subjective Subjective: Patient s/p Cath 1. L Main: Patent 2. LAD/Diags: Proximal to mid LAD 50% narrowing 3. L Cx/OM: OM 50% focal narrowing 4. RCA: Dominant and patent 5. EF: 60%, EDP 18, No AV gradient Normal Non obstructive coronaries. Normal EF Medical management OOB to ambulate after 4.30pm today D/C IV Heparin and Plavix Objective - Vital Signs/Intake and Output Vital Signs (last 24 hours): Temp Pulse Resp BP Pulse Ox 98.2 F 75 19 158/81 H 97 03/29/19 13:37 03/29/19 13:37 03/29/19 13:37 03/29/19 13:37 03/29/19 13:37 Intake and Output: 03/29/19 03/29/19 06:59 18:59 Intake Total 340 Balance 340 - Medications Medications: Current Medications Albuterol/Ipratropium (Duoneb 3 Mg/0.5 Mg (3 Ml) Ud) 3 ml INH RQ4 PRN PRN Reason: Shortness of Breath Albuterol/Ipratropium (Duoneb 3 Mg/0.5 Mg (3 Ml) Ud) 3 ml INH RQ6 [facility] Last Admin: 03/29/19 01:14 Dose: 3 ml Aspirin (Aspirin Chewable) 81 mg PO DAILY [facility] Last Admin: 03/29/19 10:06 Dose: Not Given Carvedilol (Coreg) 3.125 mg PO BID [facility] Last Admin: 03/29/19 10:06 Dose: Not Given Sodium Chloride (Sodium Chloride 0.45%) 1,000 mls @ 75 mls/hr IV .[id number] [facility] Stop: 03/30/19 01:39 Ipratropium [place] (Atrovent) 0.5 mg IH RQ6 [facility] Last Admin: 03/29/19 01:15 Dose: Not Given Methylprednisolone (Solu-Medrol) 40 mg IV Q12 [facility] Last Admin: 03/29/19 10:07 Dose: Not Given Pantoprazole Sodium (Protonix Ec Tab) 40 mg PO DAILY [facility] Last Admin: 03/29/19 10:06 Dose: Not Given Rosuvastatin Calcium (Crestor) 40 mg PO HS [facility] Last Admin: 03/28/19 21:12 Dose: 40 mg - Labs Labs: 03/29/19 04:53 03/29/19 04:53 PT 10.3 SECONDS (9.7-12.2) 03/29/19 04:53 INR 0.9 03/29/19 04:53 APTT 49.0 SECONDS (21-34) H 03/29/19 04:53
--- NOTE | 2019-03-29 14:08 | CARD ---
APPROVED REPORT Date of service: 03/29/2019 EXAM: Two-dimensional and M-mode echocardiogram with Doppler and color Doppler. Other Information Quality : GoodRhythm : INDICATION Dyspnea Cardiac Disease: CAD Chest Pain RISK FACTORS Hypertension Hyperlipidemia 2D DIMENSIONS IVSd1.1 (0.7-1.1cm)LVDd4.0 (3.9-5.9cm) PWd1.1 (0.7-1.1cm)LA Otkpgu60 (18-58mL) LVDs2.8 (2.5-4.0cm)FS (%) 29.4 % LVEF (%)56.9 (>50%)LVEF (Roth's)65.18 % M-Mode DIMENSIONS Left Atrium (MM)2.91 (2.5-4.0cm)Aortic Root3.63 (2.2-3.7cm) Aortic Cusp Exc.1.53 (1.5-2.0cm) Mitral Valve MV E Jwbfaenl12.0cm/sMV A Yxaewfgb74.9cm/sE/A ratio0.9 TDI Lateral E' Peak V8.29cm/sMedial E' Peak V6.29cm/sE/Lateral E'6.5 E/Medial E'8.6 LEFT VENTRICLE The left ventricle is normal size. There is normal left ventricular wall thickness. The left ventricular function is normal. The left ventricular ejection fraction is within the normal range. Uri-septum appears hypokinetic The left ventricular diastolic function is normal. No left ventricle thrombus noted on this study. There is no ventricular septal defect visualized. There is no left ventricular aneurysm. There is no mass noted in the left ventricle. RIGHT VENTRICLE The right ventricle is normal size. There is normal right ventricular wall thickness. The right ventricular systolic function is normal. ATRIA The left atrium size is normal. The right atrium size is normal. The interatrial septum is intact with no evidence for an atrial septal defect. AORTIC VALVE The aortic valve is normal in structure and function. No aortic regurgitation is present. There is no aortic valvular stenosis. There is no aortic valvular vegetation. MITRAL VALVE The mitral valve is normal in structure and function. There is no evidence of mitral valve prolapse. There is no mitral valve stenosis. Mitral regurgitation is mild. TRICUSPID VALVE The tricuspid valve is normal in structure and function. There is no tricuspid valve regurgitation noted. There is no tricuspid valve prolapse or vegetation. There is no tricuspid valve stenosis. PULMONIC VALVE The pulmonary valve is normal in structure and function. There is no pulmonic valvular regurgitation. There is no pulmonic valvular stenosis. GREAT VESSELS The aortic root is normal in size. The ascending aorta is normal in size. The pulmonary artery is normal. The IVC is normal in size and collapses >50% with inspiration. PERICARDIAL EFFUSION The pericardium appears normal. There is no pleural effusion. <Conclusion> The left ventricular function is normal. The left ventricular ejection fraction is within the normal range. Uri-septum appears hypokinetic Mitral regurgitation is mild.
--- NOTE | 2019-03-29 16:24 | RAD ---
Date of service: 03/29/2019 HISTORY: Chest pain COMPARISON: 03/27/2019. FINDINGS: LUNGS: The lungs are hyperinflated and there is peribronchial thickening with chronic changes in both lungs. No focal consolidation. There is linear atelectasis in the right mid lung. PLEURA: No pleural effusions or pneumothorax. CARDIOVASCULAR: There is mild cardiomegaly. No aortic atherosclerotic calcifications present. OSSEOUS STRUCTURES: Within normal limits for the patient's age. VISUALIZED UPPER ABDOMEN: Normal. OTHER FINDINGS: None. IMPRESSION: No active pulmonary disease. COPD.
[2019-03-29] MEDS: guaiFENesin 200 mg/10 ml Syrup UD PO PRN ×2 (17:12→21:14)
[2019-03-30] MEDS: Albuterol-Ipratrop 3 mg / 0.5 (3 ml) UD INH SCH ×3 (01:20→13:08)
[2019-03-30] MEDS: Ipratropium 0.02% Inhal Soln (0.5 mg/2.5 ml) UD IH SCH ×3 (01:20→13:08)
[2019-03-30 08:35] LABS: BASO # 0.1 K/uL (0.0-0.2); BASO % 0.5 % (0.0-2.0); HEMOGLOBIN 12.2 g/dL (11.0-16.0); LYMPH # 2.6 K/uL (1.0-4.3); LYMPH % 22.6 % (20.0-40.0); MEAN CELL VOLUME 91.2 fL (81.0-99.0); MEAN CORPUSCULAR HEMOGLOBIN 30.8 pg (27.0-31.0); MEAN CORPUSCULAR HGB CONC 33.8 g/dL (33.0-37.0); MEAN PLATELET VOLUME 7.9 fL (7.2-11.7); MONO # 0.5 K/uL (0.0-0.8); MONO % 4.3 % (0.0-10.0); NEUT # 8.4 K/uL (1.8-7.0); NEUT % 72.6 % (50.0-75.0); NRBC % 0.1 % (0.0-2.0); RBC 3.96 Mil/uL (3.80-5.20); RED CELL DISTRIBUTION WIDTH 13.8 % (11.5-14.5); WHITE BLOOD COUNT 11.6 K/uL (4.8-10.8)
[2019-03-30 09:04] VITALS: BP 110/71; PULSE 71
[2019-03-30] MEDS: MethylPREDNISolone 40 mg Vial IV SCH (09:04)
[2019-03-30] MEDS: Pantoprazole 40 mg EC Tab PO SCH (09:05)
[2019-03-30] MEDS ORDERED: Enoxaparin 40 mg Syringe SC SCH (10:00)
[2019-03-30 10:06] VITALS: RESP 18; TEMP 98; O2SAT 98
--- NOTE | 2019-03-30 10:10 | CP.PCM.PN ---
Subjective - Date & Time of Evaluation Date of Evaluation: 03/30/19 Time of Evaluation: 09:10 - Subjective Subjective: Medicine progress note ( Dr. Hayden's service) Patient was seen and examined at bedside, while resting comfortably in bed. Patient states that she is doing well and denies any acute issues or complaints. Patient had no acute issues overnight. Patient denies any symptoms of chest pain, palpitations, shortness of breath, nausea, vomiting, dizziness, numbness or tingling. Patient states that she is ambulating without any difficulties. Objective - Vital Signs/Intake and Output Vital Signs (last 24 hours): Temp Pulse Resp BP Pulse Ox 98.0 F 71 18 110/71 98 03/30/19 07:00 03/30/19 09:04 03/30/19 07:00 03/30/19 09:04 03/30/19 07:00 Intake and Output: 03/30/19 03/30/19 06:59 18:59 Intake Total 900 Balance 900 - Medications Medications: Current Medications Acetaminophen (Tylenol 325mg Tab) 650 mg PO Q6 PRN PRN Reason: Pain, Mild (1-3) Last Admin: 03/29/19 14:07 Dose: 650 mg Albuterol/Ipratropium (Duoneb 3 Mg/0.5 Mg (3 Ml) Ud) 3 ml INH RQ6 [facility] Last Admin: 03/30/19 07:25 Dose: 3 ml Aspirin (Aspirin Chewable) 81 mg PO DAILY [facility] Last Admin: 03/30/19 09:05 Dose: 81 mg Carvedilol (Coreg) 3.125 mg PO BID [facility] Last Admin: 03/30/19 09:05 Dose: 3.125 mg Enoxaparin Sodium (Lovenox) 40 mg SC DAILY [facility] Last Admin: 03/30/19 09:04 Dose: 40 mg Guaifenesin (Robitussin) 200 mg PO Q4H PRN PRN Reason: Cough and congestion Last Admin: 03/29/19 21:14 Dose: 200 mg Ipratropium Horace (Atrovent) 0.5 mg IH RQ6 [facility] Last Admin: 03/30/19 07:26 Dose: Not Given Methylprednisolone (Solu-Medrol) 40 mg IV Q12 [facility] Last Admin: 03/30/19 09:04 Dose: 40 mg Pantoprazole Sodium (Protonix Ec Tab) 40 mg PO DAILY [facility] Last Admin: 03/30/19 09:05 Dose: 40 mg Rosuvastatin Calcium (Crestor) 40 mg PO HS [facility] Last Admin: 03/29/19 21:14 Dose: 40 mg - Labs Labs: 03/30/19 08:20 03/29/19 04:53 PT 10.3 SECONDS (9.7-12.2) 03/29/19 04:53 INR 0.9 03/29/19 04:53 APTT 29.0 SECONDS (21-34) D 03/30/19 08:20 - Constitutional Appears: Well, No Acute Distress - Head Exam Head Exam: ATRAUMATIC, NORMAL INSPECTION - Eye Exam Eye Exam: EOMI, Normal appearance - ENT Exam ENT Exam: Mucous Membranes Moist - Respiratory Exam Respiratory Exam: Decreased Breath Sounds, Clear to Ausculation Bilateral, NORMAL BREATHING PATTERN. absent: Rhonchi - Cardiovascular Exam Cardiovascular Exam: REGULAR RHYTHM, +S1, +S2 - GI/Abdominal Exam GI & Abdominal Exam: Soft, Normal Bowel Sounds. absent: Distended, Firm, Guarding, Rigid, Tenderness - Extremities Exam Extremities Exam: Normal Inspection. absent: Calf Tenderness, Pedal Edema - Back Exam Back Exam: NORMAL INSPECTION - Neurological Exam Neurological Exam: Alert, Awake, Normal Gait, Oriented x3 - Psychiatric Exam Psychiatric exam: Normal Affect, Normal Mood Assessment and Plan (1) NSTEMI (non-ST elevation myocardial infarction) Assessment & Plan: Consultation: - Cardiology * Dr. Johnson---> Help appreciated Labs/Imagin/28 (Troponin): <0.0120 03/28 (Troponin positive X2): 0.1590 & 0.1380 03/29 (Troponin negative): 0.0460 Lipid panel (03/28/19): - TGL: 184, Chol: 313, LDL: 199 and HDL : 57 EKG (03/27/19): NSR, without any ST changesr Repeat EKG (03/28/19): NSR, with T- wave inversion in anterolateral leads Echocardiogram (03/29/19): The left ventricular function is normal. The left ejection fraction is within normal range. Uri-septum appears hypokinetic and mitral valve regurgitation is mild Cardiac catherization(03/29/19): 1. L Main: Patent 2. LAD/Diags: Proximal to mid LAD 50% narrowing 3. L Cx/OM: OM 50% focal narrowing 4. RCA: Dominant and patent 5. EF: 60%, EDP 18, No AV gradient Normal Non obstructive coronaries. Normal EF Continue medical management - Aspirin 81mg PO - Crestor 20mg PO HS Status: Acute (2) Chest pain Assessment & Plan: Resolved Consultation: - Cardiology * Dr. Johnson---> Help appreciated * Management as per recommendation Status: Acute (3) History of chronic obstructive lung disease Assessment & Plan: Not exacerbation Asthma -Duonebs 3ml INH RQ6H PRN - Atrovent 0.5mg IH RQ6 Status: Acute (4) Prophylactic measure Assessment & Plan: DVT: Lovenox 40mg SC daily GI: Protonix 40mg PO daily ( as patient was on solumedrol) Disposition: Patient to be discharge home: Please discharge patient home as per Dr. Hayden Please resume all your home medications as prescribed by your primary medical doctor Please take baby Aspirin, Aspirin 81mg PO daily Please take crestor 10mg PO at bedtime Please follow up with Dr. Johnosn, fuse assembler, if symptoms resumes and to establish care Please follow up with your primary care physician within 1 week of discharge or Dr. Hayden if you wish Please resume to the hospital if symptoms resumes Please take care Por favor, cristy de conchita a la casa del paciente segn el Dr. Hayden Reanude todos los medicamentos de mendiola hogar segn lo prescrito por mendiola mdico de cabecera Por favor, tome el beb aspirina, aspirina 81 mg PO diario Por favor tome crestor 10 mg PO al acostarse Por favor, esme un seguimiento con el Dr. Johnson, cardilogo, si se reanudan los sntomas y para establecer atencin. Por favor, esme un seguimiento con mendiola mdico de atencin primaria dentro de raquel semana despus del conchita o con el Dr. Hayden si lo desea. Por favor, vuelva al hospital si se reanudan los sntomas. Por favor cudate All plans and management discussed with Dr. Hayden Status: Acute
--- NOTE | 2019-03-30 12:03 | CP.PCM.PN ---
<Amarjit Miranda - Last Filed: 03/30/19 16:34> Subjective - Date & Time of Evaluation Date of Evaluation: 03/30/19 Time of Evaluation: 10:15 - Subjective Subjective: Cardiology Progress Note for Dr. Johnson Patient seen and examined at bedside. No overnight events reported. Patient denies any Chest pain, SOB, or palpitations. Objective - Vital Signs/Intake and Output Vital Signs (last 24 hours): Temp Pulse Resp BP Pulse Ox 98.0 F 71 18 110/71 98 03/30/19 07:00 03/30/19 09:04 03/30/19 07:00 03/30/19 09:04 03/30/19 07:00 Intake and Output: 03/30/19 03/30/19 06:59 18:59 Intake Total 900 Balance 900 - Medications Medications: Current Medications Acetaminophen (Tylenol 325mg Tab) 650 mg PO Q6 PRN PRN Reason: Pain, Mild (1-3) Last Admin: 03/29/19 14:07 Dose: 650 mg Albuterol/Ipratropium (Duoneb 3 Mg/0.5 Mg (3 Ml) Ud) 3 ml INH RQ6 [facility] Last Admin: 03/30/19 07:25 Dose: 3 ml Aspirin (Aspirin Chewable) 81 mg PO DAILY [facility] Last Admin: 03/30/19 09:05 Dose: 81 mg Carvedilol (Coreg) 3.125 mg PO BID [facility] Last Admin: 03/30/19 09:05 Dose: 3.125 mg Enoxaparin Sodium (Lovenox) 40 mg SC DAILY [facility] Last Admin: 03/30/19 09:04 Dose: 40 mg Guaifenesin (Robitussin) 200 mg PO Q4H PRN PRN Reason: Cough and congestion Last Admin: 03/29/19 21:14 Dose: 200 mg Ipratropium Camby (Atrovent) 0.5 mg IH RQ6 [facility] Last Admin: 03/30/19 07:26 Dose: Not Given Pantoprazole Sodium (Protonix Ec Tab) 40 mg PO DAILY [facility] Last Admin: 03/30/19 09:05 Dose: 40 mg Rosuvastatin Calcium (Crestor) 40 mg PO HS [facility] Last Admin: 03/29/19 21:14 Dose: 40 mg - Labs Labs: 03/30/19 08:20 03/29/19 04:53 PT 10.3 SECONDS (9.7-12.2) 03/29/19 04:53 INR 0.9 03/29/19 04:53 APTT 29.0 SECONDS (21-34) D 03/30/19 08:20 - Additional Findings Additional findings: - Constitutional Appears: Well, No Acute Distress - Head Exam Head Exam: ATRAUMATIC, NORMAL INSPECTION - Eye Exam Eye Exam: EOMI, Normal appearance - ENT Exam ENT Exam: Mucous Membranes Moist - Respiratory Exam Respiratory Exam: Decreased Breath Sounds, Clear to Ausculation Bilateral, NORMAL BREATHING PATTERN. absent: Rhonchi - Cardiovascular Exam Cardiovascular Exam: REGULAR RHYTHM, +S1, +S2 - GI/Abdominal Exam GI & Abdominal Exam: Soft, Normal Bowel Sounds. absent: Distended, Firm, Guarding, Rigid, Tenderness - Extremities Exam Extremities Exam: Normal Inspection. absent: Calf Tenderness, Pedal Edema - Back Exam Back Exam: NORMAL INSPECTION - Neurological Exam Neurological Exam: Alert, Awake, Normal Gait, Oriented x3 - Psychiatric Exam Psychiatric exam: Normal Affect, Normal Mood Assessment and Plan - Assessment and Plan (Free Text) Assessment: 58 year old female with past medical history COPD and hyperlipidemia presents to [facility] ED with chest pain and shortness of breath. Admitted for evaluation and treatment NSTEMI. Cardiology consulted for NSTEMI. Plan: NSTEMI Labs/Imagin/28 (Troponin): <0.0120 03/28 (Troponin positive X2): 0.1590 & 0.1380 03/29 (Troponin negative): 0.0460 Lipid panel (03/28/19): - TGL: 184, Chol: 313, LDL: 199 and HDL : 57 EKG (03/27/19): NSR, without any ST changesr Repeat EKG (03/28/19): NSR, with T- wave inversion in anterolateral leads Echocardiogram (03/29/19): The left ventricular function is normal. The left ejection fraction is within normal range. Uri-septum appears hypokinetic and mitral valve regurgitation is mild Cardiac Cath (03/29/19): 1. L Main: Patent 2. LAD/Diags: Proximal to mid LAD 50% narrowing 3. L Cx/OM: OM 50% focal narrowing 4. RCA: Dominant and patent 5. EF: 60%, EDP 18, No AV gradient Normal Non obstructive coronaries. Normal EF Continue medical management Dispo: Patient stable to leave on a cardiac standpoint. Patient should follow up with Dr. Johnson in 1-2 weeks. Patient discussed with Dr. Johnson. Amarjit Miranda, PGY-2 <Uzair Johnson - Last Filed: 03/30/19 23:29> Objective - Vital Signs/Intake and Output Vital Signs (last 24 hours): Temp Pulse Resp BP Pulse Ox 98.0 F 71 18 110/71 98 03/30/19 07:00 03/30/19 09:04 03/30/19 07:00 03/30/19 09:04 03/30/19 07:00 - Labs Labs: 03/30/19 08:20 03/29/19 04:53 PT 10.3 SECONDS (9.7-12.2) 03/29/19 04:53 INR 0.9 03/29/19 04:53 APTT 29.0 SECONDS (21-34) D 03/30/19 08:20 Assessment and Plan - Assessment and Plan (Free Text) Plan: Patient seen and evaluated pesronally by me. Plan of care d/w the quality engineer medical device and as documented
--- NOTE | 2019-04-06 23:27 | CARDCATH ---
PROCEDURE DATE: 03/29/2019 PROCEDURES: 1. Left heart catheterization. 2. Coronary angiogram. CLINICAL INDICATIONS: 1. Chest pain. 2. Abnormal troponin. 3. Hypertension. 4. Hyperlipidemia. 5. Chronic obstructive lung disease. REFERRING PHYSICIAN: Barbi Hayden MD PERFORMING PHYSICIAN: Uzair Johnson MD PROCEDURE PERFORMED: After informed consent, the patient was prepped and draped in the usual sterile fashion. Lidocaine 2% was given in the right groin for local anesthesia. Using micropuncture technique, a 6-Anguillan sheath was introduced into the right common femoral artery. A JL4 6-Anguillan diagnostic catheter was engaged in the left main coronary artery. Contrast was injected and left coronary angiogram was done. Then, the catheter was exchanged into JR4 6-Anguillan diagnostic catheter. The catheter was inserted into the left ventricle. LVEDP was measured. Contrast was injected and LV angiogram was done. Then, the catheter was pulled back across the aortic valve. Then, the same catheter engaged into the right coronary artery. Contrast was injected and right coronary angiogram was done. The patient tolerated this procedure well. Postprocedure, Mynx closure device was deployed with excellent hemostasis. Radiological supervision and radiological interpretation of coronary imaging was done. FINDINGS: 1. Left main coronary artery is patent. 2. LAD has a proximal to mid 40% to 50% narrowing. Mid and distal LAD is patent. 3. Left circumflex and obtuse marginal branches are patent. 4. Right coronary artery is dominant and patent. 5. LV ejection fraction of 50% to 60%. No wall motion abnormality is noted. EDP is 14. No gradient across the aortic valve. IMPRESSION: 1. Nonobstructive coronary artery disease as described above. Proximal to mid left anterior descending has a diffuse 40% to 50% narrowing. 2. Normal left ventricular systolic function. PLAN: Recommend medical management. Uzair Johnson MD
== END 2019-03-30 14:39 | disposition home or self-care (01) ==
LOC: C.ER 22:09 → C.5S 23:06
PROVIDERS: ADMIT Internal Medicine Pulmonary Disease; ATTEND Internal Medicine Pulmonary Disease
DX: I21.4 Non-ST elevation (NSTEMI) myocardial infarction (principal); I25.10 Atherosclerotic heart disease of native coronary artery without angina pectoris; I10 Essential (primary) hypertension; E78.5 Hyperlipidemia, unspecified; J44.1 Chronic obstructive pulmonary disease with (acute) exacerbation; Z87.891 Personal history of nicotine dependence; J43.9 Emphysema, unspecified
CPT/HCPCS: 36415; 36600; 71045; 80053; 80061; 81001; 82803; 83735; 83880; 84100; 84484; 85025; 85610; 85730; 87040; 93005; 93306; 93458; 94640; 96372; 96374; 96376; 99152; 99153; 99285; C1760; C1769; C1887; C1893; G0378; J1644; J1650; J2250; J2920; J2930; J3010; J7030; Q9967

== ENCOUNTER 2019-04-28 01:38 | Inpatient (IN) | payer MEDICAID, OTHER ==
[2019-04-28 01:39] VITALS: BMI 22.8
--- NOTE | 2019-04-28 01:47 | C.PDOC ---
History Of Present Illness Patient presents to ED with complaint of palpitations. She states that she woke up from her sleep with her heart racing. Medics on arrival found her to be in SVT at a rate of 180. Patient was given adenosine and returned to a normal rate. Patient states that she feels better. Patient had a cardiac catheterization on 03/29/19 that showed a patent left main, 50% narrowing of the proximal to mid- LAD, and an EF of 60%. She denies chest pain, SOB, nausea, or vomiting. 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) Current Symptoms Are (Timing): Better Severity: Severe Pain Scale Rating Of: 7 Reports Recently: Seen In ED, Treated By A Physician, Hospitalized Recent travel outside of the [place]: No Additional History Per: Patient Past Medical History Reviewed: Historical Data, Nursing Documentation, Vital Signs - Medical History PMH: Anxiety, Asthma, COPD, Depression, Emphysema, Gastritis, Hypercholesterolemia, Pneumonia Denies: Chronic Kidney Disease Surgical History: No Surg Hx Family History: States: Unknown Family Hx - Social History Hx Tobacco Use: No Hx Alcohol Use: No Hx Substance Use: No - Immunization History Hx Tetanus Toxoid Vaccination: Yes Hx Influenza Vaccination: Yes (2018) Hx Pneumococcal Vaccination: Yes Review Of Systems Constitutional: Negative for: Fever, Chills, Weakness Eyes: Negative for: Vision Change ENT: Negative for: Throat Pain Cardiovascular: Positive for: Palpitations. Negative for: Chest Pain Respiratory: Negative for: Cough, Shortness of Breath Gastrointestinal: Negative for: Nausea, Vomiting Genitourinary: Negative for: Dysuria Musculoskeletal: Negative for: Back Pain Skin: Negative for: Rash Neurological: Negative for: Weakness, Numbness Psych: Positive for: Anxiety Physical Exam - Physical Exam Appears: Non-toxic, In Acute Distress, Other (anxious; speaking full sentences) Skin: Warm, Dry Head: Normacephalic Eye(s): bilateral: Normal Inspection Oral Mucosa: Moist Neck: Trachea Midline, Supple Chest: Symmetrical Cardiovascular: Rhythm Regular, Other (tachycardic) Respiratory: No Rales, No Rhonchi, No Wheezing Gastrointestinal/Abdominal: Bowel Sounds (normoactive), Soft, No Tenderness, No Distention Back: No CVA Tenderness Extremity: No Tenderness Extremity: Bilateral: Atraumatic, Normal Color And Temperature Pulses: Left Dorsalis Pedis: Normal, Right Dorsalis Pedis: Normal Neurological/Psych: Oriented x3, Normal Speech Gait: Unable To Assess ED Course And Treatment - Laboratory Results Result Diagrams: 04/28/19 02:30 04/28/19 02:30 ECG: Interpreted By Me ECG Rhythm: Sinus Tachycardia (131), Nonspecific Changes O2 Sat by Pulse Oximetry: 96 Pulse Ox Interpretation: Normal - Radiology CXR: Interpreted by Me, Viewed By Me CXR Interpretation: Yes: COPD, Other (unchanged from 03/29/19). No: Infiltrates, Fracture, Cardiomegaly Critical Care Time - Critical Care Note Total Time (in mins): 30 Documented critical care: time excludes all time spent performing seperately billable procedures. Disposition Discussed With : Barbi Hayden Comment: accepted the p ton his service and took over the care at 3:36 AM Doctor Will See Patient In The: Hospital Counseled Patient/Family Regarding: Studies Performed, Diagnosis - Disposition Disposition: HOSPITALIZED Disposition Time: 01:47 Condition: GUARDED Forms: Vitals ([email or web address]) Connect (Hungarian) - Clinical Impression Clinical Impression: Palpitations, SVT (supraventricular tachycardia), COPD exacerbation, Hyperthyroidism - Scribe Statement The provider has reviewed the documentation as recorded by the Scribe (Ange Quigley) All medical record entries made by the Scribe were at my direction and personally dictated by me. I have reviewed the chart and agree that the record accurately reflects my personal performance of the history, physical exam, medical decision making, and the department course for this patient. I have also personally directed, reviewed, and agree with the discharge instructions and disposition. Decision To Admit - Pt Status Changed To: Hospital Disposition Of: Inpatient - Admit Certification Admit to Inpatient:: After my assessment, the patient will require hospitalizati on for at least two midnights. This is because of the severity of symptoms shown, intensity of services needed, and/or the medical risk in this patient being treated as an outpatient. - InPatient: Physician Admission Certification: I certify that this patient requires 2 or more midnights of care for the following reason:: After my assessment, the patient will require hospitalization for at least two midnights. This is because of the severity of symptoms shown, intensity of services needed, and/or the medical risk in this patient being treated as an outpatient. - . Bed Request Type: Telemetry Admitting Physician: Barbi Hayden Patient Diagnosis: Palpitations, SVT (supraventricular tachycardia), COPD exacerbation
[2019-04-28 02:35] LABS: BASO # 0.2 K/uL (0.0-0.2); BASO % 0.9 % (0.0-2.0); EOS # 0.3 K/uL (0.0-0.7); EOS % 1.4 % (0.0-4.0); HEMOGLOBIN 12.3 g/dL (11.0-16.0); LYMPH # 5.3 K/uL (1.0-4.3); LYMPH % 30.2 % (20.0-40.0); MEAN CELL VOLUME 93.2 fL (81.0-99.0); MEAN CORPUSCULAR HEMOGLOBIN 30.5 pg (27.0-31.0); MEAN CORPUSCULAR HGB CONC 32.7 g/dL (33.0-37.0); MEAN PLATELET VOLUME 8.7 fL (7.2-11.7); MONO # 1.2 K/uL (0.0-0.8); MONO % 7.1 % (0.0-10.0); NEUT # 10.6 K/uL (1.8-7.0); NEUT % 60.4 % (50.0-75.0); RBC 4.05 Mil/uL (3.80-5.20); RED CELL DISTRIBUTION WIDTH 13.6 % (11.5-14.5); WHITE BLOOD COUNT 17.5 K/uL (4.8-10.8)
[2019-04-28 02:51] LABS: INR 0.9; PARTIAL THROMBOPLASTIN TIME 29.4 SECONDS (21-34)
[2019-04-28 02:52] LABS: PROTHROMBIN TIME 9.4 SECONDS (9.7-12.2)
[2019-04-28] MEDS ORDERED: Azithromycin 500mg/250ML NS 500 MG/250 ML BAG IVPB STA (02:56)
[2019-04-28] MEDS ORDERED: Azithromycin 500mg/250ML NS 500 MG/250 ML BAG IVPB ONE (03:07)
[2019-04-28 03:26] LABS: ALB/GLOB RATIO 1.4 (1.0-2.1); ALBUMIN 4.2 g/dL (3.5-5.0); ALT/SGPT 26 U/L (9-52); AST/SGOT 37 U/L (14-36); BLOOD UREA NITROGEN 18 mg/dL (7-17); CALCIUM 9.2 mg/dl (8.6-10.4); GFR NON-AFRICAN AMERICAN 51
[2019-04-28] MEDS ORDERED: Albuterol-Ipratrop 3 mg / 0.5 (3 ml) UD INH SCH (04:00)
[2019-04-28] MEDS ORDERED: Albuterol-Ipratrop 3 mg / 0.5 (3 ml) UD ONE (04:31)
[2019-04-28 06:03] LABS: SQUAMOUS EPITHIAL 1 /hpf (0-5); URINE BACTERIA RARE (<OCC); URINE BILIRUBIN NEGATIVE (NEGATIVE); URINE BLOOD NEGATIVE (NEGATIVE); URINE CLARITY Clear (Clear); URINE COLOR Straw (YELLOW); URINE GLUCOSE (UA) NORMAL (Normal); URINE LEUKOCYTE ESTERASE NEG Leu/uL (Negative); URINE PROTEIN NEGATIVE (NEGATIVE); URINE UROBILINOGEN NORMAL mg/dL (0.2-1.0)
[2019-04-28] MEDS ORDERED: Sodium Chloride 0.9% 250 ML IV ONE (06:16)
--- NOTE | 2019-04-28 07:51 | CP.PCM.PN ---
Subjective - Date & Time of Evaluation Date of Evaluation: 04/28/19 Time of Evaluation: 08:00 - Subjective Subjective: Medicine Progress Note for Dr. Hayden: Patient was seen and examined at bedside. Patient states she woke up from her sleep with palpitations and felt like her chest was tightening. Medics on arrival found her to be in SVT at a rate of 180. Patient was given adenosine and returned to a normal rate. Patient states she currently feels better. Patient was re-evaluated at bedside in the afternoon. She stated she had similar symptoms of palpitations and chest tightening which lasted for a few seconds then went away. Patient currently denies chest pain, shortness of breath, headache, nausea, vomiting, diarrhea, constipation, fever or chills. Past Medical History: COPD, NSTEMI, IGT, HLD Past Surgical History: x 3, tracheostomy; cardiac cath 03/29/19 Allergy: Cefepime Family History: Mom: HTN, Dad of [place] at age 80, brother of [place] at age 69 Social History: Former smoker 1/2ppd for 40 years, quit 2 years ago. Denies alcohol or drugs use Medications: Albuterol, Spiriva, Ellipta Objective - Vital Signs/Intake and Output Vital Signs (last 24 hours): Temp Pulse Resp BP Pulse Ox 99 F 103 H 19 112/71 94 L 04/28/19 01:46 04/28/19 07:07 04/28/19 07:07 04/28/19 07:07 04/28/19 07:07 - Medications Medications: Current Medications Albuterol/Ipratropium (Duoneb 3 Mg/0.5 Mg (3 Ml) Ud) 3 ml INH RQ4 [facility]SH[facility] Stop: 04/28/19 16:01 Last Admin: 04/28/19 04:26 Dose: 3 ml Diltiazem HCl 125 mg/ Dextrose 125 mls @ 5 mls/hr IV .Q24H ASHLIE; Protocol Last Admin: 04/28/19 03:22 Dose: 5 mls/hr - Labs Labs: 04/28/19 02:30 04/28/19 02:30 PT 9.4 SECONDS (9.7-12.2) L 04/28/19 02:30 INR 0.9 04/28/19 02:30 APTT 29.4 SECONDS (21-34) 04/28/19 02:30 - Constitutional Appears: Well, Non-toxic, No Acute Distress, Older Than Stated Age - Head Exam Head Exam: ATRAUMATIC, NORMAL INSPECTION - Eye Exam Eye Exam: EOMI, Normal appearance - ENT Exam ENT Exam: Mucous Membranes Moist - Respiratory Exam Respiratory Exam: Wheezes, NORMAL BREATHING PATTERN - Cardiovascular Exam Cardiovascular Exam: REGULAR RHYTHM, +S1, +S2 - GI/Abdominal Exam GI & Abdominal Exam: Soft, Normal Bowel Sounds. absent: Tenderness - Extremities Exam Extremities Exam: Normal Inspection - Neurological Exam Neurological Exam: Alert, Awake, Oriented x3 - Psychiatric Exam Psychiatric exam: Anxious - Skin Skin Exam: Normal Color Assessment and Plan - Assessment and Plan (Free Text) Assessment: 58 year old female with past medical history COPD, NSTEMI, IGT and hyperlipidemia presents to the ED with palpitations. Palpitations - Medics on arrival found her to be in SVT at a rate of 180. - Patient was given adenosine and returned to a normal rate. 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 Johnson recommends treatment of subclinical hyperthyroidism - Endocrinology Consult: Dr. Downs --> help appreciated s/p NSTEMI/Cardiac Cath 03/29/19 - Cardiology Consult: Dr. Johnson --> help appreciated - Echocardiogram (03/29/19): The left ventricular function is normal. The left ejection fraction is within normal range. Uir-septum appears hypokinetic and mitral valve regurgitation is mild - Chest Xray: Hyperinflation suggestive for COPD and or emphysematous changes. Biapical pleural thickening with upper lobe granulomatous changes. Diffuse increased interstitial lung markings. Right midlung and left basilar atelectasis. Bilateral hilar prominence. Tortuous ectatic aorta. Cardiomegaly. - Duonebs 3ml INH RQ6H PRN - Cardiac Cath (03/29/19): 1. L Main: Patent 2. LAD/Diags: Proximal to mid LAD 50% narrowing 3. L Cx/OM: OM 50% focal narrowing 4. RCA: Dominant and patent 5. EF: 60%, EDP 18, No AV gradient Normal Non obstructive coronaries. Normal EF - Lipid Panel (03/28/19): Total Cholesterol 313; LDL 199; HDL 57; Triglycerides 184 - hA1c (03/03/19): 6.0 - proBNP 247 COPD Exacerbation/History of chronic obstructive lung disease - Chest Xray: Hyperinflation suggestive for COPD and or emphysematous changes. Biapical pleural thickening with upper lobe granulomatous changes. Diffuse increased interstitial lung markings. Right midlung and left basilar ate lectasis. Bilateral hilar prominence. Tortuous ectatic aorta. Cardiomegaly. - Solumedrol 100mg IV once - Prednisone Taper - Duonebs 3ml INH RQ4H PRN - Atrovent 0.5mg IH RQ6 History of HLD - Lipid Panel (03/28/19): Total Cholesterol 313; LDL 199; HDL 57; Triglycerides 184 - hA1c (03/03/19): 6.0 History of Impaired Glucose Tolerance - hA1c (03/03/19): 6.0 - Heart Health/Moderate Carb Diet Prophylaxis DVT: Lovenox 40mg SC daily GI: not indicated Case discussed with Dr. Jackelyn Buenrostro PGY-2
[2019-04-28 08:03] VITALS: RESP 20
[2019-04-28] MEDS ORDERED: Albuterol-Ipratrop 3 mg / 0.5 (3 ml) UD INH PRN ×2 (09:00→12:00)
[2019-04-28 09:12] LABS: BASO # 0.1 K/uL (0.0-0.2); BASO % 0.9 % (0.0-2.0); EOS # 0.4 K/uL (0.0-0.7); EOS % 2.6 % (0.0-4.0); HEMOGLOBIN 10.9 g/dL (11.0-16.0); LYMPH % 28.2 % (20.0-40.0); MEAN CELL VOLUME 92.1 fL (81.0-99.0); MEAN CORPUSCULAR HEMOGLOBIN 30.5 pg (27.0-31.0); MEAN CORPUSCULAR HGB CONC 33.1 g/dL (33.0-37.0); MEAN PLATELET VOLUME 8.2 fL (7.2-11.7); MONO # 1.1 K/uL (0.0-0.8); MONO % 7.6 % (0.0-10.0); NEUT # 8.7 K/uL (1.8-7.0); NEUT % 60.7 % (50.0-75.0); RBC 3.58 Mil/uL (3.80-5.20); RED CELL DISTRIBUTION WIDTH 13.7 % (11.5-14.5); WHITE BLOOD COUNT 14.3 K/uL (4.8-10.8)
--- NOTE | 2019-04-28 09:16 | RAD ---
Chest x-ray single frontal view HISTORY: Palpitations. Comparison: 03/29/2019 Findings: Hyperinflation suggestive for COPD and or emphysematous changes. Biapical pleural thickening with upper lobe granulomatous changes. Diffuse increased interstitial lung markings. Right midlung and left basilar atelectasis. Bilateral hilar prominence. Tortuous ectatic aorta. Cardiomegaly. Impression: Hyperinflation suggestive for COPD and or emphysematous changes. Biapical pleural thickening with upper lobe granulomatous changes. Diffuse increased interstitial lung markings. Right midlung and left basilar atelectasis. Bilateral hilar prominence. Tortuous ectatic aorta. Cardiomegaly.
[2019-04-28 09:24] LABS: ALB/GLOB RATIO 1.5 (1.0-2.1); ALBUMIN 3.5 g/dL (3.5-5.0); ALT/SGPT 18 U/L (9-52); AST/SGOT 22 U/L (14-36); BLOOD UREA NITROGEN 11 mg/dL (7-17); CALCIUM 8.2 mg/dl (8.6-10.4); GFR NON-AFRICAN AMERICAN > 60
[2019-04-28 09:34] LABS: B-TYPE NATRIURETIC PEPTIDE 247 pg/mL (0-900); CK-MB 1.24 ng/mL (0.0-3.38)
[2019-04-28] MEDS ORDERED: Ipratropium 0.02% Inhal Soln (0.5 mg/2.5 ml) UD IH PRN (10:00)
[2019-04-28] MEDS: Enoxaparin 40 mg Syringe SC SCH (10:10)
[2019-04-28] MEDS: Albuterol-Ipratrop 3 mg / 0.5 (3 ml) UD INH SCH ×3 (11:45→19:40)
[2019-04-28] MEDS: Pantoprazole 20 mg EC Tab PO SCH (12:14)
--- NOTE | 2019-04-28 15:26 | CARD ---
APPROVED REPORT Date of service: 04/28/2019
[2019-04-28] MEDS ORDERED: Potassium Chloride 20 mEq ER Tab PO ONE (16:00)
[2019-04-28] MEDS ORDERED: Magnesium Sulfate 1 gm in D5W 1 GM/100 ML BAG IVPB ONE (16:00)
--- NOTE | 2019-04-28 17:02 | CP.PCM.CON ---
<Joel Dhillon - Last Filed: 04/28/19 18:36> History of Present Illness - History of Present Illness History of Present Illness: PGY2 Cardiology Note for Dr. Johnson Reason for Consult: SVT Patient is a 58 year old female with history of NSTEMI, CAD, HTN, HLD, IGT, and COPD presented to ED with palpitations. Patient was awoken last night due to her heart beating rapidly. Upon EMS arrivial, patient was found to be in SVT @180bpm. She was given adenosine and returned to regular sinus rhythm. Patient states that at the time of the palpitation she experienced dizziness. She denies dizziness and chest pain at this time and no longer feels her heart pounding. Patient also states she had nausea earlier this morning. Patient also denies fever, chills, difficulty breathing, vomiting, diarrhea, constipation. Past Medical History: COPD, NSTEMI, CAD, IGT, HLD Past Surgical History: x 3, tracheostomy; cardiac cath 03/29/19 Allergy: Cefepime Family History: Mom: HTN, Dad of [place] at age 80, brother of [place] at age 69 Social History: Former smoker 1/2ppd for 40 years, quit 2 years ago. Denies alcohol or drugs use Medications: Albuterol, Spiriva, Ellipta Review of Systems - Review of Systems All systems: reviewed and no additional remarkable complaints except (as per HPI) Past Patient History - Infectious Disease Hx of Infectious Diseases: None - Past Medical History & Family History Past Medical History?: Yes - Past Social History Smoking Status: Former Smoker - CARDIAC Hx Hypercholesterolemia: Yes - PULMONARY Hx Chronic Obstructive Pulmonary Disease (COPD): Yes - NEUROLOGICAL Hx Neurological Disorder: No - HEENT Hx HEENT Problems: No - RENAL Hx Chronic Kidney Disease: No - ENDOCRINE/METABOLIC Hx Endocrine Disorders: No - HEMATOLOGICAL/ONCOLOGICAL Hx Blood Disorders: No - INTEGUMENTARY Hx Dermatological Problems: No - MUSCULOSKELETAL/RHEUMATOLOGICAL Hx Musculoskeletal Disorders: No Hx Falls: No - GASTROINTESTINAL Hx Gastrointestinal Disorders: No Hx Gastritis: Yes - GENITOURINARY/GYNECOLOGICAL Hx Genitourinary Disorders: No - PSYCHIATRIC Hx Anxiety: Yes Hx Depression: Yes Hx Substance Use: No - SURGICAL HISTORY Hx Surgeries: Yes Hx Section: Yes (x3) Other/Comment: tracheostomy MARCH 2018 - ANESTHESIA Hx Anesthesia: Yes Hx Anesthesia Reactions: No Hx Malignant Hyperthermia: No Meds Allergies/Adverse Reactions: Allergies Allergy/AdvReac Type Severity Reaction Status Date / Time cefepime Allergy RASH Verified 04/28/19 01:50 - Medications Medications: Current Medications Albuterol/Ipratropium (Duoneb 3 Mg/0.5 Mg (3 Ml) Ud) 3 ml INH RQ4 [facility] Last Admin: 04/28/19 16:15 Dose: 3 ml Aspirin (Aspirin Chewable) 81 mg PO DAILY [facility] Last Admin: 04/28/19 10:10 Dose: 81 mg Diltiazem HCl (Cardizem) 30 mg PO QID [facility] Enoxaparin Sodium (Lovenox) 40 mg SC DAILY [facility] Last Admin: 04/28/19 10:10 Dose: 40 mg Ipratropium [place] (Atrovent) 0.5 mg IH RQ6 PRN PRN Reason: Shortness of Breath Methimazole (Tapazole) 5 mg PO BID [facility] Pantoprazole Sodium (Protonix Ec Tab) 20 mg PO DAILY [facility] Last Admin: 04/28/19 12:14 Dose: 20 mg Prednisone (Prednisone Tab) 40 mg PO DAILY [facility] Stop: 05/01/19 12:00 Rosuvastatin Calcium (Crestor) 20 mg PO HS [facility] Physical Exam - Constitutional Appears: Non-toxic, No Acute Distress, Older Than Stated Age - Head Exam Head Exam: ATRAUMATIC, NORMOCEPHALIC - Eye Exam Eye Exam: Normal appearance - ENT Exam ENT Exam: Mucous Membranes Moist - Neck Exam Neck exam: Negative for: Lymphadenopathy, Tenderness, Thyromegaly - Respiratory Exam Respiratory Exam: Wheezes (scattered throughout b/l), NORMAL BREATHING PATTERN. absent: Accessory Muscle Use, Rales, Rhonchi, Respiratory Distress - Cardiovascular Exam Cardiovascular Exam: REGULAR RHYTHM, +S1, +S2 - GI/Abdominal Exam GI & Abdominal Exam: Soft. absent: Distended, Firm, Guarding, Rigid, Tenderness - Extremities Exam Extremities exam: Negative for: calf tenderness, pedal edema - Neurological Exam Neurological exam: Alert, Oriented x3 - Psychiatric Exam Psychiatric exam: Normal Affect, Normal Mood - Skin Skin Exam: Dry, Warm Results - Vital Signs Recent Vital Signs: Last Vital Signs Temp 98.3 F 04/28/19 15:49 Pulse 90 04/28/19 15:49 Resp 20 04/28/19 15:49 BP 129/81 04/28/19 15:49 Pulse Ox 97 04/28/19 15:49 - Labs Result Diagrams: 04/28/19 09:01 04/28/19 09:01 Labs: Laboratory Results - last 24 hr 04/28/19 04/28/19 04/28/19 02:30 02:30 02:30 WBC 17.5 H D RBC 4.05 Hgb 12.3 Hct 37.8 MCV 93.2 D MCH 30.5 MCHC 32.7 L RDW 13.6 Plt Count 284 MPV 8.7 Neut % (Auto) 60.4 Lymph % (Auto) 30.2 [place] % (Auto) 7.1 Eos % (Auto) 1.4 Baso % (Auto) 0.9 Neut # (Auto) 10.6 H Lymph # (Auto) 5.3 H [place] # (Auto) 1.2 H Eos # (Auto) 0.3 Baso # (Auto) 0.2 PT 9.4 L INR 0.9 APTT 29.4 Sodium 139 Potassium 3.8 Chloride 102 Carbon Dioxide 29 Anion Gap 12 BUN 18 H Creatinine 1.1 Est GFR ( Amer) > 60 Est GFR (Non-Af Amer) 51 Random Glucose 101 D Calcium 9.2 Phosphorus Magnesium Total Bilirubin 0.5 AST 37 H ALT 26 Alkaline Phosphatase 109 Total Creatine Kinase CK-MB (Mass) Troponin I < 0.0120 NT-Pro-B Natriuret Pep Total Protein 7.4 Albumin 4.2 Globulin 3.1 Albumin/Globulin Ratio 1.4 Free T4 TSH 3rd Generation 0.10 L Urine Color Urine Clarity Urine pH Ur Specific [place] Urine Protein Urine Glucose (UA) Urine Ketones Urine Blood Urine Nitrate Urine Bilirubin Urine Urobilinogen Ur Leukocyte Esterase Urine WBC (Auto) Ur Squamous Epith Cells Urine Bacteria 04/28/19 04/28/19 04/28/19 05:56 09:01 09:01 WBC 14.3 H RBC 3.58 L Hgb 10.9 L Hct 33.0 L MCV 92.1 MCH 30.5 MCHC 33.1 RDW 13.7 Plt Count 242 MPV 8.2 Neut % (Auto) 60.7 Lymph % (Auto) 28.2 [place] % (Auto) 7.6 Eos % (Auto) 2.6 Baso % (Auto) 0.9 Neut # (Auto) 8.7 H Lymph # (Auto) 4.0 [place] # (Auto) 1.1 H Eos # (Auto) 0.4 Baso # (Auto) 0.1 PT INR APTT Sodium 140 Potassium 3.4 L Chloride 107 Carbon Dioxide 25 Anion Gap 12 BUN 11 Creatinine 0.8 Est GFR ( Amer) > 60 Est GFR (Non-Af Amer) > 60 Random Glucose 115 H Calcium 8.2 L Phosphorus 2.4 L Magnesium 1.5 L Total Bilirubin 0.5 AST 22 ALT 18 Alkaline Phosphatase 71 Total Creatine Kinase 57 CK-MB (Mass) 1.24 Troponin I < 0.0120 NT-Pro-B Natriuret Pep 247 Total Protein 5.8 L Albumin 3.5 Globulin 2.3 Albumin/Globulin Ratio 1.5 Free T4 TSH 3rd Generation Urine Color Straw Urine Clarity Clear Urine pH 7.0 Ur Specific [place] 1.004 Urine Protein Negative Urine Glucose (UA) Normal Urine Ketones Negative Urine Blood Negative Urine Nitrate Negative Urine Bilirubin Negative Urine Urobilinogen Normal Ur Leukocyte Esterase Neg Urine WBC (Auto) < 1 Ur Squamous Epith Cells 1 Urine Bacteria Rare 04/28/19 10:59 WBC RBC Hgb Hct MCV MCH MCHC RDW Plt Count MPV Neut % (Auto) Lymph % (Auto) [place] % (Auto) Eos % (Auto) Baso % (Auto) Neut # (Auto) Lymph # (Auto) [place] # (Auto) Eos # (Auto) Baso # (Auto) PT INR APTT Sodium Potassium Chloride Carbon Dioxide Anion Gap BUN Creatinine Est GFR ( Amer) Est GFR (Non-Af Amer) Random Glucose Calcium Phosphorus Magnesium Total Bilirubin AST ALT Alkaline Phosphatase Total Creatine Kinase CK-MB (Mass) Troponin I NT-Pro-B Natriuret Pep Total Protein Albumin Globulin Albumin/Globulin Ratio Free T4 0.92 TSH 3rd Generation Urine Color Urine Clarity Urine pH Ur Specific [place] Urine Protein Urine Glucose (UA) Urine Ketones Urine Blood Urine Nitrate Urine Bilirubin Urine Urobilinogen Ur Leukocyte Esterase Urine WBC (Auto) Ur Squamous Epith Cells Urine Bacteria Assessment & Plan - Assessment and Plan (Free Text) Plan: SVT CAD Per ED documentation, patient was found to be in SVT @180bpm by EMS. She was treated with adenosine, which caused SVT to break. previous Cardiac Cath 03/29/19: * 1. L Main: Patent * 2. LAD/Diags: Proximal to mid LAD 50% narrowing * 3. L Cx/OM: OM 50% focal narrowing * 4. RCA: Dominant and patent * 5. EF: 60%, EDP 18, No AV gradient Trop negative x2 Lipid Panel (03/28/19): Total Cholesterol 313; LDL 199; HDL 57; Triglycerides 184 Patient has known history of subclinical hyperthyroidism * recommend treatment of subclinical hyperthyroidism as this is the likely cause of the patient's palpitations/SVT * no EPS at this time until thyroid is treated. Medications: * Aspirin 81mg PO daily * Crestor 20mg PO HS * Started on Cardizem 30mg q8h Subclinical Hyperthyroidism Endocrinology Consulted TSH: 0.10; Free T4 0.92 management as per Endocrine/primary team COPD management as per primary Case discussed with Dr. Alex Dhillon PGY2 <Uzair Johnson - Last Filed: 04/28/19 22:09> Meds - Medications Medications: Current Medications Albuterol/Ipratropium (Duoneb 3 Mg/0.5 Mg (3 Ml) Ud) 3 ml INH RQ4 [facility] Last Admin: 04/28/19 19:40 Dose: 3 ml Aspirin (Aspirin Chewable) 81 mg PO DAILY [facility] Last Admin: 04/28/19 10:10 Dose: 81 mg Diltiazem HCl (Cardizem) 30 mg PO QID [facility] Last Admin: 04/28/19 21:07 Dose: 30 mg Enoxaparin Sodium (Lovenox) 40 mg SC DAILY [facility] Last Admin: 04/28/19 10:10 Dose: 40 mg Ipratropium [place] (Atrovent) 0.5 mg IH RQ6 PRN PRN Reason: Shortness of Breath Methimazole (Tapazole) 5 mg PO BID [facility] Last Admin: 04/28/19 18:39 Dose: 5 mg Pantoprazole Sodium (Protonix Ec Tab) 20 mg PO DAILY [facility] Last Admin: 04/28/19 12:14 Dose: 20 mg Prednisone (Prednisone Tab) 40 mg PO DAILY [facility] Stop: 05/01/19 12:00 Rosuvastatin Calcium (Crestor) 20 mg PO HS [facility] Last Admin: 04/28/19 21:07 Dose: 20 mg Results - Vital Signs Recent Vital Signs: Last Vital Signs Temp 98.3 F 04/28/19 15:49 Pulse 88 04/28/19 16:00 Resp 20 04/28/19 15:49 BP 129/81 04/28/19 15:49 Pulse Ox 97 04/28/19 15:49 - Labs Result Diagrams: 04/28/19 09:01 04/28/19 09:01 Labs: Laboratory Results - last 24 hr 04/28/19 04/28/19 04/28/19 02:30 02:30 02:30 WBC 17.5 H D RBC 4.05 Hgb 12.3 Hct 37.8 MCV 93.2 D MCH 30.5 MCHC 32.7 L RDW 13.6 Plt Count 284 MPV 8.7 Neut % (Auto) 60.4 Lymph % (Auto) 30.2 [place] % (Auto) 7.1 Eos % (Auto) 1.4 Baso % (Auto) 0.9 Neut # (Auto) 10.6 H Lymph # (Auto) 5.3 H [place] # (Auto) 1.2 H Eos # (Auto) 0.3 Baso # (Auto) 0.2 PT 9.4 L INR 0.9 APTT 29.4 Sodium 139 Potassium 3.8 Chloride 102 Carbon Dioxide 29 Anion Gap 12 BUN 18 H Creatinine 1.1 Est GFR ( Amer) > 60 Est GFR (Non-Af Amer) 51 Random Glucose 101 D Calcium 9.2 Phosphorus Magnesium Total Bilirubin 0.5 AST 37 H ALT 26 Alkaline Phosphatase 109 Total Creatine Kinase CK-MB (Mass) Troponin I < 0.0120 NT-Pro-B Natriuret Pep Total Protein 7.4 Albumin 4.2 Globulin 3.1 Albumin/Globulin Ratio 1.4 Free T4 TSH 3rd Generation 0.10 L Urine Color Urine Clarity Urine pH Ur Specific [place] Urine Protein Urine Glucose (UA) Urine Ketones Urine Blood Urine Nitrate Urine Bilirubin Urine Urobilinogen Ur Leukocyte Esterase Urine WBC (Auto) Ur Squamous Epith Cells Urine Bacteria 04/28/19 04/28/19 04/28/19 05:56 09:01 09:01 WBC 14.3 H RBC 3.58 L Hgb 10.9 L Hct 33.0 L MCV 92.1 MCH 30.5 MCHC 33.1 RDW 13.7 Plt Count 242 MPV 8.2 Neut % (Auto) 60.7 Lymph % (Auto) 28.2 [place] % (Auto) 7.6 Eos % (Auto) 2.6 Baso % (Auto) 0.9 Neut # (Auto) 8.7 H Lymph # (Auto) 4.0 [place] # (Auto) 1.1 H Eos # (Auto) 0.4 Baso # (Auto) 0.1 PT INR APTT Sodium 140 Potassium 3.4 L Chloride 107 Carbon Dioxide 25 Anion Gap 12 BUN 11 Creatinine 0.8 Est GFR ( Amer) > 60 Est GFR (Non-Af Amer) > 60 Random Glucose 115 H Calcium 8.2 L Phosphorus 2.4 L Magnesium 1.5 L Total Bilirubin 0.5 AST 22 ALT 18 Alkaline Phosphatase 71 Total Creatine Kinase 57 CK-MB (Mass) 1.24 Troponin I < 0.0120 NT-Pro-B Natriuret Pep 247 Total Protein 5.8 L Albumin 3.5 Globulin 2.3 Albumin/Globulin Ratio 1.5 Free T4 TSH 3rd Generation Urine Color Straw Urine Clarity Clear Urine pH 7.0 Ur Specific [place] 1.004 Urine Protein Negative Urine Glucose (UA) Normal Urine Ketones Negative Urine Blood Negative Urine Nitrate Negative Urine Bilirubin Negative Urine Urobilinogen Normal Ur Leukocyte Esterase Neg Urine WBC (Auto) < 1 Ur Squamous Epith Cells 1 Urine Bacteria Rare 04/28/19 10:59 WBC RBC Hgb Hct MCV MCH MCHC RDW Plt Count MPV Neut % (Auto) Lymph % (Auto) [place] % (Auto) Eos % (Auto) Baso % (Auto) Neut # (Auto) Lymph # (Auto) [place] # (Auto) Eos # (Auto) Baso # (Auto) PT INR APTT Sodium Potassium Chloride Carbon Dioxide Anion Gap BUN Creatinine Est GFR ( Amer) Est GFR (Non-Af Amer) Random Glucose Calcium Phosphorus Magnesium Total Bilirubin AST ALT Alkaline Phosphatase Total Creatine Kinase CK-MB (Mass) Troponin I NT-Pro-B Natriuret Pep Total Protein Albumin Globulin Albumin/Globulin Ratio Free T4 0.92 TSH 3rd Generation Urine Color Urine Clarity Urine pH Ur Specific [place] Urine Protein Urine Glucose (UA) Urine Ketones Urine Blood Urine Nitrate Urine Bilirubin Urine Urobilinogen Ur Leukocyte Esterase Urine WBC (Auto) Ur Squamous Epith Cells Urine Bacteria Assessment & Plan - Assessment and Plan (Free Text) Plan: Patient seen and evaluated personally by me. Plan of care d/w the medical device sales consultant and as documented
[2019-04-28] MEDS: methIMAzole 5 MG TAB PO SCH (18:39)
[2019-04-29] MEDS: Albuterol-Ipratrop 3 mg / 0.5 (3 ml) UD INH SCH ×4 (00:26→11:16)
[2019-04-29 01:39] LABS: CK-MB 1.31 ng/mL (0.0-3.38)
[2019-04-29 07:48] VITALS: BP 119/70; TEMP 98.6; O2SAT 98
--- NOTE | 2019-04-29 08:05 | CON ---
DATE: 04/28/2019 LOCATION: Room 656. HISTORY OF PRESENT ILLNESS: This is a 58-year-old female with known history of cardiac vasculopathy, presenting here with sudden onset of palpitations with precordial chest pain and evaluated to be in supraventricular tachycardia with a heart rate of 180 and received adenosine therapy with ongoing hemodynamic monitoring and is also being referred now for evaluation of abnormal thyroid function studies. PAST MEDICAL HISTORY: As mentioned above, history of coronary artery disease with previous coronary angiogram and cardiac test undertaken thereof. History of generalized anxiety and depression, off psychotropic medication. History of chronic obstructive lung disease with previous admissions for exacerbation of the same. SOCIAL HISTORY: The patient has a supportive family. No known substance abuse. REVIEW OF SYSTEMS: As mentioned above. Admits to generalized body weakness with episodic bouts of dizziness and lightheadedness, worse on the day of admission. No chest pain but admits to precordial tightness and supervening palpitations with progressive shortness of breath especially on exertion. Her oral intake has been variable with nausea and dyspepsia and occasional hyperdefecation. PHYSICAL EXAMINATION: GENERAL: Average-built female in no apparent distress. VITAL SIGNS: With a blood pressure of 150/90, pulse of 110 beats per minute and regular, temperature 98, respiration is 20. Height is 5 feet. Weight is 150 pounds. HEENT: Head: Normocephalic. Eyes: Anicteric with pink conjunctivae. Funduscopy not possible at this time. Ears, nose, throat otherwise normal. NECK: Supple. Thyroid gland is firm and nodular with no overt thyroid bruits or palpable thyroid nodule. No cervical adenopathy noted. HEART: Hyperdynamic precordium. S1 and S2 are rapid and regular. LUNGS: Clear to auscultation. ABDOMEN: Flat, soft with positive bowel sounds. EXTREMITIES: No peripheral edema. Pulses are +2 bilaterally. LABORATORY DATA: Her chemistry showed a BUN of 11, sodium 140, potassium 3.4, chloride 107, CO2 of 25, glucose 115 and creatinine 0.8. Her TSH is 0.10 with a free T4 of 0.92. ASSESSMENT: This is a 58-year-old female with significant cardiac vasculopathy, presenting here with sudden onset of palpitations and supervening supraventricular tachycardia and is being referred for endocrine evaluation and management. She remains clinically euthyroid and biochemically has evidence of the so-called subclinical hyperthyroidism as noted thereof. The most likely etiology will be the so-called autoimmune thyroiditis which will be borne out by subsequent hormonal and biochemical testing otherwise. PLAN OF MANAGEMENT: We will obtain a comprehensive thyroid hormonal profile with total and free T4 and TSH to be obtained tomorrow morning. We will also add thyroid-stimulating immunoglobulin which will confirm the presence of underlying Graves disease. We will also add the thyroid peroxidase antibody at this time. We will obtain serial chemistries and supplement according as needed. Moreover, we will initiate a low-dose Medrol therapy especially with underlying hemodynamic instability and give her Tapazole at 5 mg b.i.d. after meals to start today as ordered. We will titrate incrementally as indicated to optimize metabolic control. We will follow. Stephanie Downs MD
--- NOTE | 2019-04-29 08:18 | HP ---
HISTORY OF PRESENT ILLNESS: A 58-year-old female with chief complaint of shortness of breath, weakness, fatigue, tiredness, and palpitations. The patient came to the ER and found to have supraventricular arrhythmia, shortness of breath, . Advise admission. Patient has coronary artery disease status post stenting, and COPD. PHYSICAL EXAMINATION: GENERAL: The patient is awake, alert, oriented, and short of breath. VITAL SIGNS: Temperature 98, pulse 90, and blood pressure 130/80. HEENT: Within normal limits. NECK: Supple. CHEST: Symmetrical. HEART: Regular. ABDOMEN: Soft. EXTREMITIES: No edema. ASSESSMENT AND PLAN: The patient suffers from chronic obstructive pulmonary disease, cardiac arrhythmia, and coronary artery disease. The patient is to get bedrest, supportive care. Barbi Hayden MD
[2019-04-29 08:47] LABS: BASO # 0.1 K/uL (0.0-0.2); BASO % 0.4 % (0.0-2.0); HEMOGLOBIN 11.7 g/dL (11.0-16.0); LYMPH # 2.2 K/uL (1.0-4.3); LYMPH % 12.4 % (20.0-40.0); MEAN CELL VOLUME 90.6 fL (81.0-99.0); MEAN CORPUSCULAR HEMOGLOBIN 30.8 pg (27.0-31.0); MEAN PLATELET VOLUME 8.7 fL (7.2-11.7); MONO # 0.8 K/uL (0.0-0.8); MONO % 4.5 % (0.0-10.0); NEUT # 14.9 K/uL (1.8-7.0); NEUT % 82.7 % (50.0-75.0); RBC 3.79 Mil/uL (3.80-5.20); RED CELL DISTRIBUTION WIDTH 13.6 % (11.5-14.5)
[2019-04-29 09:21] LABS: LDL CHOLESTEROL 150 mg/dL (0-129)
[2019-04-29 09:25] LABS: ALB/GLOB RATIO 1.3 (1.0-2.1); ALBUMIN 3.9 g/dL (3.5-5.0); ALT/SGPT 17 U/L (9-52); AST/SGOT 18 U/L (14-36); BLOOD UREA NITROGEN 18 mg/dL (7-17); CALCIUM 10.1 mg/dl (8.6-10.4); GFR NON-AFRICAN AMERICAN > 60; HDL CHOLESTEROL 56 mg/dL (30-70)
[2019-04-29] MEDS: Pantoprazole 20 mg EC Tab PO SCH (10:07)
[2019-04-29] MEDS: methIMAzole 5 MG TAB PO SCH (10:08)
[2019-04-29] MEDS: Enoxaparin 40 mg Syringe SC SCH (10:08)
[2019-04-29 14:17] VITALS: PULSE 79
--- NOTE | 2019-04-29 14:23 | CP.PCM.PN ---
Subjective - Date & Time of Evaluation Date of Evaluation: 04/29/19 Time of Evaluation: 14:20 - Subjective Subjective: Medicine Progress Note for Dr. Hayden Patient was seen and examined at bedside. Patient reports she feels better today. Denied any palpitations. Objective - Vital Signs/Intake and Output Vital Signs (last 24 hours): Temp Pulse Resp BP Pulse Ox 98.6 F 79 20 119/70 98 04/29/19 07:02 04/29/19 07:47 04/29/19 07:02 04/29/19 07:02 04/29/19 07:02 Intake and Output: 04/29/19 04/29/19 06:59 18:59 Intake Total 500 380 Balance 500 380 - Medications Medications: Current Medications Albuterol/Ipratropium (Duoneb 3 Mg/0.5 Mg (3 Ml) Ud) 3 ml INH RQ4 [facility] Last Admin: 04/29/19 11:16 Dose: 3 ml Aspirin (Aspirin Chewable) 81 mg PO DAILY [facility] Last Admin: 04/29/19 10:07 Dose: 81 mg Diltiazem HCl (Cardizem) 30 mg PO QID [facility] Last Admin: 04/29/19 10:12 Dose: 30 mg Enoxaparin Sodium (Lovenox) 40 mg SC DAILY [facility] Last Admin: 04/29/19 10:08 Dose: Not Given Ipratropium [place] (Atrovent) 0.5 mg IH RQ6 PRN PRN Reason: Shortness of Breath Methimazole (Tapazole) 5 mg PO BID [facility] Last Admin: 04/29/19 10:08 Dose: 5 mg Pantoprazole Sodium (Protonix Ec Tab) 20 mg PO DAILY [facility] Last Admin: 04/29/19 10:07 Dose: 20 mg Prednisone (Prednisone Tab) 40 mg PO DAILY [facility] Stop: 05/01/19 12:00 Last Admin: 04/29/19 10:07 Dose: 40 mg Rosuvastatin Calcium (Crestor) 20 mg PO HS [facility] Last Admin: 04/28/19 21:07 Dose: 20 mg - Labs Labs: 04/29/19 08:36 04/29/19 08:36 PT 9.4 SECONDS (9.7-12.2) L 04/28/19 02:30 INR 0.9 04/28/19 02:30 APTT 29.4 SECONDS (21-34) 04/28/19 02:30 - Additional Findings Additional findings: - Constitutional Appears: Well, Non-toxic, No Acute Distress, Older Than Stated Age - Head Exam Head Exam: ATRAUMATIC, NORMAL INSPECTION - Eye Exam Eye Exam: EOMI, Normal appearance - ENT Exam ENT Exam: Mucous Membranes Moist - Respiratory Exam Respiratory Exam: Wheezes, NORMAL BREATHING PATTERN - Cardiovascular Exam Cardiovascular Exam: REGULAR RHYTHM, +S1, +S2 - GI/Abdominal Exam GI & Abdominal Exam: Soft, Normal Bowel Sounds. absent: Tenderness - Extremities Exam Extremities Exam: Normal Inspection - Neurological Exam Neurological Exam: Alert, Awake, Oriented x3 - Psychiatric Exam Psychiatric exam: Normal Affect and Mood - Skin Skin Exam: Normal Color Assessment and Plan - Assessment and Plan (Free Text) Plan: SVTs - RESOLVED - Medics on arrival found her to be in SVT at a rate of 180. - Patient was given adenosine and returned to a normal rate. - EKG Sinus Tachycardia - Trop Negative x2; f/u trop Subclinical Hyperthyroidism - TSH 0.10; Free T4 0.92 - due to patient's cardiac risk factor's - Hot Blaster, Dr. Johnson recommends treatment of subclinical hyperthyroidism - Endocrinology Consult: Dr. Downs --> help appreciated s/p NSTEMI/Cardiac Cath 03/29/19 - Cardiology Consult: Dr. Johnson --> help appreciated - Echocardiogram (03/29/19): The left ventricular function is normal. The left ejection fraction is within normal range. Uri-septum appears hypokinetic and mitral valve regurgitation is mild - Chest Xray: Hyperinflation suggestive for COPD and or emphysematous changes. Biapical pleural thickening with upper lobe granulomatous changes. Diffuse increased interstitial lung markings. Right midlung and left basilar atelectasis. Bilateral hilar prominence. Tortuous ectatic aorta. Cardiomegaly. - Duonebs 3ml INH RQ6H PRN - Cardiac Cath (03/29/19): 1. L Main: Patent 2. LAD/Diags: Proximal to mid LAD 50% narrowing 3. L Cx/OM: OM 50% focal narrowing 4. RCA: Dominant and patent 5. EF: 60%, EDP 18, No AV gradient Normal Non obstructive coronaries. Normal EF - Lipid Panel (03/28/19): Total Cholesterol 313; LDL 199; HDL 57; Triglycerides 184 - hA1c (4/4/19): 6.0 - proBNP 247 COPD Exacerbation/History of chronic obstructive lung disease - Chest Xray: Hyperinflation suggestive for COPD and or emphysematous changes. Biapical pleural thickening with upper lobe granulomatous changes. Diffuse increased interstitial lung markings. Right midlung and left basilar atelectasis. Bilateral hilar prominence. Tortuous ectatic aorta. Cardiomegaly. - Solumedrol 100mg IV once - Prednisone Taper - Duonebs 3ml INH RQ4H PRN - Atrovent 0.5mg IH RQ6 History of HLD - Lipid Panel (03/28/19): Total Cholesterol 313; LDL 199; HDL 57; Triglycerides 184 - hA1c (03/03/19): 6.0 History of Impaired Glucose Tolerance - hA1c (03/03/19): 6.0 - Heart Health/Moderate Carb Diet Prophylaxis DVT: Lovenox 40mg SC daily GI: not indicated Disposition: As per Dr. Hayden, patient is medically stable for discharge home. She will need to follow up: Dr. Stephanie Downs - herbicide service sales representative to follow your thyroid because it is overactive Dr. Uzair Johnson- cardiology to follow your rapid heart rate (most likely secondary to your overactive thyroid) within [address] Hayden - primary care doctor for follow up to continue monitoring your thyro id These are the medications you will be going home with, please continue with them until told otherwise. Aspirin 81 mg by mouth daily Methimazole 5mg by mouth twice a day - for your overactive thyroid Diltiazem 30mg by mouth 4 times a day - for your high heart rate Rosuvastatin 20mg by mouth at night - for your cholesterol and triglycerides Protonix 40mg by mouth daily Prednisone 20mg by mouth twice a day for 3 days, Prednisone 10mg by mouth 3 times a day for 3 days, Prednisone 20mg by mouth daily for 3 days, and Prednisone 10mg by mouth for 3 days. And resume your COPD medications DW Dr. Hayden, Jaci Caraballo DO, PGY2
--- NOTE | 2019-04-29 21:05 | PN ---
DATE: 04/29/2019 ENDOCRINOLOGY FOLLOWUP NOTE LOCATION: Room 656. SUBJECTIVE: This is a 58-year-old female with recent admission for sinus tachycardia and supervening hyperadrenergic manifestations with palpitations and precordial chest pain and has been evaluated to have subclinical hyperthyroidism as noted thereof. Her repeat thyroid studies today showed a T4 of 6.17 with a TSH of 0.15, and a free T4 of 0.91. LABORATORY DATA: Her chemistries showed a BUN of 18, sodium 136, potassium 4.3, chloride 101, CO2 of 28, glucose 120, and creatinine 0.9. ASSESSMENT: This is a 58-year-old female with subclinical hyperthyroidism and supervening palpitations and hyperadrenergic manifestations and constitutional symptoms thereof related to possible autoimmune thyroiditis as noted. PLAN OF MANAGEMENT: Would recommend for eventual discharge today and also to dosing of her medication to switch over her Tapazole from 5 mg b.i.d. to Tapazole given as 10 mg once daily as ordered. Would recommend repeat thyroid studies in 4 to 6 weeks for dose adjustments accordingly. The thyroid antibodies are still pending which will confirm and/or negate the presence of underlying thyroid autoimmunity. We will obtain serial chemistries accordingly. Stephanie Downs MD
== END 2019-04-29 15:45 | disposition home or self-care (01) | DRG 138 ==
LOC: C.ER 01:38 → C.9E 03:44 → C.6T 06:36
PROVIDERS: ADMIT Internal Medicine Pulmonary Disease; ATTEND Internal Medicine Pulmonary Disease
DX: I47.1 Supraventricular tachycardia (principal); E05.90 Thyrotoxicosis, unspecified without thyrotoxic crisis or storm; J98.11 Atelectasis; J43.9 Emphysema, unspecified; I25.10 Atherosclerotic heart disease of native coronary artery without angina pectoris; I10 Essential (primary) hypertension; I34.0 Nonrheumatic mitral (valve) insufficiency; E78.5 Hyperlipidemia, unspecified; F41.1 Generalized anxiety disorder; Z87.891 Personal history of nicotine dependence; Z95.5 Presence of coronary angioplasty implant and graft